=== PATIENT | male | born 1950 | race Caucasian/White ===

== ENCOUNTER 2018-07-20 11:12 | Emergency (ER) | payer OTHER, BC, MEDICARE ==
[~2018-07-20] VITALS: Ht 182.9 cm; Wt 88.9 kg
--- OUTSIDE RECORDS SUMMARY | ~2018-07-20 | XMS | Clinical Summary ---
Demographics + + + | Address | [address] | | | [place] [address] | + + + | Home Phone | | + + + | Preferred Language | Unknown | + + + | Marital Status | | + + + | Episcopal Affiliation | 1013 | + + + | Race | Unknown | + + + | Ethnic Group | Unknown | + + + Author + + + | Author | [facility] | + + + | Organization | [facility] | + + + | Address | Unknown | + + + | Phone | Unavailable | + + + Support + + +---------+ + | Name | Relationship | Address | Phone | + + +---------+ + | Lizz Mendoza | ECON | Unknown | | + + +---------+ + Care Team Providers + +------+ + | Care Motor Runner Name | Role | Phone | + +------+ + | Kade Bermudez MD | PP | Unavailable | + +------+ + Allergies No Known Allergies Current Medications + + +-------+---------+------+------+-------+ | Prescription | Sig. | Disp. | Refills | Star | End | Statu | | | | | | t | Date | s | | | | | | Date | | | + + +-------+---------+------+------+-------+ | pramipexole | Take 2 mg by mouth | | | | | Activ | | (MIRAPEX) 1 MG | nightly. | | | | | e | | tablet | | | | | | | + + +-------+---------+------+------+-------+ | buPROPion | Take 300 mg by mouth | | | | | Activ | | (WELLBUTRIN XL) 150 | every morning. | | | | | e | | MG 24 hr tablet | | | | | | | + + +-------+---------+------+------+-------+ | oxycodone (OXY-IR) | Take 5 mg by mouth | | | | | Activ | | 5 MG capsule | every 6 (six) hours | | | | | e | | | as needed. | | | | | | + + +-------+---------+------+------+-------+ Active Problems + + + | Problem | Noted Date | + + + | Headache, intractable | 09/26/2015 | + + + Social History + +-------+ +--------+------+ | Tobacco Use | Types | Packs/Day | Years | Date | | | | | Used | | + +-------+ +--------+------+ | Former Smoker | | | | | + +-------+ +--------+------+ + + | Tobacco Cessation: Counseling Given: No | + + + + +---------+ + | Alcohol Use | Drinks/We | oz/Week | Comments | | | ek | | | + + +---------+ + | No | | | | + + +---------+ + + + + | Sex Assigned at | Date Recorded | | | | + + + | Not on file | | + + + Last Filed Vital Signs + + + + | Vital Sign | Reading | Time Taken | + + + + | Blood Pressure | 105/65 | 09/26/2015 12:00 PM PST | + + + + | Pulse | 68 | 09/26/2015 12:00 PM PST | + + + + | Temperature | 36.2 C (97.1 F) | 09/26/2015 12:00 PM PST | + + + + | Respiratory Rate | 18 | 09/26/2015 12:00 PM PST | + + + + | Oxygen Saturation | 94% | 09/26/2015 12:00 PM PST | + + + + | Inhaled Oxygen | - | - | | Concentration | | | + + + + | Weight | 92.1 kg (203 lb) | 09/26/2015 12:02 PM PST | + + + + | Height | 182.9 cm (6') | 09/26/2015 5:08 AM PST | + + + + | Body Mass Index | 27.53 | 09/26/2015 12:02 PM PST | + + + + Plan of Treatment Not on file Results Not on filefrom Last 3 Months Insurance + +--------+ +------+-------+ + | Payer | Benefi | Subscriber | Type | Phone | Address | | | t Plan | ID | | | | | | / | | | | | | | Group | | | | | + +--------+ +------+-------+ + | MEDICARE | MEDICA | [id number] | | | [address] | | | RE | | | | [place] [address] | | | IP-OP | | | | | + +--------+ +------+-------+ + | PREMERA | PREMER | [id number] | | | [address] [address] | | | A BLUE | 8 | | | [place], [place] | | | CARD | | | | [phone] | + +--------+ +------+-------+ + + +--------+ +--------+ + + | Guarantor Name | Accoun | Relation to | Date | Phone | Billing Address | | | t Type | Patient | of | | | | | | | | | | + +--------+ +--------+ + + | MAL MENDOZA | Person | Self | [birth year] | Home: | [address] | | | [place] | | 1 | [phone] | [place] | | | faith | | | [phone] | + +--------+ +--------+ + +"
--- OUTSIDE RECORDS SUMMARY | ~2018-07-20 | XMS | Clinical Summary ---
Demographics + + + | Address | [address] | | | [place] [address] | + + + | Home Phone | | + + + | Preferred Language | Unknown | + + + | Marital Status | | + + + | Sabianism Affiliation | 1013 | + + + | Race | Unknown | + + + | Ethnic Group | Unknown | + + + Author + + + | Author | [facility] | | | and [place] | + + + | Organization | [facility] | | | and [place] | + + + | Address | Unknown | + + + | Phone | Unavailable | + + + Support + + + + + | Name | Relationship | Address | Phone | + + + + + | Lizz Mendoza | ECON | [address] | | | | | [place] | | | | | [address] | | + + + + + Care Team Providers + +------+ + | Care Superintendent Construction Name | Role | Phone | + +------+ + | Kade Bermudez MD | PP | | + +------+ + Allergies No Known Allergies Current Medications + + +---------+---------+------+------+-------+ | Prescription | Sig. | Disp. | Refills | Star | End | Statu | | | | | | t | Date | s | | | | | | Date | | | + + +---------+---------+------+------+-------+ | pramipexole | Take 2 mg by mouth | | | | | Activ | | (MIRAPEX) 1 MG | nightly. | | | | | e | | tablet | | | | | | | + + +---------+---------+------+------+-------+ | oxyCODONE 10 MG | Take 1-2 tablets by | 90 | 0 | 09/2 | | Activ | | TABSIndications: S/P | mouth every 4 hours | tablet | | 7/20 | | e | | lumbar fusion | as needed. | | | 16 | | | + + +---------+---------+------+------+-------+ | | Take 3 capsules by | | | | | Activ | | Nszutriwqp-WQJ-Pykk- | mouth Daily. | | | | | e | | Codeine (BUTALBITAL | | | | | | | | COMPOUND/CODEINE PO) | | | | | | | + + +---------+---------+------+------+-------+ | DULoxetine | Take 1 capsule by | 30 | 2 | 11/1 | | Activ | | (CYMBALTA) [address] | mouth daily (after | capsule | | 020 | | e | | capsule | dinner). | | | 16 | | | + + +---------+---------+------+------+-------+ Active Problems + + + | Problem | Noted Date | + + + | Chronic pain disorder | 06/19/2016 | + + + | Abnormal resting ECG findings | 03/06/2016 | + + + | Flat back syndrome | 12/16/2015 | + + + | Lumbar disc herniation with radiculopathy | 04/06/2015 | + + + | Cervical spondylosis with myelopathy | 12/23/2012 | + + + | Spondylolisthesis of cervical region | 12/16/2012 | + + + | S/P lumbar fusion | 12/16/2012 | + + + | Chronic neck pain | 12/16/2012 | + + + [...] | 6 | + + + + Family History [...] | | + + +---------+ + | Yes | 3 Cans | 1.8 | | | | of beer | | | + + +---------+ + + + + | Sex Assigned at | Date Recorded | | | | + + + | Not on file | | + + + Last Filed Vital Signs + + + + | Vital Sign | Reading | Time Taken | + + + + | Blood Pressure | 127/80 | 12/18/2016830 PDT | + + + + | Pulse | 56 | 12/18/2016830 PDT | + + + + | Temperature | 36.2 C (97.2 F) | 03/21/201632 PDT | + + + + | Respiratory Rate | 20 | 04/03/2016958 PDT | + + + + | Oxygen Saturation | 92% | 03/09/2016 1600 PDT | + + + + | Inhaled Oxygen | - | - | | Concentration | | | + + + + | Weight | 87.5 kg (193 lb) | 12/18/2016830 PDT | + + + + | Height | 180.3 cm (5' 11") | 12/18/2016830 PDT | + + + + | Body Mass Index | 26.92 | 12/18/2016 0831 PDT | + + + + Plan of [...] | Vaccine: | | | | | Pneumococcal 65+ | 6 | | | | Low/Medium Risk (1 | | | | | of 2 - PCV13) | | | | + + + + + | Vaccine: Influenza | | | | | (#1) | 8 | | | + + + + + Implants + +------+--------+ +--------+--------+--------+ | Implanted | Type | Area | Manufacture | Device | Expira | Model | | | | | r | | tion | / | | | | | | Identi | Date | Serial | | | | | | fier | | / Lot | + +------+--------+ +--------+--------+--------+ | Putty Chaffee 10cc Dbm - | | Left: | MEDTRONIC - | | 10/06/ | [id number] | | [id number]: Qty: 1 | | Spine | MEDT | | 2019 | | | on 03/06/2016 by Domingo Carlson | | Lumbar | | | | /[id number] | | MD Mariel | | | | | | 5-035 | | | | | | | | / | + +------+--------+ +--------+--------+--------+ | Screw Polyax Precept 6.5x50 - | | Left: | NUVASIVE - | | | [id number] | | [id number]: Qty: 2 | | Spine | NVSV | | | 0A / / | | on 03/06/2016 by Domingo Carlson | | Lumbar | | | | | | MD Mariel | | | | | | | + +------+--------+ +--------+--------+--------+ | Screw Polyax Prcpt 7.5x50mm - | | Left: | NUVASIVE - | | | [id number] | | [id number]: Qty: 6 | | Spine | NVSV | | | 0A / / | | on 03/06/2016 by Domingo Carlson | | Lumbar | | | | | | MD Mariel | | | | | | | + +------+--------+ +--------+--------+--------+ | Graft Infuse Bone Kit Xs - | | Left: | SOFAMOR | | 04/16/ | [id number] | | [id number]: Qty: 1 on | | Spine | DANEK - DIV | | 2017 | 0 / | | 03/06/2016 by Domingo Carlson, | | Lumbar | MEDTRONIC | | | /[id number] | | MD | | | - SFDK | | | 29AAM | + +------+--------+ +--------+--------+--------+ | [facility]cc - | | Left: | MEDTRONIC - | | 09/12/ | [id number] | | [id number]: Qty: 1 | | Spine | MEDT | | 2020 | | | on 03/06/2016 by Domingo Carlson | | Lumbar | | | | /[id number] | | MD Mariel | | | | | | 9-009 | | | | | | | | / | + +------+--------+ +--------+--------+--------+ | Imp Spn Spcr Gina [id number] | | Left: | NUVASIVE - | | | [id number] | | 20d - [id number]: | | Spine | NVSV | | | 5 / / | | Qty: 1 on 03/06/2016 by Robyn, | | Lumbar | | | | | | Domingo Floyd MD | | | | | | | + +------+--------+ +--------+--------+--------+ | Screw Marta Gina Xlf 6.5x50mm - | | Left: | NUVASIVE - | | | [id number] | | [id number]: Qty: 1 | | Spine | NVSV | | | 0 / / | | on 03/06/2016 by Domingo Carlson | | Lumbar | | | | | | MD Mariel | | | | | | | + +------+--------+ +--------+--------+--------+ | Tlif Oblique [id number] 12deg | | Left: | NUVASIVE - | | | [id number] | | - [id number]: Qty: 1 | | Spine | NVSV | | | 2 / / | | on 03/06/2016 by Domingo Carlson | | Lumbar | | | | | | MD Mariel | | | | | | | + +------+--------+ +--------+--------+--------+ | Juvenal Ti Prebent Lordtc 120mm - | | Left: | NUVASIVE - | | | [id number] | | [id number]: Qty: 2 | | Spine | NVSV | | | 0 / / | | on 03/06/2016 by Domingo Carlson | | Lumbar | | | | | | MD Mariel | | | | | | | + +------+--------+ +--------+--------+--------+ | Screw Set - | | Left: | NUVASIVE - | | | [id number] | | [id number]: Qty: 10 | | Spine | NVSV | | | 0 / / | | on 03/06/2016 by Domingo Carlson | | Lumbar | | | | | | MD Mariel | | | | | | | + +------+--------+ +--------+--------+--------+ | Screw Prcpt 8.5x45mm - | | Left: | NUVASIVE - | | | [id number] | | [id number]: Qty: 2 on | | Spine | NVSV | | | 5A / / | | 03/06/2016 by Domingo Carlson, | | Lumbar | | | | | | MD | | | | | | | + +------+--------+ +--------+--------+--------+ Results Not on filefrom Last 3 Months Insurance + +--------+ +--------+ +---------+ | Payer | Benefi | Subscriber | Type | Phone | Address | | | t Plan | ID | | | | | | / | | | | | | | Group | | | | | + +--------+ +--------+ +---------+ | BCBS | BCBS | [id number] | PPO | | | | | OUT OF | 8 | | | | | | STATE | | | | | | | PPO | | | | | + +--------+ +--------+ +---------+ | MEDICARE | MEDICA | [id number] | Medica | +1-- | | | | RE | | re | [phone] | | | | PART A | | | | | | | AND B | | | | | + +--------+ +--------+ +---------+ | REGENCE | REGENC | [id number] | PPO | [phone] | | | | E BCBS | 8 | | [phone] | | | | [place] | | | | | | | PPO | | | | | + +--------+ +--------+ +---------+ + +--------+ +--------+ + + | Guarantor Name | Accoun | Relation to | Date | Phone | Billing Address | | | t Type | Patient | of | | | | | | | | | | + +--------+ +--------+ + + | SHEELA MENDOZA | Person | Self [birth year] | Home: | [address] | | | [place] | | 1949 | [phone] | [place] | | | faith | | | [phone] | + +--------+ +--------+ + +
--- OUTSIDE RECORDS SUMMARY | ~2018-07-20 | XMS | Clinical Summary ---
Demographics + + + | Address | [address] | | | [place] [address] | + + + | Home Phone | | + + + | Preferred Language | Unknown | + + + | Marital Status | | + + + | Mormonism Affiliation | 1013 | + + + | Race | Unknown | + + + | Ethnic Group | Unknown | + + + Author + + + | Author | [facility] | + + + | Organization | [facility] | + + + | Address | Unknown | + + + | Phone | Unavailable | + + + Support + + +---------+ + | Name | Relationship | Address | Phone | + + +---------+ + | Lizz Mendoza | ECON | Unknown | | + + +---------+ + Care Team Providers + +------+ + | Care Assistant Community Director Name | Role | Phone | [...] +------+-------+ + | MEDICARE | MEDICA | [id number] | | | [address] | | | RE | | | | [place] [address] | | | IP-OP | | | | | + +--------+ +------+-------+ + | PREMERA | PREMER | [id number] | | | [address] [address] | | | A BLUE | 8 | | | [place], [place] | | | CARD | | | | [phone] | + +--------+ +------+-------+ + + +--------+ [...] | | | faith | | | [phone] | [phone] | + +--------+ +--------+ + +"
--- OUTSIDE RECORDS SUMMARY | ~2018-07-20 | XMS | Clinical Summary ---
Demographics + + + | Address | [address] | | | [place] [address] | + + + | Home Phone [...] | Author | [facility] | | | and [place] | + + + | Organization | [facility] | | | and [place] | + + + | Address | Unknown | + + + | Phone | Unavailable | + + + Support + + + + + | Name | Relationship | Address | Phone | + + + + + | Lizz Mendoza | ECON | [address] | | | | | [place] | | | | | [phone] | | + + + + + Care Team Providers + +------+ + | Care Rouge Mixer Name | Role | Phone | + [...] | | | | Activ | | Ssuaxjqudd-RWI-Eyyt- | mouth Daily. | | | | [...] Lot | + +------+--------+ +--------+--------+--------+ | Putty Benson 10cc Dbm - | | Left: | MEDTRONIC - | | 10/06/ | [id number] | | [id number]: Qty: 1 | | Spine | MEDT | | 2019 | | | on 03/06/2016 by Domingo aCrlson | | Lumbar | | | | /[id number] | | MD Mariel | | | | | | 5-035 | | | | | | | | / | + +------+--------+ +--------+--------+--------+ | Screw Polyax Precept 6.5x50 - | | Left: | NUVASIVE - | | | [id number] | | [id number]: Qty: 2 | | Spine | NVSV | | | 0A / / | | on 03/06/2016 by Domingo Carlson | | Lumbar | | | | | | MD Mariel | | | | | | | + +------+--------+ +--------+--------+--------+ | Screw Polyax Prcpt 7.5x50mm - | | Left: | NUVASIVE - | | | [id number] | | [id number]: Qty: 6 | | Spine | NVSV | | | 0A / / | | on 03/06/2016 by Domingo Carlson | | Lumbar | | | | | | MD Mariel | | | | | | | + +------+--------+ +--------+--------+--------+ | Graft Infuse Bone Kit Xs - | | Left: | SOFAMOR | | 04/16/ | [id number] | | [id number]: Qty: 1 on | | Spine | DANEK - DIV | | 2017 | 0 / | | 03/06/2016 by Domingo Carlson, | | Lumbar | MEDTRONIC | | | /[id number] | | MD | | | - SFDK | | | 29AAM | + +------+--------+ +--------+--------+--------+ | Algrft [facility] 1-10 30cc - | | Left: | MEDTRONIC - | | 09/12/ | [id number] | | [id number]: Qty: 1 | | Spine | MEDT | | 2020 | | | on 03/06/2016 by Domingo Carlson | | Lumbar | | | | /[id number] | | MD Mariel | | | | | | 9-009 | | | | | | | | / | + +------+--------+ +--------+--------+--------+ | Imp Spn Spcr Gina [id number] | | Left: | NUVASIVE - | | | [id number] | | 20d - [id number]: | | Spine | NVSV | | | 5 / / | | Qty: 1 on 03/06/2016 by Robyn, | | Lumbar | | | | | | Domingo Floyd MD | | | | | | | + +------+--------+ +--------+--------+--------+ | Screw Marta Gina Xlf 6.5x50mm - | | Left: | NUVASIVE - | | | [id number] | | [id number]: Qty: 1 | | Spine | NVSV | | | 0 / / | | on 03/06/2016 by Domingo Carlson | | Lumbar | | | | | | MD Mariel | | | | | | | + +------+--------+ +--------+--------+--------+ | Tlif Oblique [id number] 12deg | | Left: | NUVASIVE - | | | [id number] | | - [id number]: Qty: 1 | | Spine | NVSV | | | 2 / / | | on 03/06/2016 by Domingo Carlson | | Lumbar | | | | | | MD Mariel | | | | | | | + +------+--------+ +--------+--------+--------+ | Juvenal Ti Prebent Lordtc 120mm - | | Left: | NUVASIVE - | | | [id number] | | [id number]: Qty: 2 | | Spine | NVSV | | | 0 / / | | on 03/06/2016 by Domingo Carlson | | Lumbar | | | | | | MD Mariel | | | | | | | + +------+--------+ +--------+--------+--------+ | Screw Set - | | Left: | NUVASIVE - | | | [id number] | | [id number]: Qty: 10 | | Spine | NVSV | | | 0 / / | | on 03/06/2016 by Domingo Carlson | | Lumbar | | | | | | MD Mariel | | | | | | | + +------+--------+ +--------+--------+--------+ | Screw Prcpt 8.5x45mm - | | Left: | NUVASIVE - | | | [id number] | | [id number]: Qty: 2 on | | Spine | [...] +--------+ +---------+ | BCBS | BCBS | [id number] | PPO | | | | | OUT OF | 8 | | | | | | STATE | | | | | | | PPO | | | | | + +--------+ +--------+ +---------+ | MEDICARE | MEDICA | [id number] | Medica | +1-- | | | | RE | | re | [phone] | | | | PART A | | | | | | | AND B | | | | | + +--------+ +--------+ +---------+ | REGENCE | REGENC | [id number] | PPO | [phone] | | | [...] | | al/[place] | | 1949 | [phone] | [place] | | | faith | | | [phone] | [phone] | + +--------+ +--------+ + +
[~2018-07-20 11:12] MED LIST: COLACE100 MG PO; CYCLOBENZAPRINE10 MG PO; CYCLOBENZAPRINE5 MG PO; DILAUDID2 MG PO; DULOXETINE HCL60 MG PO; HYDROCODON-ACE1 EA13 PO; MECLIZINE HCL25 MG PO; NEURONTIN300 MG PO; NORCO 10-325 T1 EACH PO; NORCO 5-325 TA1 EACH PO; OXYCODONE HCL10 MG PO; OXYCODONE HCL5 MG PO; PIROXICAM20 MG PO; PRAMIPEXOLE DIHY1 MG PO; PREDNISONE5 MG PO; PROPRANOLOL HCL20 MG PO; REQUIP4 MG PO; ROPINIROLE HCL12 MG PO; SERTRALINE HCL100 MG PO; TRANXENE T-TAB7.5 MG PO; TRAZODONE HCL50 MG PO; TYLENOL325 MG PO; ZOFRAN4 MG PO
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
== END 2018-07-20 13:41 | disposition home or self-care (01) ==
LOC: ED 11:12
DX: S40.011A Contusion of right shoulder, initial encounter (principal); V49.9XXA Car occupant (driver) (passenger) injured in unspecified traffic accident, initial encounter; G43.909 Migraine, unspecified, not intractable, without status migrainosus; Z79.891 Long term (current) use of opiate analgesic; Z79.899 Other long term (current) drug therapy
CPT/HCPCS: 73000; 73030; 99283

== ENCOUNTER 2019-08-29 14:47 | Emergency (ER) | payer BC, MEDICARE ==
[~2019-08-29] VITALS: Ht 177.8 cm; Wt 88.5 kg
--- OUTSIDE RECORDS SUMMARY | ~2019-08-29 | XMS | Encounter Summary ---
Demographics + + + | Address | [address] | | | [place] [address] | + + + | Home Phone | | + + + | Preferred Language | Unknown | + + + | Marital Status | | + + + | Bahai Affiliation | 1013 | + + + | Race | Unknown | + + + | Ethnic Group | Unknown | + + + Author + + + | Author | [facility] | | | and [place] | + + + | Organization | [facility] | | | and [place] | + + + | Address | Unknown | + + + | Phone | Unavailable | + + + Support + + +---------+ + | Name | Relationship | Address | Phone | + + +---------+ + | Lizz Mendoza | ECON | Unknown | | + + +---------+ + Care Team Providers + +------+ + | Care Tech Intern Name | Role | Phone | + +------+ + | Kade Bermudez MD | PCP | | + +------+ + Encounter Details +--------+ + + + + | Date | Type | Department | Care Team | Description | +--------+ + + + + | 03/17/ | [facility] | [facility] | Sawyer Petersen | Status post cervical | | 2012 | Encounter | MED CTR XRAY [address] | [address], [address] | spinal fusion | | | | [address] [place] | [place] | | | | | [place] [address] | [address] | | | | | [phone] | | | | | | | | +--------+ + + + + Social History + +-------+ +--------+ + | Tobacco Use | Types | Packs/Day | Years | Date | | | | | Used | | + +-------+ +--------+ + | Former Smoker | | 3 | | Quit: 06/12/1985 | + +-------+ +--------+ + + +---+---+ + | Smokeless Tobacco: | | | Quit: | | Former User | | | 06/12/19 | | | | | 85 | + +---+---+ + + + +---------+ + | Alcohol Use | Drinks/Week | oz/Week | Comments | + + +---------+ + | Yes | 3 Cans of beer | 3.0 | | + + +---------+ + + + + | Sex Assigned at | Date Recorded | | | | + + + | Not on file | | + + + + + + + | Job Start Date | Occupation | Industry | + + + + | Not on file | Not on file | Not on file | + + + + + + + + | Travel History | Travel Start | Travel End | + + + + + + | No recent travel history available. | + + documented as of this encounter Medications at Time of Discharge + + + +---------+ + + | Medication | Sig | Dispensed | Refills | Start | End Date | | | | | | Date | | + + + +---------+ + + | clorazepate | Take 7.5 mg by mouth | | 0 | 01/09/20 | | | (TRANXENE-T) 7.5 mg | every 6 hours as | | | 13 | 6 | | tablet | needed. | | | | | + + + +---------+ + + | | Take 1-2 tablets by | 30 | 0 | 01/14/20 | | | oxyCODONE-acetaminop | mouth EVERY 4 TO 6 | tablet | | 13 | 6 | | hen (PERCOCET) 5-325 | HOURS NEEDED. | | | | | | mg per tablet | | | | | | + + + +---------+ + + | piroxicam | | | 0 | 11/26/19 | | | (FELDENE) 20 MG | | | | 13 | 6 | | capsule | | | | | | + + + +---------+ + + | rOPINIRole | Take 4 mg by mouth | | 0 | 12/20/19 | | | (REQUIP) 4 mg tablet | At bedtime. | | | 13 | 3 | + + + +---------+ + + | SERTRALINE HCL PO | Take 200 mg by mouth | | 0 | | | | | Daily. | | | | 6 | + + + +---------+ + + documented as of this encounter Plan of Treatment Not on filedocumented as of this encounter Procedures + +--------+ + + + | Procedure Name | Priori | Date/Time | Associated Diagnosis | Comments | | | ty | | | | + +--------+ + + + | XR CERVICAL SPINE 2 | Routin | 03/17/2013 | Status post | Results for this | | OR 3 VIEWS | e | 11:36 AM | cervical spinal | procedure are in the | | | | PDT | fusion | results section. | + +--------+ + + + documented in this encounter Results XR Cervical Spine 3 Vws or Less (03/17/2013 11:36 AM PDT) + + | Specimen | + + | | + + + + + | Narrative | Performed At | + + + | [facility] | [place] | | Department [address] [facility] | [facility] | | [ rep [address]] [ rep [facility] | | [facility]] Signed | - IMAGING | | | | | Patient Name: MAL MENDOZA Physician: | | | MILI.[id number] : 1950 Age: 63 Sex: M Unit #: [id number] | | | Exam Date: 03/17/13 [place] [facility] [place] | | Report #: [id number] Page: | | | %(RAD)RES..mtdd.print.filter("pg") of %(RAD) | | | RES..mtdd.print.filter("tpg") | | | | | | Accession Number: [id number] | | | CERVICAL SPINE CLINICAL HISTORY: POSTOP FUSION. | | | FINDINGS: Frontal and lateral views of the cervical | | | spine are compared to 01/08/2013. An anterior compression plate | | | extends from C3 to C7. Screws are present into each vertebral body | | | and interbody spacers are present in each interspace. Hardware | | | position is unchanged from the immediate postoperative study. | | | Alignment is normally maintained. There are no other bony | | | abnormalities. Adjacent soft tissues are normal. | | | IMPRESSION: 1. STABLE C3 TO C7 ANTERIOR CERVICAL DISKECTOMY | | | AND FUSION CHANGES. Dictated Date/Time: 03/17/2013 | | | 11:36 Transcribed Date/Time: 03/17/2013 11:48 | | | Plater Hot Dip: <<Signature on File>> | | | | | | Ruddy Hoang MD03/17/13 1527 <Electronically signed by | | | Ruddy Hoang MD> Ruddy Hoang MD 03/17/13 | | | 1136 Plater Hot Dip: Jack Aqihbfzqvwjsi82/01/13 1148 | | | [place] MD | | + + + + + + + + | Performing | Address | City/State/Zipcode | Phone Number | | Organization | | | | + + + + + | [facility] | [address] | [place] | [phone] | | [facility] | | [address] | | | - IMAGING | | | | + + + + + documented in this encounter Visit Diagnoses + + | Diagnosis | + + | Status post cervical spinal fusion Arthrodesis status | + + documented in this encounter
--- OUTSIDE RECORDS SUMMARY | ~2019-08-29 | XMS | Encounter Summary ---
Demographics + + + | Address | [address] | | | [place] [address] | + + + | Home Phone | | + + + | Preferred Language | Unknown | + + + | Marital Status | | + + + | Scientology Affiliation | 1013 | + + + | Race | Unknown | + + + | Ethnic Group | Unknown | + + + Author + + + | Author | [facility] | | | and [place] | + + + | Organization | [facility] | | | and [place] | [...] Team Providers + +------+ + | Care Beauty Shop Manager Name | Role | Phone | + +------+ + | Kade Bermudez MD | PCP | | + +------+ + Encounter Details +--------+ + + + + | Date | Type | Department | Care Team | Description | +--------+ + + + + | 12/18/ | [facility] | [facility] | Domingo Carlson MD | Chronic pain | | 2017 | Encounter | MED CTR XRAY [address] | [address] | disorder; S/P lumbar | | | | [place] | [place] [address] | fusion; S/P | | | | [place] [address] | [phone] | cervical spinal | | | | [phone] | | fusion | +--------+ + + + + Social History + +-------+ +--------+ + | Tobacco Use | Types | Packs/Day | Years | Date | | | | | Used | | + +-------+ +--------+ + | Former Smoker | | 3 | | Quit: 06/12/1985 | + +-------+ +--------+ + + +---+---+---+ | Smokeless Tobacco: | | | | | Never Used | | | | + +---+---+---+ + + +---------+ + | Alcohol Use [...] + + documented as of this encounter Functional Status + + + + | Functional Status | Response | Date of Assessment | + + + + | Are you deaf or do you have serious | No | 03/09/2016 | | difficulty hearing? | | | + + + + | Are you blind or do you have serious | No | 03/09/2016 | | difficulty seeing, even when wearing | | | | glasses? | | | + + + + | Do you have serious difficulty walking or | No | 03/09/2016 | | climbing stairs? (5 years old or older) | | | + + + + | Do you have difficulty dressing or bathing? | No | 03/09/2016 | | (5 years old or older) | | | + + + + | Because of a physical, mental, or emotional | No | 03/09/2016 | | condition, do you have difficulty doing | | | | errands alone such as visiting a doctor's | | | | office or shopping? [15 years old or | | | | older)] | | | + + + + + + + + | Cognitive Status | Response | Date of Assessment | + + + + | Because of a physical, mental, or emotional | No | 03/09/2016 | | condition, do you have serious difficulty | | | | concentrating, remembering, or making | | | | decisions? (5 years old or older) | | | + + + + documented as of this encounter Medications at Time of Discharge + + + +---------+ + + | Medication | Sig | Dispensed | Refills | Start | End Date | | | | | | Date | | + + + +---------+ + + | | Take 3 capsules by | | 0 | | | | [id number] | mouth Daily. | | | | | | Codeine (BUTALBITAL | | | | | | | COMPOUND/CODEINE PO) | | | | | | + + + +---------+ + + | DULoxetine | Take 1 capsule by | 30 | 2 | 07/27/20 | | | (CYMBALTA) [address] | mouth daily (after | capsule | | 16 | | | capsule | dinner). | | | | | + + + +---------+ + + | oxyCODONE 10 MG | Take 1-2 tablets by | 90 | 0 | 06/13/20 | | | TABSIndications: S/P | mouth every 4 hours | tablet | | 16 | | | lumbar fusion | as needed. | | | | | + + + +---------+ + + | pramipexole | Take 2 mg by mouth | | 0 | | | | (MIRAPEX) 1 MG | nightly. | | | | | | tablet | | | | | | + + + +---------+ + + documented as of this encounter Plan of Treatment Not on filedocumented as of this encounter Procedures + +--------+ + + + | Procedure Name | Priori | Date/Time | Associated Diagnosis | Comments | | | ty | | | | + +--------+ + + + | XR LUMBAR SPINE 2 OR | Routin | 12/18/2016 | Chronic pain | Results for this | | 3 VW | e | 8:15 AM | disorder S/P lumbar | procedure are in the | | | | PDT | fusion S/P | results section. | | | | | cervical spinal | | | | | | fusion | | + +--------+ + + + documented in this encounter Results XR Lumbar Spine 2 or 3 Vw (12/18/2016 8:15 AM PDT) + + | Specimen | + + | | + + + + + | Narrative | Performed At | + + + | CLINICAL INFORMATION: Postoperative follow-up COMPARISON: | [facility] | | 06/19/2016 and 04/03/2016. FINDINGS: AP and lateral views of [facility] | | the lumbosacral spine. Posterior screw and sonia fusion changes at [facility] | | L2-S1 without evidence of hardware complication. Intervertebral disc | - IMAGING | | spacers are in place. A transverse vertebral body screw is noted at | | | L2. Number of lumbar-type vertebrae: 5 Alignment: Unchanged | | | minimal retrolisthesis of L2 on L3. Otherwise normal alignment. | | | Vertebral bodies: Normal in height. No vertebral fracture. Disk | | | spaces: Moderate intervertebral disc height loss at L1-2 with large | | | osteophyte formation. Soft tissues: Normal. IMPRESSION - | | | 1. Posterior fusion changes at L2-S1 without evidence of hardware | | | complication. 2. Moderate degenerative disc disease at L1-2. | | | Dictated and Signed by: Morgan Ponce MD Electronically signed: | | | 12/18/2016 10:17 AM | | + + + + + | Procedure Note | + + | Venancio Cody Results In - 12/18/2016 10:20 AM PDT | | CLINICAL INFORMATION: Postoperative follow-up | | | | COMPARISON: 06/19/2016 and 04/03/2016. | | | | FINDINGS: | | AP and lateral views of the lumbosacral spine. Posterior screw and sonia fusion | | changes at L2-S1 without evidence of hardware complication. Intervertebral disc | | spacers are in place. A transverse vertebral body screw is noted at L2. | | | | Number of lumbar-type vertebrae: 5 | | | | Alignment: Unchanged minimal retrolisthesis of L2 on L3. Otherwise normal | | alignment. | | | | Vertebral bodies: Normal in height. No vertebral fracture. | | | | Disk spaces: Moderate intervertebral disc height loss at L1-2 with large | | osteophyte formation. | | | | Soft tissues: Normal. | | | | | | IMPRESSION - | | 1. Posterior fusion changes at L2-S1 without evidence of hardware complication. | | 2. Moderate degenerative disc disease at L1-2. | | | | Dictated and Signed by: Morgan Ponce MD | | Electronically signed: 12/18/2016 10:17 AM | + + + + + + + | Performing | Address | City/State/Zipcode | Phone Number | | Organization | | | | + + + + + | [facility] | [address] | [place] | [phone] | | [facility] | | [address] | | | - IMAGING | | | | + + + + + documented in this encounter Visit Diagnoses + + | Diagnosis | + + | Chronic pain disorder Chronic pain syndrome | + + | S/P lumbar fusion Arthrodesis status | + + | S/P cervical spinal fusion Arthrodesis status | + + documented in this encounter"
--- OUTSIDE RECORDS SUMMARY | ~2019-08-29 | XMS | Encounter Summary ---
Demographics + + + | Address | [address] | | | [place] [address] | + + + | Home Phone | | + + + | Preferred Language | Unknown | + + + | Marital Status | | + + + | Bahai Affiliation | 1013 | + + + | Race | Unknown | + + + | Ethnic Group | Unknown | + + + Author + + + | Author | [facility] | | | and [place] | + + + | Organization | [facility] | | | and [place] | [...] Team Providers + +------+ + | Care Data Control Clerk Name | Role | Phone | + +------+ + | Kade Bermudez MD | PCP | | + +------+ + Encounter Details +--------+ + + + + | Date | Type | Department | Care Team | Description | +--------+ + + + + | 03/01/ | [facility] | [facility] | Domingo Carlson MD | | | 2016 | Encounter | MED CTR LABORATORY | [address] | | | | | [address] | [place] [address] | | | | | [place] | [phone] | | | | | [address] | | | | | | [phone] | | | +--------+ + + + [...] + + + +---------+ + + | cyclobenzaprine | Take 1 tablet by | 90 | 3 | 03/09/20 | | | (FLEXERIL) 10 mg | mouth every 8 hours | tablet | | 16 | 6 | | tablet | as needed for Muscle | | | | | | | spasms. | | | | | + + + +---------+ + + | lactulose 10 g/15 | Take 30 mLs by mouth | 240 mL | 0 | 03/09/20 | | | mL solution | 2 times daily. | | | 16 | 6 | + + + +---------+ + + | | Take 1-2 tablets by | 120 | 0 | 03/09/20 | | | oxyCODONE-acetaminop | mouth every 4 hours | tablet | | 16 | 6 | | hen (PERCOCET) | as needed for Pain. | | | | | | 10-325 mg per tablet | | | | | | + + + +---------+ + + | SERTRALINE HCL PO | Take 200 mg by mouth | | 0 | | | | | Daily. | | | | 6 | + + + +---------+ + + | tamsulosin | Take 1 capsule by | 30 | 0 | 03/09/20 | | | (FLOMAX) 0.4 mg CAPS | mouth daily (after | capsule | | 16 | 6 | | | breakfast). | | | | | + + + +---------+ + + documented as of this encounter Plan of Treatment Not on filedocumented as of this encounter Visit Diagnoses Not on filedocumented in this encounter"
--- OUTSIDE RECORDS SUMMARY | ~2019-08-29 | XMS | Encounter Summary ---
Demographics + + + | Address | [address] | | | [place] [address] | + + + | Home Phone | | + + + | Preferred Language | Unknown | + + + | Marital Status | | + + + | Episcopal Affiliation | 1013 | + + + | Race | Unknown | + + + | Ethnic Group | Unknown | + + + Author + + + | Author | [facility] | | | and [place]to[place] | + + + | Organization | [facility] | | | and [...] Team Providers + +------+ + | Care Salesperson Recreational Vehicles Name | Role | Phone | + +------+ + | Kade Bermudez MD | PCP | | + +------+ + Encounter Details +--------+ + + + + | Date | Type | Department | Care Team | Description | +--------+ + + + + | 02/02/ | Orders Only | [facility] [place] | Domingo Carlson MD | Lumbar radiculopathy | | 2016 | | NEUROSURGERY [address] | [address] | (Primary Dx); | | | | [address] | [place] [address] | Lumbar disc | | | | [place] | [phone] | herniation with | | | | [address] | | radiculopathy; | | | | [phone] | | Lumbar spinal | | | | | | stenosis; Lumbar | | | | | | degenerative disc | | | | | | disease; Facet | | | | | | arthropathy, lumbar; | | | | | | Arthritis; Spinal | | | | | | instability, lumbar; | | | | | | Foraminal stenosis | | | | | | of lumbosacral | | | | | | region; | | | | | | Spondylolisthesis of | | | | | | lumbar region; | | | | | | Scoliosis, | | | | | | unspecified | | | | | | scoliosis type, | | | | | | unspecified spinal | | | | | | region | +--------+ + + + + Social [...] Not on filedocumented as of this encounter Results XR Chest PA and Lateral (03/01/2016 11:44 AM PDT) + + | Specimen | + + | | + + + + + | Narrative | Performed At | + + + | EXAM: XR CHEST PA AND LATERAL dated 03/01/2016 11:44 AM HISTORY: | [facility] | | preoperative clearance Comparison: None. TECHNIQUE: Frontal | [facility] | | and lateral views of the chest. FINDINGS: The lungs are | [facility] | | symmetrically aerated. They are clear. Asymmetric hypertrophic | - IMAGING | | osteophytes on the left involving the first rib. There are no | | | pleural effusions. There is no pneumothorax. The cardiac and | | | mediastinal contours are not enlarged. Partial visualization of | | | fusion changes in the lower cervical spine. Scattered mild thoracic | | | spondylosis. IMPRESSION - No acute disease. Dictated and | | | Signed by: Pritesh Hastings MD Electronically signed: 03/01/2016 | | | 12:25 PM | | + + + + + | Procedure Note | + + | Escobar, Rad Results In - 03/01/2016 12:28 PM PDT EXAM: XR CHEST PA AND LATERAL dated | | 03/01/2016 11:44 AMHISTORY: preoperative clearanceComparison: None.TECHNIQUE: Frontal and | | lateral views of the chest.FINDINGS:The lungs are symmetrically aerated. They are | | clear. Asymmetric hypertrophicosteophytes on the left involving the first rib. There | | are no pleuraleffusions. There is no pneumothorax. The cardiac and mediastinal | | contours arenot enlarged. Partial visualization of fusion changes in the lower | | cervicalspine. Scattered mild thoracic spondylosis.IMPRESSION -No acute disease. | | Dictated and Signed by: Pritesh Hastings MD Electronically signed: 03/01/2016 12:25 PM | |FINDINGS: | |The lungs are symmetrically aerated. They are clear. Asymmetric hypertrophic | |osteophytes on the left involving the first rib. There are no pleural | |effusions. There is no pneumothorax. The cardiac and mediastinal contours are | |not enlarged. Partial visualization of fusion changes in the lower cervical | |spine. Scattered mild thoracic spondylosis. | | | |IMPRESSION - | | | |No acute disease. | | | |Dictated and Signed by: Pritesh Hastings MD | | Electronically signed: 03/01/2016 12:25 PM | + + + + + + + | Performing | Address | City/State/Zipcode | Phone Number | | Organization | | | | + + + + + | [facility] | [address] | [place] | [phone] | | [facility] | | [address] | | | - IMAGING | | | | + + + + + CBC with Differential (03/01/2016 11:31 AM PDT) + +-------+ + + + | Component | Value | Ref Range | Performed | Pathologist | | | | | At | Signature | + +-------+ + + + | WBC | 7.3 | 4.0 - 11.0 K/uL | [facility] | | | | | | [facility] | | | | | | MEDICAL | | | | | | CENTER - | | | | | | LABORATORY | | + +-------+ + + + | RBC | 5.04 | 4.30 - 5.70 | [facility] | | | | | M/uL | [facility] | | | | | | MEDICAL | | | | | | CENTER - | | | | | | LABORATORY | | + +-------+ + + + | Hemoglobin | 15.4 | 13.5 - 18.0 | [facility] | | | | | g/dL | [facility] | | | | | | MEDICAL | | | | | | CENTER - | | | | | | LABORATORY | | + +-------+ + + + | Hematocrit | 45.6 | 40.0 - 51.0 % | [facility] | | | | | | [facility] | | | | | | [facility]ICAL | | | | | | CENTER - | | | | | | LABORATORY | | + +-------+ + + + | MCV | 90.5 | 83.0 - 101.0 fL | [facility] | | | | | | [facility] | | | | | | MEDICAL | | | | | | CENTER - | | | | | | LABORATORY | | + +-------+ + + + | MCH | 30.5 | 28.0 - 35.0 pg | [facility] | | | | | | [facility] | | | | | | MEDICAL | | | | | | CENTER - | | | | | | LABORATORY | | + +-------+ + + + | MCHC | 33.7 | 32.0 - 36.0 | [facility] | | | | | g/dL | [facility] | | | | | | MEDICAL | | | | | | CENTER - | | | | | | LABORATORY | | + +-------+ + + + | RDW-CV | 14.4 | <15.0 % | [facility] | | | | | | [facility] | | | | | | MEDICAL | | | | | | CENTER - | | | | | | LABORATORY | | + +-------+ + + + | Platelet | 240 | 140 - 440 K/uL | [facility] | | | Count | | | [facility] | | | | | | MEDICAL | | | | | | CENTER - | | | | | | LABORATORY | | + +-------+ + + + | MPV | 8.1 | fL | [facility] | | | | | | [facility] | | | | | | MEDICAL | | | | | | CENTER - | | | | | | LABORATORY | | + +-------+ + + + | % | 63.3 | 45.0 - 82.0 % | [facility] | | | Neutrophils | | | [facility] | | | | | | MEDICAL | | | | | | CENTER - | | | | | | LABORATORY | | + +-------+ + + + | % | 23.9 | 20.0 - 45.0 % | [facility] | | | Lymphocytes | | | [facility] | | | | | | MEDICAL | | | | | | CENTER - | | | | | | LABORATORY | | + +-------+ + + + | % Monocytes | 10.5 | 4.0 - 12.0 % | [facility] | | | | | | [facility] | | | | | | [facility]ICAL | | | | | | CENTER - | | | | | | LABORATORY | | + +-------+ + + + | % | 1.7 | 0.0 - 5.0 % | [facility] | | | Eosinophils | | | [facility] | | | | | | MEDICAL | | | | | | CENTER - | | | | | | LABORATORY | | + +-------+ + + + | % Basophils | 0.6 | 0.0 - 1.0 % | [facility] | | | | | | [facility] | | | | | | MEDICAL | | | | | | CENTER - | | | | | | LABORATORY | | + +-------+ + + + | Absolute | 4.60 | 1.80 - 8.50 | [facility] | | | Neutrophils | | K/uL | [facility] | | | | | | MEDICAL | | | | | | CENTER - | | | | | | LABORATORY | | + +-------+ + + + | Absolute | 1.80 | 0.60 - 3.20 | [facility] | | | Lymphocytes | | K/uL | [facility] | | | | | | MEDICAL | | | | | | CENTER - | | | | | | LABORATORY | | + +-------+ + + + | Absolute | 0.80 | 0.00 - 1.00 | [facility] | | | Monocytes | | K/uL | [facility] | | | | | | MEDICAL | | | | | | CENTER - | | | | | | LABORATORY | | + +-------+ + + + | Absolute | 0.10 | 0.00 - 0.40 | [facility] | | | Eosinophils | | K/uL | [facility] | | | | | | MEDICAL | | | | | | CENTER - | | | | | | LABORATORY | | + +-------+ + + + | Absolute | 0.00 | 0.00 - 0.10 | [facility] | | | Basophils | | K/uL | [facility] | | | | | | MEDICAL | | | | | | CENTER - | | | | | | LABORATORY | | + +-------+ + + + + + | Specimen | + + | Blood | + + + + + + + | Performing | Address | City/State/Zipcode | Phone Number | | Organization | | | | + + + + + | [facility] | [address] | [place] | [phone] | | [facility] | | [address] | | | - LABORATORY | | | | + + + + + Basic Metabolic Panel (03/01/2016 11:31 AM PDT) + + + + + + | Component | Value | Ref Range | Performed | Pathologist | | | | | At | Signature | + + + + + + | Na | 136 | 136 - 149 | [facility] | | | | | mmol/L | [facility] | | | | | | MEDICAL | | | | | | CENTER - | | | | | | LABORATORY | | + + + + + + | K | 4.2 | 3.5 - 5.1 | [facility] | | | | | mmol/L | [facility] | | | | | | MEDICAL | | | | | | CENTER - | | | | | | LABORATORY | | + + + + + + | Cl | 101 | 98 - 109 mmol/L | [facility] | | | | | | [facility] | | | | | | MEDICAL | | | | | | CENTER - | | | | | | LABORATORY | | + + + + + + | CO2 | 30 | 24 - 31 mmol/L | [facility] | | | | | | [facility] | | | | | | MEDICAL | | | | | | CENTER - | | | | | | LABORATORY | | + + + + + + | Anion Gap | 5 | 3 - 16 mmol/L | [facility] | | | | | | [facility] | | | | | | MEDICAL | | | | | | CENTER - | | | | | | LABORATORY | | + + + + + + | Glucose | 108 | 70 - 109 mg/dL | [facility] | | | | | | [facility] | | | | | | MEDICAL | | | | | | CENTER - | | | | | | LABORATORY | | + + + + + + | BUN | 9 | 7 - 18 mg/dL | [facility] | | | | | | [facility] | | | | | | MEDICAL | | | | | | CENTER - | | | | | | LABORATORY | | + + + + + + | Creatinine | 0.72 | 0.60 - 1.30 | [facility] | | | | | mg/dL | [facility] | | | | | | MEDICAL | | | | | | CENTER - | | | | | | LABORATORY | | + + + + + + | eGFR if not | >60Comment: GLOMERULAR | >=60 | [facility] | | | | FILTRATION | mL/min/1.73m2 | [facility] | | | [place] | RATE,ESTIMATED | | MEDICAL | | | | mL/min/1.29r8Fcqv than | | CENTER - | | | | 60 Chronic kidney | | LABORATORY | | | | disease,if found over a | | | | | | 3-month period.Less than | | | | | | 15 Kidney failureFor | | | | | | | | | | | | Americans,multiply the | | | | | | calculated GFR by 1.21. | | | | | | | | | | + + + + + + | Calcium | 9.0 | 8.3 - 10.5 | [facility] | | | | | mg/dL | [facility] | | | | | | MEDICAL | | | | | | CENTER - | | | | | | LABORATORY | | + + + + + + | BUN/Creatin | 12.5 | | [facility] | | | ine Ratio | | | [facility] | | | | | | [facility]ICAL | | | | | | CENTER - | | | | | | LABORATORY | | + + + + + + + + | Specimen | + + | Blood | + + + + + + + | Performing | Address | City/State/Zipcode | Phone Number | | Organization | | | | + + + + + | [facility] | [address] | [place] | [phone] | | [facility] | | [address] | | | - LABORATORY | | | | + + + + + ECG 12 lead (03/01/2016 11:24 AM PDT) + + + + + + | Component | Value | Ref Range | Performed | Pathologist | | | | | At | Signature | + + + + + + | VENTRICULAR | 65 | BPM | [facility] | | | RATE EKG | | | | | + + + + + + | ATRIAL RATE | 65 | BPM | [facility] | | + + + + + + | P-R | 148 | ms | [facility] | | | INTERVAL | | | | | + + + + + + | QRS | 108 | ms | [facility] | | | DURATION | | | | | + + + + + + | Q-T | 400 | ms | [facility] | | | INTERVAL | | | | | + + + + + + | Q-T | 416 | ms | [facility] | | | INTERVAL | | | | | | (CORRECTED) | | | | | + + + + + + | P WAVE AXIS | 11 | degrees | [facility] | | + + + + + + | QRS AXIS | 32 | degrees | [facility] | | + + + + + + | T AXIS | 49 | degrees | [facility] | | + + + + + + | INTERPRETAT | Normal sinus | | [facility] | | | ION TEXT | rhythmInferior ST | | | | | | elevation concerning for | | | | | | acute myocardial | | | | | | infarctionAbnormal ECGNo | | | | | | previous ECGs | | | | | | availableConfirmed by | | | | | | DIPTI SETHI MD ([id number]) | | | | | | on 03/02/2016 6:23:30 AM | | | | + + + + + + + + | Specimen | + + | | + + + + + | Narrative | Performed At | + + + | | | + + + + +---------+ + + | Performing | Address | City/State/Zipcode | Phone Number | | Organization | | | | + +---------+ + + | [facility] | | | | + +---------+ + + documented in this encounter Visit Diagnoses + + | Diagnosis | + + | Lumbar radiculopathy - Primary Thoracic or lumbosacral neuritis or radiculitis, | | unspecified | + + | Lumbar disc herniation with radiculopathy Displacement of lumbar intervertebral disc | | without myelopathy | + + | Foraminal stenosis of lumbosacral region Spinal stenosis, lumbar region, without | | neurogenic claudication | + + | Lumbar degenerative disc disease Degeneration of lumbar or lumbosacral intervertebral | | disc | + + | Facet arthropathy, lumbar Lumbosacral spondylosis without myelopathy | + + | Arthritis Arthropathy, unspecified, site unspecified | + + | Spinal instability, lumbar Other unspecified back disorder | + + | Spondylolisthesis of lumbar region Acquired spondylolisthesis | + + | Scoliosis, unspecified scoliosis type, unspecified spinal region | + + documented in this encounter"
--- OUTSIDE RECORDS SUMMARY | ~2019-08-29 | XMS | Encounter Summary ---
Demographics + + + | Address | [address] | | | [place] [address] | + + + | Home Phone | | + + + | Preferred Language | Unknown | + + + | Marital Status | | + + + | Latter Day Affiliation | 1013 | + + + | Race | Unknown | + + + | Ethnic Group | Unknown | + + + Author + + + | Author | [facility] | | | and [place] | + + + | Organization | [facility] | | | and [...] Team Providers + +------+ + | Care Glass Bead Maker Name | Role | Phone | + +------+ + | Kade Bermudez MD | PCP | | + +------+ + Reason for Referral Evaluate & Treat (Routine) +--------+ + + + + + | Status | Reason | Specialty | Diagnoses / | Referred By | Referred To | | | | | Procedures | Contact | Contact | +--------+ + + + + + | Closed | Specialty | Physical | Diagnoses | [facility]awad, | | | | Services | Therapy | | Hemal | | | | Required | | Spondylolist | [address] [place] | | | | | | le[place] of | [address] | | | | | | lumbar | [address] | | | | | | region | [place] | | | | | | Lumbar | [address] | | | | | | radiculopath | Phone: | | | | | | y | [phone] | | | | | | | Fax: | | | | | | | [phone] | | +--------+ + + + + + Reason for Visit + + + | Reason | Comments | + + + | Follow-up | POST OP-S/P L2-3 LAIF, L5-S1 TLIF | + + + Encounter Details +--------+---------+ + + + | Date | Type | Department | Care Team | Description | +--------+---------+ + + + | 04/03/ | Office | [facility] | Hemal Celestin | Spondylolisthesis of | | 2016 | Visit | NEUROSURGERY [address] | [address] | lumbar region | | | | [address] | [address] | (Primary Dx); Lumbar | | | | [place], [place] | [place] [address] | radiculopathy | | | | [address] | [phone] | | | | | [phone] | | | +--------+---------+ + + + Social History + +-------+ [...] + + documented as of this encounter Last Filed Vital Signs + + + + + | Vital Sign | Reading | Time Taken | Comments | + + + + + | Blood Pressure | 183/84 | 04/03/2016 9:59 AM | | | | | PDT | | + + + + + | Pulse | 69 | 04/03/2016 9:59 AM | | | | | PDT | | + + + + + | Temperature | - | - | | + + + + + | Respiratory Rate | 20 | 04/03/2016 9:59 AM | | | | | PDT | | + + + + + | Oxygen Saturation | - | - | | + + + + + | Inhaled Oxygen | - | - | | | Concentration | | | | + + + + + | Weight | 84.4 kg (186 lb) | 04/03/2016 9:59 AM | | | | | PDT | | + + + + + | Height | 180.3 cm (5' 11") | 04/03/2016 9:59 AM | | | | | PDT | | + + + + + | Body Mass Index | 25.94 | 04/03/2016 9:59 AM | | | | | PDT | | + + + + + documented in this encounter Functional Status + + + [...] + + documented as of this encounter Patient Instructions Patient Instructions Hemal Celestin PA - 04/03/2016 11:09 AM PDTAt this time you may increase your activities allowing lifting up to 15 pounds. You may begin increasing your r mariely of motion activities and begin weaning your lumbar brace. You may begin physical thera py in the next 2 weeks. We will see you back in the office in 2 months with x-rays of your lumbar spine. Please continue to slowly wean your pain medication. SPINE BRACE WEANING PROTOCOL (5 WEEKS) Below are instructions for weaning your brace. You can move through the weeks slower if yo u feel the need to do so, but the overall goal is to get you out of the brace slowly over th e next several weeks. WEEK 1 If you have been using your brace for activities like sleeping, showering, do not use the b race for these activities any longer but continue using it for everything else. WEEK 2 Stop wearing your brace for sitting and short distance walking. You should use the brace f or anything more involved. WEEK 3 Stop using the brace for medium distance walking. You can bend and twist your back but sti ll proceed slowly with these activities. WEEK 4 Stop using the brace for everything but the most difficult tasks. You should now be able to go on long walks and lift more weight as directed. Add more bending and twisting as tolera maritza. WEEK 5 Stop using the brace for daily use. I would encourage you to use the brace in the future f or activities that you know might aggravate your back or cause pain. You should still work to strengthen your back and use good technique when turkey picker things and bending. documented in this encounter Progress Notes Hemal Celestin PA - 04/03/2016 11:11 AM PDTFormatting of this note might be differen t from the original. HARDEEP Acharya [address] [facility], [address] [place], [place] [id number] FAX: NEUROSURGERY FOLLOW-UP CHIEF COMPLAINT: Chief Complaint Patient presents with Follow-up POST OP-S/P L2-3 LAIF, L5-S1 TLIF HISTORY OF PRESENT ILLNESS: The patient is a 66 y.o. male that had a lumbar fusion around 4 weeks ago. He returns and overall is doing as expected. The patient complains of contin ued back as well as some leg pain but he is notices that his leg symptoms have significantly improved and is noticing continued improvement. The patient has been walking as much as d irected. He is still taking pain medications at this point. The patient has had no issues with his surgical site. CURRENT MEDICATIONS: Current Outpatient Prescriptions Medication Sig Dispense Refill clorazepate (TRANXENE-T) 7.5 mg tablet Take 7.5 mg by mouth every 6 hours as needed. cyclobenzaprine (FLEXERIL) 10 mg tablet Take 1 tablet by mouth every 8 hours as needed for Muscle spasms. 90 tablet 3 lactulose 10 g/15 mL solution Take 30 mLs by mouth 2 times daily. 240 mL PRN oxyCODONE 10 MG TABS Take 1-2 tablets by mouth every 4 hours as needed. 120 tablet 0 oxyCODONE-acetaminophen (PERCOCET) 10-325 mg per tablet Take 1-2 tablets by mouth every 4 hours as needed for Pain. 120 tablet 0 pramipexole (MIRAPEX) 1 MG tablet Take 2 mg by mouth nightly. SERTRALINE HCL PO Take 200 mg by mouth Daily. tamsulosin (FLOMAX) 0.4 mg CAPS Take 1 capsule by mouth daily (after breakfast). 30 cap caleb 0 No current facility-administered medications for this visit. ALLERGIES: No Known Allergies SOCIAL HISTORY: The patient reports that he quit smoking about 30 years ago. He quit smokeless tobacco use about 30 years ago. He reports that he drinks about 1.8 oz of alcohol per week. He reports that he does not use illicit drugs. INTERIM PHYSICAL EXAMINATION: Blood pressure 183/84, pulse 69, resp. rate 20, height 1.803 m (5' 11"), weight 84.369 kg ( 186 lb). Body mass index is 25.95 kg/(m^2). GENERAL: Mal Mendoza is in no acute distress with unlabored respirations. SPINE: The patient s incisions are healing well without drainage, significant erythema, o r discharge. EXTREMITIES: No lower extremity edema. NEUROLOGICAL EXAMINATION: MENTAL STATUS: The patient is awake, alert, and oriented. He follows simple and complex commands MOTOR EXAM: Motor strength is improving. SENSORY EXAM: The sensory examination is improved when compared to the preoperative exam. RADIOGRAPHIC REVIEW: The patient s x-rays show stable instrumentation and alignment and were reviewed with the patient today. There have been no interval changes since the immediate postoperative films . Complete fusion has not yet occurred, but this is normal and would not be expected at thi s time. ASSESSMENT: Encounter Diagnoses Name Primary? Spondylolisthesis of lumbar region Yes Lumbar radiculopathy Past Medical History Diagnosis Date Ulcer (HCC) GERD (gastroesophageal reflux disease) Depression ADHD (attention deficit hyperactivity disorder) ADHD (attention deficit hyperactivity disorder) Cervical spinal stenosis 06/12/2012 Lumbar radiculopathy 06/12/2012 Anxiety Arthritis Migraine Insomnia d/t pain Sleep apnea no CPAP PLAN: Overall, the patient is doing as expected. The patient can see some improvements but kvng nues to recover from recent surgery. I increased the patient s activities now allowing 15 pound lifting. The patient should i ncrease range of motion activities as tolerated. I would like the patient to advance slowly with this process and discussed this at length during today's visit. I would also like the patient to continue with postoperative rehabilitation and to advance with therapy as tolera maritza. We discussed that we can provide pain medications for up to two additional months. We disc ussed the need to continue tapering pain medication. If they need longer term pain medicati on, they should begin working on either pain management or with the primary care provider. I am hoping to see improvement over the coming weeks to months and plan to continue to foll ow this patient. The patient will follow-up in clinic in around 8 weeks for re-evaluation. ELECTRONICALLY SIGNED BY: HARDEEP Acharya, 04/03/2016 11:11 documented in th is encounter Plan of Treatment + + +--------+ + + | Name | Type | Priori | Associated Diagnoses | Order Schedule | | | | ty | | | + + +--------+ + + | OUTPATIENT PT | Outpatient | Routin | Spondylolisthesis | Ordered: 04/03/2016 | | EXTERNAL | Referral | e | of lumbar region | | | | | | Lumbar radiculopathy | | + + +--------+ + + documented as of this encounter Results XR Lumbar Spine 2 or 3 Vw (06/19/2016 1:43 PM PDT) + + | Specimen | + + | | + + + + + | Narrative | Performed At | + + + | EXAM: XR LUMBAR SPINE 2 OR 3 VW HISTORY: Postop | [facility] | | TECHNIQUE: AP and lateral views of the lumbar spine COMPARISON: | [facility] | | 04/03/2016. FINDINGS: Status post L2-S1 PLIF. Surgical hardware | MEDICAL CENTER | | appears intact. Multilevel lumbar degeneration, as before. Stable | - IMAGING | | minimal retrolisthesis at L2-3 and anterolisthesis at L3-4. Alignment | | | is otherwise normal. No fractures are evident. Paraspinous soft | | | tissues are unremarkable. IMPRESSION - No radiographic evidence | | | of interval complication. CRITICAL VALUE: No Dictated and | | | Signed by: Devan Osborne MD Electronically signed: 06/19/2016 2:05 | | | PM | | + + + + + | Procedure Note | + + | Escobar, Rad Results In - 06/19/2016 2:08 PM PDT EXAM: XR LUMBAR SPINE 2 OR 3 VW | | | | HISTORY: Postop | | | | TECHNIQUE: AP and lateral views of the lumbar spine | | | | COMPARISON: 04/03/2016. | | | | FINDINGS: | | Status post L2-S1 PLIF. Surgical hardware appears intact. | | Multilevel lumbar degeneration, as before. | | Stable minimal retrolisthesis at L2-3 and anterolisthesis at L3-4. Alignment is | | otherwise normal. | | No fractures are evident. | | Paraspinous soft tissues are unremarkable. | | | | IMPRESSION - | | No radiographic evidence of interval complication. | | | | CRITICAL VALUE: No | | | | Dictated and Signed by: Devan Osborne MD | | Electronically signed: 06/19/2016 2:05 PM | + + + + + + + | Performing | Address | City/State/Zipcode | Phone Number | | Organization | | | | + + + + + | [facility] | [address] | [place] | [phone] | | [facility] | | [address] | | | - IMAGING | | | | + + + + + documented in this encounter Visit Diagnoses + + | Diagnosis | + + | Spondylolisthesis of lumbar region - Primary Acquired spondylolisthesis | + + | Lumbar radiculopathy Thoracic or lumbosacral neuritis or radiculitis, unspecified | + + documented in this encounter
--- OUTSIDE RECORDS SUMMARY | ~2019-08-29 | XMS | Encounter Summary ---
Demographics + + + | Address | [address] | | | [place] [address] | + + + | Home Phone | | + + + | Preferred Language | Unknown | + + + | Marital Status | | + + + | Denominational Affiliation | 1013 | + + + | Race | Unknown | + + + | Ethnic Group | Unknown | + + + Author + + + | Author | [facility] | | | and [place] | + + + | Organization | [facility] [...] Team Providers + +------+ + | Care Cotton Weigher Operator Name | Role | Phone | + +------+ + | Kade Bermudez MD | PCP | | + +------+ + Reason for Referral Diagnostic/Screening (Routine) + +--------+ + + + + | Status | Reason | Specialty | Diagnoses / | Referred By | Referred To | | | | | Procedures | Contact | Contact | + +--------+ + + + + | Canceled | | Radiology | Diagnoses | Adam Velasquez, | [address] | | | | | S/P lumbar | Paxton, | [address] | | | | | fusion | PA-C [address] | [place], | | | | | Spondylolist | [address] | [place] [address] | | | | | hesis of | [place], | Phone: | | | | | cervical | [place] [address] | [phone] | | | | | region | Phone: | Fax: | | | | | Cervicalgia | [phone] | [phone] | | | | | Dizziness | Fax: | | | | | | Procedures | [phone] | | | | | | CT Cervical | | | | | | | Spine wo | | | | | | | Contrast | | | + +--------+ + + + + Diagnostic/Screening (Routine) +--------+--------+ + + + + | Status | Reason | Specialty | Diagnoses / | Referred By | Referred To | | | | | Procedures | Contact | Contact | +--------+--------+ + + + + | Closed | | Radiology | Diagnoses | Petersen, | [address] | | | | | S/P lumbar | Sawyer F, | [address] | | | | | fusion | MD [address] | [place], | | | | | Spondylolist | [address] | [place] [address] | | | | | hesis of | [place], | Phone: | | | | | cervical | [place] [address] | [phone] | | | | | region | Phone: | Fax: | | | | | Cervicalgia | [phone] | [phone] | | | | | Dizziness | [phone] Fax: | | | | | | Procedures | | | | | | | CT Angiogram | [phone] | | | | | | Neck w | | | | | | | Contrast | | | +--------+--------+ + + + + Evaluate & Treat (Routine) +--------+ + + + + + | Status | Reason | Specialty | Diagnoses / | Referred By | Referred To | | | | | Procedures | Contact | Contact | +--------+ + + + + + | Closed | Specialty | Physical | Diagnoses | Petersen, | [address] | | | Services | Therapy | S/P lumbar | Sawyer Guerrier, | [facility] | | | Required | | fusion | MD [address] | HOSPITAL | | | | | Procedures | [address] | [address] | | | | | [place] | [place], | AVE | | | | | THERAPEUTIC | [place] [address] | [place] | | | | | EXERCISES | Phone: | [address] | | | | | | [phone] | Phone: | | | | | | [phone] Fax: | [phone] | | | | | | | Fax: | | | | | | [phone] | [phone] | +--------+ + + + + + Reason for Visit + + + | Reason | Comments | + + + | Follow-up | 6 Week PO | + + + Encounter Details +--------+---------+ + + + | Date | Type | Department | Care Team | Description | +--------+---------+ + + + | 12/16/ | Office | [facility] | Sawyer Petersen | S/P lumbar fusion | | 2012 | Visit | NEUROSURGERY [address] | FMD [address] | (Primary Dx); | | | | [address] | [address] [place] | Spondylolisthesis of | | | | [place] | [address] | cervical region; | | | | [address] | [phone] | Cervicalgia; | | | | [phone] | | Dizziness; Cervical | | | | | | stenosis of spinal | | | | | | canal | +--------+---------+ + + + Social History [...] + + + | Blood Pressure | 124/83 | 12/16/2012 10:49 AM | | | | | PDT | | + + + + + | Pulse | 74 | 12/16/2012 10:49 AM | | | | | PDT | | + + + + + | Temperature | - | - | | + + + + + | Respiratory Rate | 18 | 12/16/2012 10:49 AM | | | | | PDT | | + + + + + | Oxygen Saturation | - | - | | + + + + + | Inhaled Oxygen | - | - | | | Concentration | | | | + + + + + | Weight | 84.4 kg (186 lb) | 12/16/2012 10:49 AM | | | | | PDT | | + + + + + | Height | 180.3 cm (5' 11") | 12/16/2012 10:49 AM | | | | | PDT | | + + + + + | Body Mass Index | 25.94 | 12/16/2012 10:49 AM | | | | | PDT | | + + + + + documented in this encounter Patient Instructions Patient Instructions Sawyer Petersen MD - 12/16/2012 11:20 AM PDTOk to resume your Pe roxicam in 2 weeks. SPINE BRACE WEANING PROTOCOL (1 WEEK) At the end of the 2-3 months that you have been wearing your brace, please follow the sched ule below for the last week after you receive clearance from the surgeon to remove the brace . DAY 7 Wear your brace in the morning as usual for 4 hours. Remove your brace for 4 hours. Put y our brace back on and wear it until bedtime. Remove it at bedtime as usual. DAY 6 Wear your brace in the morning as usual for 4 hours. Remove your brace for 6 hours. Put y our brace back on and wear it until bedtime. Remove it at bedtime as usual. DAY 5 Wear your brace in the morning as usual for 4 hours. Remove your brace for 8 hours. Put y our brace back on and wear it until bedtime. Remove it at bedtime as usual. DAY 4 Wear your brace in the morning as usual for 4 hours. Remove your brace for the rest of the day. DAY 3 Wear your brace in the morning as usual for 3 hours. Remove your brace for the rest of the day. DAY 2 Wear your brace in the morning as usual for 2 hours. Remove your brace for the rest of the day. DAY 1 Wear your brace in the morning as usual for 2 hours. Remove your brace for the rest of the day. FINAL DAY Don't wear your brace any more!Electronically signed by Paxton Braga PA-C at 3 11:27 AM PDT documented in this encounter Progress Notes Sawyer Petersen MD - 12/16/2012 11:17 AM PDTFormatting of this note might be differen t from the original. Sawyer Petersen MD [address] [facility], [address] [place] [address] FAX: NEUROSURGERY SURGICAL FOLLOW-UP CHIEF COMPLAINT: Chief Complaint Patient presents with Follow-up 6 Week PO HISTORY OF PRESENT ILLNESS: The patient is a 62 y.o. male that had a L3-4, L4-5 LAIF by me for lumbar stenosis around 6 weeks ago. He returns and overall is doing fairly well. The patient complains of a severe pain in his lumbar region which is about a 8/10 every time he coughs or sneezes. His pre-surgical pain down his legs is much better, but he still gets mi ld pain down the back of his thighs. The patient has been walking as much as possible. He is still taking pain medications at this point. The patient has had No issues with his surg ical site. He complains primarily of neck pains today. He also describes diffuse pains thr oughout all of his limbs. CURRENT MEDICATIONS: Current Outpatient Prescriptions Medication Sig Dispense Refill oxyCODONE-acetaminophen (PERCOCET) 5-325 mg per tablet Take 1-2 tablets by mouth EVERY 4 TO 6 HOURS NEEDED. 30 tablet 0 ALLERGIES: No Known Allergies SOCIAL HISTORY: The patient reports that he quit smoking about 27 years ago. He quit smokeless tobacco use about 27 years ago. He reports that he drinks about 1.8 ounces of alcohol per week. INTERIM PHYSICAL EXAMINATION: Blood pressure 124/83, pulse 74, resp. rate 18, height 1.803 m (5' 11"), weight 84.369 kg ( 186 lb). Body mass index is 25.94 kg/(m^2). GENERAL: Sheela Mendoza is in no acute distress with unlabored respirations. SPINE: The patient s incisions are healing well without drainage, significant erythema, o r discharge EXTREMITIES: No lower extremity edema. NEUROLOGICAL EXAMINATION: MENTAL STATUS: The patient is awake, alert, and oriented. He follows simple and complex commands MOTOR EXAM: Motor strength is 5/5, bilaterally for the lower extremities. This is unchange d from the preoperative exam. SENSORY EXAM: The sensory examination improved from the preoperative exam. RADIOGRAPHIC REVIEW: The patient s postoperative x-rays show stable instrumentation and alignment and were rev iewed with the patient today. There have been no interval changes since the immediate posto perative films. Complete fusion has not yet occurred, but this is normal and would not be e xpected at this time. An MRI of the cervical spine performed with and without contrast on November 26, 2012 demonstr ates severe spinal stenosis at the C5-6 level. There is also a reversal cervical lordosis a nd cervical spondylolisthesis present at C3-4, C4-5, C5-6, and C6-7. ASSESSMENT: S/P L3-4, L4-5 LAIF: Encounter Diagnosis Name Primary? S/P lumbar fusion Yes Past Medical History Diagnosis Date Ulcer GERD (gastroesophageal reflux disease) Depression ADHD (attention deficit hyperactivity disorder) ADHD (attention deficit hyperactivity disorder) Cervical spinal stenosis 06/12/2012 Lumbar radiculopathy 06/12/2012 Anxiety Arthritis PLAN: Overall, Mr. Mendoza is doing fairly well. Unfortunately his neck problems have flared up at this point seemed to be more problematic for him than his low back. He would like very much to consider surgical intervention for his neck while he is convalescing from his low back. I did have a discussion with him about trying to avoid multiple surgeries in short successi on. He is having severe dizziness which is present when he turns his head to the left. I d o think that this may result from the stenosis which is present in his neck. Therefore I th ink it would be prudent to obtain a CT angiogram of the cervical spine to ensure that there is some vertebral artery issue. Additionally we will obtain flexion-extension studies of hi s neck to determine the stability of his cervical joint. In regards to his low back I increased the patient s activities slowly now allowing 15 po und lifting and also will begin the process of brace weaning. I would like the patient to a dvance slowly with this process and discussed this at length during today's visit. I would also like the patient to continue with postoperative rehabilitation and to advance with ther apy as tolerated. Unfortunately he did not pursue obtaining a bone growth stimulator. We will have to look into whether we're able to obtain one for him. Mr. Mendoza will return after these studies have been obtained so we can discuss his cervical disease once again. I spent 30 minutes in visit with Sheela Mendoza and his today with the majority of time spent counselling the patient on his recovery and coordinating his future care. ELECTRONICALLY SIGNED BY: Sawyer Petersen MD, 12/16/2012 11:17 documented in this encounter Plan of Treatment + +---------+--------+ + + | Name | Type | Priori | Associated Diagnoses | Order Schedule | | | | ty | | | + +---------+--------+ + + | XR Cervical Spine 4 | Imaging | Routin | S/P lumbar fusion | Ordered: 12/16/2012 | | or 5 Vws | | e | Spondylolisthesis | | | | | | of cervical region | | | | | | Cervicalgia | | | | | | Dizziness | | + +---------+--------+ + + | CT Cervical Spine wo | Imaging | Routin | S/P lumbar fusion | Expected: | | Contrast | | e | Spondylolisthesis | 12/16/2012, Expires: | | | | | of cervical region | 12/16/2013 | | | | | Cervicalgia | | | | | | Dizziness | | + +---------+--------+ + + + + +--------+ + + | Name | Type | Priori | Associated Diagnoses | Order Schedule | | | | ty | | | + + +--------+ + + | Ambulatory referral | Outpatient | Routin | S/P lumbar fusion | 1 Occurrences | | to Physical Therapy | Referral | e | | starting 12/16/2012 | | | | | | until 12/16/2013 | + + +--------+ + + documented as of this encounter Results CT Angiogram Neck w Contrast (12/23/2012 11:55 AM PDT) + + | Specimen | + + | | + + + + + | Narrative | Performed At | + + + | [facility] | [place] | | Department [address] [facility] | [facility] | | [ [address]] [ rep [facility] | | [facility]] Signed | - IMAGING | | | | | Patient Name: SHEELA MENDOZA Physician: | | | BETTINA : 1950 Age: 62 Sex: M Unit #: [id number] | | | Exam Date: 12/23/12 Location: [facility] | | | Report #: [id number] Page: | | | %(RAD)RES..mtdd.print.filter("pg") of %(RAD) | | | RES..mtdd.print.filter("tpg") | | | | | | Accession Number: [id number] | | | CT CAROTID ANGIOGRAM, 12/23/2012 CLINICAL HISTORY: | | | DIZZINESS. COMPARISON: MRI of cervical spine | | | 11/26/2012. TECHNIQUE: Axial images were obtained from | | | the base of the skull to the level of the aortic arch following the | | | administration of 100 mL of Isovue 370 contrast. Coronal, sagittal, | | | MIP, and MPI reformatted images were created. | | | FINDINGS: Artifact related to high density bolus in the left | | | subclavian vein is noted, which obscures visualization of the left | | | common carotid artery inferiorly. The right common carotid artery | | | is normal in signal and caliber throughout its course, without | | | atherosclerotic plaque. The right carotid bulb is also free of plaque. | | | The right internal carotid artery is normal throughout its course, | | | with the petrous, cavernous, and clinoid portions visualized, | | | without abnormality. The left common carotid artery demonstrates | | | no abnormality throughout its course other than at the level where | | | it is not seen secondary to artifact. Minimal calcified plaque is seen | | | posteriorly at the carotid bulb, without notable stenosis. The left | | | internal carotid artery appears free of plaque throughout its | | | course, with its intracranial portions also normal in appearance. | | | The external carotid arteries are unremarkable bilaterally. The | | | right vertebral artery is normal throughout its course, as is the left | | | vertebral artery. The vertebral arteries are codominant. The | | | basilar, left superior cerebellar, and posterior cerebral arteries | | | appear normal in caliber. The right superior cerebellar artery appears | | | hypoplastic. Incidental note is made of mucosal | | | retention cyst versus polyp at the floor of the right maxillary | | | sinus. The remainder of the visualized paranasal sinuses, mastoid air | | | cells, and middle ear cavities are normally aerated. The pharynx and | | | airway appear normal. The glottic structures are unremarkable. No | | | pathologically enlarged lymph nodes are evident. Although there is | | | streak artifact at the level of the teeth, the parotid and | | | submandibular glands are otherwise normal in appearance. The thyroid | | | gland is unremarkable. There is reversal of the | | | cervical lordosis centered at C4-5, with diffuse degenerative disk | | | disease with posterior and anterior osteophyte formation, loss of | | | disk height at multiple levels in the mid cervical spine, with | | | multilevel facet degenerative hypertrophy and neural foraminal | | | narrowing, most pronounced at C3-4 on the left, and C5-6 | | | bilaterally, right greater than left. No abnormalities are seen in | | | the visualized portions of the upper lobes of the lungs. | | | IMPRESSION: NO EVIDENCE OF STENOSIS OR ANEURYSM OR WALL | | | CALCIFICATION OF THE CAROTID ARTERIAL SYSTEMS OR THE VERTEBRAL | | | ARTERY SYSTEMS. EXTENSIVE SPONDYLOTIC CHANGE DESCRIBED ABOVE. | | | Dictated Date/Time: 12/23/2012 11:55 Transcribed | | | Date/Time: 12/23/2012 14:09 Cosmetician: | | | <<Signature on File>> | | | Domingo | | | Micky Corral MD12/23/12 1635 <Electronically signed by Domingo Weeks | | | Ellis GARG> Domingo Corral MD 12/23/12 1155 | | | Cosmetician: Jack Limon12/23/12 1409 | | | Sawyer Petersen MD | | + + + + + + + + | Performing | Address | City/State/Zipcode | Phone Number | | Organization | | | | + + + + + | [facility] | [address] | [place] | [phone] | | [facility] | | [address] | | | - IMAGING | | | | + + + + + documented in this encounter Visit Diagnoses + + | Diagnosis | + + | S/P lumbar fusion - Primary Arthrodesis status | + + | Spondylolisthesis of cervical region Acquired spondylolisthesis | + + | Cervicalgia | + + | Dizziness Dizziness and giddiness | + + | Cervical stenosis of spinal canal Spinal stenosis in cervical region | + + documented in this encounter
--- OUTSIDE RECORDS SUMMARY | ~2019-08-29 | XMS | Encounter Summary ---
Demographics + + + | Address | [address] | | | [place] [address] | + + + | Home Phone | | + + + | Preferred Language | Unknown | + + + | Marital Status | | + + + | Restoration Affiliation | 1013 | + + + | Race | Unknown | + + + | Ethnic Group | Unknown | + + + Author + + + | Author | [facility] | | | and [place] | + + + | Organization | [facility] | | | and [place] [...] Team Providers + +------+ + | Care Loss Control Consultant Name | Role | Phone | + +------+ + PCP | Unavailable | + +------+ + Encounter Details +--------+ + + + + | Date | Type | Department | Care Team | Description | +--------+ + + + + | 01/21/ | Hospital | [facility] | Shirley Ghosh | | | 2011 | Encounter | [facility] | MD [address] | | | | | [address] [place] | [address] [facility], | | | | | [place], [place] | [place] [address] | | | | | [address] | [phone] | | | | | [phone] | | | +--------+ + + + + Social History + +-------+ +--------+------+ | Tobacco Use | Types | Packs/Day | Years | Date | | | | | Used | | + +-------+ +--------+------+ | Never Assessed | | | | | + +-------+ +--------+------+ + + + | Sex Assigned at [...]
--- OUTSIDE RECORDS SUMMARY | ~2019-08-29 | XMS | Encounter Summary ---
Demographics + + + | Address | [address] | | | [place] [address] | + + + | Home Phone | | + + + | Preferred Language | Unknown | + + + | Marital Status | | + + + | Restorationism Affiliation | 1013 | + + + | Race | Unknown | + + + | Ethnic Group | Unknown | + + + Author + + + | Author | [facility] | | | and [place] | + + + | Organization | [facility] | | | and [place] [...] Team Providers + +------+ + | Care Ironer Hand Name | Role | Phone | + +------+ + | Shirley Ghosh MD | PCP | | + +------+ + Encounter Details +--------+ + + + + | Date | Type | Department | Care Team | Description | +--------+ + + + + | 10/14/ | Hospital | [facility] | Sawyer Petersen | Back pain | | 2012 - | Encounter | MED CTR XRAY [address] | MD Fareed [address] | | | | | [address] [place] | [address] [place] | | | 10/16/ | | [place] [address] | [address] | | | 2012 | | [phone] | | | | | | | [...] + + + +---------+ + + | buPROPion | Take 1 tablet by | | 0 | 08/07/20 | | | (WELLBUTRIN SR) 150 | mouth Daily. | | | 12 | 3 | | mg 12 hr tablet | | | | | | + + + +---------+ + + | esomeprazole | Take 40 mg by mouth | | 0 | | | | (NEXIUM) 40 mg | every morning | | | | 3 | | packet | (before breakfast). | | | | | + + + +---------+ + + | | Take 1 tablet by | | 0 | | | | oxyCODONE-acetaminop | mouth every 4 hours | | | | 3 | | hen (PERCOCET) 5-325 | as needed. | | | | | | mg per tablet | | | | | | + + + +---------+ + + | piroxicam | Take 20 mg by mouth | | 0 | | | | (FELDENE) 20 MG | Daily. | | | | 3 | | capsuleIndications: | Indications: Mild to | | | | | | Mild to Moderate | Moderate Pain | | | | | | Pain | | | | | | + + + +---------+ + + | propranolol | Take 1 tablet by | | 0 | 10/15/19 | | | (INDERAL LA) 60 mg | mouth Daily. | | | 13 | 3 | | SR capsule | | | | | | + + + +---------+ + + | rOPINIRole | Take 3 mg by mouth | | 0 | | | | (REQUIP) 1 mg | every evening. | | | | 3 | | tabletIndications: | Indications: | | | | | | Restless Leg | Restless Leg | | | | | | Syndrome | Syndrome | | | | | + + + +---------+ + + | venlafaxine | Take 75 mg by mouth | | 0 | | | | (EFFEXOR) 75 MG | Daily. | | | | 3 | | tablet | | | | [...] + + + | XR LUMBAR SPINE 4 + | Routin | 10/14/2012 | Back pain | Results for this | | VW | e | 3:15 PM | | procedure are in the | | | | PST | | results section. | + +--------+ + + + documented in this encounter Results XR Lumbar Spine 4 + Vw (10/14/2012 3:15 PM PST) + + | Specimen | + + | | + + + + + | Narrative | Performed At | + + + | [facility] | [place] | | Department [address] [place] | [facility] | | [ rep [address]] [ rep ct [facility] | [facility] | | st zip] Signed | - IMAGING | | | | | Patient Name: MAL MENDOZA Physician: | | | ARRE.01 : 1950 Age: 62 Sex: M Unit #: [id number] | | | Exam Date: 10/14/12 [place] [facility] [place] | | | Report #: [id number] Page: | | | %(RAD)RES..mtdd.print.filter("pg") of %(RAD) | | | RES..mtdd.print.filter("tpg") | | | | | | Accession Number: [id number] | | | X-RAY LUMBAR SPINE WITH FLEXION/EXTENSION VIEWS CLINICAL | | | HISTORY: BACK PAIN. COMPARISON: MRI lumbar spine | | | 08/19/2012. FINDINGS: There is mild dextroconvex | | | lumbar scoliosis centered at L3. There is approximately 3.5 mm | | | anterolisthesis of L3 on L4 seen on the upright neutral view, which is | | | stable on the extension view and increases to almost 5 mm on the | | | upright flexion view. There is no significant loss of disk height. | | | There is diffuse degenerative disk disease. Vertebral body | | | alignment is otherwise maintained. Vertebral body heights are also | | | relatively maintained. There is facet degenerative hypertrophy. | | | The visualized portions of the pelvis are unremarkable. There is | | | atherosclerotic calcification of the aorta and its branches. | | | IMPRESSION: APPROXIMATELY 3.5 MM ANTEROLISTHESIS OF L3 ON L4, | | | STABLE ON EXTENSION VIEW, INCREASING TO ALMOST 5 MM ON FLEXION | | | VIEWS. OTHER SPONDYLOTIC CHANGE. Dictated Date/Time: | | | 10/14/2012 15:15 Transcribed Date/Time: 10/14/2012 15:55 | | | Optoelectronics Engineer: NANY <<Signature on File>> | | | | | | Domingo Corral MD10/15/12 0805 <Electronically signed by Domingo | | | Micky Corral MD> Domingo Corral MD 10/14/12 5765 | | | Optoelectronics Engineer: [email or web address]/28/13 4383 | | | Sawyer Petersen MD | | + + + + + + + + | Performing | Address | City/State/Zipcode | Phone Number | | Organization | | | | + + + + + | [facility] | [address] | [place] | [phone] | | [facility] | | [address] | | | - IMAGING | | | | + + + + + documented in this encounter Visit Diagnoses + + | Diagnosis | + + | Back pain Backache, unspecified | + + documented in this encounter
--- OUTSIDE RECORDS SUMMARY | ~2019-08-29 | XMS | Encounter Summary ---
Demographics + + + | Address | [address] | | | [place] [address] | + + + | Home Phone | | + + + | Preferred Language | Unknown | + + + | Marital Status | | + + + | Scientology Affiliation | 1013 | + + + | Race | Unknown | + + + | Ethnic Group | Unknown | + + + Author + + + | Author | [facility] | | | and [place] | + + + | Organization | [facility] | | | and [...] Team Providers + +------+ + | Care Crane Manager Name | Role | Phone | + +------+ + | Shirley Ghosh MD | PCP | | + +------+ + Encounter Details +--------+ + + + + | Date | Type | Department | Care Team | Description | +--------+ + + + + | 08/07/ | Hospital | [facility] | Shirley Ghosh | | | 2011 | Encounter | [facility] | [address] | | | | | [facility] | [facility], | | | | | [facility], | [place] [address] | | | | | [place] [address] | [phone] | | | | | [phone] | | | +--------+ + + + [...] +---------+ + + | cyclobenzaprine | Take 10 mg by mouth | | 0 | | 01/28/201 | | (FLEXERIL) 10 mg | 3 times daily as | | | | 3 | | tabletIndications: | needed. | | | | | | Muscle Spasm | Indications: Muscle | | | | | | | Spasm | | | | | + + + +---------+ + + | eszopiclone | Take 2 mg by mouth | | 0 | | | | (LUNESTA) 2 MG | nightly as needed. 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 | | | | 3 | | tabletIndications: | Indications: Anxiety | | | | | | Anxiety Disorder | Disorder | | | | | + + + +---------+ + + documented as of this encounter Plan of Treatment Not on filedocumented as of this encounter Visit Diagnoses Not on filedocumented in this encounter"
--- OUTSIDE RECORDS SUMMARY | ~2019-08-29 | XMS | Encounter Summary ---
Demographics + + + | Address | [address] | | | [place] [address] | + + + | Home Phone | | + + + | Preferred Language | Unknown | + + + | Marital Status | | + + + | Latter Day Affiliation | 1013 | + + + | Race | Unknown | + + + | Ethnic Group | Unknown | + + + Author + + + | Author | [facility] | | | and [place] | + + + | Organization | [facility] | | | and [place] [...] Team Providers + +------+ + | Care Post Office Manager Name | Role | Phone | + +------+ + | Shirley Ghosh MD | PCP | | + +------+ + Encounter Details +--------+ + + + + | Date | Type | Department | Care Team | Description | +--------+ + + + + | 09/16/ | Hospital | [facility] | Shirley Ghosh | | | 2011 | Encounter | [facility] | [address] | | | | | MEDICAL [address] | [facility], | | | | | [facility], | [place] [address] | | | | | [place] [address] | [phone] | | | | | [phone] | | | +--------+ + + + [...]
--- OUTSIDE RECORDS SUMMARY | ~2019-08-29 | XMS | Encounter Summary ---
Demographics + + + | Address | [address] | | | [place] [address] | + + + | Home Phone | | + + + | Preferred Language | Unknown | + + + | Marital Status | | + + + | Anglican Affiliation | 1013 | + + + | Race | Unknown | + + + | Ethnic Group | Unknown | + + + Author + + + | Author | [facility] | | | and [place] | + + + | Organization | [facility] | | | and [place] [...] Team Providers + +------+ + | Care Informatica Developer Name | Role | Phone | + +------+ + PCP | Unavailable | + +------+ + Encounter Details +--------+ + + + + | Date | Type | Department | Care Team | Description | +--------+ + + + + | 02/10/ | [facility] | [facility] | Hernando Shell | | | 2002 | Encounter | MED CTR XRAY [address] | [address] | | | | | [place] | [facility] | | | | | [place] [address] | [place] [address] | | | | | [phone] | [phone] | | | | | | | [...]
--- OUTSIDE RECORDS SUMMARY | ~2019-08-29 | XMS | Encounter Summary ---
Demographics + + + | Address | [address] | | | [place] [address] | + + + | Home Phone | | + + + | Preferred Language | Unknown | + + + | Marital Status | | + + + | Hoahaoism Affiliation | 1013 | + + + | Race | Unknown | + + + | Ethnic Group | Unknown | + + + Author + + + | Author | [facility] | | | and [place] | + + + | Organization | [facility] | | | and [...] Team Providers + +------+ + | Care Ecological Risk Assessor Name | Role | Phone | + +------+ + | Kade Bermudez MD | PCP | | + +------+ + Encounter Details +--------+ + + + + | Date | Type | Department | Care Team | Description | +--------+ + + + + | 03/17/ | [facility] | [facility] | Sawyer Petersen | Status post cervical | | 2012 | Encounter | MED CTR XRAY [address] | [address], [address] | spinal fusion | | | | [address] | [place] | | | | | [place] [address] | [address] | | | | | [phone] | | | | | | | [...] Performed At | + + + | [facility] | [facility] | | Department [address] [facility] | [facility] | | [ rep [address]] [ rep [facility] | | [facility]] Signed | - IMAGING | | | | | Patient Name: MAL MENDOZA Physician: | | | MILI.01 : 1950 Age: 63 Sex: M Unit #: [id number] | | | Exam Date: 03/17/13 Location: [facility] | | | Report #: [id number] Page: | | | %(RAD)RES..mtdd.print.filter("pg") of %(RAD) | | | RES..mtdd.print.filter("tpg") | | | | | | Accession Number: [id number] | | | CERVICAL SPINE CLINICAL HISTORY: [...] Transcribed Date/Time: 03/17/2013 11:48 | | | Radiology Transcriptionist: <<Signature on File>> | | | | | | Ruddy Hoang MD03/17/13 1527 <Electronically signed by | | | Ruddy Hoang MD> Ruddy Hoang MD 03/17/13 | | | 1136 Radiology Transcriptionist: Jack Bouzcumldyvrr46/01/13 1148 | | | Sawyer Petersen MD | | + + + + + + + + | Performing | Address | City/State/Zipcode | Phone Number | | Organization | | | | + + + + + | [facility] | [address] | [place] | [phone] | | [facility] | | [address] | | | - IMAGING | | | | + + + + + documented in this encounter Visit Diagnoses + + | Diagnosis | + + | Status post cervical spinal fusion Arthrodesis status | + + documented in this encounter
--- OUTSIDE RECORDS SUMMARY | ~2019-08-29 | XMS | Encounter Summary ---
Demographics + + + | Address | [address] | | | [place] [address] | + + + | Home Phone | | + + + | Preferred Language | Unknown | + + + | Marital Status | | + + + | Islam Affiliation | 1013 | + + + | Race | Unknown | + + + | Ethnic Group | Unknown | + + + Author + + + | Author | [facility] | | | and [place] | + + + | Organization | [facility] | | | and [place] [...] Team Providers + +------+ + | Care Distribution Technician Name | Role | Phone | + +------+ + PCP | Unavailable | + +------+ + Encounter Details +--------+ + + + + | Date | Type | Department | Care Team | Description | +--------+ + + + + | 03/15/ | Hospital | [facility] | Elaina, | | | 2007 | Encounter | MED CTR EMERGENCY | Samir Floyd MD [address] | | | | | CENTER [address] | [facility] | | | | | [place] | [place] [address] | | | | | [address] | [phone] | | | | | [phone] | | | +--------+ + + + [...]
--- OUTSIDE RECORDS SUMMARY | ~2019-08-29 | XMS | Encounter Summary ---
Demographics + + + | Address | [address] | | | [place] [address] | + + + | Home Phone | | + + + | Preferred Language | Unknown | + + + | Marital Status | | + + + | Restoration Affiliation | 1013 | + + + | Race | Unknown | + + + | Ethnic Group | Unknown | + + + Author + + + | Author | [facility] | | | and [place] | + + + | Organization | [facility] | | | and [place] | [...] Team Providers + +------+ + | Care Generation Mechanic Helper Name | Role | Phone | + +------+ + PCP | Unavailable | + +------+ + Encounter Details +--------+ + + + + | Date | Type | Department | Care Team | Description | +--------+ + + + + | 02/21/ | Hospital | [facility] | | | | 2011 | Encounter | MED CTR MP INTRA OP | | | | | | [address] | | | | | | [place] | | | | | | [address] | | | | | | [phone] | | | +--------+ + + + [...]
--- OUTSIDE RECORDS SUMMARY | ~2019-08-29 | XMS | Encounter Summary ---
Demographics + + + | Address | [address] | | | [place] [address] | + + + | Home Phone | | + + + | Preferred Language | Unknown | + + + | Marital Status | | + + + | Restorationism Affiliation | 1013 | + + + | Race | Unknown | + + + | Ethnic Group | Unknown | + + + Author + + + | Author | [facility] | | | and [place] | + + + | Organization | [facility] | | | and [place] [...] Team Providers + +------+ + | Care Staffing Associate Name | Role | Phone | + +------+ + | Kade Bermudez MD | PCP | | + +------+ + Reason for Referral Follow Up (Routine) +--------+ + + + + + | Status | Reason | Specialty | Diagnoses / | Referred By | Referred To | | | | | Procedures | Contact | Contact | +--------+ + + + + + | Closed | Continuity | Neurosurgery | Diagnoses | West, | West, | | | of Care | | Abnormality | Hemal | Hemal | | | | | of gait | JESSICA Sheppard | JESSICA Sheppard | | | | | Procedures | [address] | | | | | DME: Walker | [address] | [address] [place], | | | | | | [place] | [place] [address] | | | | | | [address] | Phone: | | | | | | Phone: | [phone] | | | | | | [phone] | Fax: | | | | | | Fax: | [phone] | | | | | | [phone] | | +--------+ + + + + + Reason for Visit +--------+ + | Reason | Comments | +--------+ + | DME | | +--------+ + Encounter Details +--------+ + + + + | Date | Type | Department | Care Team | Description | +--------+ + + + + | 03/13/ | Telephone | [facility] | Domingo Carlosn MD | DME | | 2016 | | NEUROSURGERY [address] | [address] | | | | | [address] | [place] [address] | | | | | [place] | [phone] | | | | | [address] | | | | | | [phone] | | | +--------+ + + + [...] as of this encounter Plan of Treatment + +------+--------+ + + | Name | Type | Priori | Associated Diagnoses | Order Schedule | | | | ty | | | + +------+--------+ + + | DME: Walker | DME | Routin | Abnormality of | Ordered: 03/13/2016 | | | | e | gait | | + +------+--------+ + + documented as of this encounter Visit Diagnoses + + | Diagnosis | + + | Abnormality of gait - Primary | + + documented in this encounter"
--- OUTSIDE RECORDS SUMMARY | ~2019-08-29 | XMS | Encounter Summary ---
Demographics + + + | Address | [address] | | | [place] [address] | + + + | Home Phone | | + + + | Preferred Language | Unknown | + + + | Marital Status | | + + + | Sabianist Affiliation | 1013 | + + + | Race | Unknown | + + + | Ethnic Group | Unknown | + + + Author + + + | Author | [facility] | | | and [place] | + + + | Organization | [facility] | | | and [place] [...] Team Providers + +------+ + | Care Dirt Shoveler Name | Role | Phone | + +------+ + | Kade Bermudez MD | PCP | | + +------+ + Encounter Details +--------+ + + + + | Date | Type | Department | Care Team | Description | +--------+ + + + + | 04/15/ | Orders Only | [facility] | Provider, | | | 2018 | | SYSTEM GENERIC OP | [address] | | | | | [address] | [place] | | | | | [address] [place], [place] | [place] [address] | | | | | [address] | | | | | | [phone] | | | +--------+ + + + [...]
--- OUTSIDE RECORDS SUMMARY | ~2019-08-29 | XMS | Encounter Summary ---
Demographics + + + | Address | [address] | | | [place] [address] | + + + | Home Phone | | + + + | Preferred Language | Unknown | + + + | Marital Status | | + + + | Episcopalian Affiliation | 1013 | + + + | Race | Unknown | + + + | Ethnic Group | Unknown | + + + Author + + + | Author | [facility] | | | and Ruperto[place] | + + + | Organization | [facility] | | | and [...] Team Providers + +------+ + | Care Automobile [employer] Information Clerk Name | Role | Phone | + +------+ + | Kade Bermudez MD | PCP | | + +------+ + Reason for Referral Diagnostic/Screening (Routine) +--------+--------+ + + + + | Status | Reason | Specialty | Diagnoses / | Referred By | Referred To | | | | | Procedures | Contact | Contact | +--------+--------+ + + + + | Closed | | MRI | Diagnoses | Domingo Carlson | OP ST | | | | | Spinal | MD [address] | AGGIE | | | | | stenosis, | [address] [facility] | | | | | lumbar | [place], | [address] | | | | | region, with | [place] [address] | AVE | | | | | neurogenic | Phone: | [place], [place] | | | | | claudication | [phone] | [address] | | | | | Spinal | Fax: | Phone: | | | | | instability, | [phone] | [phone] | | | | | lumbar S/P | | Fax: | | | | | lumbar | | [phone] | | | | | fusion | | | | | | | Lumbar | | | | | | | degenerative | | | | | | | disc | | | | | | | disease | | | | | | | Spondylolist | | | | | | | hesis of | | | | | | | lumbar | | | | | | | region Flat | | | | | | | back | | | | | | | syndrome | | | | | | | Procedures | | | | | | | MRI Lumbar | | | | | | [...] + + | Closed | Specialty | Sleep | Diagnoses | Domingo Carlson | [facility] | | | Services | Medicine | Insomnia, | [address] | [facility] | | | Required | | unspecified | [address] | Disorder [address] | | | | | insomnia | [place], | [address] | | | | | | [place] [address] | [place]te[place], | | | | | | Phone: | [place] [address] | | | | | | [phone] | Phone: | | | | | | Fax: | [phone] | | | | | | [phone] | Fax: | | | | | | | [phone] | +--------+ + + + + + Reason for Visit + + + | Reason | Comments | + + + | Back Pain | F/U; not able to run | + + + Encounter Details +--------+---------+ + + + | Date | Type | Department | Care Team | Description | +--------+---------+ + + + | 12/15/ | Office | [facility] | Domingo Carlson MD | Spinal stenosis, | | 2016 | Visit | NEUROSURGERY [address] | [address] | lumbar region, with | | | | [address] | [place] [address] | neurogenic | | | | [place], [place] | [phone] | claudication | | | | [address] | | (Primary Dx); Spinal | | | | [phone] | | instability, | | | | | | lumbar; S/P lumbar | | | | | | fusion; Lumbar | | | | | | degenerative disc | | | | | | disease; | | | | | | Spondylolisthesis of | | | | | | lumbar region; Flat | | | | | | back syndrome; | | | | | | Insomnia, | | | | | | unspecified insomnia | +--------+---------+ + + + Social History [...] + + + | Blood Pressure | 116/78 | 12/16/2015 10:26 AM | | | | | PDT | | + + + + + | Pulse | 72 | 12/16/2015 10:26 AM | | | | | PDT | | + + + + + | Temperature | - | - | | + + + + + | Respiratory Rate | 18 | 12/16/2015 10:26 AM | | | | | PDT | | + + + + + | Oxygen Saturation | - | - | | + + + + + | Inhaled Oxygen | - | - | | | Concentration | | | | + + + + + | Weight | 87.1 kg (192 lb) | 12/16/2015 10:26 AM | | | | | PDT | | + + + + + | Height | 180.3 cm (5' 11") | 12/16/2015 10:26 AM | | | | | PDT | | + + + + + | Body Mass Index | 26.78 | 12/16/2015 10:26 AM | | | | | PDT | | + + + + + documented in this encounter Progress Notes Domingo Carlson MD - 12/16/2015 11:30 AM PDTFormatting of this note might be different from daniel rodriguez. Domingo Carlson MD [address] [facility], [address] [place] [address] FAX: NEUROSURGERY FOLLOW-UP CHIEF COMPLAINT: Chief Complaint Patient presents with Back Pain F/U; not able to run HISTORY OF PRESENT ILLNESS: The patient is a 65 y.o. male with the complaint of back and l eft leg symptoms that began 14 months ago. The patient described a severe pain in his back and numbness in pain in his anterior leg to his monk on the left. The symptoms were getting better, but this year he has noticed a major decline in his walking. His pain has also inc reased. The pain is now in both anterior thighs. He has bilateral posterior leg pain. He has a history of prior fusion performed by Dr. Petersen. He rates the pain as severe. The symptoms are daily. He describes the pain as sharp, shoo ting and tingling. The patient describes leg symptoms that occur on left side only. The patient does not report any change in bowel or bladder function recently. His symptoms improve with rest. His symptoms worsen with changing position, standing, sitting, walking, bending and twistin g. He has tried pain medication and PT. PAST MEDICAL HISTORY: Past Medical History Diagnosis Date Ulcer GERD (gastroesophageal reflux disease) Depression ADHD (attention deficit hyperactivity disorder) ADHD (attention deficit hyperactivity disorder) Cervical spinal stenosis 06/12/2012 Lumbar radiculopathy 06/12/2012 Anxiety Arthritis PAST SURGICAL HISTORY: Past Surgical History Procedure Laterality Date Knee arthroscopy 04/09/98 x2 Elbow arthroscopy 1992 Shoulder arthroscopy 2005 x2 Spine surgery [address] C6-[address] Jules Back surgery CURRENT MEDICATIONS: Current Outpatient Prescriptions Medication Sig Dispense Refill clorazepate (TRANXENE-T) 7.5 mg tablet Take 7.5 mg by mouth every 6 hours as needed. oxyCODONE-acetaminophen (PERCOCET) 5-325 mg per tablet Take 1-2 tablets by mouth EVERY 4 TO 6 HOURS NEEDED. 30 tablet 0 piroxicam (FELDENE) 20 MG capsule pramipexole (MIRAPEX) 1 MG tablet Take 2 mg by mouth nightly. SERTRALINE HCL PO Take 60 mg by mouth Daily. No current facility-administered medications for this visit. ALLERGIES: No Known Allergies SOCIAL HISTORY: The patient reports that he quit smoking about 30 years ago. He quit smokeless tobacco use about 30 years ago. He reports that he drinks about 1.8 oz of alcohol per week. He reports that he does not use illicit drugs. FAMILY HISTORY: Family History Problem Relation Age of Onset Diabetes Mother High blood pressure Mother Other (see comment) Father polio Alcohol abuse Father Migraines Mother Drug abuse Sister REVIEW OF SYSTEMS GENERALLY: No fever, no night sweats, no anemia, no fatigue, no recent profound weight ch anges. EYES: No eye problems, + use of corrective lenses, no eye injury, no double vision, no bli ndness. EARS, NOSE, AND THROAT: No changes in taste or smell, no hearing difficulty, + ringing in the ears, no ear drainage, no dizziness, no voice changes, no difficulty swallowing, + signi ficant snoring, no sleep apnea, no sinus problems, no major dental work. NEUROLOGICALLY: Please see the review of systems discussed above in the history of present illness. In addition, the patient has numbness/pain of legs, neck injury, back injury, hea daches, memory loss. PSYCHIATRIC: No depression, no sleep disorders, no anxiety, no bipolar disorder, no psycho tic episodes. CARDIOVASCULAR: No heart attacks, no heart murmur, no heart fluttering, no chest pain, no ankle swelling. LUNG DISEASE: No shortness of breath, no cough, no tuberculosis, no bloody cough, no asth ma, no emphysema/COPD. GASTROINTESTINAL: No bowel disease, no nausea or vomiting, no rectal bleeding, no constipa tion, no stool incontinence, no liver disease, no gallbladder disease, no abdominal pain, no ulcers. KIDNEY DISEASE: No urinary frequency, no painful or difficult urination, no incontinence. ENDOCRINE: No diabetes, no thyroid disease, no osteopenia or osteoporosis, no breast drain age. SKIN: No breast lumps, no skin changes, no rashes, + itches. HEMATOLOGIC/LYMPHATIC: No enlarged lymph nodes, no easy or unusual bleeding, no personal h istory of cancer. RHEUMATOLOGIC: + joint arthritis, no rheumatoid arthritis. PHYSICAL EXAMINATION: Blood pressure 116/78, pulse 72, resp. rate 18, height 1.803 m (5' 11"), weight 87.091 kg ( 192 lb). Body mass index is 26.79 kg/(m^2). GENERAL: Mal Mendoza is in no acute distress with unlabored respirations. The patient esposito s not appear uncomfortable throughout the exam today. HEENT: HEAD/FACE: EYES: EARS: NASOPHARNYX: OROPHARNYX: Normocephalic and atraumatic. There are no areas of recent trauma. Normal sclerae without icterus. NECK (ANTERIOR): Supple. CHEST: Clear. HEART: Regular rate and rhythm. ABDOMEN: Soft, non-tender, non-distended, and without palpable masses. The patient is notob andrade. SPINE: There is no tenderness in the midline of the cervical or thoracic spine. There is n o major palpable deformity of the spine. The lumbar spine shows there is no tenderness in the midline of the L1, L2, L3, L4, L5, S1 levels. He has well healed incisions. EXTREMITIES: No cyanosis, clubbing, or edema. Distal pulses are palpable. NEUROLOGICAL EXAM: MENTAL STATUS: The patient is awake, alert, and oriented. He follows simple and complex commands. His speech is fluent, he comprehends speech well, and he repeats well. He has no apparent deficits with short or detention memory. MOTOR EXAM: (5 IS NORMAL) * Indicates pain limited MUSCLE/ MOVEMENT: RIGHT LEFT Deltoids 5 5 Biceps 5 5 Triceps 5 5 Wrist Flexion 5 5 Wrist Extension 5 5 Median Intrinsics 5 5 Ulnar Intrinsics 5 5 [employer] Strength 5 5 Hip Flexion 5 5 Hip Extension 5 5 Knee Flexion 5 4+ Knee Extension 4 4 Dorsiflexion 5 5 Extensor Hallicus Longus 5 5 Plantarflexion 5 5 SENSORY EXAM: Sensory exam shows diminished sensation to light touch over the bilateral anterior and late ral legs. REFLEXES: (2 OR 2+ IS NORMAL) REFLEX: RIGHT LEFT BICEPS 1 1 BRACHIORADIALIS 1 1 TRICEPS 1 1 PATELLAR 1 1 ACHILLES 1 1 GAIT: Gait is unsteady. RADIOGRAPHIC REVIEW: The patient's imaging was reviewed in detail with the patient today during the visit. The CT, MRI, and x-rays shows L3-L5 fusion these studies are from 2015. At L2-3 he has develope d a disc herniation and facet disease on the left causing canal stenosis and root compressio n. ASSESSMENT: NEUROSURGICAL DIAGNOSES: Encounter Diagnoses Name Primary? Spinal stenosis, lumbar region, with neurogenic claudication Yes Spinal instability, lumbar S/P lumbar fusion Lumbar degenerative disc disease Spondylolisthesis of lumbar region Flat back syndrome Insomnia, unspecified insomnia GENERAL DIAGNOSES: Past Medical History Diagnosis Date Ulcer GERD (gastroesophageal reflux disease) Depression ADHD (attention deficit hyperactivity disorder) ADHD (attention deficit hyperactivity disorder) Cervical spinal stenosis 06/12/2012 Lumbar radiculopathy 06/12/2012 Anxiety Arthritis PLAN: Mal Mendoza presented today, and it was a pleasure seeing this patient and assessing his p roblems. It is unfortunate to see him now worsening. He has more stenosis symptoms. I am recommending an urgent MRI. We discussed the risks, alternatives, and benefits to surgical intervention with Mr. Mendoza i [facility]. These risks included but were not limited to , stroke, heart attack, numbnes s, weakness, paralysis, failure of fusion, failure of hardware, subsidence, adjacent segment degeneration, cerebrospinal fluid leak, bleeding, infection, injury to surrounding tissues and organs, injury from positioning, injury to the nerves, difficulty with breathing, diffic ulty with swallowing, difficulty with voice change, and need for additional surgery. Surgical options were discussed and the technique to be employed was described in detail to him. All his questions were answered. We discussed that the goal of the surgery is to prevent progression of his disease, but it is not considered a cure. We also discussed that although some patients may obtain 100% sym ptom relief, it is realistic to anticipate that some symptoms will continue postoperatively despite a successful surgery. We also discussed that there is no guarantee that surgery will provide improvement in his c ondition, and indeed may even worsen the symptoms. We also discussed that in the course of the procedure the operative plan may be altered to include more, less, or different levels d epending upon findings in order to provide him with the best possible outcome. I am prescribing a brace before surgery to improve his stability now to support his weak mu scles and to reduce pain by restricting mobility. For multiple (more than 1 level) fusions, I am also prescribing a bone growth stimulator po stoperatively. This is to improve the probability and rate of fusion. I will review his new MRI and contact him back to review his options with him. ELECTRONICALLY SIGNED BY: Domingo Carlson MD, 12/16/2015 11:30 documented in this encou nter Plan of Treatment + +---------+--------+ + + | Name | Type | Priori | Associated Diagnoses | Order Schedule | | | | ty | | | + +---------+--------+ + + | MRI Lumbar Spine wo | Imaging | Routin | Spinal stenosis, | Expected: 12/26/2015 | | Contrast | | e | lumbar region, with | (Approximate), | | | | | neurogenic | Expires: 12/14/2016 | | | | | claudication Spinal | | | | | | instability, lumbar | | | | | | S/P lumbar fusion | | | | | | Lumbar degenerative | | | | | | disc disease | | | | | | Spondylolisthesis of | | | | | | lumbar region Flat | | | | | | back syndrome | | + +---------+--------+ + + + + +--------+ + + | Name | Type | Priori | Associated Diagnoses | Order Schedule | | | | ty | | | + + +--------+ + + | AMB Referral to [facility] | Outpatient | Routin | Insomnia, | Ordered: 12/16/2015 | | Sleep Center | Referral | e | Unspecified Insomnia | | + + +--------+ + + documented as of this encounter Procedures + +--------+ + + + | Procedure Name | Priori | Date/Time | Associated Diagnosis | Comments | | | ty | | | | + +--------+ + + + | IMAGING REPORT - | | 12/23/2015 | | Results for this | | EXTERNAL SCAN | | 12:00 AM | | procedure are in the | | | | PDT | | results section. | + +--------+ + + + documented in this encounter Results IMAGING REPORT - EXTERNAL SCAN (12/23/2015 12:00 AM PDT) + + + | Narrative | Performed At | + + + | Ordered by an | | | unspecified provider. | | + + + documented in this encounter Visit Diagnoses + + | Diagnosis | + + | Spinal stenosis, lumbar region, with neurogenic claudication - Primary | + + | Spinal instability, lumbar Other unspecified back disorder | + + | S/P lumbar fusion Arthrodesis status | + + | Lumbar degenerative disc disease Degeneration of lumbar or lumbosacral intervertebral | | disc | + + | Spondylolisthesis of lumbar region Acquired spondylolisthesis | + + | Flat back syndrome Other lordosis (acquired) | + + | Insomnia, unspecified insomnia | + + documented in this encounter
--- OUTSIDE RECORDS SUMMARY | ~2019-08-29 | XMS | Encounter Summary ---
Demographics + + + | Address | [address] | | | [place] [address] | + + + | Home Phone | | + + + | Preferred Language | Unknown | + + + | Marital Status | | + + + | Episcopal Affiliation | 1013 | + + + | Race | Unknown | + + + | Ethnic Group | Unknown | + + + Author + + + | Author | [facility] | | | and Ruperto[place] | + + + | Organization | [facility] | | | and [place]ana [...] Team Providers + +------+ + | Care Drawer In Plain Loom Name | Role | Phone | + [...] | Specialty | Physical | Diagnoses | Domingo Carlson | Alec, | | | Services | Medicine and | Chronic | MD [address] | Joo Garrett MD | | | Required | Rehabilitatio | pain | [address] | [address] | | | | n | disorder | [place], | [facility] | | | | | S/P lumbar | [place] [address] | VIJAY JONES | | | | | fusion S/P | Phone: | [address] Phone: | | | | | cervical | [phone] | [phone] | | | | | spinal | Fax: | Fax: | | | | | fusion | [phone] | [phone] | +--------+ + + + + + Reason for Visit + + + | Reason | Comments | + + + | Follow-up | 12W PO | + + + Encounter Details +--------+---------+ + + + | Date | Type | Department | Care Team | Description | +--------+---------+ + + + | 06/19/ | Office | [facility] | Domingo Carlson MD | Chronic pain | | 2016 | Visit | NEUROSURGERY [address] | [address] | disorder (Primary | | | | [address] | [place] [address] | Dx); S/P lumbar | | | | [place] | [phone] | fusion; S/P cervical | | | | [address] | | spinal fusion | | | | [phone] | | | +--------+---------+ + + + [...] + + + | Blood Pressure | 117/69 | 06/19/2016 2:42 PM | | | | | PDT | | + + + + + | Pulse | 72 | 06/19/2016 2:42 PM | | | | | PDT | | + + + + + | Temperature | - | - | | + + + + + | Respiratory Rate | - | - | | + + + + + | Oxygen Saturation | - | - | | + + + + + | Inhaled Oxygen | - | - | | | Concentration | | | | + + + + + | Weight | 83 kg (183 lb) | 06/19/2016 2:42 PM | | | | | PDT | | + + + + + | Height | 180.3 cm (5' 11") | 06/19/2016 2:42 PM | | | | | PDT | | + + + + + | Body Mass Index | 25.52 | 06/19/2016 2:42 PM | | | | | PDT | [...] + + documented as of this encounter Progress Notes Domingo Carlson MD - 06/19/2016 3:33 PM PDTFormatting of this note might be different from t he original. Domingo Carlson MD [address] [place] [address], [address] [place], [place] [id number] FAX: NEUROSURGERY FOLLOW-UP CHIEF COMPLAINT: Chief Complaint Patient presents with Follow-up 12W PO HISTORY OF PRESENT ILLNESS: The patient is a 66 y.o. male that had a lumbar fusion around 3 months ago. He returns and overall is doing as expected. The patient complains of kvng nued back as well as some leg pain but he is notices that his leg symptoms have significantl y improved and is noticing continued improvement. The patient has been walking as much as directed. CURRENT MEDICATIONS: Current Outpatient Prescriptions Medication Sig Dispense Refill oxyCODONE 10 MG TABS Take 1-2 tablets by mouth every 4 hours as needed. 90 tablet 0 oxyCODONE-acetaminophen (PERCOCET) 10-325 mg per tablet Take 1-2 tablets by mouth every 4 hours as needed for Pain. 120 tablet 0 pramipexole (MIRAPEX) 1 MG tablet Take 2 mg by mouth nightly. tamsulosin (FLOMAX) 0.4 mg CAPS Take 1 capsule by mouth daily (after breakfast). 30 cap caleb 0 No current facility-administered medications for this visit. ALLERGIES: No Known Allergies SOCIAL HISTORY: The patient reports that he quit smoking about 31 years ago. He has never used smokeless t obacco. He reports that he drinks about 1.8 oz of alcohol per week. He reports that he does not use illicit drugs. INTERIM PHYSICAL EXAMINATION: Blood pressure 117/69, pulse 72, height 1.803 m (5' 11"), weight 83.008 kg (183 lb). Body m ass index is 25.53 kg/(m^2). GENERAL: Mal Mendoza is in no acute distress with unlabored respirations. SPINE: The patient s incisions are healing well without drainage, significant erythema, o r discharge. EXTREMITIES: No lower extremity edema. NEUROLOGICAL EXAMINATION: MENTAL STATUS: The patient is awake, alert, and oriented. He follows simple and complex commands MOTOR EXAM: Motor strength is improving and grossly 5/5. SENSORY EXAM: The sensory examination is improved when compared to the preoperative exam. RADIOGRAPHIC REVIEW: The patient s x-rays show stable instrumentation and alignment and were reviewed with the patient today. Increased bony fusion is noted but it is not complete. ASSESSMENT: Encounter Diagnoses Name Primary? Chronic pain disorder Yes S/P lumbar fusion S/P cervical spinal fusion Past Medical History Diagnosis Date Ulcer (HCC) GERD (gastroesophageal reflux disease) Depression ADHD (attention deficit hyperactivity disorder) ADHD (attention deficit hyperactivity disorder) Cervical spinal stenosis 06/12/2012 Lumbar radiculopathy 06/12/2012 Anxiety Arthritis Migraine Insomnia d/t pain Sleep apnea no CPAP PLAN: Overall, the patient is doing okay. Most of the preoperative symptoms are resolving as exp ected. His NAHEED is much reduced. He still has chronic pain and poor sleep. I increased the patient s activities now allowing a 30 pound lifting restriction that can be gradually increased to an as tolerated limit. The patient should increase range of hayley on activities as tolerated. They should continue regular exercise and strengthening with th e hope that they can avoid additional surgery. FDC pain medication should be continued and tapered by their primary care provider or pain management. I recommended he consider SCS evaluation. The patient needs to follow-up in 6 months with x-rays for re-evaluation. ELECTRONICALLY SIGNED BY: Domingo Carlson MD, 06/19/2016 15:33 documented in this encou nter Plan of Treatment + + +--------+ + + | Name | Type | Priori | Associated Diagnoses | Order Schedule | | | | ty | | | + + +--------+ + + | [facility] | Outpatient | Routin | Chronic pain | Ordered: 06/19/2016 | | | Referral | e | disorder S/P lumbar | | | | | | fusion S/P | | | | | | cervical spinal | | | | | | fusion | | + + +--------+ + + [...] 04/03/2016. FINDINGS: AP and lateral views of | [facility] | | the lumbosacral spine. Posterior screw and sonia fusion changes at [facility] | | L2-S1 without evidence of [...] | + + + + + | [facility] | [address] | [place] | [phone] | | [facility] | | [address] | | | - IMAGING | | | | + + + + + documented in this encounter Visit Diagnoses + + | Diagnosis | + + | Chronic pain disorder - Primary Chronic pain syndrome | + + | S/P lumbar fusion Arthrodesis status | + + | S/P cervical spinal fusion Arthrodesis status | + + documented in this encounter
--- OUTSIDE RECORDS SUMMARY | ~2019-08-29 | XMS | Encounter Summary ---
Demographics + + + | Address | [address] | | | [place] [address] | + + + | Home Phone | | + + + | Preferred Language | Unknown | + + + | Marital Status | | + + + | Synagogue Affiliation | 1013 | + + + | Race | Unknown | + + + | Ethnic Group | Unknown | + + + Author + + + | Author | [facility] | | | and [place] | + + + | Organization | [facility] | | | and Rupertoana [...] Team Providers + +------+ + | Care Pool Nurse Name | Role | Phone | + [...] | [address] [place] | [address] [facility], | | | | | [place], [place] | [place] [address] | | | | | [address] | [phone] | | | | | [phone] | | | +--------+ + + + [...]
--- OUTSIDE RECORDS SUMMARY | ~2019-08-29 | XMS | Encounter Summary ---
Demographics + + + | Address | [address] | | | [place] [address] | + + + | Home Phone | | + + + | Preferred Language | Unknown | + + + | Marital Status | | + + + | Bahai Affiliation | 1013 | + + + | Race | Unknown | + + + | Ethnic Group | Unknown | + + + Author + + + | Author | [facility] | | | and [place] | + + + | Organization | [facility] [...] Team Providers + +------+ + | Care Tape Sewer Name | Role | Phone | + +------+ + | Kade Bermudez MD | PCP | | + +------+ + Encounter Details +--------+ + + + + | Date | Type | Department | Care Team | Description | +--------+ + + + + | 01/08/ | [facility] | [facility] | Sawyer Petersen | | | 2012 - | Encounter | MED CTR SURGICAL | MD Fareed [address] | | | | | [address] [place] | [address] [place] | | | 01/09/ | | [place] [address] | [address] | | | 2012 | | [phone] | | | | | | | [...] + + + +---------+ + + | docusate sodium | Take 100 mg by mouth | | 0 | 01/09/20 | | | (COLACE) 100 mg | 2 times daily. | | | 13 | 3 | | capsule | | | | | | + + + +---------+ + + | | Take 1-2 tablets by | 30 | 0 | 11/13/19 | | | oxyCODONE-acetaminop | mouth EVERY 4 TO 6 | tablet | | 13 | 3 | | hen (PERCOCET) 5-325 | HOURS [...] + +--------+ + + + | XR SPINE 1 VW | Routin | 01/08/2013 | | Results for this | | | e | 5:55 PM | | procedure are in the | | | | PDT | | results section. | + +--------+ + + + | RULE OUT MYOCARDIAL | Routin | 01/08/2013 | | Results for this | | INFARCTION | e | 9:33 AM | | procedure are in the | | | | PDT | | results section. | + +--------+ + + + documented in this encounter Results XR Spine 1 Vw (01/08/2013 5:55 PM PDT) + + | Specimen | + + | | + + + + + | Narrative | Performed At | + + + | [facility] | [facility] | | Department [address] , [place] | [place] | | [ rep [address]] [ rep [facility] | | st zip] Signed | - IMAGING | | | | | Patient Name: SHEELA MENDOZA Physician: | | | MILI.[id number] : 1950 Age: 62 Sex: M Unit #: [id number] | | | Exam Date: 01/08/13 Location: [address] [place] [address] | | | Report #: [id number] Page: | | | %(RAD)RES..mtdd.print.filter("pg") of %(RAD) | | | RES..mtdd.print.filter("tpg") | | | | | | Accession Number: [id number] | | | TWO VIEWS CERVICAL SPINE, 01/08/2013 CLINICAL HISTORY: | | | STATUS POST ACDF. COMPARISON: Cervical MRI | | | 12/05/2012. FINDINGS: Anterior plate and screw fusion | | | hardware now extends from C3 through C7 and appears to be well | | | seated. Interbody fusion prostheses are present at these levels as | | | well. Cervical vertebral height and alignment are maintained, | | | without evident fracture or subluxation. A surgical drain projects | | | anterior to the fusion hardware. Imaged skull base and soft tissue | | | structures are unremarkable. IMPRESSION: 1. | | | SATISFACTORY APPEARANCE STATUS POST ACDF EXTENDING FROM C3 THROUGH C7. | | | Dictated Date/Time: 01/08/2013 17:55 Transcribed | | | Date/Time: 01/08/2013 18:05 Quirk Sander: | | | <<Signature on File>> | | | Tulio López | | | MD [id number]/[id number] <Electronically signed by Tulio Martinez MD> | | | Tulio Martinez MD 01/08/13 902 Quirk Sander: | | | Prompt.ly Sijweyaljulzn81/24/13 1157 Sawyer Petersen, | | | MD | | + + + + + + + + | Performing | Address | City/State/Zipcode | Phone Number | | Organization | | | | + + + + + | [facility] | [address] | [place] | [phone] | | [facility] | | [address] | | | - IMAGING | | | | + + + + + Rule Out Myocardial (01/08/2013 9:33 AM PDT) + + + + + + | Component | Value | Ref Range | Performed | Pathologist | | | | | At | Signature | + + + + + + | CK TOTAL | 96 | 22 - 269 IU/L | [facility] | | | | | | [facility] | | | | | | MEDICAL | | | | | | CENTER - | | | | | | LABORATORY | | + + + + + + | CK-MB | 1.7Comment: Testing | 0.6 - 6.3 ng/mL | [facility] | | | | performed on the [facility] | | [facility] | | | | [facility] | | MEDICAL | | | | Analyzer. | | CENTER - | | | | | | LABORATORY | | + + + + + + | Troponin I | <0.01Comment: Reference | <0.06 ng/mL | [facility] | | | | Ranges: | | [facility] | | | | 0.00-0.06 = NORMAL | | MEDICAL | | | | >0.06 | | CENTER - | | | | = SUSPICIOUS FOR | | LABORATORY | | | | MYOCARDIAL DAMAGE | | | | | | NOTE: Values greater | | | | | | than 0.50 ng/mL have | | | | | | been shown to be | | | | | | strongly associated with | | | | | | acute myocardial | | | | | | infarction. The | | | | | | [employer] | | | | | | Cardiology (ACC) | | | | | | recommends a decision | | | | | | limit of 0.06 ng/mL for | | | | | | this assay. Results | | | | | | greater than 0.06 can | | | | | | reflect a pre-infarct | | | | | | acute coronary | | | | | | syndrome, but can also | | | | | | reflect myocardial | | | | | | necrosis or injury | | | | | | that is not due to | | | | | | coronary artery | | | | | | disease. Some of these | | | | | | causes are sepsis, | | | | | | hypocolemia, atrial | | | | | | fibrillation, heart | | | | | | failure, pulmonary | | | | | | embolism, myocarditis, | | | | | | myocardial contusion, | | | | | | and renal failure. The | | | | | | diagnosis of myocardial | | | | | | infarction should be | | | | | | based on a combination | | | | | | of the patient's | | | | | | clinical presentation | | | | | | and the clinical | | | | | | laboratory test results | | | | | | (especially serial | | | | | | troponin levels). | | | | + + + + + + + + | Specimen | + + | | + + + + + + + | Performing | Address | City/State/Zipcode | Phone Number | | Organization | | | | + + + + + | [facility] | [address] | [place] | [phone] | | [facility] | | [address] | | | - LABORATORY | | | | + + + + + | [facility] | [address] | [place] | | | [facility] | | [address] | | | - LABORATORY | | | | + + + + + documented in this encounter Visit Diagnoses Not on filedocumented in this encounter
--- OUTSIDE RECORDS SUMMARY | ~2019-08-29 | XMS | Encounter Summary ---
Demographics + + + | Address | [address] | | | [place] [address] | + + + | Home Phone | | + + + | Preferred Language | Unknown | + + + | Marital Status | | + + + | Rastafari Affiliation | 1013 | + + + | Race | Unknown | + + + | Ethnic Group | Unknown | + + + Author + + + | Author | [facility] | | | and [place] | + + + | Organization | [facility] | | | and [place] [...] Team Providers + +------+ + | Care Electrical Logger Name | Role | Phone | + +------+ + | Kade Bermudez MD | PCP | | + +------+ + Encounter Details +--------+ + + + + | Date | Type | Department | Care Team | Description | +--------+ + + + + | 04/28/ | Hospital | [facility] | | S/P cervical spinal | | 2012 | Encounter | MED CTR XRAY [address] | | fusion; S/P lumbar | | | | [place] | | fusion | | | | [place] [address] | | | | | | [phone] | | | +--------+ + + + [...] XR CERVICAL SPINE 2 | Routin | 04/28/2013 | S/P cervical | Results for this | | OR 3 VIEWS | e | 9:52 AM | spinal fusion S/P | procedure are in the | | | | PDT | lumbar fusion | results section. | + +--------+ + + + | XR LUMBAR SPINE 2 OR | Routin | 04/28/2013 | S/P cervical | Results for this | | 3 VW | e | 9:50 AM | spinal fusion S/P | procedure are in the | | | | PDT | lumbar fusion | results section. | + +--------+ + + + documented in this encounter Results XR Cervical Spine 3 Vws or Less (04/28/2013 9:52 AM PDT) + + | Specimen | + + | | + + + + + | Narrative | Performed At | + + + | [facility] | [place] | | Department [address] [place] [address] | [facility] | | [ rep [address]] [ rep [facility] | | st zip] Signed | - IMAGING | | | | | Patient Name: MAL MENDOZA Physician: | | | ARRMicky.[id number] : 1950 Age: 63 Sex: M Unit #: [id number] | | | Exam Date: 04/28/13 Location: [facility] | | | Report #: [id number] Page: | | | %(RAD)RES..mtdd.print.filter("pg") of %(RAD) | | | RES..mtdd.print.filter("tpg") | | | | | | Accession Number: [id number] | | | CERVICAL SPINE X-RAY CLINICAL HISTORY: POSTOPERATIVE | | | CERVICAL SPINE. COMPARISON: 03/17/2013 | | | FINDINGS: Two views of the cervical spine were obtained. Again | | | visualized is hardware for anterior fusion extending from C3 through | | | C7 with interbody graft material at these levels. Hardware remains | | | intact. There is a small calcific density anterior to L3 just | | | above the plate hardware that has remained stable. Vertebral body | | | heights are preserved. Disk heights are maintained. Facet joints | | | are intact. IMPRESSION: 1. STABLE ANTERIOR FUSION | | | FROM C3 THROUGH C7. Dictated Date/Time: 04/28/2013 | | | 09:52 Transcribed Date/Time: 04/28/2013 11:34 | | | Engineer Technical Staff: <<Signature on File>> | | | | | | Lawson June MD04/28/13 1723 <Electronically signed by Lawson June | | | MD> Lawson June MD 04/28/13 0952 Engineer Technical Staff: | | | Shop2 [email or web address]/12/13 1134 Sawyer Petersen, | | | | | + + + + + + + + | Performing | Address | City/State/Zipcode | Phone Number | | Organization | | | | + + + + + | [facility] | [address] | [place] | [phone] | | [facility] | | [address] | | | - IMAGING | | | | + + + + + XR Lumbar Spine 2 or 3 Vw (04/28/2013 9:50 AM PDT) + + | Specimen | + + | | + + + + + | Narrative | Performed At | + + + | [facility] | [place] | | Department [address] [facility] [place] | [facility] | | [ rep [address]] [ rep ct [facility] [place] | | st zip] Signed | - IMAGING | | | | | Patient Name: MAL MENDOZA Physician: | | | ARRE.01 : 1950 Age: 63 Sex: M Unit #: [id number] | | | Exam Date: 04/28/13 Location: [facility] | | | Report #: [id number] Page: | | | %(RAD)RES..mtdd.print.filter("pg") of %(RAD) | | | RES..mtdd.print.filter("tpg") | | | | | | Accession Number: [id number] | | | LUMBAR SPINE X-RAY CLINICAL HISTORY: POSTOPERATIVE LUMBAR | | | SPINE. COMPARISON: Numerous previous x-rays of the | | | lumbar spine, most recently 12/16/2012. FINDINGS: Two | | | views of the lumbar spine were obtained. Again visualized is | | | hardware for posterior fusion extending from L3 through L4 with | | | interbody graft material at these levels. Hardware remains intact. | | | There is minimal dextroscoliosis of the lumbar spine. There | | | remains minimal anterolisthesis of L3 over L4 that has remained | | | stable. Small anterior osteophytes are noted at multiple levels of | | | the lower thoracic spine and lumbar spine. Vertebral body heights | | | are preserved. Disk heights are maintained. Facet joints are | | | intact. There is minimal atherosclerosis of the aorta. | | | IMPRESSION: 1. STABLE POSTOPERATIVE FUSION FROM L3 THROUGH L5 | | | WITH MINIMAL ANTEROLISTHESIS OF L3 OVER L4. Dictated | | | Date/Time: 04/28/2013 09:50 Transcribed Date/Time: 04/28/2013 | | | 11:32 Engineer Technical Staff: <<Signature | | | on File>> | | | Lawson | | | MD Slade04/28/13 5985 <Electronically signed by Lawson June MD> | | | Lawson June MD 04/28/13 0236 Engineer Technical Staff: Jack | | | [id number]/12/13 7836 Sawyer Petersen MD | | | | | + + + + + + + + | Performing | Address | City/State/Zipcode | Phone Number | | Organization | | | | + + + + + | [facility] | [address] | [place] | [phone] | | [facility] | | [address] | | | - IMAGING | | | | + + + + + documented in this encounter Visit Diagnoses + + | Diagnosis | + + | S/P cervical spinal fusion Arthrodesis status | + + | S/P lumbar fusion Arthrodesis status | + + documented in this encounter
--- OUTSIDE RECORDS SUMMARY | ~2019-08-29 | XMS | Encounter Summary ---
Demographics + + + | Address | [address] | | | [place] [address] | + + + | Home Phone | | + + + | Preferred Language | Unknown | + + + | Marital Status | | + + + | Moravian Affiliation | 1013 | + + + | Race | Unknown | + + + | Ethnic Group | Unknown | + + + Author + + + | Author | [facility] | | | and [place] | + + + | Organization | [facility] | | | and [place] [...] Team Providers + +------+ + | Care Vender Name | Role | Phone | + [...] + + + | Closed | | Neurosurgery | Diagnoses | Petersen, | Petersen, | | | | | History of | Sawyer Guerrier, | Sawyer Guerrier MD | | | | | fusion of | [address] | | | | | cervical | [address] | [address] | | | | | spine Neck | [place], | [place], | | | | | pain Fall | [place] [address] | [place] [address] | | | | | Procedures | Phone: | Phone: | | | | | MRI Cervical | [phone] | [phone] | | | | | Spine w wo | [phone] Fax: | [phone] Fax: | | | | | Contrast | | [phone] | | | | | | [phone] | | +--------+--------+ + + + + Encounter Details +--------+ + + + + | Date | Type | Department | Care Team | Description | +--------+ + + + + | 11/20/ | Orders Only | [facility] [place] | Sawyer Petersen | History of fusion of | | 2012 | | NEUROSURGERY [address] | F, [address] | cervical spine | | | | [address] | [place], [place] | (Primary Dx); Neck | | | | [place], [place] | [address] | pain; Fall | | | | [address] | [phone] | | | | | [phone] | | | +--------+ + + + [...] of this encounter Plan of Treatment + +---------+--------+ + + | Name | Type | Priori | Associated Diagnoses | Order Schedule | | | | ty | | | + +---------+--------+ + + | MRI Cervical Spine w | Imaging | Routin | History of fusion | Expected: | | wo Contrast | | e | of cervical spine | 11/20/2012, Expires: | | | | | Neck pain Fall | 11/20/2013 | + +---------+--------+ + + documented as of this encounter Visit Diagnoses + + | Diagnosis | + + | History of fusion of cervical spine - Primary Arthrodesis status | + + | Neck pain Cervicalgia | + + | Fall Unspecified fall | + + documented in this encounter"
--- OUTSIDE RECORDS SUMMARY | ~2019-08-29 | XMS | Encounter Summary ---
Demographics + + + | Address | [address] | | | [place] [address] | + + + | Home Phone | | + + + | Preferred Language | Unknown | + + + | Marital Status | | + + + | Anabaptist Affiliation | 1013 | + + + | Race | Unknown | + + + | Ethnic Group | Unknown | + + + Author + + + | Author | [facility] | | | and [place] | + + + | Organization | [facility] | | | and [...] Team Providers + +------+ + | Care Electro Mechanic Name | Role | Phone | + +------+ + | Kade Bermudez MD | PCP | | + +------+ + Reason for Visit + + + | Reason | Comments | + + + | Follow-up | 7 Week PO | + + + Encounter Details +--------+---------+ + + + | Date | Type | Department | Care Team | Description | +--------+---------+ + + + | 12/23/ | Office | [facility] | Nehemias Petersenlas | Cervical spondylosis | | 2012 | Visit | NEUR[address]URGERY [address] | MD Fareed [address] | with myelopathy | | | | [address] | [facility] [place] | (Primary Dx); | | | | [place], [place] | [address] | Scoliosis; Cervical | | | | [address] | [phone] | spinal stenosis; | | | | [phone] | | Cervicalgia; | | | | | | Dizziness; Cervical | | | | | | stenosis of spinal | | | | | | canal; | | | | | | Spondylolisthesis of | | | | | | cervical region; | | | | | | S/P lumbar fusion | +--------+---------+ + + + Social History [...] + + + | Blood Pressure | 115/66 | 12/23/2012 2:26 PM | | | | | PDT | | + + + + + | Pulse | 64 | 12/23/2012 2:26 PM | | | | | PDT | | + + + + + | Temperature | - | - | | + + + + + | Respiratory Rate | 18 | 12/23/2012 2:26 PM | | | | | PDT | | + + + + + | Oxygen Saturation | - | - | | + + + + + | Inhaled Oxygen | - | - | | | Concentration | | | | + + + + + | Weight | 84.4 kg (186 lb) | 12/23/2012 2:26 PM | | | | | PDT | | + + + + + | Height | 180.3 cm (5' 11") | 12/23/2012 2:26 PM | | | | | PDT | | + + + + + | Body Mass Index | 25.94 | 12/23/2012 2:26 PM | | | | | PDT | | + + + + + documented in this encounter Progress Notes Sawyer Petersen MD - 12/23/2012 8:54 PM PDTFormatting of this note might be differen t from the original. MD Paxton Sterling PA [address] [place] [address], [facility] [address] [place], [place] [address] FAX: NEUROSURGERY HISTORY AND PHYSICAL EXAMINATION CHIEF COMPLAINT: Chief Complaint Patient presents with Follow-up 7 Week PO HISTORY OF PRESENT ILLNESS: We had the great pleasure of seeing in my clinic again Ceasar Danielle se Raúl Mendoza. Mr. Mendoza is the very pleasant 62 y.o. male with the complaint of intermittent ne ck pains that have gotten significantly worse over the last few months. He is now also desc ribing severe dystonic type cramps in both hands worse on the right. In fact today he is we aring a splint to prevent his fourth digit on the right hand from spontaneously flexing. He is describing more weakness with both hands as well as increased difficulty with unpleasant sensations throughout his whole body. He does describe in particular increasing numbness i n the right thumb index and middle finger. His symptoms worsen with any kind of activity but he describes the pain as constant. His symptoms appear constant. He describes mostly right hand numbness. He describes bilateral arm weakness. Bowel and bladder function are stable. Treatments for these symptoms he has tried include previous surgery, physical therapy, and medications. PAST MEDICAL HISTORY: Past Medical History Diagnosis Date Ulcer GERD (gastroesophageal reflux disease) Depression ADHD (attention deficit hyperactivity disorder) ADHD (attention deficit hyperactivity disorder) Cervical spinal stenosis 06/12/2012 Lumbar radiculopathy 06/12/2012 Anxiety Arthritis PAST SURGICAL HISTORY: Past Surgical History Procedure Date Knee arthroscopy 04/09/98 Elbow arthroscopy 1991 Shoulder arthroscopy 2005 Spine surgery 1998 fusion C6-[address] Jules CURRENT MEDICATIONS: Current Outpatient Prescriptions Medication Sig Dispense Refill SERTRALINE HCL PO Take 60 mg by mouth Daily. oxyCODONE-acetaminophen (PERCOCET) 5-325 mg per tablet Take 1-2 tablets by mouth EVERY 4 TO 6 HOURS NEEDED. 30 tablet 0 ALLERGIES: No Known Allergies SOCIAL HISTORY: The patient reports that he quit smoking about 27 years ago. He quit smokeless tobacco use about 27 years ago. He reports that he drinks about 1.8 ounces of alcohol per week. FAMILY HISTORY: Family History Problem Relation Age of Onset Diabetes Mother High blood pressure Mother Other (See Comment) Father polio Alcohol abuse Father Migraines Mother REVIEW OF SYSTEMS: GENERAL: No fever, no anemia, no fatigue, no recent profound weight changes. EYES: No eye problems, no use of corrective lenses, no eye injury, no double vision, no bl indness. EARS, NOSE, AND THROAT: No changes in taste or smell, no hearing difficulty, no ringing in the ears, no ear drainage, no dizziness, no voice changes, no difficulty swallowing, no sig nificant snoring, no sleep apnea, no sinus problems, no major dental work. NEUROLOGIC: Please see the review of systems discussed above in the history of present ill ness. In addition, the patient has history recent back surgery. MUSCULOSKELETAL: complains of neck pain, denies back pain. PSYCHIATRIC: No depression, no sleep disorders, no anxiety, no bipolar disorder, no psycho tic episodes. CARDIOVASCULAR: No heart attacks, no heart murmur, no heart fluttering, no chest pain, no ankle swelling. PULMONARY: No shortness of breath, no cough, no tuberculosis, no bloody cough, no asthma, no emphysema/COPD. GASTROINTESTINAL: No bowel disease, no nausea or vomiting, no rectal bleeding, no constipa tion, no stool incontinence, no liver disease, no gallbladder disease, no abdominal pain, no ulcers. GENITOURINARY: No urinary frequency, no painful or difficult urination, no Incontinence. ENDOCRINE: No diabetes, no thyroid disease, no osteopenia or osteoporosis, no breast drain age. SKIN: No breast lumps, no skin changes, no rashes, no itches. HEMATOLOGIC/LYMPHATIC: No enlarged lymph nodes, no easy or unusual bleeding, no personal h istory of cancer. RHEUMATOLOGIC: + joint arthritis, no rheumatoid, no inflammatory arthritis. PHYSICAL EXAMINATION: Blood pressure 115/66, pulse 64, resp. rate 18, height 1.803 m (5' 11"), weight 84.369 kg ( 186 lb). Body mass index is 25.94 kg/(m^2). GENERAL: Mal Mendoza is a pleasant, well developed, well nourished male in no acute distr ess with unlabored respirations who appears Older than his stated age. The patient does not appear uncomfortable throughout the exam today. HEENT: HEAD/FACE: EYES: EARS: NASOPHARNYX: OROPHARNYX: Normocephalic and atraumatic. There are no areas of recent trauma. Normal sclerae without icterus. Tympanic membranes are clear. No drainage or tenderness. Benign. Clear without drainage. Benign. Clear without erythema. NECK (ANTERIOR): Supple with no palpable masses. There are not audible bruits. CHEST: Clear to ausculation without crackles or wheeze. HEART: Regular rate and rhythm without murmurs. ABDOMEN: Soft, non-tender, non-distended, and without palpable masses. The patient is not obese. SPINE: The cervical spine exam shows there is tenderness over the region. Range of motion is limited. Rotation and extension does cause symptoms to radiate into the extremities on both sides. No tenderness in the midline of the thoracic or lumbar spine. There is no major palpable d eformity of the spine. EXTREMITIES: No cyanosis, clubbing, or edema. Distal pulses are palpable. NEUROLOGICAL EXAM: MENTAL STATUS: The patient is awake, alert, and oriented x3. Speech is fluent, comprehension is intact. Affect is appropriate. Fund of knowledge is adequate. Memory is intact for recent and remote events. CRANIAL NERVES: Fundoscopic Exam: The optic disc is sharp. Normal vascular pattern is visualized II: Acuity is intact. Mcgraw are full to confrontation. III, IV, : The pupils are reactive. Extraocular movements are intact. No ptosis is note d. V: Facial sensation is intact and symmetric. VII: Facial movements are symmetric. VIII: Hearing is intact bilaterally. IX, X: The uvula and palate move appropriately. XI: Shrug is equal bilaterally. XII: Tongue protrusion is midline. MOTOR EXAM: (5 IS NORMAL) * Indicates pain limited MUSCLE/ MOVEMENT: RIGHT LEFT Deltoids 5 5 Biceps 5 5 Triceps 5 5 Wrist Flexion 5 5 Wrist Extension 5 5 Median Intrinsics 5 5 Ulnar Intrinsics 5 5 Wood Machine Carver Strength 5 5 Hip Flexion 5 5 Hip Extension 5 5 Knee Flexion 5 5 Knee Extension 5 5 Dorsiflexion 5 5 Extensor Hallicus Longus 5 5 Plantarflexion 5 5 SENSORY EXAM: Sensory exam shows no diminished sensation to light touch or pain throughout the upper and lower extremities. REFLEXES: (2 OR 2+ IS NORMAL) REFLEX: RIGHT LEFT BICEPS 2 2 BRACHIORADIALIS 2 2 TRICEPS 1 1 PATELLAR 2 2 ACHILLES 1 1 DONIS'S present present PLANTAR equivocal mute GAIT: Gait is steady. The patient is able to heel/ toe, and tandem walk with some difficulty. PERIPHERAL NERVE/MISC: Tinel is negative at the wrists and elbows bilaterally. Phalen is negative. Straight leg raise is negative bilaterally. Morgan's test of the hips is negative bilaterally. Impingement test is negative bilaterally. RADIOGRAPHIC REVIEW: Imaging studies which were reviewed with the patient include CT angiogram of the cervical s pine performed today. The radiologist's interpretation is not available however it does jos ear that there is no significant vascular disease in the neck. An MRI the cervical spine performed on November 26, 2012 demonstrates severe spinal stenosis w orst at C5-6. There is multilevel cervical spondylolisthesis. Additionally upon further re view there appears to be a small myelopathic lesion evident behind the C5-6 level and toward the left side. This was not commented on by the radiologist. There is advanced degenerati ve disc disease as well as foraminal stenosis. This is significantly worsened since study f rom 2010. ASSESSMENT: NEUROSURGICAL DIAGNOSES: Patient Active Problem List Diagnoses ADHD (attention deficit hyperactivity disorder) Cervical spinal stenosis Lumbar radiculopathy Lumbar spinal stenosis Lumbalgia Lumbar degenerative disc disease Anxiety Arthritis Facet arthropathy, lumbar Foraminal stenosis of lumbosacral region Spinal instability, lumbar Spondylolisthesis of lumbar region Scoliosis S/P cervical spinal fusion Spinal stenosis, lumbar region, with neurogenic claudication Bilateral hip pain Spondylolisthesis of cervical region S/P lumbar fusion Cervicalgia Dizziness Cervical stenosis of spinal canal Cervical spondylosis with myelopathy GENERAL DIAGNOSES: Past Medical History Diagnosis Date Ulcer GERD (gastroesophageal reflux disease) Depression ADHD (attention deficit hyperactivity disorder) ADHD (attention deficit hyperactivity disorder) Cervical spinal stenosis 06/12/2012 Lumbar radiculopathy 06/12/2012 Anxiety Arthritis PLAN: Mr. Mendoza has done very well from his lumbar surgery. At this point he is interested in pro ceeding with surgical treatment for his neck disease despite my recommendation that he wait to convalesce from his back surgery for a few more months. He does have evidence for myelop athy and therefore I do think it is prudent to proceed promptly. Additionally he is general ly healthy and I believe will be able to recover well from additional neck surgery. This wo uld take the form of a 4 level anterior cervical discectomy and fusion from C3-C7. Due to t he spondylolisthesis and stenosis as well as the probable instability in his neck treating f ewer than those for levels would likely result in rapid adjacent segment failure. We did al so discussed that a 4 level procedures a major procedure and does place a tremendous amount of strain on the construct. We talked about the possibility of a posterior fusion at the sa me time but I think that his overall bone quality and health her good enough to allow anteri or approach alone. We discussed the risks, alternatives, and benefits to surgical intervention with Mr. Kelly coombs [facility]. These risks included but were not limited [...] continue postoperatively despite a successful surgery. We estimate it is reasonable for him to experience an 80% imp rovement in his symptoms after he heals. We also discussed that there is no guarantee that surgery will provide improvement in his c ondition, and indeed may even worsen the symptoms. We also discussed that in the course of the procedure the operative plan may be altered to include more, less, or different levels d epending upon findings in order to provide him with the best possible outcome. ELECTRONICALLY SIGNED BY: Sawyer Petersen MD, 12/23/2012 20:54 documented in th is encounter Plan of Treatment Not on filedocumented as of this encounter Visit Diagnoses + + | Diagnosis | + + | Cervical spondylosis with myelopathy - Primary | + + | Scoliosis Scoliosis (and kyphoscoliosis), idiopathic | + + | Cervical spinal stenosis Spinal stenosis in cervical region | + + | Cervicalgia | + + | Dizziness Dizziness and giddiness | + + | Cervical stenosis of spinal canal Spinal stenosis in cervical region | + + | Spondylolisthesis of cervical region Acquired spondylolisthesis | + + | S/P lumbar fusion Arthrodesis status | + + documented in this encounter
--- OUTSIDE RECORDS SUMMARY | ~2019-08-29 | XMS | Encounter Summary ---
Demographics + + + | Address | [address] | | | [place] [address] | + + + | Home Phone | | + + + | Preferred Language | Unknown | + + + | Marital Status | | + + + | Jewish Affiliation | 1013 | + + + | Race | Unknown | + + + | Ethnic Group | Unknown | + + + Author + + + | Author | [facility] | | | and [place] | + + + | Organization | [facility] | | | and [place] [...] Team Providers + +------+ + | Care Morning Show Newscast Producer Name | Role | Phone | + +------+ + PCP | Unavailable | + +------+ + Encounter Details +--------+ + + + + | Date | Type | Department | Care Team | Description | +--------+ + + + + | 10/20/ | Hospital | [facility] | Praveen Terrazas S, | | | 2008 | Encounter | HOSPITAL GENERIC OP | MD [address] | | | | | CONVERSION | [address] | | | | | [address] | [place] [address] | | | | | [address] | [phone] | | | | | [place] | | | | | | [address] | | | | | | [phone] | | | +--------+ + + + [...]
--- OUTSIDE RECORDS SUMMARY | ~2019-08-29 | XMS | Encounter Summary ---
Demographics + + + | Address | [address] | | | [place] [address] | + + + | Home Phone | | + + + | Preferred Language | Unknown | + + + | Marital Status | | + + + | Jewish Affiliation | 1013 | + + + | Race | Unknown | + + + | Ethnic Group | Unknown | + + + Author + + + | Author | [facility] | | | and [place] | + + + | Organization | [facility] | | | and [place] | + + + | Address | Unknown | + + + | Phone | Unavailable | + + + Support + + +---------+ + | Name | Relationship | Address | Phone | + + +---------+ + | Lizz Mendoza | ECON | Unknown | | + + +---------+ + Care Team Providers + +------+ + | Care Car Repairer Apprentice Name | Role | Phone | + +------+ + | Kade Bermudez MD | PCP | | + +------+ + Encounter Details +--------+ + + + + | Date | Type | Department | Care Team | Description | +--------+ + + + + | 12/18/ | [facility] | [facility] | Domingo Carlson MD | Chronic pain | | 2017 | Encounter | MED CTR XRAY [address] | [address] | disorder; S/P lumbar | | | | [address] [place] | [place] [address] | fusion; S/P | | | | [place] [address] | [phone] | cervical spinal | | | | [phone] | | fusion | +--------+ + + [...] | | 0 | | | | [id number] | mouth Daily. | | | | [...] 04/03/2016. FINDINGS: AP and lateral views of [facility] | | the lumbosacral spine. Posterior screw and sonia fusion changes at [facility] | | L2-S1 without evidence of [...] [address] | [place] | [phone] | | [facility] | | [address] | | | - IMAGING | | [...]
--- OUTSIDE RECORDS SUMMARY | ~2019-08-29 | XMS | Encounter Summary ---
Demographics + + + | Address | [address] | | | [place] [address] | + + + | Home Phone | | + + + | Preferred Language | Unknown | + + + | Marital Status | | + + + | Islam Affiliation | 1013 | + + + | Race | Unknown | + + + | Ethnic Group | Unknown | + + + Author + + + | Author | [facility] | | | and [place] | + + + | Organization | [facility] | | | and [place] | [...] Team Providers + +------+ + | Care Stonework Supervisor Name | Role | Phone | + +------+ + | Kade Bermudez MD | PCP | | + +------+ + Reason for Visit + + + | Reason | Comments | + + + | ED Follow-up | Pre op surgery | + + + Encounter Details +--------+---------+ + + + | Date | Type | Department | Care Team | Description | +--------+---------+ + + + | 03/01/ | Office | [facility] | Hemal Celestin | Spondylolisthesis of | | 2016 | Visit | NEUROSURGERY [address] | [address] | lumbar region | | | | [address] | [address] | (Primary Dx); Lumbar | | | | [place], [place] | [place] [address] | radiculopathy; S/P | | | | [address] | [phone] | lumbar fusion; Facet | | | | [phone] | | arthropathy, lumbar | +--------+---------+ + + + Social History [...] + + + | Blood Pressure | 121/76 | 03/01/2016 9:49 AM | | | | | PDT | | + + + + + | Pulse | 70 | 03/01/2016 9:49 AM | | | | | PDT | | + + + + + | Temperature | - | - | | + + + + + | Respiratory Rate | 16 | 03/01/2016 9:49 AM | | | | | PDT | | + + + + + | Oxygen Saturation | - | - | | + + + + + | Inhaled Oxygen | - | - | | | Concentration | | | | + + + + + | Weight | 86.6 kg (191 lb) | 03/01/2016 9:49 AM | | | | | PDT | | + + + + + | Height | 180.3 cm (5' 11") | 03/01/2016 9:49 AM | | | | | PDT | | + + + + + | Body Mass Index | 26.64 | 03/01/2016 9:49 AM | | | | | PDT | | + + + + + documented in this encounter Patient Instructions Patient Instructions Hemal Celestin PA - 03/01/2016 10:09 AM PDTPlease do not eat or drink anything after midnight the night before your surgery. If you have any changes in yo ur health between now and the time of your surgery please let us know documented in this encounter Progress Notes Hemal Celestin PA - 03/01/2016 10:10 AM PDTFormatting of this note might be differen t from the original. HARDEEP Acharya [address] [facility], [address] [place], [place] [address] FAX: NEUROSURGERY FOLLOW-UP CHIEF COMPLAINT: Chief Complaint Patient presents with ED Follow-up Pre op surgery HISTORY OF PRESENT ILLNESS: The patient is a 66 y.o. male with the complaint of back and l eft leg symptoms that began early 2014. The patient was previously seen in our office and h as been evaluated and we are planning to proceed with surgery on his lower back. His sympto ms have remained the same without any changes in his underlying health. He is anxious to mo ve forward with surgery The patient described a severe pain in his back and numbness in pain in his anterior leg to his monk on the left. The symptoms were getting better, but this year he has noticed a m ajor decline in his walking. His pain has also increased. The pain is now in both anterior [...] HISTORY: Past Medical History Diagnosis Date Ulcer (HCC) GERD (gastroesophageal reflux disease) Depression ADHD (attention deficit hyperactivity disorder) ADHD (attention deficit hyperactivity disorder) Cervical spinal stenosis 06/12/2012 Lumbar radiculopathy 06/12/2012 Anxiety Arthritis PAST SURGICAL HISTORY: Past Surgical History Procedure Laterality Date Knee arthroscopy 04/09/98 x2 Elbow arthroscopy 1991 Shoulder arthroscopy 2005 x2 Spine surgery 1998 fusion C6-[address] Jules Back surgery CURRENT MEDICATIONS: Current Outpatient Prescriptions Medication Sig Dispense Refill clorazepate (TRANXENE-T) 7.5 mg tablet Take 7.5 mg by mouth every 6 hours as needed. pramipexole (MIRAPEX) 1 MG tablet Take 2 [...] no rheumatoid arthritis. PHYSICAL EXAMINATION: Blood pressure 121/76, pulse 70, resp. rate 16, height 1.803 m (5' 11"), weight 86.637 kg ( 191 lb). Body mass index is 26.65 kg/(m^2). GENERAL: Mal Mnedoza is in no acute distress with unlabored [...] has no apparent deficits with short or jail memory. MOTOR EXAM: (5 IS NORMAL) * Indicates pain limited MUSCLE/ MOVEMENT: RIGHT LEFT Deltoids 5 5 Biceps 5 5 Triceps 5 5 Wrist Flexion 5 5 Wrist Extension 5 5 Median Intrinsics 5 5 Ulnar Intrinsics 5 5 Patient Care Director Strength 5 5 Hip Flexion 5 5 [...] ASSESSMENT: NEUROSURGICAL DIAGNOSES: Encounter Diagnoses Name Primary? Spondylolisthesis of lumbar region Yes Lumbar radiculopathy S/P lumbar fusion Facet arthropathy, lumbar GENERAL DIAGNOSES: Past Medical History Diagnosis Date Ulcer (HCC) GERD (gastroesophageal reflux disease) Depression ADHD (attention deficit hyperactivity disorder) ADHD (attention deficit hyperactivity disorder) Cervical spinal stenosis 06/12/2012 Lumbar radiculopathy 06/12/2012 Anxiety Arthritis PLAN: Mal Mendoza presented today, and it was a pleasure seeing this patient and assessing his p ginale. It is unfortunate to see him now worsening. He has more stenosis symptoms. We discussed the risks, alternatives, and benefits [facility] They're planning on L2-3 as well as L5-S1 fusion with L3-L5 hardware revision These risks included but were not limited to , stroke, heart attack, numbness, weakne ss, paralysis, failure of fusion, failure of hardware, subsidence, adjacent segment degenera tion, cerebrospinal fluid leak, bleeding, infection, injury to surrounding tissues and organ s, injury from positioning, injury to the nerves, difficulty with breathing, difficulty with swallowing, difficulty with voice change, and [...] improve the probability and rate of fusion. ELECTRONICALLY SIGNED BY: HARDEEP Acharya, 03/01/2016 10:10 documented in th is encounter Plan of Treatment Not on filedocumented as of this encounter Visit Diagnoses + + | Diagnosis | + + | Spondylolisthesis of lumbar region - Primary Acquired spondylolisthesis | + + | Lumbar radiculopathy Thoracic or lumbosacral neuritis or radiculitis, unspecified | + + | S/P lumbar fusion Arthrodesis status | + + | Facet arthropathy, lumbar Lumbosacral spondylosis without myelopathy | + + documented in this encounter
--- OUTSIDE RECORDS SUMMARY | ~2019-08-29 | XMS | Encounter Summary ---
Demographics + + + | Address | [address] | | | [place] [address] | + + + | Home Phone | | + + + | Preferred Language | Unknown | + + + | Marital Status | | + + + | Scientologist Affiliation | 1013 | + + + | Race | Unknown | + + + | Ethnic Group | Unknown | + + + Author + + + | Author | [facility] | | | and [place] | + + + | Organization | [facility] | | | and [place] [...] Team Providers + +------+ + | Care Software Lead Name | Role | Phone | + +------+ + PCP | Unavailable | + +------+ + Encounter Details +--------+ + + + + | Date | Type | Department | Care Team | Description | +--------+ + + + + | 10/22/ | Hospital | [facility] | [facility] [address]raz[facility], | | | 2008 | Encounter | HOSPITAL OR INTRA OP | [address] | | | | | [address] | [address] | | | | | [place], [place] | [place] [address] | | | | | [address] | [phone] | | | | | [phone] | | | +--------+ + + + [...]
--- OUTSIDE RECORDS SUMMARY | ~2019-08-29 | XMS | Encounter Summary ---
Demographics + + + | Address | [address] | | | [place] [address] | + + + | Home Phone | | + + + | Preferred Language | Unknown | + + + | Marital Status | | + + + | Mandaeism Affiliation | 1013 | + + + | Race | Unknown | + + + | Ethnic Group | Unknown | + + + Author + + + | Author | [facility] | | | and [place] | + + + | Organization | [facility] | | | and [place] [...] Team Providers + +------+ + | Care Grapple Operator Name | Role | Phone | + +------+ + PCP | Unavailable | + +------+ + Encounter Details +--------+ + + + + | Date | Type | Department | Care Team | Description | +--------+ + + + + | 02/08/ | Hospital | [facility] | Shirley Ghosh | | | 2011 | Encounter | HOSPITAL LABORATORY | MD [address] | | | | | [address] | [address] [facility], | | | | | [place], [place] | [place] [address] | | | | | [address] | [phone] | | | | | [phone] | | | +--------+ + + + [...]
--- OUTSIDE RECORDS SUMMARY | ~2019-08-29 | XMS | Encounter Summary ---
Demographics + + + | Address | [address] | | | [place] [address] | + + + | Home Phone | | + + + | Preferred Language | Unknown | + + + | Marital Status | | + + + | Adventism Affiliation | 1013 | + + + | Race | Unknown | + + + | Ethnic Group | Unknown | + + + Author + + + | Author | [facility] | | | and [place] | + + + | Organization | [facility] | | | and [place] [...] Team Providers + +------+ + | Care Admissions Assistant Name | Role | Phone | + +------+ + | Kade Bermudez MD | PCP | | + +------+ + Encounter Details +--------+ + + + + | Date | Type | Department | Care Team | Description | +--------+ + + + + | 03/01/ | Preadmit | [facility] | Domingo Carlson MD | Lumbar | | 2016 | Visit | [facility] | [address] | radiculopathy; | | | | CLINIC [address] | [place] [address] | Lumbar disc | | | | [place] | [phone] | herniation with | | | | [address] | | radiculopathy; | | | | | | Lumbar [...] | + +--------+ + + + | CULTURE, MRSA | Routin | 03/01/2016 | | Results for this | | | e | 11:31 AM | | procedure are in the | | | | PDT | | results section. | + +--------+ + + + | CBC WITH | Routin | 03/01/2016 | Lumbar | Results for this | | DIFFERENTIAL | e | 11:31 AM | radiculopathy | procedure are in the | | | | PDT | Lumbar disc | results section. 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 | | | | | | Scoliosis, | | | | | | unspecified | | | | | | scoliosis type, | | | | | | unspecified spinal | | | | | | region | | + +--------+ + + + documented in this encounter Results CBC with Differential (03/01/2016 11:31 AM PDT) [...] [facility] | | [facility] - | | | | | | LABORATORY | | + +-------+ + + + | Absolute | 4.60 | 1.80 - 8.50 | [facility] | | | Neutrophils | | K/uL | [facility] | | | | | | [facility]ICAL | | | | | | CENTER - | | | | | | LABORATORY | | + +-------+ + + + | Absolute | 1.80 | 0.60 - 3.20 | [facility] | | | Lymphocytes | | K/uL | [facility] | | | | | | [facility]ICAL | | | | | | CENTER - | | | | | | LABORATORY | | + +-------+ + + + | Absolute | 0.80 | 0.00 - 1.00 | [facility] | | | Monocytes | | K/uL | [facility] | | | | | | [facility]ICAL | | | | | | CENTER - | | | | | | LABORATORY | | + +-------+ + + + | Absolute | 0.10 | 0.00 - 0.40 | [facility] | | | Eosinophils | | K/uL | [facility] | [...] + | [facility] | [address] | [place] | [phone] | | [facility] | | [address] | | | - LABORATORY | | [...] 108 | 70 - 109 mg/dL | [facility] | | | | | | [facility] | | | | | | [facility]ICAL | | | | | | CENTER - | | | | | | LABORATORY | | + + + + + + | BUN | 9 | 7 - 18 mg/dL | [facility] | | | | | | [facility] | | | | | | [facility]ICAL | | | | | | CENTER - | | | | | | LABORATORY | | + + + + + + | Creatinine | 0.72 | 0.60 - 1.30 | [facility] | | | | | mg/dL | [facility] | | | | | | MEDICAL | | | | | | CENTER - | | | | | | LABORATORY | | + + + + + + | eGFR if not | >60Comment: GLOMERULAR | >=60 | [facility] | | | | FILTRATION | mL/min/1.73m2 | [facility] | | | [place] | RATE,ESTIMATED | | MEDICAL | | | | mL/min/1.12m5Nobs than | | CENTER - | | [...] | | | | mg/dL | [facility] | | | | | | MEDICAL | | | | | | CENTER - | | | | | | LABORATORY | | + + + + + + | BUN/Creatin | 12.5 | | [facility] | | | ine Ratio | | | [facility] | | [...] + + | [facility] | [address] | [place] | [phone] | | [facility] | | [address] | | | - LABORATORY | | | | + + + + + Culture, MRSA (03/01/2016 11:31 AM PDT) + + + + + + | Component | Value | Ref Range | Performed | Pathologist | | | | | At | Signature | + + + + + + | Culture | Negative for MRSA by | | [facility] | | | | chromogenic agar method | | [facility] | | | | | | MEDICAL | | | | | | CENTER - | | | | | | LABORATORY | | + + + + + + | Culture | 4+ Coagulase positive | | [facility] | | | | Staphylococcus | | [facility] | | | | | | MEDICAL | | | | | | CENTER - | | | | | | LABORATORY | | + + + + + + + + | Specimen | + + | Respiratory - Both | | anterior nares (body | | structure) | + + + + + + + | Performing | Address | City/State/Zipcode | Phone Number | | Organization | | | | + + + + + | [facility] | [address] | [place] | [phone] | | [facility] | | [address] | | | - LABORATORY | | [...] | | | | DIPTI SETHI MD ([id number]) | | | | | | on [...] Diagnosis | + + | Lumbar radiculopathy Thoracic or lumbosacral neuritis or radiculitis, unspecified | + + | Lumbar disc [...]
--- OUTSIDE RECORDS SUMMARY | ~2019-08-29 | XMS | Encounter Summary ---
Demographics + + + | Address | [address] | | | [place] [address] | + + + | Home Phone | | + + + | Preferred Language | Unknown | + + + | Marital Status | | + + + | Pentecostalism Affiliation | 1013 | + + + | Race | Unknown | + + + | Ethnic Group | Unknown | + + + Author + + + | Author | [facility] | | | and [place] | + + + | Organization | [facility] | | | and [place] [...] Team Providers + +------+ + | Care Director Of Teaching And Learning Name | Role | Phone | + +------+ + | Shirley Ghosh MD | PCP | | + +------+ + Encounter Details +--------+ + + + + | Date | Type | Department | Care Team | Description | +--------+ + + + + | 10/15/ | Hospital | [facility] | Sawyer Petersen | | | 2012 | Encounter | HOSPITAL LABORATORY | MD Kelsey Guerrier | | | | | [address] | [place], [place] | | | | | [place] | [address] | | | | | [address] | [phone] | | | | | [phone] | | | +--------+ + + + [...]
--- OUTSIDE RECORDS SUMMARY | ~2019-08-29 | XMS | Encounter Summary ---
Demographics + + + | Address | [address] | | | [place] [address] | + + + | Home Phone | | + + + | Preferred Language | Unknown | + + + | Marital Status | | + + + | Holiness Affiliation | 1013 | + + + | Race | Unknown | + + + | Ethnic Group | Unknown | + + + Author + + + | Author | [facility] | | | and [place] | + + + | Organization | [facility] | | | and [place] [...] Team Providers + +------+ + | Care Belt Splicer Name | Role | Phone | + +------+ + | Kade Bermudez MD | PCP | | + +------+ + Reason for Visit +--------+ + | Reason | Comments | +--------+ + | Other | shoulder injections | +--------+ + Encounter Details +--------+ + + + + | Date | Type | Department | Care Team | Description | +--------+ + + + + | 12/31/ | Telephone | [facility] | Sawyer Petersen | Other (shoulder | | 2012 | | NEUROSURGERY [address] | F, MD [address] [place] | injections ) | | | | [address] | [place] | | | | | [place], [place] | [address] | | | | | [address] | [phone] | | | | | [phone] | | | +--------+ + + + [...]
--- OUTSIDE RECORDS SUMMARY | ~2019-08-29 | XMS | Encounter Summary ---
Demographics + + + | Address | [address] | | | [place] [address] | + + + | Home Phone | | + + + | Preferred Language | Unknown | + + + | Marital Status | | + + + | Rastafarian Affiliation | 1013 | + + + | Race | Unknown | + + + | Ethnic Group | Unknown | + + + Author + + + | Author | [facility] | | | and [place] | + + + | Organization | [facility] | | | and [place] | [...] Team Providers + +------+ + | Care Lining Baster Name | Role | Phone | + +------+ + | Kade Bermudez MD | PCP | | + +------+ + Encounter Details +--------+ + + + + | Date | Type | Department | Care Team | Description | +--------+ + + + + | 03/01/ | [facility] | [facility] | Domingo Carlson MD | Lumbar | | 2016 | Encounter | MED CTR XRAY [address] | [address] | radiculopathy; | | | | [address] [place] | [place] [address] | Lumbar disc | | | | [place] [address] | [phone] | herniation with | | | | [phone] | | radiculopathy; | | | | | Jorge Alberto Faustin MD | Lumbar spinal | | | | | [address] | stenosis; Lumbar | | | | | [address] | degenerative disc | | | | | [address] | disease; Facet | | | | [...] + +--------+ + + + | XR CHEST PA AND | Routin | 03/01/2016 | Lumbar | Results for this | | LATERAL | e | 11:44 AM | radiculopathy | procedure are in [...] + documented in this encounter Results XR Chest PA and [...] + | [facility] | [address] | [place], [place] | [phone] | | [facility] | | [address] | | | - IMAGING | | [...]
--- OUTSIDE RECORDS SUMMARY | ~2019-08-29 | XMS | Encounter Summary ---
Demographics + + + | Address | [address] | | | [place] [address] | + + + | Home Phone | | + + + | Preferred Language | Unknown | + + + | Marital Status | | + + + | Religion Affiliation | 1013 | + + + | Race | Unknown | + + + | Ethnic Group | Unknown | + + + Author + + + | Author | [facility] | | | and [place] | + + + | Organization | [facility] | | | and [...] Team Providers + +------+ + | Care Delivery Room Supervisor Name | Role | Phone | + +------+ + | Kade Bermudez MD | PCP | | + +------+ + Reason for Visit + + + | Reason | Comments | + + + | Appointment Question | | + + + Encounter Details +--------+ + + + + | Date | Type | Department | Care Team | Description | +--------+ + + + + | 06/26/ | Telephone | [facility] [place] | Domingo Carlson MD | Appointment Question | | 2017 | | NEUROSURGERY [address] | [address] | | | | | [address] | [place] [address] | | | | | [place] | [phone] | | | | | [address] | | | | | | [phone] | | | +--------+ + + + [...]
--- OUTSIDE RECORDS SUMMARY | ~2019-08-29 | XMS | Encounter Summary ---
Demographics + + + | Address | [address] | | | [place] [address] | + + + | Home Phone [...] + | Author | [facility] | | | and [place] | + + + | Organization | [facility] | | | and [...] Team Providers + +------+ + | Care Reproductive Surgeon Name | Role | Phone | + +------+ + PCP | Unavailable | + +------+ + Encounter Details +--------+ + + + + | Date | Type | Department | Care Team | Description | +--------+ + + + + | 02/10/ | [facility] | [facility] | Hernando Shell | | | 2002 | Encounter | MED CTR XRAY [address] | MD [address] | | | | | [place] | [facility] | | | | | [place] [address] | [place] [address] | | | | | [phone] | [phone] | | | | | | | [...]
--- OUTSIDE RECORDS SUMMARY | ~2019-08-29 | XMS | Encounter Summary ---
Demographics + + + | Address | [address] | | | [place] [address] | + + + | Home Phone | | + + + | Preferred Language | Unknown | + + + | Marital Status | | + + + | Baptist Affiliation | 1013 | + + + | Race | Unknown | + + + | Ethnic Group | Unknown | + + + Author + + + | Author | [facility] | | | and [place] | + + + | Organization | [facility] | | | and [place] | [...] Team Providers + +------+ + | Care Dehydrator Name | Role | Phone | + [...] | Physical | Diagnoses | Petersen, | [facility] | | | Services | Therapy | S/P | Sawyer F, | Pt Acute | | | Required | | cervical | MD [address] | [address] | | | | | spinal | [address] | [place], | | | | | fusion S/P | [place], | [place] | | | | | lumbar | [place] [address] | [address] | | | | | fusion | Phone: | Phone: | | | | | | [phone] | [phone] | | | | | | [phone] Fax: | Fax: | | | | | | | [phone] | | | | | | [phone] | | +--------+ + + + + + Reason for Visit + + + | Reason | Comments | + + + | Follow-up | 7 Week PO | + + + Encounter Details +--------+---------+ + + + | Date | Type | Department | Care Team | Description | +--------+---------+ + + + | 03/17/ | Office | [facility] | PetersenSawyer bell | S/P cervical spinal | | 2013 | Visit | NEUROSURGERY [address] | MD Fareed [address] | fusion (Primary Dx); | | | | [address] | [place] | S/P lumbar fusion | | | | [place], [place] | [address] | | | | | [address] | [phone] | | | | | [phone] | | | +--------+---------+ + + + [...] + + + | Blood Pressure | 118/70 | 03/17/2013 9:51 AM | | | | | PDT | | + + + + + | Pulse | 57 | 03/17/2013 9:51 AM | | | | | PDT | | + + + + + | Temperature | - | - | | + + + + + | Respiratory Rate | 16 | 03/17/2013 9:51 AM | | | | | PDT | | + + + + + | Oxygen Saturation | - | - | | + + + + + | Inhaled Oxygen | - | - | | | Concentration | | | | + + + + + | Weight | 79.8 kg (176 lb) | 03/17/2013 9:51 AM | | | | | PDT | | + + + + + | Height | 180.3 cm (5' 11") | 03/17/2013 9:51 AM | | | | | PDT | | + + + + + | Body Mass Index | 24.55 | 03/17/2013 9:51 AM | | | | | PDT | | + + + + + documented in this encounter Patient Instructions Patient Instructions Sawyer Petersen MD - 03/17/2013 10:37 AM PDTPlease continue to u se the bone growth stimulator. documented in this encounter Progress Notes Sawyer Petersen MD - 03/17/2013 10:40 AM PDTFormatting of this note might be differen t from the original. Sawyer Petersen MD [address] [facility] [address] [place], [place] [address] FAX: NEUROSURGERY SURGICAL FOLLOW-UP CHIEF COMPLAINT: Chief Complaint Patient presents with Follow-up 7 Week PO HISTORY OF PRESENT ILLNESS: The patient is a 63 y.o. male that had a C3-C7 ACDF by me link 6-8 weeks ago. He returns and overall is doing well. The patient complains of an occas ional catch in his throat while swallowing. He also reports that he has slightly decreased range of motion to the right. The patient has been walking as much as possible and has been following their restrictions overall. The patient has had no issues with his surgical site . So far issues with swallowing have not been a major issue. He has not had major issues w ith hoarseness. He does report that he does also get some back pain still. CURRENT MEDICATIONS: Current Outpatient Prescriptions Medication Sig Dispense Refill clorazepate (TRANXENE-T) 7.5 mg tablet Take 7.5 mg by mouth every 6 hours as needed. oxyCODONE-acetaminophen (PERCOCET) 5-325 mg per tablet Take 1-2 tablets by mouth EVERY 4 TO 6 HOURS NEEDED. 30 tablet 0 piroxicam (FELDENE) 20 MG capsule rOPINIRole (REQUIP) 4 mg tablet Take 4 mg by mouth At bedtime. SERTRALINE HCL PO Take 60 mg by mouth Daily. ALLERGIES: No Known Allergies SOCIAL HISTORY: The patient reports that he quit smoking about 27 years ago. He quit smokeless tobacco use about 27 years ago. He reports that he drinks about 1.8 ounces of alcohol per week. INTERIM PHYSICAL EXAMINATION: Blood pressure 118/70, pulse 57, resp. rate 16, height 1.803 m (5' 11"), weight 79.833 kg ( 176 lb). Body mass index is 24.55 kg/(m^2). GENERAL: Mal Mendoza is in no acute distress with unlabored respirations. HEENT: HEAD/FACE: Normocephalic and atraumatic. There are no areas of recent trauma. SPINE: The patient s incision is healing well. There is not significant erythema or disc harge. EXTREMITIES: No lower extremity edema. NEUROLOGICAL EXAMINATION: MENTAL STATUS: The patient is awake, alert, and oriented. He follows simple and complex commands MOTOR EXAM: Motor strength is 5 out of 5. This is improved from the preoperative exam. SENSORY EXAM: The sensory examination improved from the preoperative exam. He denies numbn ess. REFLEXES: Reflexes are unchanged from his preoperative history and physical. RADIOGRAPHIC REVIEW: The patient s postoperative x-rays show stable instrumentation and alignment and were rev iewed with the patient today. There is some anticipated subsidence since the immediate post operative films. Complete fusion has not yet occurred, but this is normal and would not be expected at this time. ASSESSMENT: S/P C3-C7 ACDF: Encounter Diagnoses Name Primary? S/P cervical spinal fusion Yes S/P lumbar fusion Past Medical History Diagnosis Date Ulcer GERD (gastroesophageal reflux disease) Depression ADHD (attention deficit hyperactivity disorder) ADHD (attention deficit hyperactivity disorder) Cervical spinal stenosis 06/12/2012 Lumbar radiculopathy 06/12/2012 Anxiety Arthritis PLAN: Overall, the patient is doing well. The timers inspector to recovery will take many months and pe rhaps years. Hopefully, we will see further improvement over time. I increased the patient s activities today allowing 15 pound lifting. I would like the patient to advance slowly with this process and discussed this at length. I would also like the patient to continue with postoperative rehabilitation and to advance with independent or directed therapy as tolerated. So far, things are progressing as planned. We discussed that I will be leaving this area a nd he is comfortable with the remainder of his followup being handled by one my colleagues. We'll arrange for him to followup in mid April to be for a 6 month followup for his lumbar spine and a 3 month followup for his cervical spine. I spent 30 minutes in visit with Mal Mendoza today with the majority of time spent counseling department chair ling the patient on his recovery and coordinating his future care. ELECTRONICALLY SIGNED BY: Sawyer Petersen MD, 03/17/2013 10:41 documented in this encounter Plan of Treatment + + +--------+ + + | Name | Type | Priori | Associated Diagnoses | Order Schedule | | | | ty | | | + + +--------+ + + | Ambulatory referral | Outpatient | Routin | S/P cervical | 1 Occurrences | | to Physical Therapy | Referral | e | spinal fusion S/P | starting 03/17/2013 | | | | | lumbar fusion | until 03/17/2014 | + + +--------+ + + documented as of this encounter Results XR Cervical Spine 3 Vws or Less (04/28/2013 9:52 AM PDT) + + | Specimen | + + | | + + + + + | Narrative | Performed At | + + + | [facility] | [place] | | Department [address] [facility] | [place] | | [ rep [address]] [ rep [facility] | | [facility]] Signed | - IMAGING | | | | | Patient Name: MAL MENDOZA Physician: | | | MILI. : 1950 Age: 63 Sex: M Unit #: [id number] | | | Exam Date: 04/28/13 Location: [facility] [place] | | | Report #: [id number] Page: | | | %(RAD)RES..mtdd.print.filter("pg") of %(RAD) | | | RES..mtdd.print.filter("tpg") | | | | | | Accession Number: [id number] | | | CERVICAL SPINE X-RAY CLINICAL [...] Transcribed Date/Time: 04/28/2013 11:34 | | | Head School Custodian: <<Signature on File>> | | | | | | Lawson June MD04/28/13 1721 <Electronically signed by Lawson June | | | MD> Lawson June MD 04/28/13 6026 Head School Custodian: | | | [employer] [id number]/12/13 1139 Sawyer Petersen, | | | MD | | + + + + + + + + | Performing | Address | City/State/Zipcode | Phone Number | | Organization | | | | + + + + + | [facility] | [address] | [place] | [phone] | | [facility] | | [address] | | | - IMAGING | | | | + + + + + XR Lumbar Spine 2 or 3 Vw (04/28/2013 9:50 AM PDT) + + | Specimen | + + | | + + + + + | Narrative | Performed At | + + + | [facility] | [place] | | Department [address] [place] [address] | [place] | | [ [address]] [ rep [facility] | | [facility]] Signed | - IMAGING | | | | | Patient Name: MAL MENDOZA Physician: | | | MILI.01 : 1950 Age: 63 Sex: M Unit #: [id number] | | | Exam Date: 04/28/13 Location: [facility] [place] | | | Report #: [id number] Page: | | | %(RAD)RES..mtdd.print.filter("pg") of %(RAD) | | | RES..mtdd.print.filter("tpg") | | | | | | Accession Number: [id number] | | | LUMBAR SPINE X-RAY CLINICAL [...] Transcribed Date/Time: 04/28/2013 | | | 11:32 Head School Custodian: <<Signature | | | on File>> | | | Lawson | | | MD Slade04/28/13 2519 <Electronically signed by Lawson June MD> | | | Lawson June MD 04/28/13 0038 Head School Custodian: [employer] | | | [id number]/12/13 1134 Sawyer Petersen MD | | | | | + + + + + + + + | Performing | Address | City/State/Zipcode | Phone Number | | Organization | | | | + + + + + | [facility] | [address] | [place] | [phone] | | [facility] | | [address] | | | - IMAGING | | | | + + + + + documented in this encounter Visit Diagnoses + + | Diagnosis | + + | S/P cervical spinal fusion - Primary Arthrodesis status | + + | S/P lumbar fusion Arthrodesis status | + + documented in this encounter
--- OUTSIDE RECORDS SUMMARY | ~2019-08-29 | XMS | Encounter Summary ---
Demographics + + + | Address | [address] | | | [place] [address] | + + + | Home Phone | | + + + | Preferred Language | Unknown | + + + | Marital Status | | + + + | Taoist Affiliation | 1013 | + + + | Race | Unknown | + + + | Ethnic Group | Unknown | + + + Author + + + | Author | [facility] | | | and [place] | + + + | Organization | [facility] | | | and [place] | [...] Team Providers + +------+ + | Care Barista Name | Role | Phone | + [...] | | | | | CONVERSION | [address] | | | | | [address] | [place] [address] | | | | | [address] | [phone] | | | | | [place] | | | | | | [address] | | | | | | [phone] | | | +--------+ + + + [...]
--- OUTSIDE RECORDS SUMMARY | ~2019-08-29 | XMS | Encounter Summary ---
Demographics + + + | Address | [address] | | | [place] [address] | + + + | Home Phone | | + + + | Preferred Language | Unknown | + + + | Marital Status | | + + + | Gnosticism Affiliation | 1013 | + + + | Race | Unknown | + + + | Ethnic Group | Unknown | + + + Author + + + | Author | [facility] | | | and [place] | + + + | Organization | [facility] | | | and [place] [...] Team Providers + +------+ + | Care Pc Technician Name | Role | Phone | + +------+ + | Shirley Ghosh MD | PCP | | + +------+ + Encounter Details +--------+ + + + + | Date | Type | Department | Care Team | Description | +--------+ + + + + | 08/07/ | Hospital | [facility] | Shirley Ghosh | | | 2011 | Encounter | [facility] | [address] | | | | | [facility] [address] | [address] [facility], | | | | | [address] [facility], | [place] [address] | | | | | [place] [address] | [phone] | | | | | [phone] | | | +--------+ + + + [...]
--- OUTSIDE RECORDS SUMMARY | ~2019-08-29 | XMS | Encounter Summary ---
Demographics + + + | Address | [address] | | | [place] [address] | + + + | Home Phone | | + + + | Preferred Language | Unknown | + + + | Marital Status | | + + + | Bahai Affiliation | 1013 | + + + | Race | Unknown | + + + | Ethnic Group | Unknown | + + + Author + + + | Author | [facility] | | | and [place] | + + + | Organization | [facility] | | | and [place] | [...] Team Providers + +------+ + | Care Engineer Rf Deployment Name | Role | Phone | + +------+ + | Kade Bermudez MD | PCP | | + +------+ + Reason for Visit + + + | Reason | Comments | + + + | Medication Refill | | + + + Encounter Details +--------+--------+ + + + | Date | Type | Department | Care Team | Description | +--------+--------+ + + + | 06/12/ | Refill | [facility] | Domingo Carlson MD | Medication Refill | | 2016 | | NEUROSURGERY [address] | [address] | | | | | [address] | [place] [address] | | | | | [place] | [phone] | | | | | [address] | | | | | | [phone] | | | +--------+--------+ + + + Social History + +-------+ [...] - Primary Arthrodesis status | + + documented in this encounter"
--- OUTSIDE RECORDS SUMMARY | ~2019-08-29 | XMS | Encounter Summary ---
Demographics + + + | Address | [address] | | | [place] [address] | + + + | Home Phone | | + + + | Preferred Language | Unknown | + + + | Marital Status | | + + + | Orthodoxy Affiliation | 1013 | + + + | Race | Unknown | + + + | Ethnic Group | Unknown | + + + Author + + + | Author | [facility] | | | and [place] | + + + | Organization | [facility] | | | and [place] [...] Team Providers + +------+ + | Care Rn Hemodialysis Charge Name | Role | Phone | + +------+ + | Kade Bermudez MD | PCP | | + +------+ + Encounter Details +--------+ + + + + | Date | Type | Department | Care Team | Description | +--------+ + + + + | 04/03/ | Hospital | [facility] | Hemal Celestin | Lumbar | | 2016 | Encounter | MED [address] XRAY [address] | [address] | radiculopathy; S/P | | | | [place] | [address] | lumbar fusion | | | | [place] [address] | [place] [address] | | | | | [phone] | [phone] | | | | | | | [...] MG | Take 1-2 tablets by | 120 | 0 | 04/03/20 | | | TABS | mouth every 4 hours | tablet | | 16 | 6 | | | as needed. | | | | [...] LUMBAR SPINE 2 [place] | Routin | 04/03/2016 | Lumbar | Results for this | | 3 VW | e | 9:29 AM | radiculopathy S/P | procedure are in the | | | | PDT | lumbar fusion | results section. | + +--------+ + + + documented in this encounter Results XR Lumbar Spine 2 or 3 Vw (04/03/2016 9:29 AM PDT) + + | Specimen | + + | | + + + + + | Narrative | Performed At | + + + | LUMBAR SPINE: 04/03/2016 9:29 AM CLINICAL HISTORY: Postop | [facility] | | COMPARISON: 03/06/2016 FINDINGS: AP and lateral views of lumbar | [facility] | | spine. Posterior pedicle screw and sonia and interbody fusion from | [facility] | | L2-S1. Fixation components are intact and show stable position and | - IMAGING | | configuration. Vertebral body heights are normal. Stable endplate | | | subsidence of interbody spacers. No acute bony abnormality. Alignment | | | is stable with stable minimal retrolisthesis at L2-L3 and | | | anterolisthesis at L3-L4. Stable lateral screw in L2. No acute | | | abnormalities in the adjacent soft tissues. IMPRESSION - Stable | | | L2-S1 posterior pedicle screw and sonia and interbody fusion. | | | Dictated and Signed by: Dean Hoang MD Electronically signed: | | | 04/03/2016 12:13 PM | | + + + + + | Procedure Note | + + | Escobar, Rad Results In - 04/03/2016 12:16 PM PDT LUMBAR SPINE: 04/03/2016 9:29 AM | | | | CLINICAL HISTORY: Postop | | | | COMPARISON: 03/06/2016 | | | | FINDINGS: AP and lateral views of lumbar spine. | | | | Posterior pedicle screw and sonia and interbody fusion from L2-S1. Fixation | | components are intact and show stable position and configuration. Vertebral body | | heights are normal. Stable endplate subsidence of interbody spacers. No acute | | bony abnormality. Alignment is stable with stable minimal retrolisthesis at | | L2-L3 and anterolisthesis at L3-L4. Stable lateral screw in L2. | | | | No acute abnormalities in the adjacent soft tissues. | | | | IMPRESSION - Stable L2-S1 posterior pedicle screw and sonia and interbody fusion. | | | | Dictated and Signed by: Dean Hoang MD | | Electronically signed: 04/03/2016 12:13 PM | + + + + + + + | Performing | Address | City/State/Zipcode | Phone Number | | Organization | | | | + + + + + | [facility] | [address] | [place] | [phone] | | [facility] | | [address] | | | - IMAGING | | | | + + + + + documented in this encounter Visit Diagnoses + + | Diagnosis | + + | Lumbar radiculopathy Thoracic or lumbosacral neuritis or radiculitis, unspecified | + + | S/P lumbar fusion Arthrodesis status | + + documented in this encounter"
--- OUTSIDE RECORDS SUMMARY | ~2019-08-29 | XMS | Encounter Summary ---
Demographics + + + | Address | [address] | | | [place] [address] | + + + | Home Phone [...] + + | Author | [facility] | | | and [place] | + + + | Organization | [facility] | | | and [place] [...] Team Providers + +------+ + | Care Adult Neuropsychologist Name | Role | Phone | + +------+ + | Kade Bermudez MD | PCP | | + +------+ + Encounter Details +--------+ + + + + | Date | Type | Department | Care Team | Description | +--------+ + + + + | 03/11/ | Orders Only | [facility] [place] | Domingo Carlson MD | Lumbar radiculopathy | | 2015 | | NEUROSURGERY [address] | [address] | (Primary Dx); | | | | [address] | [place] [address] | Cervical spondylosis | | | | [place] | [phone] | with myelopathy; | | | | [address] | | Lumbar spinal | | | | [phone] | | stenosis; Lumbar | | | | | | degenerative disc | | | | | | disease; Facet | | | | | | arthropathy, lumbar | +--------+ + + + + Social [...] | | Former User | | | 09/26/19 | | | | | 85 | [...] | + +---------+--------+ + + | XR Lumbar Spine 4 + | Imaging | Routin | Lumbar | Expected: | | Vw | | e | radiculopathy | 03/11/2015, Expires: | | | | | Cervical spondylosis | 03/11/2016 | | | | | with myelopathy | | | | | | Lumbar spinal | | | | | | stenosis Lumbar | | | | | | degenerative disc | | | | | | disease Facet | | | | | | arthropathy, lumbar | | + +---------+--------+ + + documented as of this encounter Visit Diagnoses + + | Diagnosis | + + | Lumbar radiculopathy - Primary Thoracic or lumbosacral neuritis or radiculitis, | | unspecified | + + | Cervical spondylosis with myelopathy | + + | Lumbar spinal stenosis Spinal stenosis, lumbar region, without neurogenic | | claudication | + + | Lumbar degenerative disc disease Degeneration of lumbar or lumbosacral intervertebral | | disc | + + | Facet arthropathy, 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
--- OUTSIDE RECORDS SUMMARY | ~2019-08-29 | XMS | Encounter Summary ---
Demographics + + + | Address | [address] | | | [place] [address] | + + + | Home Phone | | + + + | Preferred Language | Unknown | + + + | Marital Status | | + + + | Buddhism Affiliation | 1013 | + + + | Race | Unknown | + + + | Ethnic Group | Unknown | + + + Author + + + | Author | [facility] | | | and [place] | + + + | Organization | [facility] | | | and [place] [...] Team Providers + +------+ + | Care A R Specialist Name | Role | Phone | + +------+ + | Kade Bermudez MD | PCP | | + +------+ + Encounter Details +--------+ + + + + | Date | Type | Department | Care Team | Description | +--------+ + + + + | 02/21/ | Orders Only | [facility] [place] | Hemla Celestin | Lumbar radiculopathy | | 2016 | | NEUROSUR[address]ERY [address] | [address] | (Primary Dx); S/P | | | | [address] | [address] | lumbar fusion | | | | [place], [place] | [place] [address] | | | | | [address] | [phone] | | | | | [phone] | | | +--------+ + + + [...] filedocumented as of this encounter Results XR Lumbar Spine 2 or 3 Vw (04/03/2016 9:29 AM PDT) + + | Specimen | + + | | + + + + + | Narrative | Performed At | + + + | LUMBAR SPINE: 04/03/2016 9:29 AM CLINICAL HISTORY: Postop | [facility] | | COMPARISON: 03/06/2016 FINDINGS: AP and lateral views of lumbar | [facility] | | spine. Posterior pedicle screw and sonia and interbody fusion from | [facility] | | L2-S1. Fixation components are intact [...] + | Venancio Cody Results In - 04/03/2016 12:16 PM PDT [...] + + | Performing | Address | City/State/[facility] | Phone Number | | Organization | | | | + + + + + | [facility] | [address] | [place] | [phone] | | [facility] | | [address] | | | - IMAGING | | | | + + + + + documented in this encounter Visit Diagnoses + + | Diagnosis | + + | Lumbar radiculopathy - Primary Thoracic or lumbosacral neuritis or radiculitis, | | unspecified | + + | S/P lumbar fusion Arthrodesis status | + + documented in this encounter"
--- OUTSIDE RECORDS SUMMARY | ~2019-08-29 | XMS | Encounter Summary ---
Demographics + + + | Address | [address] | | | [place] [address] | + + + | Home Phone | | + + + | Preferred Language | Unknown | + + + | Marital Status | | + + + | Jainism Affiliation | 1013 | + + + | Race | Unknown | + + + | Ethnic Group | Unknown | + + + Author + + + | Author | [facility] | | | and [place] | + + + | Organization | [facility] [...] Team Providers + +------+ + | Care Shipping Lead Person Name | Role | Phone | + [...] Description | +--------+--------+ + + + | 05/22/ | Refill | [facility] | Sawyer Petersen | Medication Refill | | 2013 | | MED CTR XRAY [address] | F, MD [address] | | | | | [place] | [place], [place] | | | | | [place] [address] | [address] | | | | | [phone] | [phone] | | | | | | | | +--------+--------+ + + + [...]
--- OUTSIDE RECORDS SUMMARY | ~2019-08-29 | XMS | Encounter Summary ---
Demographics + + + | Address | [address] | | | [place] [address] | + + + | Home Phone | | + + + | Preferred Language | Unknown | + + + | Marital Status | | + + + | Church Affiliation | 1013 | + + + | Race | Unknown | + + + | Ethnic Group | Unknown | + + + Author + + + | Author | [facility] | | | and [place] | + + + | Organization | [facility] | | | and [...] Team Providers + +------+ + | Care Manager Acquisition Name | Role | Phone | + +------+ + PCP | Unavailable | + +------+ + Encounter Details +--------+ + + + + | Date | Type | Department | Care Team | Description | +--------+ + + + + | 10/13/ | Hospital | [facility] | Shirley Ghosh | | | 2010 | Encounter | HOSPITAL XRAY [address] | [address] | | | | | [place] | [facility] | | | | | [place] | [place] [address] | | | | | [address] | [phone] | | | | | [phone] | | | +--------+ + + + [...]
--- OUTSIDE RECORDS SUMMARY | ~2019-08-29 | XMS | Encounter Summary ---
Demographics + + + | Address | [address] | | | [place] [address] | + + + | Home Phone | | + + + | Preferred Language | Unknown | + + + | Marital Status | | + + + | Muslim Affiliation | 1013 | + + + | Race | Unknown | + + + | Ethnic Group | Unknown | + + + Author + + + | Author | [facility] | | | and [place] | + + + | Organization | [facility] | | | and [place] [...] Team Providers + +------+ + | Care Lubricator Granulator Name | Role | Phone | + [...] | | | | | Lumbar | [address] | | | | | | radiculopath | Phone: | | | | | | y | [phone] | | | | | | | Fax: | | | | | | | [phone] | | +--------+ + + + + + Reason for Visit + + + | Reason | Comments | + + + | Follow-up | POST OP-S/P L2-3 LAIF, L5-S1 TLIF | + + + Encounter Details +--------+---------+ + + + | Date | Type | Department | Care Team | Description | +--------+---------+ + + + | 04/03/ | Office | [facility] | Hemal Celestin | Spondylolisthesis of | | 2016 | Visit | NEUROSURGERY [address] | [address] | lumbar region | | | | [address] | [address] | (Primary Dx); Lumbar | | | | [place], [place] | [place] [address] | radiculopathy | | | | [address] | [phone] | | | | | [phone] | | | +--------+---------+ + + + [...] your back and use good technique when peanut picker things and bending. documented in this encounter Progress Notes Hemal Celestin PA - 04/03/2016 11:11 AM PDTFormatting of this note might be differen t from the original. HARDEEP Acharya [address] [facility] [address] [place], [place] [id number] FAX: NEUROSURGERY FOLLOW-UP CHIEF COMPLAINT: Chief Complaint [...] views of the lumbar spine COMPARISON: | [facility] | | 04/03/2016. FINDINGS: Status post L2-S1 [...] [address] | [place] | [phone] | | [facility] | | [address] | | | - IMAGING | | | | + + + + + documented in this encounter Visit Diagnoses + + | Diagnosis | + + | Spondylolisthesis of lumbar region - Primary Acquired spondylolisthesis | + + | Lumbar radiculopathy Thoracic or lumbosacral neuritis or radiculitis, unspecified | + + documented in this encounter
--- OUTSIDE RECORDS SUMMARY | ~2019-08-29 | XMS | Encounter Summary ---
Demographics + + + | Address | [address] | | | [place] [address] | + + + | Home Phone | | + + + | Preferred Language | Unknown | + + + | Marital Status | | + + + | Yazidism Affiliation | 1013 | + + + | Race | Unknown | + + + | Ethnic Group | Unknown | + + + Author + + + | Author | [facility] | | | and [place] | + + + | Organization | [facility] | | | and [place] [...] Team Providers + +------+ + | Care Router Tender Name | Role | Phone | + +------+ + PCP | Unavailable | + +------+ + Encounter Details +--------+ + + + + | Date | Type | Department | Care Team | Description | +--------+ + + + + | 11/01/ | Hospital | [facility] | Paul Jules MD | | | 2010 | Encounter | HOSPITAL XRAY [address] | [place] | | | | | [place] | | | | | | [place] | | | | | | [address] | | | | | | [phone] | | | +--------+ + + + [...]
--- OUTSIDE RECORDS SUMMARY | ~2019-08-29 | XMS | Encounter Summary ---
Demographics + + + | Address | [address] | | | [place] [address] | + + + | Home Phone [...] | [facility] | | | and [place] | + + + | Organization | [facility] | | | and [place] [...] Team Providers + +------+ + | Care Nurse Receptionist Name | Role | Phone | + +------+ + | Kade Bermudez MD | PCP | | + +------+ + Reason for Visit +--------+ + | Reason | Comments | +--------+ + | Other | Pre-surgical check-in instructions | +--------+ + Encounter Details +--------+ + + + + | Date | Type | Department | Care Team | Description | +--------+ + + + + | 03/02/ | Telephone | [facility] [place] | Domingo Carlson MD | Other (Pre-surgical | | 2016 | | NEUROSURGERY [address] | [address] | check-in | | | | [address] | [place] [address] | instructions ) | | | | [place] | [phone] | | | | | [address] | | | | | | [phone] | | | +--------+ + + + [...]
--- OUTSIDE RECORDS SUMMARY | ~2019-08-29 | XMS | Encounter Summary ---
Demographics + + + | Address | [address] | | | [place] [address] | + + + | Home Phone | | + + + | Preferred Language | Unknown | + + + | Marital Status | | + + + | Sabianist Affiliation | 1013 | + + + | Race | Unknown | + + + | Ethnic Group | Unknown | + + + Author + + + | Author | [facility] | | | and [place] | + + + | Organization | [facility] | | [...] Team Providers + +------+ + | Care Paper Machine Tender Name | Role | Phone | + +------+ + | Kade Bermudez MD | PCP | | + +------+ + Encounter Details +--------+ + + + + | Date | Type | Department | Care Team | Description | +--------+ + + + + | 04/23/ | Imaging | [facility] | Provider, | | | 2017 | Exam | MED CTR EXTERNAL | MD [address] | | | | | IMAGING | [place] | | | | | [phone] | [place] [address] | | +--------+ + + + + [...] | + +--------+ + + + | MRI LUMBAR SPINE W | Routin | 04/17/2017 | | Results for this | | WO CONTRAST | e | 4:10 PM | | procedure are in the | | | | PDT | | results section. | + +--------+ + + + documented in this encounter Results MRI Lumbar Spine w wo Contrast (04/17/2017 4:10 PM PDT) + + | Specimen | + + | | + + + + + | Narrative | Performed At | + + + | External films for comparison only - no result from [place]. | [facility] | + + + + +---------+ + + | Performing | Address | City/State/Zipcode | Phone Number | | Organization | | | | + +---------+ + + | [facility] | | | | + +---------+ + + documented in this encounter Visit Diagnoses Not on filedocumented in this encounter"
--- OUTSIDE RECORDS SUMMARY | ~2019-08-29 | XMS | Encounter Summary ---
Demographics + + + | Address | [address] | | | [place] [address] | + + + | Home Phone | | + + + | Preferred Language | Unknown | + + + | Marital Status | | + + + | Sikhism Affiliation | 1013 | + + + | Race | Unknown | + + + | Ethnic Group | Unknown | + + + Author + + + | Author | [facility] | | | and [place] | + + + | Organization | [facility] | | | and [...] Team Providers + +------+ + | Care Check Examiner Name | Role | Phone | + +------+ + | Kade Bermudez MD | PCP | | + +------+ + Encounter Details +--------+ + + + + | Date | Type | Department | Care Team | Description | +--------+ + + + + | 09/26/ | Hospital | [facility] | Dileep, | Acute intractable | | 2016 | Encounter | [facility] | MD [address] | headache, | | | | CLINICAL DECISION | [address] | unspecified headache | | | | [address] | [place] [address] | type; Fever, | | | | [place], [place] | [phone] | unknown origin | | | | [address] | | | | | | [phone] | | | +--------+ + + + [...] + + + | Blood Pressure | 105/65 | 09/26/2015 12:16 PM | | | | | PST | | + + + + + | Pulse | 68 | 09/26/2015 12:16 PM | | | | | PST | | + + + + + | Temperature | 36.2 C (97.1 F) | 09/26/2015 12:16 PM | | | | | PST | | + + + + + | Respiratory Rate | 18 | 09/26/2015 12:16 PM | | | | | PST | | + + + + + | Oxygen Saturation | - | - | | + + + + + | Inhaled Oxygen | - | - | | | Concentration | | | | + + + + + | Weight | 92.1 kg (203 lb) | 09/26/2015 12:16 PM | | | | | PST | | + + + + + | Height | 182.9 cm (6') | 09/26/2015 12:16 PM | | | | | PST | | + + + + + | Body Mass Index | 27.53 | 09/26/2015 12:16 PM | | | | | PST | | + + + + + documented in this encounter Discharge Summaries Anand Contreras MD - 09/26/2015 4:34 PM PSTFormatting of this note might be different fr om the original. Discharge Summaries by Anand Contreras MD at 09/26/15 5824 Author: Anand Contreras MD Service: Hospitalist Author Type: Physician Filed: 09/26/15 8202 Date of Service: 09/26/155 Status: Signed Operation Manager: Anand Contreras MD (Physician) [facility] Service: Hospitalist Discharge Summary Date of Admission: 09/26/2015 Date of Discharge: 09/26/2015 Discharge Provider: ANAND CONTRERAS MD Treatment Team: Consulting Physician: Alvino Falk MD Admitting Provider: Alvino Falk MD Discharge Diagnoses: Active Problems: Headache, intractable Chronic back pain BRIEF HISTORY OF PRESENTATION/HOSPITAL COURSE: Sheela Mendoza is a 65 y.o. male multiple spine surgeries in the past, chronic back pain o n chronic narcotic use, chronic headaches who was transferred from [place] because of acut e worsening headaches. He usually uses oxycodone for his pain. His headache was described to be 10 out of 10. He denies having any slurring of speech, numbness, or weakness of extremit ies. Reportedly, he had a temperature of 101 Fahrenheit. Computed axial tomography scan from [place] was negative for acute intracranial abnormality. Lumbar puncture was negative as well. He was subsequently transferred to [facility] for further management. The patient was started on prn butalbital acetaminophen caffeine tablet. He also underwent an magnetic r esonance imaging and MRA of the head and brain with unremarkable results. He was afebrile du ring his entire stay. He did not have any white count. He complained of his chronic back juan n affecting his sleep. I advised to take some oxycodone at bedtime. I also advised him to te st further with his primary care physician his pain regimen. I also advised him to refrain f rom driving in the meantime since he reported 2 episodes of falling asleep while driving. I suspect his sleep problem is caused by the back pain being not well controlled. When I saw t he patient, he was doing much better. His headache is gone. He was deemed stable to be disch arged. He remained stable and improved. The rest of his hospital stay was unremarkable. DISCHARGE EXAM Vital Signs: Filed Vitals: 09/26/15 0508 09/26/15 0756 09/26/15 1200 09/26/15 1202 BP: 112/71 113/63 105/65 Pulse: 69 68 Temp: 97.9 F (36.6 C) 97.1 F (36.2 C) TempSrc: Oral Oral Resp: 20 18 18 Height: 1.829 m (6') Weight: 93.7 kg (206 lb 9.1 oz) 92.08 kg (203 lb) SpO2: 95% 98% 94% Physical Exam General appearance: alert, appears stated age, cooperative, no distress and Fatigued lookin g Head: Normocephalic, without obvious abnormality, atraumatic Neck: no adenopathy, no carotid bruit, no JVD, supple, symmetrical, trachea midline and thy roid not enlarged, symmetric, no tenderness/mass/nodules Lungs: clear to auscultation bilaterally Heart: regular rate and rhythm, S1, S2 normal, no murmur, click, rub or gallop Abdomen: soft, non-tender; bowel sounds normal; no masses, no organomegaly Musculoskeletal: There is no redness, warmth, or swelling of the joints. Limited range of motion noted. Motor strength is 5 out of 5 all extremities bilaterally. Tone is normal. Extremities: extremities normal, atraumatic, no cyanosis or edema Pulses: 2+ and symmetric Skin: Skin color, texture, turgor normal. No rashes or lesions Lymph nodes: Cervical, supraclavicular, and axillary nodes normal Neuro exam: Cranial nerves II-12 grossly intact. 5 over 5 strength all over. Sensory intact . DATA, personally reviewed Recent Labs Lab 09/26/1525 09/26/15 021 WBC 4.21 5.29 HGB 14.1 15.0 HCT 41.5 43.5 PLT 202 190 NEUTOPHILPCT 84.91 87.55 MONOPCT 2.49 2.19 Recent Labs Lab 09/26/1525 09/26/15 0216 NA 133* 132* K 4.2 4.1 CL 102 100 CO2 24 24 BUN 11 11 CREATININE 0.74 0.93 PROT 6.6 -- BILITOT 0.5 -- ALT 19 -- AST 22 -- Phosphorus: Lab Results Component Value Date PHOS 3.7 09/26/2015 Recent Labs Lab 09/26/15 0525 MG 1.9 Radiology, personally reviewed Mri Brain W Wo And Mra Head 09/26/2015 1. No acute intracranial hemorrhage, mass, or acute infarct. No abnormal brain enhancement. 2. Normal MRA of the cerebral arterial system. No stenosis, occlusion, aneur ysm or vasculitis noted. - This is a 65-year-old male with chronic back pain due to prior spine surgeries presentin with intractable headache now resolved. - His main issue is pain control which is chronic. I advised him to follow up with his [facility] physician to discuss his pain regimen. Consider referral to a pain specialist in t he future. He will continue his usual oxycodone for now. - I gave him a prescription for butalbital prn. - Refrain from driving until seen by the primary care physician. I do not think the patien t has sleep apnea but rather his pain is affecting his sleep pattern. Disposition: Home Condition: Stable Code Status: Full Code No discharge procedures on file. Follow up: Kade Bermudez MD [address] [place] [address] Schedule an appointment as soon as possible for a visit in 1 week post hospital follow up Medication List START taking these medications vkcyaseops-nfallennhfmdl-nzrmgvac 50-325-40 MG per tablet QTY: 30 tablet Refills: 0 Commonly known as: ESGIC Take 1 tablet by mouth every 6 (six) hours as needed for Headaches. 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 You may get the following medications from any pharmacy - izpuuqpjzg-yybfkcdxgiida-dpedkcpe 50-325-40 MG per tablet Discharge took 45 minutes, to include final examination, discussion of admission, and prepa ration of prescriptions, instructions for on-going care, follow-up and documentation of disc harge summary. ANAND CONTRERAS MD 09/26/2015 4:34 PM documented in this encounter Medications at Time of Discharge [...] documented as of this encounter Progress Notes Conversion Transaction, Provider Unknown - 09/26/2015 3:58 PM PSTFormatting of this note m ight be different from the original. Nurse Progress Note by Soraida Perry RN at 09/26/15 7896 Author: Soraida Perry RN Service: (none) Author Type: Registered Nurse Filed: 09/26/15 1559 Date of Service: 09/26/151557 Status: Signed Operation Manager: Soraida Perry RN (Registered Nurse) Verbal to d/c patient. Patient given AVS and prescriptions. Verbalizes understanding and is agreeable; states no further questions at this time. Declines wheelchair ride out. Soraida Perry RN onver giovanny Transaction, Provider Unknown - 09/26/2015 11:00 AM PST Nurse Progress Note by Soraida Perry RN at 09/26/15 1100 Author: Soraida Perry RN Service: (none) Author Type: Registered Nurse Filed: 09/26/15 1101 Date of Service: 09/26/15 1100 Status: Signed Operation Manager: Soraida Perry RN (Registered Nurse) During am assessment patient states he is much improved compared to when he arrived. Patie nt fully oriented and able to answer all questions and participate in discussion. He states the headaches he has experienced has been going on for years but he has never received a wo rk-up to determine source. Soraida Perry RN onver giovanny Transaction, Provider Unknown - 09/26/2015 6:26 AM PST Nurse Progress Note by Ayaka Carbajal RN at 09/26/15625 Author: Ayaka Carbajal RN Service: (none) Author Type: Registered Nurse Filed: 09/26/15 0638 Date of Service: 09/26/15625 Status: Signed Operation Manager: Ayaka Carbajal RN (Registered Nurse) Picked up patient from the ED, and patient was writhing in pain and moaning holding his hea d. Patient will occasionally respond to simple questions with one word answers. Patient aler t, but appears to be confused and choosing to not respond due to his current 06/26 pain leve l. Patient's 02 is ranging from 88-96 on 3L NC. available to provide medical history. W kenny reported that the patient does not sleep at night, is extremely tired during the day, a nd has a history on not breathing while he sleeps. reported that the patient has had se veral episodes of falling asleep while driving. Patient stopped writhing and moaning after P RN IV Dilaudid 1 mg and 0.5 mg of IV Ativan were given. Patient asleep at this time. Nursing staff monitoring his breathing and O2 status. Ayaka Carbajal RN onver giovanny Transaction, Provider Unknown - 09/26/2015 5:13 AM PST Progress Notes by Radha Galindo [facility] at 09/26/15 0513 Author: Radha Galindo RPH Service: (none) Author Type: Pharmacist Filed: 09/26/15512 Date of Service: 09/26/15512 Status: Signed Operation Manager: Radha Galindo RPH (Pharmacist) Clinical Pharmacy Note: Renal Monitoring Height: 182.9 cm Weight: 93.7 kg CREATININE: 0.93 (09/26/15215) Estimated creatinine clearance - 95.3 mL/min Pharmacy dosing for renal function per Dr. Cabrera. Currently there are no medications needing to be adjusted. Pharmacy will continue to monito r for changes in medication orders and in renal function and adjust accordingly per protocol . Radha Galindo PharmJanny 09/26/2015 5:13 AM docume nted in this encounter Plan of Treatment Not on filedocumented as of this encounter Procedures + +--------+ + + + | Procedure Name | Priori | Date/Time | Associated Diagnosis | Comments | | | ty | | | | + +--------+ + + + | MRI BRAIN W WO | Routin | 09/26/2015 | | Results for this | | CONTRAST ANGIOGRAM | e | 12:02 PM | | procedure are in the | | HEAD WO CONTRAST | | PST | | results section. | + +--------+ + + + | CULTURE, BLOOD, 2ND | Timed | 09/26/2015 | | Results for this | | SPECIMEN (NON-ORD) | | 10:32 AM | | procedure are in the | | | | PST | | results section. | + +--------+ + + + | CULTURE, BLOOD | Timed | 09/26/2015 | | Results for this | | | | 10:25 AM | | procedure are in the | | | | PST | | results section. | + +--------+ + + + | EXTERNAL LAB: CBC | Routin | 09/26/2015 | | Results for this | | | e | 5:25 AM | | procedure are in the | | | | PST | | results section. | + +--------+ + + + | PHOSPHORUS | Routin | 09/26/2015 | | Results for this | | | e | 5:25 AM | | procedure are in the | | | | PST | | results section. | + +--------+ + + + | MAGNESIUM | Routin | 09/26/2015 | | Results for this | | | e | 5:25 AM | | procedure are in the | | | | PST | | results section. | + +--------+ + + + | COMPREHENSIVE | Routin | 09/26/2015 | | Results for this | | METABOLIC PANEL | e | 5:25 AM | | procedure are in the | | | | PST | | results section. | + +--------+ + + + | EXTERNAL LAB: CBC | Routin | 09/26/2015 | | Results for this | | | e | 2:16 AM | | procedure are in the | | | | PST | | results section. | + +--------+ + + + | BASIC METABOLIC | Routin | 09/26/2015 | | Results for this | | PANEL | e | 2:16 AM | | procedure are in the | | | | PST | | results section. | + +--------+ + + + | CULTURE, BLOOD, 2ND | STAT | 09/26/2015 | | Results for this | | SPECIMEN (NON-ORD) | | 2:15 AM | | procedure are in the | | | | PST | | results section. | + +--------+ + + + | CULTURE, BLOOD | STAT | 09/26/2015 | | Results for this | | | | 2:15 AM | | procedure are in the | | | | PST | | results section. | + +--------+ + + + | URINALYSIS, REFLEX | Routin | 09/26/2015 | | Results for this | | MICROSCOPIC AND/OR | e | 1:50 AM | | procedure are in the | | CULTURE | | PST | | results section. | + +--------+ + + + | CULTURE, CSF, SMEAR | STAT | 09/26/2015 | | Results for this | | | | 1:50 AM | | procedure are in the | | | | PST | | results section. | + +--------+ + + + | CULTURE, URINE | STAT | 09/26/2015 | | Results for this | | | | 1:50 AM | | procedure are in the | | | | PST | | results section. | + +--------+ + + + | CELL COUNT WITH | STAT | 09/26/2015 | | Results for this | | DIFFERENTIAL, CSF | | 1:50 AM | | procedure are in the | | | | PST | | results section. | + +--------+ + + + | PROTEIN, CSF | STAT | 09/26/2015 | | Results for this | | | | 1:50 AM | | procedure are in the | | | | PST | | results section. | + +--------+ + + + | GLUCOSE, CSF | STAT | 09/26/2015 | | Results for this | | | | 1:50 AM | | procedure are in the | | | | PST | | results section. | + +--------+ + + + | XR CHEST 1 VIEW | Routin | 09/25/2015 | | Results for this | | | e | 11:46 PM | | procedure are in the | | | | PST | | results section. | + +--------+ + + + | CT HEAD WO CONTRAST | Routin | 09/25/2015 | | Results for this | | | e | 11:46 PM | | procedure are in the | | | | PST | | results section. | + +--------+ + + + documented in this encounter Results MRI Brain W Wo MRA Head Wo (09/26/2015 12:02 PM PST) + + | Specimen | + + | | + + + + + | Impressions | Performed At | + + + | 1. No acute intracranial hemorrhage, mass, or acute infarct. No | | | abnormal brain enhancement. 2. Normal MRA of the cerebral arterial | | | system. No stenosis, occlusion, aneurysm or vasculitis noted. | | | | | + + + + + + | Narrative | Performed At | + + + | [facility] 1950 MRI BRAIN W WO AND MRA HEAD 09/26/2015 12:02 | | | PM INDICATION: Headache and fever of unknown origin. | | | COMPARISON: Outside head CT 09/25/2015 TECHNIQUE: MRI of the brain | | | with and without IV contrast. MRA of the head without contrast. | | | Multiplanar multi-sequence MRI of the brain performed on 1.5 Anel | | | magnet using standard institution protocol. MRA of the head | | | performed with axial 3-D time of flight. Maximum intensity | | | projection reconstructed images were performed by MR technologist. | | | 18-mL MultiHance. FINDINGS: Brain MRI: There is no midline | | | shift. The ventricles, sulci, and basal cisterns are within normal | | | limits. No restricted diffusion to suggest acute ischemia. There | | | are a few scattered punctate nonspecific foci of FLAIR probation | | | within the bilateral frontal and parietal lobes. The extra-axial | | | spaces are normal. The major vascular flow voids are preserved. | | | There is no evidence of intracranial hemorrhage. There is no abnormal | | | brain parenchymal or meningeal enhancement. No intracranial mass | | | lesion. The paranasal sinuses and mastoid air cells are normal. | | | The orbits are normal. No soft tissue swelling. No osseous lesions. | | | Brain MRA: The bilateral internal carotid arteries are patent. | | | The anterior cerebral, middle cerebral, and posterior cerebral | | | arteries are patent. The bilateral intradural vertebral arteries | | | and basilar artery are patent. The patient is left vertebral artery | | | dominant. | | + + + + + | Procedure Note | + + | Venancio Cody Conversion - 05/01/2019 4:48 PM RUBÉN MENDOZA1950MRI BRAIN W WO AND | | MRA HEAD09/26/2015 12:02 PM INDICATION: Headache and fever of unknown origin. COMPARISON: | | Outside head CT 09/25/2015 TECHNIQUE: MRI of the brain with and without IV contrast. MRA | | of the head without contrast. Multiplanar multi-sequence MRI of the brain performed on | | 1.5 Anel magnet using standard institution protocol. MRA of the head performed with | | axial 3-D time of flight. Maximum intensity projection reconstructed images were | | performed by MR technologist.18-mL MultiHance. FINDINGS: Brain MRI:There is no midline | | shift. The ventricles, sulci, and basal cisterns are within normal limits. No restricted | | diffusion to suggest acute ischemia. There are a few scattered punctate nonspecific | | foci of FLAIR probation within the bilateral frontal and parietal lobes. The extra-axial | | spaces are normal. The major vascular flow voids are preserved. There is no evidence of | | intracranial hemorrhage. There is no abnormal brain parenchymal or meningeal | | enhancement. No intracranial mass lesion. The paranasal sinuses and mastoid air cells | | are normal. The orbits are normal. No soft tissue swelling. No osseous lesions. Brain | | MRA: The bilateral internal carotid arteries are patent. The anterior cerebral, middle | | cerebral, and posterior cerebral arteries are patent. The bilateral intradural vertebral | | arteries and basilar artery are patent. The patient is left vertebral artery dominant. | | IMPRESSION: 1. No acute intracranial hemorrhage, mass, or acute infarct. No abnormal | | brain enhancement.2. Normal MRA of the cerebral arterial system. No stenosis, | | occlusion, aneurysm or vasculitis noted. Electronically signed by Bijan Smith MD on | | 09/26/2015 1:05 PM | |The extra-axial spaces are normal. The major vascular flow voids are preserved. | | | |There is no evidence of intracranial hemorrhage. There is no abnormal brain parenchymal or meningeal enhancement. No intracranial mass lesion. | | | |The paranasal sinuses and mastoid air cells are normal. The orbits are normal. No soft tiss ue swelling. No osseous lesions. | | | |Brain MRA: | | | |The bilateral internal carotid arteries are patent. The anterior cerebral, middle cerebral, and posterior cerebral arteries are patent. | | | |The bilateral intradural vertebral arteries and basilar artery are patent. The patient is l eft vertebral artery dominant. | | | |IMPRESSION: | |1. No acute intracranial hemorrhage, mass, or acute infarct. No abnormal brain enhancement . | |2. Normal MRA of the cerebral arterial system. No stenosis, occlusion, aneurysm or vascul itis noted. | | | | | + + Culture, Blood, 2nd Specimen (09/26/2015 10:32 AM PST) + + | Specimen | + + | Blood specimen | | (specimen) | + + + + + | Narrative | Performed At | + + + | Specimen Description BLOOD, PERIPHERAL DRAW | EXTERNAL LAB | | SPECIAL REQUESTS LEFT HAND | | | Testing performed at [facility] | | | [facility];[place] [address] CULTURE | | | NO GROWTH 6 DAYS | | | Testing performed at [facility], [address], | | | [place] [address] | | + + + + +---------+ + + | Performing | Address | City/State/Zipcode | Phone Number | | Organization | | | | + +---------+ + + | EXTERNAL LAB | | | | + +---------+ + + Culture, Blood (09/26/2015 10:25 AM PST) + + | Specimen | + + | Blood specimen | | (specimen) | + + + + + | Narrative | Performed At | + + + | Specimen Description BLOOD, PERIPHERAL DRAW | EXTERNAL LAB | | SPECIAL REQUESTS RAC | | | Testing performed at [facility];[address] | | | [facility];[place] [address] CULTURE | | | NO GROWTH 6 DAYS | | | Testing performed at [facility], [address], | | | [place] [address] | | + + + + +---------+ + + | Performing | Address | City/State/Zipcode | Phone Number | | Organization | | | | + +---------+ + + | EXTERNAL LAB | | | | + +---------+ + + External Lab: CBC (09/26/2015 5:25 AM PST) + + + + + + | Component | Value | Ref Range | Performed | Pathologist | | | | | At | Signature | + + + + + + | WBC | 4.21Comment: Testing | 3.80 - 11.00 | EXTERNAL | | | | performed at [facility], [address] | K/uL | LAB | | | | [address], | | | | | | [place] [address] | | | | + + + + + + | RED CELL | 4.62Comment: Testing | 4.20 - 5.70 | EXTERNAL | | | COUNT | performed at [facility], [address] | M/uL | LAB | | | | [address], | | | | | | [place] [address] | | | | + + + + + + | Hgb | 14.1Comment: Testing | 13.2 - 17.0 | EXTERNAL | | | | performed at [facility], [address] | g/dL | LAB | | | | [address], | | | | | | [place] [address] | | | | + + + + + + | Hematocrit, | 41.5Comment: Testing | 39.0 - 50.0 % | EXTERNAL | | | POC | performed at [facility], [address] | | LAB | | | | [address], | | | | | | [place] [address] | | | | + + + + + + | MCV | 89.9Comment: Testing | 80.0 - 100.0 fl | EXTERNAL | | | | performed at [facility], [address] | | LAB | | | | [address], | | | | | | [place] [address] | | | | + + + + + + | MCH | 30.6Comment: Testing | 27.0 - 34.0 pg | EXTERNAL | | | | performed at [facility], [address] | | LAB | | | | [address], | | | | | | [place] [address] | | | | + + + + + + | MCHC | 34.0Comment: Testing | 32.0 - 35.5 | EXTERNAL | | | | performed at [facility], [address] | g/dL | LAB | | | | [address], | | | | | | [place] [address] | | | | + + + + + + | RDW-CV | 41.1Comment: Testing | 37 - 53 fl | EXTERNAL | | | | performed at [facility], [address] | | LAB | | | | [address], | | | | | | [place] [address] | | | | + + + + + + | Platelet | 202Comment: Testing | 150 - 400 K/uL | EXTERNAL | | | Count | performed at [facility], [address] | | LAB | | | Plasma | [address], | | | | | | [place] [address] | | | | + + + + + + | MPV | 8.5Comment: Testing | fl | EXTERNAL | | | | performed at [facility], [address] | | LAB | | | | [address], | | | | | | [place] [address] | | | | + + + + + + | Differentia | AUTOMATEDComment: | | EXTERNAL | | | l Type | Testing performed at | | LAB | | | | [facility], [address] | | | | | | [place] | | | | | | [address] | | | | + + + + + + | % Segmented | 84.91Comment: Testing | % | EXTERNAL | | | | performed at [facility], [address] | | LAB | | | Neutrophils | [address], | | | | | | [place] [address] | | | | + + + + + + | % | 12.52Comment: Testing | % | EXTERNAL | | | Lymphocytes | performed at [facility], [address] | | LAB | | | | [address], | | | | | | [place] [address] | | | | + + + + + + | % Monocytes | 2.49Comment: Testing | % | EXTERNAL | | | | performed at [facility], [address] | | LAB | | | | [address], | | | | | | [place] [address] | | | | + + + + + + | % | 0.00Comment: Testing | % | EXTERNAL | | | Eosinophils | performed at [facility], [address] | | LAB | | | | [address], | | | | | | [place] [address] | | | | + + + + + + | % Basophils | 0.08Comment: Testing | % | EXTERNAL | | | | performed at [facility], [address] | | LAB | | | | [address], | | | | | | [place] [address] | | | | + + + + + + | Absolute | 3.57Comment: Testing | 1.90 - 7.40 | EXTERNAL | | | Segmented | performed at [facility], [address] | K/uL | LAB | | | Neutrophils | [address], | | | | | | [place] [address] | | | | + + + + + + | Absolute | 0.53 (L)Comment: Testing | 1.00 - 3.90 | EXTERNAL | | | Lymphocytes | performed at [facility], [address] | K/uL | LAB | | | | [address], | | | | | | [place] [address] | | | | + + + + + + | Absolute | 0.11Comment: Testing | 0.00 - 0.80 | EXTERNAL | | | Monocytes | performed at [facility], [address] | LAB | | | | [address], | | | | | | [place] [address] | | | | + + + + + + | Absolute | 0.00Comment: Testing | 0.00 - 0.50 | EXTERNAL | | | Eosinophils | performed at [facility], [address] | [address] | LAB | | | | [address], | | | | | | [place] [address] | | | | + + + + + + | Absolute | 0.00Comment: Testing | 0.00 - 0.10 | EXTERNAL | | | Basophils | performed at [facility], [address] | [address] | LAB | | | | [address], | | | | | | [place] [address] | | | | + + + + + + + + | Specimen | + + | Blood specimen | | (specimen) | + + + +---------+ + + | Performing | Address | City/State/Zipcode | Phone Number | | Organization | | | | + +---------+ + + | EXTERNAL LAB | | | | + +---------+ + + Phosphorus (09/26/2015 5:25 AM PST) + + + + + + | Component | Value | Ref Range | Performed | Pathologist | | | | | At | Signature | + + + + + + | PHOSPHORUS | 3.7Comment: Testing | 2.3 - 4.8 mg/dL | EXTERNAL | | | | performed at [facility], [address] | | LAB | | | | [address], | | | | | | [place] [address] | | | | + + + + + + + + | Specimen | + + | Blood specimen | | (specimen) | + + + +---------+ + + | Performing | Address | City/State/Zipcode | Phone Number | | Organization | | | | + +---------+ + + | EXTERNAL LAB | | | | + +---------+ + + Magnesium (09/26/2015 5:25 AM PST) + + + + + + | Component | Value | Ref Range | Performed | Pathologist | | | | | At | Signature | + + + + + + | Magnesium | 1.9Comment: Testing | 1.7 - 2.4 mg/dL | EXTERNAL | | | | performed at [facility], [address] | | LAB | | | | [address], | | | | | | [place] [address] | | | | + + + + + + + + | Specimen | + + | Blood specimen | | (specimen) | + + + +---------+ + + | Performing | Address | City/State/Zipcode | Phone Number | | Organization | | | | + +---------+ + + | EXTERNAL LAB | | | | + +---------+ + + Comprehensive Metabolic Panel (09/26/2015 5:25 AM PST) + + + + + + | Component | Value | Ref Range | Performed | Pathologist | | | | | At | Signature | + + + + + + | Na | 133 (L)Comment: Testing | 135 - 143 | EXTERNAL | | | | performed at [facility], [address] | mmol/L | LAB | | | | [address], | | | | | | [place] [address] | | | | + + + + + + | K | 4.2Comment: Testing | 3.5 - 4.9 | EXTERNAL | | | | performed at [facility], [address] | mmol/L | LAB | | | | [address], | | | | | | [place] [address] | | | | + + + + + + | Cl | 102Comment: Testing | 99 - 109 mmol/L | EXTERNAL | | | | performed at [facility], [address] | | LAB | | | | [address], | | | | | | [place] [address] | | | | + + + + + + | CO2 | 24Comment: Testing | 23 - 32 mmol/L | EXTERNAL | | | | performed at [facility], [address] | | LAB | | | | [address], | | | | | | [place] [address] | | | | + + + + + + | Anion Gap | 11Comment: Testing | 5 - 20 mmol/L | EXTERNAL | | | | performed at [facility], [address] | | LAB | | | | [address], | | | | | | [place] [address] | | | | + + + + + + | Glucose, | 131 (H)Comment: Testing | 65 - 99 mg/dL | EXTERNAL | | | Fasting | performed at [facility], [address] | | LAB | | | | [address], | | | | | | [place] [address] | | | | + + + + + + | BUN | 11Comment: Testing | 8 - 25 mg/dL | EXTERNAL | | | | performed at [facility], [address] | | LAB | | | | [address], | | | | | | [place] [address] | | | | + + + + + + | Creatinine | 0.74Comment: Testing | 0.70 - 1.30 | EXTERNAL | | | | performed at [facility], [address] | mg/dL | LAB | | | [address], | | | | | | [place] [address] | | | | + + + + + + | BUN/Creatin | 15Comment: Testing | | EXTERNAL | | | ine Ratio | performed at [facility], [address] | | LAB | | | | [address], | | | | | | [place] [address] | | | | + + + + + + | Calcium | 8.3 (L)Comment: Testing | 8.5 - 10.5 | EXTERNAL | | | | performed at [facility], [address] | mg/dL | LAB | | | | [address], | | | | | | [place] [address] | | | | + + + + + + | Protein, | 6.6Comment: Testing | 6.3 - 8.2 g/dL | EXTERNAL | | | Total | performed at [facility], [address] | | LAB | | | | [address], | | | | | | [place] [address] | | | | + + + + + + | Albumin | 3.4Comment: Testing | 3.3 - 4.8 g/dL | EXTERNAL | | | | performed at [facility], [address] | | LAB | | | | [address], | | | | | | [place] [address] | | | | + + + + + + | Globulin | 3.2Comment: Testing | 1.3 - 4.9 g/dL | EXTERNAL | | | | performed at [facility], [address] | | LAB | | | [address], | | | | | | [place] [address] | | | | + + + + + + | A/G Ratio | 1.1Comment: Testing | 1.0 - 2.4 | EXTERNAL | | | | performed at [facility], [address] | | LAB | | | | [address], | | | | | | [place] [address] | | | | + + + + + + | Bilirubin | 0.5Comment: Testing | 0.1 - 1.5 mg/dL | EXTERNAL | | | Total | performed at [facility], [address] | | LAB | | | | [address], | | | | | | [place] [address] | | | | + + + + + + | ALP, | 56Comment: Testing | 35 - 115 U/L | EXTERNAL | | | External | performed at [facility], [address] | | LAB | | | | [address], | | | | | | [place] [address] | | | | + + + + + + | AST | 22Comment: Testing | 10 - 45 U/L | EXTERNAL | | | | performed at [facility], [address] | | LAB | | | | [address], | | | | | | [place] [address] | | | | + + + + + + | ALT | 19Comment: Testing | 10 - 65 U/L | EXTERNAL | | | | performed at [facility], [address] | | LAB | | | | [address], | | | | | | [place] [address] | | | | + + + + + + | Estimated | >60Comment: GFR <60: | mL/min/1.73m2 | EXTERNAL | | | GFR | CHRONIC KIDNEY DISEASE, | | LAB | | | | IF FOUND OVER A 3 MONTH | | | | | | PERIOD.GFR <15: KIDNEY | | | | | | FAILURE.FOR | | | | | | AMERICANS, MULTIPLY THE | | | | | | CALCULATED GFR BY | | | | | | 1.210.Testing performed | | | | | | at [facility], [address] | | | | | | [address], | | | | | | [place] [address] | | | | + + + + + + + + | Specimen | + + | Blood specimen | | (specimen) | + + + +---------+ + + | Performing | Address | City/State/Zipcode | Phone Number | | Organization | | | | + +---------+ + + | EXTERNAL LAB | | | | + +---------+ + + External Lab: RENATA (09/26/2015 2:16 AM PST) + + + + + + | Component | Value | Ref Range | Performed | Pathologist | | | | | At | Signature | + + + + + + | WBC | 5.29Comment: Testing | 3.80 - 11.00 | EXTERNAL | | | | performed at [facility];[address] | LAB | | | | [address];[place] | | | | | | [address] | | | | + + + + + + | RED CELL | 4.85Comment: Testing | 4.20 - 5.70 | EXTERNAL | | | COUNT | performed at [facility];[address] | [address] | LAB | | | | [address];[place] | | | | | | [address] | | | | + + + + + + | Hgb | 15.0Comment: Testing | 13.2 - 17.0 | EXTERNAL | | | | performed at [facility];[address] | g/dL | LAB | | | | [address];[place] | | | | | | [address] | | | | + + + + + + | Hematocrit, | 43.5Comment: Testing | 39.0 - 50.0 % | EXTERNAL | | | POC | performed at [facility];[address] | | LAB | | | [address];[place] | | | | | | [address] | | | | + + + + + + | MCV | 89.7Comment: Testing | 80.0 - 100.0 fl | EXTERNAL | | | | performed at [facility];[address] | | LAB | | | | [address];[place] | | | | | | [address] | | | | + + + + + + | MCH | 30.9Comment: Testing | 27.0 - 34.0 pg | EXTERNAL | | | | performed at [facility];[address] | | LAB | | | [address];[place] | | | | | | [address] | | | | + + + + + + | MCHC | 34.4Comment: Testing | 32.0 - 35.5 | EXTERNAL | | | | performed at [facility];[address] | g/dL | LAB | | | | [address];[place] | | | | | | [address] | | | | + + + + + + | RDW-CV | 40.7Comment: Testing | 37 - 53 fl | EXTERNAL | | | | performed at [facility];[address] | | LAB | | | | [address];[place] | | | | | | [address] | | | | + + + + + + | Platelet | 190Comment: Testing | 150 - 400 K/uL | EXTERNAL | | | Count | performed at [facility];[address] | | LAB | | | Plasma | [address];[place] | | | | | | [address] | | | | + + + + + + | MPV | 7.7Comment: Testing | fl | EXTERNAL | | | | performed at [facility];[address] | | LAB | | | | [address];[place] | | | | | | [address] | | | | + + + + + + | Differentia | AUTOMATEDComment: | | EXTERNAL | | | l Type | Testing performed at | | LAB | | | | [facility];[address];[place] [address] | | | | + + + + + + | % Segmented | 87.55Comment: Testing | % | EXTERNAL | | | | performed at [facility];[address] | | LAB | | | Neutrophils | [address];[place] | | | | | | [address] | | | | + + + + + + | % | 9.84Comment: Testing | % | EXTERNAL | | | Lymphocytes | performed at [facility];[address] | | LAB | | | | [address];[place] | | | | | | [address] | | | | + + + + + + | % Monocytes | 2.19Comment: Testing | % | EXTERNAL | | | | performed at [facility];[address] | | LAB | | | | [address];[place] | | | | | | [address] | | | | + + + + + + | % | 0.03Comment: Testing | % | EXTERNAL | | | Eosinophils | performed at [facility];[address] | | LAB | | | | [address];[place] | | | | | | [address] | | | | + + + + + + | % Basophils | 0.39Comment: Testing | % | EXTERNAL | | | | performed at [facility];[address] | | LAB | | | | [address];[place] | | | | | | [address] | | | | + + + + + + | Absolute | 4.63Comment: Testing | 1.90 - 7.40 | EXTERNAL | | | Segmented | performed at [facility];[address] | [address] | LAB | | | Neutrophils | [address];[place] | | | | | | [address] | | | | + + + + + + | Absolute | 0.52 (L)Comment: Testing | 1.00 - 3.90 | EXTERNAL | | | Lymphocytes | performed at [facility];[address] | [address] | LAB | | | | [address];[place] | | | | | | [address] | | | | + + + + + + | Absolute | 0.12Comment: Testing | 0.00 - 0.80 | EXTERNAL | | | Monocytes | performed at [facility];[address] | [address] | LAB | | | | [address];[place] | | | | | | [address] | | | | + + + + + + | Absolute | 0.00Comment: Testing | 0.00 - 0.50 | EXTERNAL | | | Eosinophils | performed at [facility];[address] | [address] | LAB | | | | [address];[place] | | | | | | [address] | | | | + + + + + + | Absolute | 0.02Comment: Testing | 0.00 - 0.10 | EXTERNAL | | | Basophils | performed at [facility];[address] | [address] | LAB | | | | [address];[place] | | | | | | [address] | | | | + + + + + + | RBC | RBC AND PLT MORPHOLOGY | | EXTERNAL | | | Morphology | APPEAR NORMALComment: | | LAB | | | | Testing performed at | | | | | | [facility];[address];[place] [address] | | | | + + + + + + | Platelet | ADEQUATEComment: Testing | | EXTERNAL | | | Estimate | performed at [facility];[address] | | LAB | | | [address];[place] | | | | | | [address] | | | | + + + + + + | Differentia | SLIDE SCANNED, AGREES | | EXTERNAL | | | l Comments | WITH AUTOMATED | | LAB | | | | RESULTS.Comment: Testing | | | | | | performed at [facility];[address] | | | | | | [address];[place], [place] | | | | | | [address] | | | | + + + + + + + + | Specimen | + + | Blood specimen | | (specimen) | + + + +---------+ + + | Performing | Address | City/State/Zipcode | Phone Number | | Organization | | | | + +---------+ + + | EXTERNAL LAB | | | | + +---------+ + + Basic Metabolic Panel (09/26/2015 2:16 AM PST) + + + + + + | Component | Value | Ref Range | Performed | Pathologist | | | | | At | Signature | + + + + + + | Na | 132 (L)Comment: Testing | 135 - 143 | EXTERNAL | | | | performed at [facility];[address] | mmol/L | LAB | | | | [address];[place] | | | | | | [address] | | | | + + + + + + | K | 4.1Comment: Testing | 3.5 - 4.9 | EXTERNAL | | | | performed at [facility];[address] | mmol/L | LAB | | | | [address];[place] | | | | | | [address] | | | | + + + + + + | Cl | 100Comment: Testing | 99 - 109 mmol/L | EXTERNAL | | | | performed at [facility];[address] | | LAB | | | | [address];[place] | | | | | | [address] | | | | + + + + + + | CO2 | 24Comment: Testing | 23 - 32 mmol/L | EXTERNAL | | | | performed at [facility];[address] | | LAB | | | | [address];[place] | | | | | | [address] | | | | + + + + + + | Anion Gap | 12Comment: Testing | 5 - 20 mmol/L | EXTERNAL | | | | performed at [facility];[address] | | LAB | | | | [address];[place] | | | | | | [address] | | | | + + + + + + | Glucose, | 132 (H)Comment: Testing | 65 - 99 mg/dL | EXTERNAL | | | Fasting | performed at [facility];[address] | | LAB | | | | [address];[place] | | | | | | [address] | | | | + + + + + + | BUN | 11Comment: Testing | 8 - 25 mg/dL | EXTERNAL | | | | performed at [facility];[address] | | LAB | | | | [address];[place] | | | | | | [address] | | | | + + + + + + | Creatinine | 0.93Comment: Testing | 0.70 - 1.30 | EXTERNAL | | | | performed at [facility];[address] | mg/dL | LAB | | | | [address];[place] | | | | | | [address] | | | | + + + + + + | BUN/Creatin | 12Comment: Testing | | EXTERNAL | | | ine Ratio | performed at [facility];[address] | | LAB | | | | [address];[place] | | | | | | [address] | | | | + + + + + + | Calcium | 8.2 (L)Comment: Testing | 8.5 - 10.5 | EXTERNAL | | | | performed at [facility];[address] | mg/dL | LAB | | | | [address];[place], [place] | | | | | | [address] | | | | + + + + + + | Estimated | >60Comment: GFR <60: | mL/min/1.73m2 | EXTERNAL | | | GFR | CHRONIC KIDNEY DISEASE, | | LAB | | | | IF FOUND OVER A 3 MONTH | | | | | | PERIOD.GFR <15: KIDNEY | | | | | | FAILURE.FOR | | | | | | AMERICANS, MULTIPLY THE | | | | | | CALCULATED GFR BY | | | | | | 1.210.Testing performed | | | | | | at [facility];[address];[place] [address] | | | | + + + + + + + + | Specimen | + + | Blood specimen | | (specimen) | + + + +---------+ + + | Performing | Address | City/State/Zipcode | Phone Number | | Organization | | | | + +---------+ + + | EXTERNAL LAB | | | | + +---------+ + + Culture, Blood, 2nd Specimen (09/26/2015 2:15 AM PST) + + | Specimen | + + | Blood specimen | | (specimen) | + + + + + | Narrative | Performed At | + + + | Specimen Description BLOOD SPECIAL | EXTERNAL LAB | | REQUESTS L ARM | | | Testing performed at [facility];[address];[place] [address] CULTURE | | | NO GROWTH 6 DAYS | | | Testing performed at [facility], [address], [place], [place] | | | [address] | | + + + + +---------+ + + | Performing | Address | City/State/Zipcode | Phone Number | | Organization | | | | + +---------+ + + | EXTERNAL LAB | | | | + +---------+ + + Culture, Blood (09/26/2015 2:15 AM PST) + + | Specimen | + + | Blood specimen | | (specimen) | + + + + + | Narrative | Performed At | + + + | Specimen Description BLOOD SPECIAL | EXTERNAL LAB | | REQUESTS RA | | | Testing performed at [facility];[address] | | [address];[place] [address] CULTURE | | | NO GROWTH 6 DAYS | | | Testing performed at [facility], [address] [facility], [place], [place] | | | [address] | | + + + + +---------+ + + | Performing | Address | City/State/Zipcode | Phone Number | | Organization | | | | + +---------+ + + | EXTERNAL LAB | | | | + +---------+ + + Culture, CSF, Smear (09/26/2015 1:50 AM PST) + + | Specimen | + + | Cerebrospinal fluid | | sample (specimen) | + + + + + | Narrative | Performed At | + + + | Specimen Description CEREBROSPINAL FLUID GRAM | EXTERNAL LAB | | STAIN NO CELLS OR ORGANISMS SEEN | | | STAIN PERFORMED ON | | | CYTOSPIN Testing | | | performed at [facility];[address] [facility];[place] [address] CULTURE | | | NO GROWTH 3 DAYS | | | Testing performed at [facility], [address] | | [facility], [place] [address] | | + + + + +---------+ + + | Performing | Address | City/State/Zipcode | Phone Number | | Organization | | | | + +---------+ + + | EXTERNAL LAB | | | | + +---------+ + + Culture, Urine (09/26/2015 1:50 AM PST) + + | Specimen | + + | Cerebrospinal fluid | | sample (specimen) | + + + + + | Narrative | Performed At | + + + | Specimen Description URINE,CLEAN CATCH CULTURE | EXTERNAL LAB | | NO GROWTH | | | Testing performed at [facility], [address] | | | [place] [address] | | + + + + +---------+ + + | Performing | Address | City/State/Zipcode | Phone Number | | Organization | | | | + +---------+ + + | EXTERNAL LAB | | | | + +---------+ + + Cell Count with Differential, CSF (09/26/2015 1:50 AM PST) + + | Specimen | + + | Cerebrospinal fluid | | sample (specimen) | + + + + + | Narrative | Performed At | + + + | COLOR COLORLESS | EXTERNAL LAB | | Testing performed at [facility];[address] [place] [address];[place] [address] APPEARANCE | | | CLEAR Testing performed at | | | [facility];[address] [place] [address];[place] [address] Tube Number, CSF | | | 4 Testing performed at [facility] [address];[place] [address] CSF RBC | | | 0 Testing performed at [facility];[address] [place] [address];[place], [place] | | | [address] CSF WBC 2 | | | Testing performed at [facility];[address] [place] [address];[place] [address] | | + + + + +---------+ + + | Performing | Address | City/State/Zipcode | Phone Number | | Organization | | | | + +---------+ + + | EXTERNAL LAB | | | | + +---------+ + + Protein, CSF (09/26/2015 1:50 AM PST) + + | Specimen | + + | Cerebrospinal fluid | | sample (specimen) | + + + + + | Narrative | Performed At | + + + | CSF TOTAL PROTEIN 47 High | EXTERNAL LAB | | Testing performed at [facility];[place] [address] | | + + + + +---------+ + + | Performing | Address | City/State/Zipcode | Phone Number | | Organization | | | | + +---------+ + + | EXTERNAL LAB | | | | + +---------+ + + Glucose, CSF (09/26/2015 1:50 AM PST) + + | Specimen | + + | Cerebrospinal fluid | | sample (specimen) | + + + + + | Narrative | Performed At | + + + | CSF GLUCOSE 67 | EXTERNAL LAB | | Testing performed at [facility];[address] [facility];[place] [address] | | + + + + +---------+ + + | Performing | Address | City/State/Zipcode | Phone Number | | Organization | | | | + +---------+ + + | EXTERNAL LAB | | | | + +---------+ + + Urinalysis, Reflex Microscopic and/or Culture (09/26/2015 1:50 AM PST) + + + + + + | Component | Value | Ref Range | Performed | Pathologist | | | | | At | Signature | + + + + + + | Color | STRAWComment: Testing | | EXTERNAL | | | | performed at [facility];[address] | | LAB | | | | [address];[place] | | | | | | [address] | | | | + + + + + + | Clarity | CLEARComment: Testing | | EXTERNAL | | | | performed at [facility];[address] | | LAB | | | | [address];[place] | | | | | | [address] | | | | + + + + + + | Specific | 1.006Comment: Testing | 1.002 - 1.030 | EXTERNAL | | | [place] | performed at [facility];[address] | | LAB | | | | [address];[place] | | | | | | [address] | | | | + + + + + + | Leukocyte | NEGATIVEComment: Testing | | EXTERNAL | | | Esterase, | performed at [facility];[address] | | LAB | | | Urine | [address];[place] | | | | | | [address] | | | | + + + + + + | Nitrite, | NEGATIVEComment: Testing | | EXTERNAL | | | Urine | performed at [facility];[address] | | LAB | | | | [address];[place] | | | | | | [address] | | | | + + + + + + | Urobilinoge | NORMALComment: Testing | mg/dL | EXTERNAL | | | n, Urine | performed at [facility];[address] | | LAB | | | [address];[place] | | | | | | [address] | | | | + + + + + + | Protein, | NEGATIVEComment: Testing | mg/dL | EXTERNAL | | | Urine | performed at [facility];[address] | | LAB | | | | [address];[place] | | | | | | [address] | | | | + + + + + + | pH, Urine | 8.0Comment: Testing | 5.0 - 8.0 | EXTERNAL | | | | performed at [facility];[address] | | LAB | | | | [address];[place] | | | | | | [address] | | | | + + + + + + | Blood, | SMALL (A)Comment: | | EXTERNAL | | | Urine | Testing performed at | | LAB | | | | [facility];[address];[place] [address] | | | | + + + + + + | Ketones | TRACE (A)Comment: | mg/dL | EXTERNAL | | | | Testing performed at | | LAB | | | | [facility];[address];[place] [address] | | | | + + + + + + | Bilirubin, | NEGATIVEComment: Testing | | EXTERNAL | | | Urine | performed at [facility];[address] | | LAB | | | | [address];[place] | | | | | | [address] | | | | + + + + + + | Glucose, | NEGATIVEComment: Testing | mg/dL | EXTERNAL | | | Urine | performed at [facility];[address] | | LAB | | | | [address];[place] | | | | | | [address] | | | | + + + + + + | WBC, UA | 3-5Comment: Testing | 0 - 5 /hpf | EXTERNAL | | | | performed at [facility];[address] | | LAB | | | | [address];[place] | | | | | | [address] | | | | + + + + + + | RBC, UA | 0-2Comment: Testing | 0 - 2 /hpf | EXTERNAL | | | | performed at [facility];[address] | | LAB | | | | [address];[place] | | | | | | [address] | | | | + + + + + + | Bacteria, | NONE SEENComment: | | EXTERNAL | | | UA | Testing performed at | | LAB | | | | [facility];[address];[place] [address] | | | | + + + + + + | Epithelial | NONE SEENComment: | /lpf | EXTERNAL | | | Cells | Testing performed at | | LAB | | | | [facility];[address];[place] [address] | | | | + + + + + + | MUCUS UA | 1+Comment: Testing | | EXTERNAL | | | | performed at [facility] | | [address];[place] | | | | | | [id number] | | | | + + + + + + + + | Specimen | + + | | + + + +---------+ + + | Performing | Address | City/State/Zipcode | Phone Number | | Organization | | | | + +---------+ + + | EXTERNAL LAB | | | | + +---------+ + + XR Chest 1 Vw (09/25/2015 11:46 PM PST) + + | Specimen | + + | | + + + + + | Narrative | Performed At | + + + | This is a non-reportable procedure without a radiologist report and | | | is used for image storage only | | + + + + + | Procedure Note | + + | Venancio Cody Conversion - 05/01/2019 4:48 PM PDT This is a non-reportable procedure | | without a radiologist report and isused for image storage only | + + CT Head wo Contrast (09/25/2015 11:46 PM PST) + + | Specimen | + + | | + + + + + | Narrative | Performed At | + + + | This is a non-reportable procedure without a radiologist report and | | | is used for image storage only | | + + + + + | Procedure Note | + + | Venancio Cody - 05/01/2019 4:48 PM PDT This is a non-reportable procedure | | without a radiologist report and isused for image storage only | + + documented in this encounter Visit Diagnoses + + | Diagnosis | + + | Acute intractable headache, unspecified headache type | + + | Fever, unknown origin Fever, unspecified | + + documented in this encounter"
--- OUTSIDE RECORDS SUMMARY | ~2019-08-29 | XMS | Encounter Summary ---
Demographics + + + | Address | [address] | | | [place] [address] | + + + | Home Phone | | + + + | Preferred Language | Unknown | + + + | Marital Status | | + + + | Church Affiliation | 1013 | + + + | Race | Unknown | + + + | Ethnic Group | Unknown | + + + Author + + + | Author | [facility] | | | and [place] | + + + | Organization | [facility] | | | and [...] Team Providers + +------+ + | Care Stone Trimmer Name | Role | Phone | + +------+ + | Kade Bermudez MD | PCP | | + +------+ + Encounter Details +--------+ + + + + | Date | Type | Department | Care Team | Description | +--------+ + + + + | 12/25/ | Orders Only | [facility] | Domingo Carlson MD | Spinal stenosis, | | 2016 | | NEUROSURGERY [address] | [address] | lumbar region, with | | | | [address] | [place] [address] | neurogenic | | | | [place], [place] | [phone] | claudication; Spinal | | | | [address] | | instability, | | | | [phone] | | lumbar; S/P lumbar | | | | | | fusion; Lumbar | | | | | | degenerative disc | | | | | | disease; | | | | | | Spondylolisthesis of | | | | | | lumbar region; Flat | | | | | | back syndrome | +--------+ + + + + Social [...] Spinal stenosis, lumbar region, with neurogenic claudication | + + | Spinal instability, lumbar Other unspecified back disorder | + + | S/P lumbar fusion Arthrodesis status | + + | Lumbar degenerative disc disease Degeneration of lumbar or lumbosacral intervertebral | | disc | + + | Spondylolisthesis of lumbar region Acquired spondylolisthesis | + + | Flat back syndrome Other lordosis (acquired) | + + documented in this encounter"
--- OUTSIDE RECORDS SUMMARY | ~2019-08-29 | XMS | Encounter Summary ---
Demographics + + + | Address | [address] | | | [place] [address] | + + + | Home Phone | | + + + | Preferred Language | Unknown | + + + | Marital Status | | + + + | Judaism Affiliation | 1013 | + + + | Race | Unknown | + + + | Ethnic Group | Unknown | + + + Author + + + | Author | [facility] | | | and [place] | + + + | Organization | [facility] | | | and [place] [...] Providers + +------+ + | Care Director Park Name | Role | Phone | + [...] | | | n | disorder | [place], | [facility] | | | | | S/P lumbar | [place] [address] | [place] | | | | | fusion S/P | Phone: | [phone] Phone: | | | | | cervical | [phone] | [phone] | | | | | spinal | Fax: | Fax: | | | | | fusion | [phone] | [phone] | +--------+ + + + + + [...] | | [address] | [place] [address] | Dx); S/P lumbar | | | | [place] | [phone] | fusion; S/P cervical | | | | [address] | | spinal fusion | | | | [phone] | | | +--------+---------+ + + + [...] t he original. Domingo Carlson MD [address] [place] [address], [address] [place], [place] [id number] FAX: NEUROSURGERY FOLLOW-UP CHIEF COMPLAINT: Chief Complaint [...] hope that they can avoid additional surgery. retirement pain medication should be continued and tapered [...] FINDINGS: AP and lateral views of | [facility] | | the lumbosacral spine. Posterior screw and sonia fusion changes at [facility] | | L2-S1 without evidence of hardware [...] + | [address] | [address] | [place] | [phone] | | [facility] | | [address] | | | - IMAGING | | [...]
--- OUTSIDE RECORDS SUMMARY | ~2019-08-29 | XMS | Encounter Summary ---
Demographics + + + | Address | [address] | | | [place] [address] | + + + | Home Phone | | + + + | Preferred Language | Unknown | + + + | Marital Status | | + + + | Zoroastrianism Affiliation | 1013 | + + + | Race | Unknown | + + + | Ethnic Group | Unknown | + + + Author + + + | Author | [facility] | | | and [place] | + + + | Organization | [facility] | | | and [...] Team Providers + +------+ + | Care Electronics Engineering Technician Name | Role | Phone | [...] Description | +--------+--------+ + + + | 03/21/ | Refill | [facility] | Domingo Carlson MD | Medication Refill | | 2016 | | NEUROSURGERY [address] | [address] | | | | | [address] | [place] [address] | | | | | [place] | [phone] | | | | | [address] | | | | | | [phone] | | | +--------+--------+ + + + [...]
--- OUTSIDE RECORDS SUMMARY | ~2019-08-29 | XMS | Encounter Summary ---
Demographics + + + | Address | [address] | | | [place] [address] | + + + | Home Phone | | + + + | Preferred Language | Unknown | + + + | Marital Status | | + + + | Buddhist Affiliation | 1013 | + + + | Race | Unknown | + + + | Ethnic Group | Unknown | + + + Author + + + | Author | [facility] | | | and [place] | + + + | Organization | [facility] [...] Team Providers + +------+ + | Care Rotor Plate Washer Name | Role | Phone | + +------+ + | Kade Bermudez MD | PCP | | + +------+ + Encounter Details +--------+ + + + + | Date | Type | Department | Care Team | Description | +--------+ + + + + | 07/21/ | Abstract | [facility] | Joo Haynes | | | 2015 | | PHYSIATRY [address] | [address] | | | | | [place], | [place] | | | | | [place] [address] | [address] | | | | | [phone] | | | +--------+ + + + [...]
--- OUTSIDE RECORDS SUMMARY | ~2019-08-29 | XMS | Encounter Summary ---
Demographics + + + | Address | [address] | | | [place] [address] | + + + | Home Phone | | + + + | Preferred Language | Unknown | + + + | Marital Status | | + + + | Congregation Affiliation | 1013 | + + + | Race | Unknown | + + + | Ethnic Group | Unknown | + + + Author + + + | Author | [facility] | | | and [place] | + + + | Organization | [facility] | | [...] Team Providers + +------+ + | Care Training Program Assistant Name | Role | Phone | + +------+ + | Kade Bermudez MD | PCP | | + +------+ + Encounter Details +--------+ + + + + | Date | Type | Department | Care Team | Description | +--------+ + + + + | 01/09/ | Abstract | [facility] [place] | [place] | | | 2012 | | NEUROSURGERY [address] Mónica Guerrier MD [address] | | | | | [address] | [place] | | | | | [place] | [address] | | | | | [address] | [phone] | | | | | [phone] | | | +--------+ + + + [...]
--- OUTSIDE RECORDS SUMMARY | ~2019-08-29 | XMS | Encounter Summary ---
Demographics + + + | Address | [address] | | | [place] [address] | + + + | Home Phone | | + + + | Preferred Language | Unknown | + + + | Marital Status | | + + + | Taoism Affiliation | 1013 | + + + | Race | Unknown | + + + | Ethnic Group | Unknown | + + + Author + + + | Author | [facility] | | | and [place] | + + + | Organization | [facility] | | | and [...] Team Providers + +------+ + | Care Financial Management Consultant Name | Role | Phone | + +------+ + | Shirley Ghosh MD | PCP | | + +------+ + Encounter Details +--------+ + + + + | Date | Type | Department | Care Team | Description | +--------+ + + + + | 09/16/ | Hospital | [facility] | Shirley Ghosh | | | 2011 | Encounter | HOSPITAL LABORATORY | [address] | | | | | [address] | [address] [place], | | | | | [place], [place] | [place] [address] | | | | | [address] | [phone] | | | | | [phone] | | | +--------+ + + + [...] | | 0 | | | | (FLEXERIL) 10 mg | 3 [...]
--- OUTSIDE RECORDS SUMMARY | ~2019-08-29 | XMS | Encounter Summary ---
Demographics + + + | Address | [address] | | | [place] [address] | + + + | Home Phone | | + + + | Preferred Language | Unknown | + + + | Marital Status | | + + + | Hoahaoism Affiliation | 1013 | + + + | Race | Unknown | + + + | Ethnic Group | Unknown | + + + Author + + + | Author | [facility] | | | and [place] | + + + | Organization | [facility] | | | and [place] [...] Team Providers + +------+ + | Care Clother In Name | Role | Phone | + +------+ + PCP | Unavailable | + +------+ + Encounter Details +--------+ + + + + | Date | Type | Department | Care Team | Description | +--------+ + + + + | 07/27/ | Hospital | [facility] | [facility] | | | 2008 | Encounter | HOSPITAL BUSINESS | [address] | | | | | OFF[address] | [address] | | | | | [place] | [place] [address] | | | | | [address] | [phone] | | | | | [phone] | | | +--------+ + + + [...]
--- OUTSIDE RECORDS SUMMARY | ~2019-08-29 | XMS | Encounter Summary ---
Demographics + + + | Address | [address] | | | [place] [address] | + + + | Home Phone | | + + + | Preferred Language | Unknown | + + + | Marital Status | | + + + | Scientologist Affiliation | 1013 | + + + | Race | Unknown | + + + | Ethnic Group | Unknown | + + + Author + + + | Author | [facility] | | | and [place] | + + + | Organization | [facility] | | | and [...] Team Providers + +------+ + | Care Supervisor Leaf Spring Repair Name | Role | Phone | + +------+ + | Shirley Ghosh MD | PCP | | + +------+ + Encounter Details +--------+ + + + + | Date | Type | Department | Care Team | Description | +--------+ + + + + | 10/29/ | Hospital | [facility] | [place] | | | 2012 - | Encounter | MED CTR SURGICAL | MD Fareed [address] | | | | | [address] [place] | [facility] [place] | | | 10/30/ | | [place] [address] | [address] | | | 2012 | | [phone] | | | | | | | [...] mg by mouth | | 0 | 10/29/19 | | | (TRANXENE-T) 7.5 mg | every 6 hours as | | | 13 | 3 | | tablet | needed. | | | | | + + + +---------+ + + | docusate sodium | Take 100 mg by mouth | | 0 | 10/29/19 | | | (COLACE) 100 mg | [...] | | Take 1-2 tablets by | | 0 | 10/30/19 | | | oxyCODONE-acetaminop | mouth EVERY 4 TO 6 | | | 13 | 3 | | hen (PERCOCET) | HOURS NEEDED. | | | | | | 10-325 [...] 1 tablet by | | 0 | 10/29/19 | | | oxyCODONE-acetaminop | mouth EVERY 4 TO 6 | | | 13 | 3 | | hen (PERCOCET) | HOURS NEEDED. | | | | | | 7.5-325 mg per | | | | | | | tablet [...] LUMBAR SPINE 2 [place] | Routin | 10/30/2012 | | Results for this | | 3 VW | e | 11:07 AM | | procedure are in the | | | | PST | | results section. | + +--------+ + + + documented in this encounter Results XR Lumbar Spine 2 or 3 Vw (10/30/2012 11:07 AM PST) + + | Specimen | + + | | + + + + + | Narrative | Performed At | + + + | Merged With [facility] | [place] | | Department [address] [facility] | [facility] | | [ rep [phone]] [ rep [facility] | | st zip] Signed | - IMAGING | | | | | Patient Name: MAL MENDOZA Physician: | | | ARRE.[id number] : 1950 Age: 62 Sex: M Unit #: [id number] | | | Exam Date: 10/30/12 Location: [address] [place] [address] | | | Report #: [id number] Page: | | | %(RAD)RES..mtdd.print.filter("pg") of %(RAD) | | | RES..mtdd.print.filter("tpg") | | | | | | Accession Number: [id number] | | | LUMBAR SPINE, 10/30/2012 CLINICAL HISTORY: POSTOP | | | FUSION. FINDINGS: Frontal and lateral upright views | | | of the lumbar spine are taken with back brace in place. Posterior | | | pedicle screw and sonia fixation is present across L3-4 and L4-5. | | | Interbody spacers are present in the interspaces. Minimal | | | anterolisthesis of L3 on L4 persists, with otherwise normal | | | alignment. No adjacent bony abnormalities are seen. Increased | | | amounts of stool are noted in the colon. IMPRESSION: | | | 1. POSTOPERATIVE L3-4, L4-5 FUSION. | | | Dictated Date/Time: 10/30/2012 11:07 Transcribed Date/Time: | | | 10/30/2012 11:11 Shop Tailor: | | | <<Signature on File>> | | | | | | Ruddy Hoang MD10/30/12 1419 <Electronically signed by | | | Ruddy Hoang MD> Ruddy Hoang MD 10/30/12 | | | 1107 Shop Tailor: jaeyos [id number]/13/13 1111 | | | [place] MD | | + + + + + + + + | Performing | Address | City/State/Zipcode | Phone Number | | Organization | | | | + + + + + | [facility] | [address] | [place] | [phone] | | [facility] | | [address] | | | - IMAGING | | | | + + + + + documented in this encounter Visit Diagnoses Not on filedocumented in this encounter
--- OUTSIDE RECORDS SUMMARY | ~2019-08-29 | XMS | Encounter Summary ---
Demographics + + + | Address | [address] | | | [place] [address] | + + + | Home Phone | | + + + | Preferred Language | Unknown | + + + | Marital Status | | + + + | Tenriism Affiliation | 1013 | + + + | Race | Unknown | + + + | Ethnic Group | Unknown | + + + Author + + + | Author | [facility] | | | and [place] | + + + | Organization | [facility] | | | and [place] | [...] Team Providers + +------+ + | Care Mix Maker Name | Role | Phone | + +------+ + | Kade Bermudez MD | PCP | | + +------+ + Reason for Visit + + + | Reason | Comments | + + + | Suture / Staple | | | Removal | | + + + Encounter Details +--------+ + + + + | Date | Type | Department | Care Team | Description | +--------+ + + + + | 03/21/ | Clinical | [facility] | Domingo Carlson MD | Encounter for staple | | 2016 | Support | NEUROSURGERY [address] | [address] | removal (Primary | | | | [address] | [place] [address] | Dx) | | | | [place], [place] | [phone] | | | | | [address] | | | | | | [phone] | | | +--------+ + + + [...] + + + | Blood Pressure | 129/85 | 03/21/2016 9:32 AM | | | | | PDT | | + + + + + | Pulse | 86 | 03/21/2016 9:32 AM | | | | | PDT | | + + + + + | Temperature | 36.2 C (97.2 F) | 03/21/2016 9:32 AM | | | | | PDT | | + + + + + | Respiratory Rate | 16 | 03/21/2016 9:32 AM | | | | | PDT | | + + + + + | Oxygen Saturation | - | - | | + + + + + | Inhaled Oxygen | - | - | | | Concentration | | | | + + + + + | Weight | 84.4 kg (186 lb) | 03/21/2016 9:32 AM | | | | | PDT | | + + + + + | Height | 180.3 cm (5' 11") | 03/21/2016 9:32 AM | | | | | PDT | | + + + + + | Body Mass Index | 25.94 | 03/21/2016 9:32 AM | | | | | PDT [...] documented as of this encounter Progress Notes Carola Obrien RN - 03/21/2016 10:03 AM PDTStaples removed per protocol. Incisions well a pproximated. No drainage or swelling noted. Mild redness noted around incisions. All questio ns answered at this time. documented in this encounter Plan of Treatment Not on filedocumented as of this encounter Visit Diagnoses + + | Diagnosis | + + | Encounter for staple removal - Primary Encounter for removal of sutures | + + documented in this encounter
--- OUTSIDE RECORDS SUMMARY | ~2019-08-29 | XMS | Encounter Summary ---
Demographics + + + | Address | [address] | | | [place] [address] | + + + | Home Phone | | + + + | Preferred Language | Unknown | + + + | Marital Status | | + + + | Protestant Affiliation | 1013 | + + + | Race | Unknown | + + + | Ethnic Group | Unknown | + + + Author + + + | Author | [facility] | | | and [place] | + + + | Organization | [facility] | | | [...] Team Providers + +------+ + | Care Interactive Media Marketing Strategist Name | Role | Phone | + +------+ + | Kade Bermudez MD | PCP | | + +------+ + Reason for Visit +--------+ + | Reason | Comments | +--------+ + | Other | | +--------+ + Encounter Details +--------+ + + + + | Date | Type | Department | Care Team | Description | +--------+ + + + + | 03/03/ | Telephone | [facility] | Domingo Carlson MD | Other | | 2016 | | NEUROSURGERY [address] | [address] | | | | | [address] | [place] [address] | | | | | [place] | [phone] | | | | | [address] | | | | | | [phone] | | | +--------+ + + + [...]
--- OUTSIDE RECORDS SUMMARY | ~2019-08-29 | XMS | Encounter Summary ---
Demographics + + + | Address | [address] | | | [place] [address] | + + + | Home Phone | | + + + | Preferred Language | Unknown | + + + | Marital Status | | + + + | Yarsanism Affiliation | 1013 | + + + | Race | Unknown | + + + | Ethnic Group | Unknown | + + + Author + + + | Author | [facility] | | | and [place] | + + + | Organization | [facility] | | [...] Team Providers + +------+ + | Care Binder Chainstitch Name | Role | Phone | + +------+ + PCP | Unavailable | + +------+ + Encounter Details +--------+ + + + + | Date | Type | Department | Care Team | Description | +--------+ + + + + | 05/05/ | Hospital | [facility] | Rosa [facility] | | | 2008 | Encounter | HOSPITAL MED SURG | [address] | | | | | [address] | [facility] | | | | | [place] | [place] [address] | | | | | [address] | [phone] | | | | | [phone] | | | +--------+ + + + [...]
--- OUTSIDE RECORDS SUMMARY | ~2019-08-29 | XMS | Encounter Summary ---
Demographics + + + | Address | [address] | | | [place] [address] | + + + | Home Phone | | + + + | Preferred Language | Unknown | + + + | Marital Status | | + + + | Rastafari Affiliation | 1013 | + + + | Race | Unknown | + + + | Ethnic Group | Unknown | + + + Author + + + | Author | [facility] | | | and [place] | + + + | Organization | [facility] | | | and [...] Team Providers + +------+ + | Care Storage Receipt Poster Name | Role | Phone | + +------+ + | Kade Bermudez MD | PCP | | + +------+ + Encounter Details +--------+ + + + + | Date | Type | Department | Care Team | Description | +--------+ + + + + | 09/20/ | Hospital | [facility] | Conversion | Status post | | 2019 | Encounter | [facility] | Transaction, | craniotomy; | | | | [address] | Provider Unknown | Traumatic subdural | | | | VIJAY DUNHAM | [phone] | hemorrhage without | | | | [phone] | | loss of | | | | [phone] | Edil Gallegos, | consciousness, | | | | | [employer] [address] | subsequent encounter | | | | | [address] | | | | | | [place] [address] | | | | | | [phone] | | | | | | | [...] + + + +---------+ + + | acetaminophen | Take 650 mg by mouth | | 0 | 04/11/20 | | | (TYLENOL) 325 mg | as needed. | | | 18 | | | tablet | | | | | | + + + +---------+ + + | | Take 3 capsules by | | 0 | | | | [id number] | mouth Daily. | | | | [...] + + + +---------+ + + | meclizine | Take 25 mg by mouth | | 0 | 08/16/20 | | | (ANTIVERT) 25 mg | 3 (three) times | | | 18 | | | tablet | daily as needed. | | | | | | | dizziness. | | | | | + + [...] 1-2 tablets by | | 0 | 08/21/20 | | | oxyCODONE-acetaminop | mouth every 6 (six) | | | 18 | | | hen (PERCOCET) 5-325 | hours as needed for | | | | | | mg per tablet | Pain (hold for | | | | | | | sedation). | | | | | + + + +---------+ + + | pramipexole | Take 2 mg by mouth | | 0 | | | | (MIRAPEX) 1 MG | nightly. | | | | | | tablet | | | | | | + + + +---------+ + + | propranolol | Take 40 mg by mouth | | 0 | 08/09/20 | | | (INDERAL) 40 mg | daily. | | | 18 | | | tablet | | | | | | + + + +---------+ + + | rOPINIRole HCl ER | | | 0 | 08/04/20 | | | 12 MG TB24 | | | | 18 | | + + + +---------+ + + | sertraline | Take 50 mg by mouth | | 0 | 05/22/20 | | | (ZOLOFT) 50 mg | daily. | | | 18 | | | tablet | | | | | | + + + +---------+ + + | tamsulosin | Take 1 capsule by | | 0 | 08/21/20 | | | (FLOMAX) 0.4 mg CAPS | mouth After dinner. | | | 18 | | + + + +---------+ + + | traMADol (ULTRAM) | Take 50 mg by mouth | | 0 | 09/13/20 | | | 50 mg tablet | every 4 (four) hours | | | 18 | | | | as needed. | | [...] CT HEAD WO CONTRAST | Routin | 09/20/2018 | | Results for this | | | e | 7:48 AM | | procedure are in the | | | | PST | | results section. | + +--------+ + + + documented in this encounter Results CT Head wo Contrast (09/20/2018 7:48 AM PST) + + | Specimen | + + | | + + + + + | Impressions | Performed At | + + + | 1. Decreasing frontal parietal subdural hemorrhages with | | | resolution of the extra-axial air post removal of the bilateral | | | drains. 2. Decreasing mass effect, nearly resolved, with less than | | | 1 mm midline shift from left to right, essentially unchanged. 3. No | | | new hemorrhages. Electronically signed by Bereket Arreola MD on | | | 09/20/2018 8:30 AM | | + + + + + + | Narrative | Performed At | + + + | HISTORY: Status post craniotomy. Traumatic subdural hemorrhage. | | | Follow-up. COMPARISON: 08/20/18, 08/18/18, 08/17/18. MRI brain | | | 09/26/15. TECHNIQUE: 5-mm axial noncontrast CT images of the | | | brain using automated exposure control were acquired from the foramen | | | magnum through the cranial vertex. FINDINGS: Decrease in size of | | | the bilateral subdural mixed density hemorrhages, measuring up to 8 mm | | | left, 6 mm right, predominantly in the bilateral frontal regions, but | | | with mild extension to the bilateral parietal regions, improved. | | | Bilateral frontoparietal craniotomies. No subdural drains. Minimal | | | midline shift of 1 mm from left to right, unchanged. Basal | | | cisterns are preserved. Decrease in the bilateral frontoparietal | | | mass effect, nearly resolved. Paranasal sinuses and mastoid air | | | cells are incompletely included but clear. Orbital structures | | | unremarkable. | | + + + + + | Procedure Note | + + | Escobar, Rad Conversion - 04/29/2019 11:36 PM PDT HISTORY:Status post craniotomy. | | Traumatic subdural hemorrhage. Follow-up. COMPARISON:08/20/18, 08/18/18, 08/17/18. MRI | | brain 09/26/15. TECHNIQUE:5-mm axial noncontrast CT images of the brain using automated | | exposure control were acquired from the foramen magnum through the cranial vertex. | | FINDINGS:Decrease in size of the bilateral subdural mixed density hemorrhages, measuring | | up to 8 mm left, 6 mm right, predominantly in the bilateral frontal regions, but with | | mild extension to the bilateral parietal regions, improved. Bilateral frontoparietal | | craniotomies. No subdural drains. Minimal midline shift of 1 mm from left to right, | | unchanged. Basal cisterns are preserved. Decrease in the bilateral frontoparietal mass | | effect, nearly resolved. Paranasal sinuses and mastoid air cells are incompletely | | included but clear. Orbital structures unremarkable. IMPRESSION: 1. Decreasing frontal | | parietal subdural hemorrhages with resolution of the extra-axial air post removal of the | | bilateral drains.2. Decreasing mass effect, nearly resolved, with less than 1 mm | | midline shift from left to right, essentially unchanged.3. No new hemorrhages. | | | | | |Decrease in the bilateral frontoparietal mass effect, nearly resolved. | | | |Paranasal sinuses and mastoid air cells are incompletely included but clear. Orbital struct ures unremarkable. | | | |IMPRESSION: | |1. Decreasing frontal parietal subdural hemorrhages with resolution of the extra-axial air post removal of the bilateral drains. | |2. Decreasing mass effect, nearly resolved, with less than 1 mm midline shift from left to right, essentially unchanged. | |3. No new hemorrhages. | | | | | + + documented in this encounter Visit Diagnoses + + | Diagnosis | + + | Status post craniotomy Other postprocedural status | + + | Traumatic subdural hemorrhage without loss of consciousness, subsequent encounter | + + documented in this encounter"
--- OUTSIDE RECORDS SUMMARY | ~2019-08-29 | XMS | Encounter Summary ---
Demographics + + + | Address | [address] | | | [place] [address] | + + + | Home Phone | | + + + | Preferred Language | Unknown | + + + | Marital Status | | + + + | Muslim Affiliation | 1013 | + + + | Race | Unknown | + + + | Ethnic Group | Unknown | + + + Author + + + | Author | [facility] | | | and [place] | + + + | Organization | [facility] | | | and [place] | [...] Team Providers + +------+ + | Care Janitorial Tech Name | Role | Phone | + +------+ + | Kade Bermudez MD | PCP | | + +------+ + Reason for Visit Auth/Cert +--------+--------+ + + + + | Status | Reason | Specialty | Diagnoses / | Referred By | Referred To | | | | | Procedures | Contact | Contact | +--------+--------+ + + + + | | | | Diagnoses | | | | | | | Spinal | | | | | | | stenosis of | | | | | | | lumbar | | | | | | | region | | | | | | | Spinal | | | | | | | stenosis of | | | | | | | lumbar | | | | | | | region | | | | | | | [M48.06] | | | | | | | Procedures | | | | | | | IA | | | | | | | ARTHRODESIS | | | | | | | POSTERIOR/PO | | | | | | | STEROLATERAL | | | | | | | LUMBAR | | | | | | | FUSION | | | | | | | LUMBAR W/ | | | | | | | LATERAL | | | | | | | APPROACH | | | | | | | (XLIF) | | | +--------+--------+ + + + + Encounter Details +--------+---------+ + + + | Date | Type | Department | Care Team | Description | +--------+---------+ + + + | 03/06/ | Surgery | [facility] | Domingo Carlson MD | L2-3 Lateral | | 2016 | | MED CTR OR INTRA OP | [address] | Anterior Interbody | | | | [address] | [place] [address] | Fusion, L5-S1 | | | | VIJAY Doan | [phone] | Transforaminal | | | | [phone] | | Lumbar Interbody | | | | [phone] | | Fusion, Hardware | | | | | | Revision @ L3-4, | | | | | | L4-5 | +--------+---------+ + + + Social History [...] + + + | Blood Pressure | 122/67 | 03/09/2016 4:00 PM | | | | | PDT | | + + + + + | Pulse | 81 | 03/09/2016 4:00 PM | | | | | PDT | | + + + + + | Temperature | 37.4 C (99.3 F) | 03/09/2016 4:00 PM | | | | | PDT | | + + + + + | Respiratory Rate | 20 | 03/09/2016 4:00 PM | | | | | PDT | | + + + + + | Oxygen Saturation | 92% | 03/09/2016 4:00 PM | | | | | PDT | | + + + + + | Inhaled Oxygen | - | - | | | Concentration | | | | + + + + + | Weight | 85.3 kg (188 lb) | 03/06/2016 11:00 AM | | | | | PDT | | + + + + + | Height | 180.3 cm (5' 11") | 03/06/2016 11:00 AM | | | | | PDT | | + + + + + | Body Mass Index | 26.22 | 03/06/2016 11:00 AM | | | | | PDT [...] + + documented as of this encounter Discharge Summaries Hemal Celestin PA - 03/09/2016 8:03 AM PDTFormatting of this note might be differen t from the original. [facility] NEUROSURGERY DISCHARGE SUMMARY Patient Name: Mal Mendoza Patient : 1950 PCP: Kade Bermudez Date of Admission: 03/06/2016 Date of Discharge: 03/09/2016 Primary Discharge Dx: Lumbar scoliosis Lumbar degenerative disc disease Lumbar foraminal stenosis Lumbar spinal stenosis S/p lumbar fusion Secondary Discharge Dx(s): Patient Active Problem List Diagnosis ADHD (attention deficit hyperactivity disorder) Cervical spinal [...] of spinal canal Cervical spondylosis with myelopathy Lumbar disc herniation with radiculopathy Flat back syndrome Abnormal resting ECG findings Procedures 1. Minimally invasive lumbar fusion via anterior and posterior approaches 2. Combined posteriolateral and posterior interbody arthrodesis L5-S1 3. Anterior lumbar interbody arthrodesis L2-3 4. Posterolateral lumbar arthrodesis L2-3, L5-S1 5. Posterior spinal instrumentation L2-S1 with use of Precept 6. L3-5 hardware removal 7. Placement of PEEK interbody spacer L2-3, L5-S1 8. L5 laminectomy, L5-S1 facetectomy, L5 and S1 foraminotomy for decompression of L5 and S1 nerves 9. Microsurgical technique with use of operating microscope 10. Intraoperative fluoroscopy for spinal instrumentation Hospital Course: Post op the patient had issues with urinary retention. Flomax was started. Pain control w as reasonable. He had intermittent low O2 sats. I was not using IS. Hwshona instructed in gr eat detail by me today on IS use. He has been working with PT and OT. Francis is being remov ed today and ambulatory O2 sats will be documented. If needed the patient will be discharge d with a francis in place and may need Home O2 . Progress report will be called to me prior t o DC Condition on Discharge: Stable Discharge Medications: Discharge Medications New Medications Details cyclobenzaprine 10 mg tablet Take 1 tablet by mouth every 8 hours as needed for Muscle spasms. aka: FLEXERIL lactulose 10 g/15 mL solution Take 30 mLs by mouth 2 times daily. oxyCODONE-acetaminophen 10-325 mg per tablet Take 1-2 tablets by mouth every 4 hours as needed for Pain. aka: PERCOCET tamsulosin 0.4 mg Caps Take 1 capsule by mouth daily (after breakfast). aka: FLOMAX Unchanged Medications Details pramipexole 1 MG tablet Take 2 mg by mouth nightly. aka: MIRAPEX SERTRALINE HCL PO Take 200 mg by mouth Daily. TRANXENE-T 7.5 mg tablet Generic drug: clorazepate Take 7.5 mg by mouth every 6 hours as needed. ; Current Discharge Medication List START taking these medications Medication Dose Last Dose Taken; cyclobenzaprine (FLEXERIL) 10 mg tablet 10 mg Take 1 tablet by mouth every 8 hours as needed for Muscle spasms. Quantity: 90 tablet Refills: 3 Start date: 03/09/2016 lactulose 10 g/15 mL solution 30 mLs Take 30 mLs by mouth 2 times daily. Quantity: 240 mL Refills: PRN Start date: 03/09/2016 oxyCODONE-acetaminophen (PERCOCET) 10-325 mg per tablet 1-2 tablets Take 1-2 tablets by mouth every 4 hours as needed for Pain. Quantity: 120 tablet Refills: 0 Start date: 03/09/2016 tamsulosin (FLOMAX) 0.4 mg CAPS 0.4 mg Take 1 capsule by mouth daily (after breakfast). Quantity: 30 capsule Refills: 0 Start date: 03/09/2016 CONTINUE these medications which have NOT CHANGED Medication Dose Last Dose Taken; clorazepate (TRANXENE-T) 7.5 mg tablet 7.5 mg Take 7.5 mg by mouth every 6 hours as needed. pramipexole (MIRAPEX) 1 MG tablet 2 mg Take 2 mg by mouth nightly. SERTRALINE HCL PO 200 mg Take 200 mg by mouth Daily. Follow-Up: 4 weeks B Brace documented in th is encounter Discharge Instructions Instructions Hemal Celestin PA - 03/09/2016Discharge Instructions for Lumbar Fusion You had a lumbar fusion. During this procedure, your doctor locked together (fused) some of the bones in your spine. This limits the movement of these bones to help relieve your pain. Here s what you need to know about home care following a spinal fusion. Activity Arrange your household to keep the items you need within reach. Remove electrical cords, throw rugs, and anything else that may cause you to fall. Use a walkeror handrails until your balance, flexibility, and strength improve. And re member to ask for help from others when you need it. Free up your hands so that you can use them to keep balance. Use a megha pack, apron, or pockets to carry things. Be sure not to carry too much at once. Don t bend or twist at the waist, or raise your hands over your head for the first two weeks after your surgery. Don t lift anything heavier than 5 pounds for the first four weeks after surgery. Don t sit for more than30 to 45 minutes at a time. Take frequent short walks. They a re the leung to your recovery. As your back feels better please gradually increase the distanc e you walk as discussed with your provider. Don t drive until your doctor says it s OK. And never drive while you are taking opi oid pain medication. Nap if you are tired, but don t stay in bed all day. Use chairs with arms. The arms make it easier for you to stand up and sit down. If you have not yet received instructions about physical therapy, ask your doctor about them. Incision care Check your incision daily for redness, tenderness, or drainage. Don t soak your wound in water (no hot tubs, bathtubs, swimming pools) until your doct or says it s OK. As long as you keep your incision dry you can shower as desired. After 5 days you may le t shower water run over the incision but do not submerse the incision under water until afte r you see your provider. Gently pat the incision dry. Don t rub it, or apply creams or lot ions. And if you feel unsteady while standing to shower, use a shower stool or chair. Other home care Use nonslip bath mats, grab bars, an elevated toilet seat, and a shower chair in your ba throom. Take your medication exactly as directed. Don t take nonsteroidal anti-inflammatory medications (NSAIDs), such as ibuprofen. The y may delay or prevent proper fusion of the spine. If you smoke, stop! This will be one of the most important things you can do to help you recover from surgery. Wear your back brace, if one was prescribed, as directed by your doctor. Follow-up Most patients will be seen approximately 4 weeks after surgery. Be sure to get your 1 mo nth post op x-rays prior to your 1 month post op appointment before your appointment. [id number] [employer]. [address] [place] [address], [place] [address]. All righ ts reserved. This information is not intended as a substitute for professional medical care. Always follow your healthcare professional's instructions. AttachmentsThe following attachments cannot be sent through Care Everywhere.INDWELLING URIN GAYATHRI CATHETER, DISCHARGE INSTRUCTIONS (NEPALI)documented in this encounter Medications at Time of [...] documented as of this encounter Progress Notes Jovanni Avendaño PA - 03/08/2016 7:26 AM PDTFormatting of this note might be different f rom the original. [facility] NEUROSURGERY PROGRESS NOTE Pt. Name/Age/: Mal Mendoza 66 y.o. 1950 Post operative day 2 SUBJECTIVE: Patient doing fairly well. He says his legs felt kiln puller yesterday when walking . This AM they are sore. Otherwise he has no C/C. He hopes very much to be DC without a fole y. OBJECTIVE: Patient Vitals for the past 24 hrs: BP Temp Temp src Pulse Resp SpO2 03/08/16 0253 113/64 mmHg 37.5 C (99.5 F) Oral 83 20 92 % 03/08/16 0053 94/52 mmHg (!) 38.1 C (100.6 F) Oral 95 16 90 % 03/07/16 2133 - (!) 38.2 C (100.8 F) Oral - - - 03/07/161999 101/58 mmHg (!) 38.3 C (100.9 F) Oral 101 16 92 % 03/07/16 1708 120/71 mmHg 37.6 C (99.7 F) Oral 82 16 94 % 03/07/16 1135 115/70 mmHg 36.4 C (97.5 F) Oral 77 16 94 % 03/07/16 0750 - - - 56 12 100 % 03/07/16 0745 99/62 mmHg 36.1 C (97 F) Oral 65 18 100 % I/O last 24 Hours: In: 2322 [P.O.:2000; I.V.:215; IV Piggyback:107] Out: 4355 [Urine:4250; Other:105] Min/Max Temp past 24 hours:Temp Av.4 C (99.4 F) Min: 36.1 C (97 F) Max: 38. 3 C (100.9 F) General: Alert, oriented, no acute distress. Appears mildly oversedated but reportedly wake s up like this. Dressing: Clean/Dry/Intact Neurological: normal DRAIN OUTPUT: 15 CCs from 1:00-7:00 LabsNo results found for this or any previous visit (from the past 24 hour(s)). ASSESSMENT: SP L2-S1 revision. Urinary retention Plan:Will Pull drain. Will leave francis in today and remove it tomorrow AM. If patient is a ble to void on his own without high PVR we will DC home. Otherwise if he is again unable to void on his own we will replace catheter and DC home on catheter and have him FU with his PC P Electronically signed by: Jovanni Avendaño, 03/08/2016 7:26 [facility] Jovanni Anguiano PA - 03/07/2016 7:16 AM PDT [facility] NEUROSURGERY PROGRESS NOTE Pt. Name/Age/: Mal Mendoza 66 y.o. 1950 Post operative day 1 SUBJECTIVE: Patient doing well. Pain was quite bad early last night but was controlled much better about half way through the night. He did get some sleep. He reports needing to be st raight cathed last night. No other C/C. He is not sure if his legs are better today after moncada rgery or not. He will be able to tell better after he gets up and moves. OBJECTIVE: Patient Vitals for the past 24 hrs: BP Temp Temp src Pulse Resp SpO2 Height Weight 03/07/16 0430 90/57 mmHg 35.8 C (96.4 F) Oral 61 16 98 % - - 03/07/16 0417 - - - 61 - 98 % - - 03/07/16 0006 - - - 72 - 96 % - - 03/06/16 2326 95/58 mmHg 35.7 C (96.3 F) Axillary 56 18 97 % - - 03/06/16 2215 103/59 mmHg - - 67 14 99 % - - 03/06/16 2115 105/58 mmHg - - 61 15 100 % - - 03/06/162017 109/64 mmHg - - 66 14 100 % - - 03/06/16 1945 111/62 mmHg 36.9 C (98.4 F) Axillary 101 16 98 % - - 03/06/161914 - - - 94 11 92 % - - 03/06/16 191 - - - 92 13 99 % - - 03/06/16 190 - - - 95 22 99 % - - 03/06/16 1900 106/77 mmHg - - 88 16 99 % - - 03/06/161854 - - - 95 20 100 % - - 03/06/16 1850 103/65 mmHg - - 87 13 95 % - - 03/06/16 184 - - - 101 23 99 % - - 03/06/16 1840 107/61 mmHg - - 95 25 100 % - - 03/06/16 1835 105/78 mmHg - - 100 22 100 % - - 03/06/16 1830 (!) 80/60 mmHg - - 106 15 100 % - - 03/06/16 1825 104/70 mmHg - - 103 17 100 % - - 03/06/16 1820 106/70 mmHg - - 103 20 100 % - - 03/06/16 1815 101/60 mmHg - - 90 14 94 % - - 03/06/16 1810 110/72 mmHg - - 105 16 92 % - - 03/06/16 1805 102/62 mmHg - - 87 12 92 % - - 03/06/16 1800 105/66 mmHg - - 89 12 96 % - - 03/06/16 1755 107/71 mmHg - - 93 12 96 % - - 03/06/16 1750 108/71 mmHg - - 93 17 97 % - - 03/06/16 1745 106/73 mmHg - - 100 18 96 % - - 03/06/16 1740 111/68 mmHg - - 106 20 98 % - - 03/06/16 1735 110/75 mmHg - - 109 21 98 % - - 03/06/16 1730 109/58 mmHg 37.4 C (99.3 F) Temporal 104 12 98 % - - 03/06/16 1729 109/58 mmHg 37.4 C (99.3 F) Temporal - - - - - 03/06/16 1100 132/82 mmHg 36.8 C (98.2 F) Temporal 67 16 96 % 1.803 m (5' 11") 85.276 k g (188 lb) I/O last 24 Hours: In: 3281 [P.O.:500; I.V.:2731; IV Piggyback:50] Out: 1639 [Urine:1275; Other:150; Blood:214] Min/Max Temp past 24 hours:Temp Av.7 C (98 F) Min: 35.7 C (96.3 F) Max: 37. 4 C (99.3 F) General: Alert, oriented, no acute distress Dressing: Clean/Dry/Intact Neurological: normal DRAIN OUTPUT: 105 CCs Labs Recent Results (from the past 24 hour(s)) ECG 12 lead Result Value Ref Range INTERPRETATION TEXT Not Confirmed ASSESSMENT:L2-S1 revision. Plan:Mobilize. Leave drain in. Control pain. Likely DC home on . Electronically signed by: Jovanni Avendaño, 03/07/2016 7:16 [facility] documented in this encounter Plan of Treatment + +------+--------+ + + | Name | Type | Priori | Associated Diagnoses | Order Schedule | | | | ty | | | + +------+--------+ + + | DME: Walker | DME | Routin | Gait abnormality | DME 1 Time for 1 | | | | e | | Occurrences starting | | | | | | 03/09/2016 until | | | | | | 03/09/2016 | + +------+--------+ + + documented as of this encounter Procedures + +--------+ + + + | Procedure Name | Priori | Date/Time | Associated Diagnosis | Comments | | | ty | | | | + +--------+ + + + | XR LUMBAR SPINE 2 OR | STAT | 03/06/2016 | | Results for this | | 3 VW | | 7:34 PM | | procedure are in the | | | | PDT | | results section. | + +--------+ + + + | FL TERRY STATS NO | Routin | 03/06/2016 | | Results for this | | CHARGE | e | 5:10 PM | | procedure are in the | | | | PDT | | results section. | + +--------+ + + + | FUSION LUMBAR W/ | | 03/06/2016 | Spinal stenosis of | | | LATERAL APPROACH | | 1:10 PM | lumbar region | | | (XLIF) | | PDT | | | + +--------+ + + + +---+--------+ | | Case | | | Notes | | | | | | Origin | | | al | | | Schedu | | | ler | | | Commen | | | ts/Not | | | es | | | Sent | | | Over | | | 02/22/ | | | 2015 @ | | | | | | 1726:N | | | EUROVI | | | AUGUSTIN, | | | C-ARM, | | | | | | DRILL, | | | | | | MICROS | | | COPE, | | | METRX, | | | XLIF, | | | | | | PRECEP | | | T, | | | TLIF | | | CAGES, | | | BMP, | | | CHIPS, | | | | | | GRAFTO | | | N, | | | SPINE | | | WAVE | | | REMOVA | | | L, | | | JACKSO | | | N AXIS | | | | | | FRAME, | | | 8.5 | | | SCREWS | | | ESTIMA | | | MEGHANN | | | TIME: | | | 4 | | | HOURSS | | | JESSICA: | | | LEFT | +---+--------+ | | | | | Specia | | | l | | | Needs | | | Mario | | | (Nuvas | | | herbert) - | | | XLIF, | | | | | | Precep | | | t/TLIF | | | | | | Cages, | | | 8.5 | | | Screws | | | , | | | NeuroV | | | isionJ | | | eff | | | Underw | | | ood - | | | Spine | | | Wave | | | Remova | | | l | +---+--------+ + +--------+ +---+ + | ECG 12 LEAD | Routin | 03/06/2016 | | Results for this | | | e | 1:04 PM | | procedure are in the | | | | PDT | | results section. | + +--------+ +---+ + | ECG 12 LEAD | RAFIA | 03/06/2016 | | Results for this | | | | 11:43 AM | | procedure are in the | | | | PDT | | results section. | + +--------+ +---+ + documented in this encounter Results XR Lumbar Spine 2 or 3 Vw (03/06/2016 7:34 PM PDT) + + | Specimen | + + | | + + + + + | Narrative | Performed At | + + + | XR LUMBAR SPINE 2 OR 3 VW. 03/06/2016 7:34 PM HISTORY: post op | [facility] | | lumbar surgery . COMPARISON: MRI lumbar spine 12/23/2015 and | | | lumbar spine x-ray 03/26/2015 FINDINGS: Posterior spinal fusion | | | hardware seen at the levels of L2-S1, with disc spacer placement at | | | the intervening levels, without evidence of hardware complication. | | | Drainage tubing seen in the soft tissues of the low back. There is | | | subsidence at the inferior endplate of the L3 vertebral body, not | | | substantially changed as compared with the MRI from 12/23/2015. There | | | is dextroconvex curvature of the lumbar spine centered at L2 , | | | similar to the prior MRI . There is retrolisthesis of L2 on L3. | | | There is anterolisthesis of L3 on L4. There is degenerative disc | | | disease at the nonfused levels. Facet degenerative hypertrophy, | | | greater in the lower lumbar spine. IMPRESSION - Posterior | | | spinal fusion spanning L2-S1. Subsidence at inferior L3 endplate. | | | Spondylolisthesis and scoliosis, as described above. Dictated and | | | Signed by: Arie Corral MD Electronically signed: 03/07/2016 | | | 8:56 AM | | + + + + + | Procedure Note | + + | Escobar, Rad Results In - 03/07/2016 9:00 AM PDT XR LUMBAR SPINE 2 OR 3 VW. 03/06/2016 | | 7:34 PMHISTORY: post op lumbar surgery . COMPARISON: MRI lumbar spine 12/23/2015 and | | lumbar spine x-ray 03/26/2015FINDINGS:Posterior spinal fusion hardware seen at the levels | | of L2-S1, with disc spacerplacement at the intervening levels, without evidence of | | hardware complication. Drainage tubing seen in the soft tissues of the low back. There | | is subsidence atthe inferior endplate of the L3 vertebral body, not substantially | | changed ascompared with the MRI from 12/23/2015. There is dextroconvex curvature of | | thelumbar spine centered at L2 , similar to the prior MRI . There isretrolisthesis of | | L2 on L3. There is anterolisthesis of L3 on L4. There isdegenerative disc disease at | | the nonfused levels. Facet degenerativehypertrophy, greater in the lower lumbar | | spine.IMPRESSION -Posterior spinal fusion spanning L2-S1. Subsidence at inferior L3 | | endplate. Spondylolisthesis and scoliosis, as described above.Dictated and Signed by: | | Arie Corral MD Electronically signed: 03/07/2016 8:56 AM | |retrolisthesis of L2 on L3. There is anterolisthesis of L3 on L4. There is | |degenerative disc disease at the nonfused levels. Facet degenerative | |hypertrophy, greater in the lower lumbar spine. | | | | | |IMPRESSION - | |Posterior spinal fusion spanning L2-S1. Subsidence at inferior L3 endplate. | |Spondylolisthesis and scoliosis, as described above. | | | |Dictated and Signed by: Arie Corral MD | | Electronically signed: 03/07/2016 8:56 AM | + + + +---------+ + + | Performing | Address | City/State/Zipcode | Phone Number | | Organization | | | | + +---------+ + + | [facility] | | | | + +---------+ + + [place] Suzanne Statsheron No Charge (03/06/2016 5:10 PM PDT) + + | Specimen | + + | | + + + + + | Narrative | Performed At | + + + | No Radiologist interpretation, please see Chart Review. | [facility] | + + + + +---------+ + + | Performing | Address | City/State/Zipcode | Phone Number | | Organization | | | | + +---------+ + + | [facility] | | | | + +---------+ + + ECG 12 lead (03/06/2016 1:04 PM PDT) + + + + + + | Component | Value | Ref Range | Performed | Pathologist | | | | | At | Signature | + + + + + + | VENTRICULAR | 64 | BPM | [facility] | | | RATE EKG | | | | | + + + + + + | ATRIAL RATE | 64 | BPM | [facility] | | + + + + + + | P-R | 156 | ms | [facility] | | | INTERVAL | | | | | + + + + + + | QRS | 110 | ms | [facility] | | | DURATION | | | | | + + + + + + | Q-T | 418 | ms | [facility] | | | INTERVAL | | | | | + + + + + + | Q-T | 431 | ms | [facility] | | | INTERVAL | | | | | | (CORRECTED) | | | | | + + + + + + | P WAVE AXIS | -2 | degrees | [facility] | | + + + + + + | QRS AXIS | 26 | degrees | [facility] | | + + + + + + | T AXIS | 45 | degrees | [facility] | | + + + + + + | INTERPRETAT | Normal sinus | | [facility] | | | ION TEXT | rhythmPossible Inferior | | | | | | infarct (cited on or | | | | | | before | | | | | | 06-MAR-2016)Abnormal | | | | | | ECGWhen compared with | | | | | | ECG of 06-MAR-2016 | | | | | | 11:43, (Unconfirmed)Left | | | | | | posterior fascicular | | | | | | block is no longer | | | | | | presentNon-specific | | | | | | change in ST segment in | | | | | | Lateral leadsT wave | | | | | | inversion no longer | | | | | | evident in Lateral | | | | | | leadsConfirmed by | | | | | | DAPHNEY LOPEZ MD | | | | | | ([id number]) on 03/08/2016 | | | | | | 10:46:09 AM | | | | + + [...] | | | + +---------+ + + ECG 12 lead (03/06/2016 11:43 AM PDT) + + + + + + | Component | Value | Ref Range | Performed | Pathologist | | | | | At | Signature | + + + + + + | VENTRICULAR | 64 | BPM | [facility] | | | RATE EKG | | | | | + + + + + + | ATRIAL RATE | 64 | BPM | [facility] | | + + + + + + | P-R | 154 | ms | [facility] | | | INTERVAL | | | | | + + + + + + | QRS | 110 | ms | [facility] | | | DURATION | | | | | + + + + + + | Q-T | 412 | ms | [facility] | | | INTERVAL | | | | | + + + + + + | Q-T | 425 | ms | [facility] | | | INTERVAL | | | | | | (CORRECTED) | | | | | + + + + + + | P WAVE AXIS | -15 | degrees | [facility] | | + + + + + + | QRS AXIS | 143 | degrees | [facility] | | + + + + + + | T AXIS | 145 | degrees | [facility] | | + + + + + + | INTERPRETAT | Normal sinus rhythmLeft | | [facility] | | | ION TEXT | posterior fascicular | | | | | | blockPossible Inferior | | | | | | infarct (cited on or | | | | | | before | | | | | | 06-MAR-2016)Abnormal | | | | | | ECGWhen compared with | | | | | | ECG of 01-MAR-2016 | | | | | | 11:24,Left posterior | | | | | | fascicular block is now | | | | | | presentthere is new | | | | | | T-wave inversion in lead | | | | | | V2 and lateral leads : | | | | | | Consider ischemia or | | | | | | evolution of a recent | | | | | | ischemic eventConfirmed | | | | | | by DIPTI SETHI MD | | | | | | ([id number]) on 03/15/2016 | | | | | | 8:06:11 AM | | | | + + [...] | Diagnosis | + + | Spinal stenosis of lumbar region Spinal stenosis, lumbar region, without neurogenic | | claudication | + + documented in this encounter Administered Medications + +--------+ +---------+------+------+ | Medication Order | MAR | Action | Dose | Rate | Site | | | Action | Date | | | | + +--------+ +---------+------+------+ | bacitracin injection PRN, | Given | 03/06/20 | 50,000 | | | | Starting 03/06/16 at 1407, | | 16 2:07 | Units | | | | Intra-op | | PM PDT | | | | + +--------+ +---------+------+------+ +---+---+ | | | +---+---+ + +-------+ +--------+---+---+ | bupivacaine (liposomal) | Given | 03/06/20 | 20 mLs | | | | (EXPAREL) 1.3% injection PRN, | | 16 3:08 | | | | | Starting Sun03/06/16 at 1508, | | PM PDT | | | | | Intra-op | | | | | | + +-------+ +--------+---+---+ +---+---+ | | | +---+---+ + +-------+ +--------+---+---+ | bupivacaine 0.5%-EPINEPHrine | Given | 03/06/20 | 25 mLs | | | | 1:200,000 injection PRN, | | 16 2:08 | | | | | Starting 03/06/16 at 1408, | | PM PDT | | | | | Intra-op | | | | | | + +-------+ +--------+---+---+ +---+---+ | | | +---+---+ documented in this encounter
--- OUTSIDE RECORDS SUMMARY | ~2019-08-29 | XMS | Encounter Summary ---
Demographics + + + | Address | [address] | | | [place] [address] | + + + | Home Phone | | + + + | Preferred Language | Unknown | + + + | Marital Status | | + + + | Roman Catholic Affiliation | 1013 | + + + | Race | Unknown | + + + | Ethnic Group | Unknown | + + + Author + + + | Author | [facility] | | | and [place] | + + + | Organization | [facility] | | | and [place] [...] Team Providers + +------+ + | Care Transit Bus Operator Name | Role | Phone | + +------+ + PCP | Unavailable | + +------+ + Encounter Details +--------+ + + + + | Date | Type | Department | Care Team | Description | +--------+ + + + + | 11/23/ | Hospital | [facility] | Shirley Ghosh | | | 2010 | Encounter | [facility] | MD [address] | | | | | [address] [place] | [address] [facility], | | | | | [place], [place] | [place] [address] | | | | | [address] | [phone] | | | | | [phone] | | | +--------+ + + + [...]
--- OUTSIDE RECORDS SUMMARY | ~2019-08-29 | XMS | Encounter Summary ---
Demographics + + + | Address | [address] | | | [place] [address] | + + + | Home Phone | | + + + | Preferred Language | Unknown | + + + | Marital Status | | + + + | Caodaism Affiliation | 1013 | + + + | Race | Unknown | + + + | Ethnic Group | Unknown | + + + Author + + + | Author | [facility] | | | and [place] | + + + | Organization | [facility] | | | and [place] [...] Team Providers + +------+ + | Care Equipment Installation Professional Name | Role | Phone | + +------+ + | Shirley Ghosh MD | PCP | | + +------+ + Reason for Visit +--------+ + | Reason | Comments | +--------+ + | Other | ISSUE WITH MEDICATION | +--------+ + Encounter Details +--------+ + + + + | Date | Type | Department | Care Team | Description | +--------+ + + + + | 11/07/ | Telephone | [facility] | Petersen, Sawyer | Other (ISSUE WITH | | 2012 | | NEUROSURGERY [address] | F, [address] | MEDICATION) | | | | [address] | [place] | | | | | [place], [place] | [address] | | | | | [address] | [phone] | | | | | [phone] | | | +--------+ + + + [...]
--- OUTSIDE RECORDS SUMMARY | ~2019-08-29 | XMS | Encounter Summary ---
Demographics + + + | Address | [address] | | | [place] [address] | + + + | Home Phone | | + + + | Preferred Language | Unknown | + + + | Marital Status | | + + + | Druze Affiliation | 1013 | + + + | Race | Unknown | + + + | Ethnic Group | Unknown | + + + Author + + + | Author | [facility] | | | and [place] | + + + | Organization | [facility] | | | and [...] Team Providers + +------+ + | Care Senior Oracle Database Administrator Name | Role | Phone | + +------+ + | Shirley Ghosh MD | PCP | | + +------+ + Encounter Details +--------+ + + + + | Date | Type | Department | Care Team | Description | +--------+ + + + + | 10/30/ | Abstract | [facility] | Sawyer [place] | | | 2012 | | NEUROSURGERY [address] | MD [place] [address] | | | | | [address] | [place] | | | | | [place] | [address] | | | | | [address] | [phone] | | | | | [phone] | | | +--------+ + + + [...]
--- OUTSIDE RECORDS SUMMARY | ~2019-08-29 | XMS | Encounter Summary ---
Demographics + + + | Address | [address] | | | [place] [address] | + + + | Home Phone | | + + + | Preferred Language | Unknown | + + + | Marital Status | | + + + | Episcopalian Affiliation | 1013 | + + + | Race | Unknown | + + + | Ethnic Group | Unknown | + + + Author + + + | Author | [facility] | | | and [place] | + + + | Organization | [facility] | | | and [...] Providers + +------+ + | Care [place] Name | Role | Phone | + +------+ + | Kade Bermudez MD | PCP | | + +------+ + Reason for Visit +---------+ + | Reason | Comments | +---------+ + | Results | | +---------+ + Encounter Details +--------+ + + + + | Date | Type | Department | Care Team | Description | +--------+ + + + + | 01/04/ | Telephone | [facility] [place] | Domingo Carlson MD | Results | | 2017 | | NEUROSUR[address] | [address] | | | | | [address] | [place] [address] | | | | | [place] | [phone] | | | | | [address] | | | | | | [phone] | | | +--------+ + + + [...]
--- OUTSIDE RECORDS SUMMARY | ~2019-08-29 | XMS | Encounter Summary ---
Demographics + + + | Address | [address] | | | [place] [address] | + + + | Home Phone | | + + + | Preferred Language | Unknown | + + + | Marital Status | | + + + | Mandaen Affiliation | 1013 | + + + | Race | Unknown | + + + | Ethnic Group | Unknown | + + + Author + + + | Author | [facility] | | | and [place] | + + + | Organization | [facility] | [...] Team Providers + +------+ + | Care Ciso Name | Role | Phone | + [...] + + + + | 08/07/ | Telephone | [facility] [place] [facility] | Nino Anderson, | Other | | 2011 | | MEDICINE | MD [address] | | | | | [address] | [place] | | | | | [address] [place] | [address] | | | | | [place] [address] | | | | | | [phone] | | | +--------+ + + + [...]
--- OUTSIDE RECORDS SUMMARY | ~2019-08-29 | XMS | Encounter Summary ---
Demographics + + + | Address | [address] | | | [place] [address] | + + + | Home Phone | | + + + | Preferred Language | Unknown | + + + | Marital Status | | + + + | Shinto Affiliation | 1013 | + + + | Race | Unknown | + + + | Ethnic Group | Unknown | + + + Author + + + | Author | [facility] | | | and [place] | + + + | Organization | [facility] [...] Team Providers + +------+ + | Care Money Order Clerk Name | Role | Phone | + +------+ + PCP | Unavailable | + +------+ + Encounter Details +--------+ + + + + | Date | Type | Department | Care Team | Description | +--------+ + + + + | 03/15/ | Hospital | [facility] | [place]ain[place], | | | 2007 | Encounter | [facility] | Samir Floyd MD [address] | | | | | CENTER [address] | [facility] | | | | | [place] | [place] [address] | | | | | [address] | [phone] | | | | | [phone] | | | +--------+ + + + [...]
--- OUTSIDE RECORDS SUMMARY | ~2019-08-29 | XMS | Encounter Summary ---
Demographics + + + | Address | [address] | | | [place] [address] | + + + | Home Phone | | + + + | Preferred Language | Unknown | + + + | Marital Status | | + + + | Jew Affiliation | 1013 | + + + | Race | Unknown | + + + | Ethnic Group | Unknown | + + + Author + + + | Author | [facility] | | | and [place] | + + + | Organization | [facility] | | | and [place] [...] Team Providers + +------+ + | Care Operative Supervisor Name | Role | Phone | [...] | | [address] | [place] [address] | | | | | [place] | [phone] | | | | | [address] | | | | | | [phone] | | | +--------+--------+ + + + [...]
--- OUTSIDE RECORDS SUMMARY | ~2019-08-29 | XMS | Encounter Summary ---
Demographics + + + | Address | [address] | | | [place] [address] | + + + | Home Phone [...] | Author | [facility] | | | and [place] | + + + | Organization | [facility] | | | and [place] [...] Team Providers + +------+ + | Care Coal Gasification Technician Name | Role | Phone | [...] [address] | F, MD [address] | | | | | [address] [place] | [place], [place] | | | | | [place] [address] | [address] | | | | | [phone] | [phone] | | | | | | | [...]
--- OUTSIDE RECORDS SUMMARY | ~2019-08-29 | XMS | Encounter Summary ---
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 shift or pathologic mass | | effect. No cerebral edema, mass lesion or evidence of acute infarct. Ventricles and | | extra-axial fluid spaces: The patient is status post removal of the right subdural | | drain. The right-sided subdural fluid collection measures 10 mm and the left side | | measures 9 mm in thickness image 23 series 2, similar to previous exam. The subdural | | collections remain mixed density. Paranasal sinuses and mastoid air cells: Normal. 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 Orbits: Normal. IMPRESSION: 1. The patient is | | status post removal of the right subdural drain.2. The bilateral mixed density subdural | | collections are stable from prior study. | |Ventricles and extra-axial fluid spaces: The patient is status post removal of the right moncada bdural drain. The right-sided subdural fluid collection measures 10 mm and the left side shon sures 9 mm in thickness image 23 series 2, similar to previous exam. | |The subdural collections remain mixed density. | | | |Paranasal sinuses and mastoid air cells: Normal. | | | |Calvarium and extracranial soft tissues: There is severe right and moderate left osteoarthr itic spurring of the TMJ. | | | |Orbits: Normal. | | | |IMPRESSION: | |1. The patient is status post removal of the right subdural drain. | |2. The bilateral mixed density subdural collections are stable from prior study. | | | | | + + External Lab: CBC (08/20/2018 4:19 AM PST) + + + + + + | Component | Value | Ref Range | Performed | Pathologist | | | | | At | Signature | + + + + + + | WBC | 9.70 | 3.80 - 11.00 | EXTERNAL | | | | | K/uL | LAB | | + + + + + + | RED CELL | 4.09 (L) | 4.20 - 5.70 | EXTERNAL | | | COUNT | | M/uL | LAB | | + + + + + + | Hgb | 12.0 (L) | 13.2 - 17.0 | EXTERNAL | | | | | g/dL | LAB | | + + + + + + | Hematocrit, | 35.8 (L) | 39.0 - 50.0 % | EXTERNAL | | | POC | | | LAB | | + + + + + + | MCV | 87.5 | 80.0 - 100.0 fl | EXTERNAL | | | | | | LAB | | + + + + + + | MCH | 29.3 | 27.0 - 34.0 pg | EXTERNAL | | | | | | LAB | | + + + + + + | MCHC | 33.5 | 32.0 - 35.5 | EXTERNAL | | | | | g/dL | LAB | | + + + + + + | RDW-CV | 43.8 | 37 - 53 fl | EXTERNAL | | | | | | LAB | | + + + + + + | Platelet | 260 | 150 - 400 K/uL | EXTERNAL | | | Count | | | LAB | | | Plasma | | | | | + + + + + + | MPV | 8.3 | fl | EXTERNAL | | | | | | LAB | | + + + + + + | Differentia | AUTOMATED | | EXTERNAL | | | l Type | | | LAB | | + + + + + + | % Segmented | 73.23 | % | EXTERNAL | | | | | | LAB | | | Neutrophils | | | | | + + + + + + | % | 12.93 | % | EXTERNAL | | | Lymphocytes | | | LAB | | + + + + + + | % Monocytes | 11.89 | % | EXTERNAL | | | | | | LAB | | + + + + + + | % | 1.63 | % | EXTERNAL | | | Eosinophils | | | LAB | | + + + + + + | % Basophils | 0.32 | % | EXTERNAL | | | | | | LAB | | + + + + + + | Absolute | 7.10 | 1.90 - 7.40 | EXTERNAL | | | Segmented | | K/uL | LAB | | | Neutrophils | | | | | + + + + + + | Absolute | 1.25 | 1.00 - 3.90 | EXTERNAL | | | Lymphocytes | | K/uL | LAB | | + + + + + + | Absolute | 1.15 (H) | 0.00 - 0.80 | EXTERNAL | | | Monocytes | | K/uL | LAB | | + + + + + + | Absolute | 0.16 | 0.00 - 0.50 | EXTERNAL | | | Eosinophils | | K/uL | LAB | | + + + + + + | Absolute | 0.03Comment: Testing | 0.00 - 0.10 | EXTERNAL | | | Basophils | performed at [facility], [address] | [address] | LAB | | | | [address], | | | | | | [place] [address] | | | | + + + + + + + + | Specimen | + + | Blood specimen | | (specimen) | + + + +---------+ + + | Performing | Address | City/State/Zipcode | Phone Number | | Organization | | | | + +---------+ + + | EXTERNAL LAB | | | | + +---------+ + + Phosphorus (08/20/2018 4:19 AM PST) + + + + + + | Component | Value | Ref Range | Performed | Pathologist | | | | | At | Signature | + + + + + + | PHOSPHORUS | 2.5Comment: Testing | 2.3 - 4.8 mg/dL | EXTERNAL | | | | performed at [facility], [address] | | LAB | | | | [address], | | | | | | [place] [address] | | | | + + + + + + + + | Specimen | + + | Blood specimen | | (specimen) | + + + +---------+ + + | Performing | Address | City/State/Zipcode | Phone Number | | Organization | | | | + +---------+ + + | EXTERNAL LAB | | | | + +---------+ + + Magnesium (08/20/2018 4:19 AM PST) + + + + + + | Component | Value | Ref Range | Performed | Pathologist | | | | | At | Signature | + + + + + + | Magnesium | 2.0Comment: Testing | 1.7 - 2.4 mg/dL | EXTERNAL | | | | performed at [facility], [address] | | LAB | | | | [address], | | | | | | [place] [address] | | | | + + + [...] + +---------+ + + Basic Metabolic Panel (08/20/2018 4:19 AM PST) + + + + + + | Component | Value | Ref Range | Performed | Pathologist | | | | | At | Signature | + + + + + + | Na | 133 (L) | 135 - 145 | EXTERNAL | | | | | mmol/L | LAB | | + + + + + + | K | 4.0 | 3.5 - 4.9 | EXTERNAL | | | | | mmol/L | LAB | | + + + + + + | Cl | 97 (L) | 99 - 109 mmol/L | EXTERNAL | | | | | | LAB | | + + + + + + | CO2 | 28 | 23 - 32 mmol/L | EXTERNAL | | | | | | LAB | | + + + + + + | Anion Gap | 12 | 5 - 20 mmol/L | EXTERNAL | | | | | | LAB | | + + + + + + | Glucose, | 118 (H) | 65 - 99 mg/dL | EXTERNAL | | | Fasting | | | LAB | | + + + + + + | BUN | 12 | 8 - 25 mg/dL | EXTERNAL | | | | | | LAB | | + + + + + + | Creatinine | 0.7 | 0.70 - 1.30 | EXTERNAL | | | | | mg/dL | LAB | | + + + + + + | BUN/Creatin | 17 | | EXTERNAL | | | ine Ratio | | | LAB | | + + + + + + | Calcium | 8.2 (L) | 8.5 - 10.5 | EXTERNAL | | | | | mg/dL | LAB | | + + + + + [...] BY | | | | | | 1.210.This eGFR is | | | | | | calculated using the | | | | | | MDRD IDNC traceable | | | | | | equation.Testing | | | | | | performed at [facility], [address] | | | | | | [facility], | | | | | | [place] [address] | | | | + + + [...] + +---------+ + + External Lab: CBC (08/19/2018 4:09 AM PST) + + + + + + | Component | Value | Ref Range | Performed | Pathologist | | | | | At | Signature | + + + + + + | WBC | 10.62 | 3.80 - 11.00 | EXTERNAL | | | | | K/uL | LAB | | + + + + + + | RED CELL | 4.16 (L) | 4.20 - 5.70 | EXTERNAL | | | COUNT | | M/uL | LAB | | + + + + + + | Hgb | 12.2 (L) | 13.2 - 17.0 | EXTERNAL | | | | | g/dL | LAB | | + + + + + + | Hematocrit, | 35.5 (L) | 39.0 - 50.0 % | EXTERNAL | | | POC | | | LAB | | + + + + + + | MCV | 85.5 | 80.0 - 100.0 fl | EXTERNAL | | | | | | LAB | | + + + + + + | MCH | 29.3 | 27.0 - 34.0 pg | EXTERNAL | | | | | | LAB | | + + + + + + | MCHC | 34.2 | 32.0 - 35.5 | EXTERNAL | | | | | g/dL | LAB | | + + + + + + | RDW-CV | 44.6 | 37 - 53 fl | EXTERNAL | | | | | | LAB | | + + + + + + | Platelet | 243 | 150 - 400 K/uL | EXTERNAL | | | Count | | | LAB | | | Plasma | | | | | + + + + + + | MPV | 8.5 | fl | EXTERNAL | | | | | | LAB | | + + + + + + | Differentia | AUTOMATED | | EXTERNAL | | | l Type | | | LAB | | + + + + + + | % Segmented | 80.27 | % | EXTERNAL | | | | | | LAB | | | Neutrophils | | | | | + + + + + + | % | 10.04 | % | EXTERNAL | | | Lymphocytes | | | LAB | | + + + + + + | % Monocytes | 9.22 | % | EXTERNAL | | | | | | LAB | | + + + + + + | % | 0.17 | % | EXTERNAL | | | Eosinophils | | | LAB | | + + + + + + | % Basophils | 0.30 | % | EXTERNAL | | | | | | LAB | | + + + + + + | Absolute | 8.52 (H) | 1.90 - 7.40 | EXTERNAL | | | Segmented | | K/uL | LAB | | | Neutrophils | | | | | + + + + + + | Absolute | 1.07 | 1.00 - 3.90 | EXTERNAL | | | Lymphocytes | | K/uL | LAB | | + + + + + + | Absolute | 0.98 (H) | 0.00 - 0.80 | EXTERNAL | | | Monocytes | | K/uL | LAB | | + + + + + + | Absolute | 0.02 | 0.00 - 0.50 | EXTERNAL | | | Eosinophils | | K/uL | LAB | | + + + + + + | Absolute | 0.03Comment: Testing | 0.00 - 0.10 | EXTERNAL | | | Basophils | performed at [facility], [address] | [address] | LAB | | | | [address] [facility], | | | | | | [place] [address] | | | | + + + + + + + + | Specimen | + + | Blood specimen | | (specimen) | + + + +---------+ + + | Performing | Address | City/State/Zipcode | Phone Number | | Organization | | | | + +---------+ + + | EXTERNAL LAB | | | | + +---------+ + + Phosphorus (08/19/2018 4:09 AM PST) + + + + + + | Component | Value | Ref Range | Performed | Pathologist | | | | | At | Signature | + + + + + + | PHOSPHORUS | 2.7Comment: Testing | 2.3 - 4.8 mg/dL | EXTERNAL | | | | performed at [facility], [address] | | LAB | | | | [address], | | | | | | [place] [address] | | | | + + + + + + + + | Specimen | + + | Blood specimen | | (specimen) | + + + +---------+ + + | Performing | Address | City/State/Zipcode | Phone Number | | Organization | | | | + +---------+ + + | EXTERNAL LAB | | | | + +---------+ + + Magnesium (08/19/2018 4:09 AM PST) + + + + + + | Component | Value | Ref Range | Performed | Pathologist | | | | | At | Signature | + + + + + + | Magnesium | 2.1Comment: Testing | 1.7 - 2.4 mg/dL | EXTERNAL | | | | performed at [facility], [address] | | LAB | | | | [address], | | | | | | [place] [address] | | | | + + + [...] + +---------+ + + Basic Metabolic Panel (08/19/2018 4:09 AM PST) + + + + + + | Component | Value | Ref Range | Performed | Pathologist | | | | | At | Signature | + + + + + + | Na | 133 (L) | 135 - 145 | EXTERNAL | | | | | mmol/L | LAB | | + + + + + + | K | 4.3 | 3.5 - 4.9 | EXTERNAL | | | | | mmol/L | LAB | | + + + + + + | Cl | 98 (L) | 99 - 109 mmol/L | EXTERNAL | | | | | | LAB | | + + + + + + | CO2 | 26 | 23 - 32 mmol/L | EXTERNAL | | | | | | LAB | | + + + + + + | Anion Gap | 13 | 5 - 20 mmol/L | EXTERNAL | | | | | | LAB | | + + + + + + | Glucose, | 111 (H) | 65 - 99 mg/dL | EXTERNAL | | | Fasting | | | LAB | | + + + + + + | BUN | 14 | 8 - 25 mg/dL | EXTERNAL | | | | | | LAB | | + + + + + + | Creatinine | 0.7 | 0.70 - 1.30 | EXTERNAL | | | | | mg/dL | LAB | | + + + + + + | BUN/Creatin | 20 | | EXTERNAL | | | ine Ratio | | | LAB | | + + + + + + | Calcium | 8.1 (L) | 8.5 - 10.5 | EXTERNAL | | | | | mg/dL | LAB | | + + + + + [...] BY | | | | | | 1.210.This eGFR is | | | | | | calculated using the | | | | | | MDRD IDMS traceable | | | | | | equation.Testing | | | | | | performed at [facility], [address] | | | | | | [facility] [address], | | | | | | [place] [address] | | | | + + + + + + + + | Specimen | + + | Blood specimen | | (specimen) | + + + +---------+ + + | Performing | Address | City/State/Zipcode | Phone Number | | Organization | | | | + +---------+ + + | EXTERNAL LAB | | | | + +---------+ + + CT Head wo Contrast (08/18/2018 6:02 PM PST) + + | Specimen | + + | | + + + + + | Impressions | Performed At | + + + | 1. Patient is post bilateral craniotomies, with evacuation of the | | | bilateral subdural hematomas. Unchanged right sided hematoma, and | | | decrease in size of left-sided hematoma. 2. Near-complete | | | resolution of the midline shift. | | + + + + + + | Narrative | Performed At | + + + | SHEELA MENDOZA [address] HEAD WO CONTRAST 08/18/2018 | | | 6:02 PM INDICATION: Subdural hematoma. TECHNIQUE: CT scan of | | | the head without contrast. 5-mm axial noncontrast images were | | | acquired from the foramen magnum through the cranial vertex. Radiation | | | dose reduction performed with automated exposure control. | | | COMPARISON: None FINDINGS: Brain: -Patient is post bilateral | | | craniotomies. -Essentially unchanged right subdural hematoma | | | measuring approximately 1 cm in thickness. -Evacuation of the | | | left-sided subdural hematoma, now measuring approximately 0.8 cm in | | | thickness. -Near-complete resolution of the midline shift. | | | Osseous structures: appear unremarkable Visualized mastoid air | | | cells: appear clear Visualized paranasal sinuses: appear clear | | | Visualized orbits: appear unremarkable | | + + + + + | Procedure Note | + + | Escobar, Rad Conversion - 04/30/2019 12:08 PM PDT SHEELA [id number] years MaleCT HEAD | | WO [id number]/2/2018 6:02 PM INDICATION: Subdural hematoma. TECHNIQUE: CT scan of the | | head without contrast. 5-mm axial noncontrast images were acquired from the foramen | | magnum through the cranial vertex. Radiation dose reduction performed with automated | | exposure control. COMPARISON: None FINDINGS: Brain:-Patient is post bilateral | | craniotomies.-Essentially unchanged right subdural hematoma measuring approximately 1 cm | | in thickness.-Evacuation of the left-sided subdural hematoma, now measuring | | approximately 0.8 cm in thickness.-Near-complete resolution of the midline shift. | | Osseous structures: appear unremarkable Visualized mastoid air cells: appear clear | | Visualized paranasal sinuses: appear clear Visualized orbits: appear unremarkable | | IMPRESSION: 1. Patient is post bilateral craniotomies, with evacuation of the bilateral | | subdural hematomas. Unchanged right sided hematoma, and decrease in size of left-sided | | hematoma.2. Near-complete resolution of the midline shift. | |Brain: | |-Patient is post bilateral craniotomies. | |-Essentially unchanged right subdural hematoma measuring approximately 1 cm in thickness. | |-Evacuation of the left-sided subdural hematoma, now measuring approximately 0.8 cm in thic kness. | |-Near-complete resolution of the midline shift. | | | |Osseous structures: appear unremarkable | | | |Visualized mastoid air cells: appear clear | | | |Visualized paranasal sinuses: appear clear | | | |Visualized orbits: appear unremarkable | | | |IMPRESSION: | |1. Patient is post bilateral craniotomies, with evacuation of the bilateral subdural hemat omas. Unchanged right sided hematoma, and decrease in size of left-sided hematoma. | |2. Near-complete resolution of the midline shift. | | | | | + + CT Head wo Contrast (08/18/2018 8:01 AM PST) + + | Specimen | + + | | + + + + + | Impressions | Performed At | + + + | 1. No change in position of a right subdural drain. The | | | right-sided subdural hematoma is stable in size. 2. Left-sided | | | subdural hematoma is unchanged. | | + + + + + + | Narrative | Performed At | + + + | SHEELA MENDOZA [address] HEAD WO CONTRAST 08/18/2018 | | | 8:01 AM INDICATION: Status post craniotomy, follow-up subdural | | | COMPARISON: 08/17/2018 TECHNIQUE: CT scan of the head without | | | contrast. 5-mm axial noncontrast images were acquired from the | | | foramen magnum through the cranial vertex. Multiplanar reformations | | | were obtained from the acquisition data. At least one of the | | | following CT dose optimization techniques were used: Automated | | | exposure control; Adjustment of mA and/or kV according to patient | | | size; Use of iterative reconstruction technique. FINDINGS: | | | Brain: There is 3 mm left to right midline shift. The brain maintains | | | normal cottrell-white differentiation. No uncal or tonsillar herniation is | | | present. Ventricles and extra-axial fluid spaces: There is a left | | | subdural hematoma measuring 15 mm. There is 14 mm thickness of the | | | right subdural hematoma. Some residual pneumocephalus is seen along | | | the right subdural collection. Paranasal sinuses and mastoid air | | | cells: Normal. 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 Orbits: Normal. | | + + + + + | Procedure Note | + + | Escobar, Rad Conversion - 04/30/2019 12:08 PM PDT SHEELA [id number] years MaleCT HEAD | | WO [id number]/2/2018 8:01 AM INDICATION: Status post craniotomy, follow-up subdural | | COMPARISON: 08/17/2018 TECHNIQUE: CT scan of the head without contrast. 5-mm axial | | noncontrast images were acquired from the foramen magnum through the cranial vertex. | | Multiplanar reformations were obtained from the acquisition data. At least one of the | | following CT dose optimization techniques were used: Automated exposure control; | | Adjustment of mA and/or kV according to patient size; Use of iterative reconstruction | | technique. FINDINGS: Brain: There is 3 mm left to right midline shift. The brain | | maintains normal cottrell-white differentiation. No uncal or tonsillar herniation is | | present. Ventricles and extra-axial fluid spaces: There is a left subdural hematoma | | measuring 15 mm. There is 14 mm thickness of the right subdural hematoma. Some residual | | pneumocephalus is seen along the right subdural collection. Paranasal sinuses and | | mastoid air cells: Normal. 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 Orbits: Normal. | | IMPRESSION: 1. No change in position of a right subdural drain. The right-sided | | subdural hematoma is stable in size.2. Left-sided subdural hematoma is unchanged. | | | | | |Ventricles and extra-axial fluid spaces: There is a left subdural hematoma measuring 15 mm. There is 14 mm thickness of the right subdural hematoma. Some residual pneumocephalus is se en along the right subdural collection. | | | |Paranasal sinuses and mastoid air cells: Normal. | | | |Calvarium and extracranial soft tissues: There is severe right and moderate left osteoarthr itis of the mandibular condyle. | | | |Orbits: Normal. | | | |IMPRESSION: | |1. No change in position of a right subdural drain. The right-sided subdural hematoma is s table in size. | |2. Left-sided subdural hematoma is unchanged. | | | | | + + External Lab: CBC (08/18/2018 4:03 AM PST) + + + + + + | Component | Value | Ref Range | Performed | Pathologist | | | | | At | Signature | + + + + + + | WBC | 9.44 | 3.80 - 11.00 | EXTERNAL | | | | | K/uL | LAB | | + + + + + + | RED CELL | 4.38 | 4.20 - 5.70 | EXTERNAL | | | COUNT | | M/uL | LAB | | + + + + + + | Hgb | 12.9 (L) | 13.2 - 17.0 | EXTERNAL | | | | | g/dL | LAB | | + + + + + + | Hematocrit, | 37.7 (L) | 39.0 - 50.0 % | EXTERNAL | | | POC | | | LAB | | + + + + + + | MCV | 86.1 | 80.0 - 100.0 fl | EXTERNAL | | | | | | LAB | | + + + + + + | MCH | 29.5 | 27.0 - 34.0 pg | EXTERNAL | | | | | | LAB | | + + + + + + | MCHC | 34.3 | 32.0 - 35.5 | EXTERNAL | | | | | g/dL | LAB | | + + + + + + | RDW-CV | 42.4 | 37 - 53 fl | EXTERNAL | | | | | | LAB | | + + + + + + | Platelet | 253 | 150 - 400 K/uL | EXTERNAL | | | Count | | | LAB | | | Plasma | | | | | + + + + + + | MPV | 8.3 | fl | EXTERNAL | | | | | | LAB | | + + + + + + | Differentia | MANUAL | | EXTERNAL | | | l Type | | | LAB | | + + + + + + | Segmented | 85 | % | EXTERNAL | | | Neutrophils | | | LAB | | | Manual | | | | | + + + + + + | Lymphocytes | 13 | % | EXTERNAL | | | Manual | | | LAB | | + + + + + + | Monocytes | 2 | % | EXTERNAL | | | Manual | | | LAB | | + + + + + + | Absolute | 8.02 (H) | 1.90 - 7.40 | EXTERNAL | | | Neutrophils | | K/uL | LAB | | + + + + + + | Absolute | 1.23 | 1.00 - 3.90 | EXTERNAL | | | Lymphocytes | | K/uL | LAB | | + + + + + + | Absolute | 0.19 | 0.00 - 0.80 | EXTERNAL | | | Monocytes | | K/uL | LAB | | + + + + + + | RBC | RBC AND PLT MORPHOLOGY | | EXTERNAL | | | Morphology | APPEAR NORMALComment: | | LAB | | | | Testing performed at | | | | | | [facility], [address] | | | | | | [place] | | | | | | [address] | | | | + + + + + + + + | Specimen | + + | Blood specimen | | (specimen) | + + + +---------+ + + | Performing | Address | City/State/Zipcode | Phone Number | | Organization | | | | + +---------+ + + | EXTERNAL LAB | | | | + +---------+ + + Phosphorus (08/18/2018 4:03 AM PST) + + + + + + | Component | Value | Ref Range | Performed | Pathologist | | | | | At | Signature | + + + + + + | PHOSPHORUS | 4.8Comment: Testing | 2.3 - 4.8 mg/dL | EXTERNAL | | | | performed at [facility], [address] | | LAB | | | | [address], | | | | | | [place] [address] | | | | + + + + + + + + | Specimen | + + | Blood specimen | | (specimen) | + + + +---------+ + + | Performing | Address | City/State/Zipcode | Phone Number | | Organization | | | | + +---------+ + + | EXTERNAL LAB | | | | + +---------+ + + Magnesium (08/18/2018 4:03 AM PST) + + + + + + | Component | Value | Ref Range | Performed | Pathologist | | | | | At | Signature | + + + + + + | Magnesium | 2.1Comment: Testing | 1.7 - 2.4 mg/dL | EXTERNAL | | | | performed at [facility], [address] | | LAB | | | | [place], | | | | | | [place] [address] | | | | + + + + + + + + | Specimen | + + | Blood specimen | | (specimen) | + + + +---------+ + + | Performing | Address | City/State/Zipcode | Phone Number | | Organization | | | | + +---------+ + + | EXTERNAL LAB | | | | + +---------+ + + Lipid Panel (08/18/2018 4:03 AM PST) + + + + + + | Component | Value | Ref Range | Performed | Pathologist | | | | | At | Signature | + + + + + + | Cholesterol | 162 | mg/dL | EXTERNAL | | | | | | LAB | | + + + + + + | Triglycerid | 51 | mg/dL | EXTERNAL | | | es | | | LAB | | + + + + + + | HDL | 51 | mg/dL | EXTERNAL | | | | | | LAB | | + + + + + + | LDL | 101 (H)Comment: Testing | mg/dL | EXTERNAL | | | Cholesterol | performed at [facility], [address] | | LAB | | | , | [place], | | | | | Calculated, | [place] [address] | | | | | External | | | | | + + [...] + +---------+ + + Basic Metabolic Panel (08/18/2018 4:03 AM PST) + + + + + + | Component | Value | Ref Range | Performed | Pathologist | | | | | At | Signature | + + + + + + | Na | 135 | 135 - 145 | EXTERNAL | | | | | mmol/L | LAB | | + + + + + + | K | 4.5 | 3.5 - 4.9 | EXTERNAL | | | | | mmol/L | LAB | | + + + + + + | Cl | 100 | 99 - 109 mmol/L | EXTERNAL | | | | | | LAB | | + + + + + + | CO2 | 26 | 23 - 32 mmol/L | EXTERNAL | | | | | | LAB | | + + + + + + | Anion Gap | 14 | 5 - 20 mmol/L | EXTERNAL | | | | | | LAB | | + + + + + + | Glucose, | 119 (H) | 65 - 99 mg/dL | EXTERNAL | | | Fasting | | | LAB | | + + + + + + | BUN | 12 | 8 - 25 mg/dL | EXTERNAL | | | | | | LAB | | + + + + + + | Creatinine | 0.8 | 0.70 - 1.30 | EXTERNAL | | | | | mg/dL | LAB | | + + + + + + | BUN/Creatin | 15 | | EXTERNAL | | | ine Ratio | | | LAB | | + + + + + + | Calcium | 8.3 (L) | 8.5 - 10.5 | EXTERNAL | | | | | mg/dL | LAB | | + + + + + [...] BY | | | | | | 1.210.This eGFR is | | | | | | calculated using the | | | | | | MDRD IDNC traceable | | | | | | equation.Testing | | | | | | performed at [facility], [address] | | | | | [facility], | | | | | | [place] [address] | | | | + + + + + + + + | Specimen | + + | Blood specimen | | (specimen) | + + + +---------+ + + | Performing | Address | City/State/Zipcode | Phone Number | | Organization | | | | + +---------+ + + | EXTERNAL LAB | | | | + +---------+ + + CT Head wo Contrast (08/17/2018 8:13 PM PST) + + | Specimen | + + | | + + + + + | Impressions | Performed At | + + + | 1. Right craniotomy. Patient is post evacuation of the right | | | subdural hematoma, not significantly decreased in size. Unchanged | | | thickness of the left subdural hematoma. 2. No midline shift seen. | | | Slightly improved effacement of the lateral ventricles. | | | | | + + + + + + | Narrative | Performed At | + + + | SHEELA MENDOZA [address] HEAD WO CONTRAST 08/17/2018 | | | 8:13 PM INDICATION: Subdural hematoma. TECHNIQUE: CT scan of | | | the head without contrast. 5-mm axial noncontrast images were | | | acquired from the foramen magnum through the cranial vertex. Radiation | | | dose reduction performed with automated exposure control. | | | COMPARISON: CT head performed earlier the same day. FINDINGS: | | | Brain: -Patient is post right craniotomy with evacuation of the | | | subdural hematoma. The right subdural hematoma appears to be decreased | | | in size, now measuring 1 cm in thickness. -The left-sided subdural | | | hematoma measuring approximately 1.7 cm in thickness appears | | | essentially unchanged in thickness, with similar distribution of the | | | hemorrhagic products. -No midline shift seen. Slightly improved | | | effacement of the lateral ventricles. Osseous structures: appear | | | unremarkable Visualized mastoid air cells: appear clear | | | Visualized paranasal sinuses: appear clear Visualized orbits: | | | appear unremarkable | | + + + + + | Procedure Note | + + | Escobar, Rad Conversion - 04/30/2019 12:08 PM RUBÉN [id number] years MaleCT HEAD | | WO DPLVLENW23/1/2018 8:13 PM INDICATION: Subdural hematoma. TECHNIQUE: CT scan of the | | head without contrast. 5-mm axial noncontrast images were acquired from the foramen | | magnum through the cranial vertex. Radiation dose reduction performed with automated | | exposure control. COMPARISON: CT head performed earlier the same day. FINDINGS: | | Brain:-Patient is post right craniotomy with evacuation of the subdural hematoma. The | | right subdural hematoma appears to be decreased in size, now measuring 1 cm in | | thickness.-The left-sided subdural hematoma measuring approximately 1.7 cm in thickness | | appears essentially unchanged in thickness, with similar distribution of the hemorrhagic | | products.-No midline shift seen. Slightly improved effacement of the lateral | | ventricles. Osseous structures: appear unremarkable Visualized mastoid air cells: appear | | clear Visualized paranasal sinuses: appear clear Visualized orbits: appear unremarkable | | IMPRESSION: 1. Right craniotomy. Patient is post evacuation of the right subdural | | hematoma, not significantly decreased in size. Unchanged thickness of the left subdural | | hematoma.2. No midline shift seen. Slightly improved effacement of the lateral | | ventricles. | |-The left-sided subdural hematoma measuring approximately 1.7 cm in thickness appears essen tially unchanged in thickness, with similar distribution of the hemorrhagic products. | |-No midline shift seen. Slightly improved effacement of the lateral ventricles. | | | |Osseous structures: appear unremarkable | | | |Visualized mastoid air cells: appear clear | | | |Visualized paranasal sinuses: appear clear | | | |Visualized orbits: appear unremarkable | | | |IMPRESSION: | |1. Right craniotomy. Patient is post evacuation of the right subdural hematoma, not signif icantly decreased in size. Unchanged thickness of the left subdural hematoma. | |2. No midline shift seen. Slightly improved effacement of the lateral ventricles. | | | | | + + Type and Screen (08/17/2018 3:39 PM PST) + + + + + + | Component | Value | Ref Range | Performed | Pathologist | | | | | At | Signature | + + + + + + | ABO Rh | O POSITIVE | | EXTERNAL | | | | | | LAB | | + + + + + + | Antibody | NEGATIVE | | EXTERNAL | | | Screen | | | LAB | | + + + + + + | BB BAND | [id number] | | EXTERNAL | | | | performed at [facility];[address] | | LAB | | | | [address];[place], [place] | | | | | | [address] | | | | + + + + + + + + | Specimen | + + | Blood specimen | | (specimen) | + + + +---------+ + + | Performing | Address | City/State/Zipcode | Phone Number | | Organization | | | | + +---------+ + + | EXTERNAL LAB | | | | + +---------+ + + MRSA NAAT (08/17/2018 3:02 PM PST) + + | Specimen | + + | | + + + + + | Narrative | Performed At | + + + | SOURCE NARES(NOSE) MRSA | EXTERNAL LAB | | PCR NEGATIVE Testing | | | performed at [address];[place] [address] | | + + + + +---------+ + + | Performing | Address | City/State/Zipcode | Phone Number | | Organization | | | | + +---------+ + + | EXTERNAL LAB | | | | + +---------+ + + Greg TINEO (08/17/2018 2:10 PM PST) + + + + + + | Component | Value | Ref Range | Performed | Pathologist | | | | | At | Signature | + + + + + + | INR | 1.1Comment: REFERENCE | | EXTERNAL | | | | RANGE:0.9 - 1.2 | | LAB | | | | NON-ANTICOAGULATED2.0 | | | | | | - 3.0 ALL OTHER | | | | | | THERAPEUTIC | | | | | | INDICATIONS2.5 - 3.5 | | | | | | MECHANICAL HEART VALVES, | | | | | | RECURRENT OR SYSTEMIC | | | | | | EMBOLISMTesting | | | | | | performed at [facility] | | | | | | [address];[place], [place] | | | | | | [address] | | | | + + + [...] + +---------+ + + External Lab: CBC (08/17/2018 2:10 PM PST) + + + + + + | Component | Value | Ref Range | Performed | Pathologist | | | | | At | Signature | + + + + + + | WBC | 8.13 | 3.80 - 11.00 | EXTERNAL | | | | | K/uL | LAB | | + + + + + + | RED CELL | 4.51 | 4.20 - 5.70 | EXTERNAL | | | COUNT | | M/uL | LAB | | + + + + + + | Hgb | 13.0 (L) | 13.2 - 17.0 | EXTERNAL | | | | | g/dL | LAB | | + + + + + + | Hematocrit, | 38.6 (L) | 39.0 - 50.0 % | EXTERNAL | | | POC | | | LAB | | + + + + + + | MCV | 85.5 | 80.0 - 100.0 fl | EXTERNAL | | | | | | LAB | | + + + + + + | MCH | 28.9 | 27.0 - 34.0 pg | EXTERNAL | | | | | | LAB | | + + + + + + | MCHC | 33.8 | 32.0 - 35.5 | EXTERNAL | | | | | g/dL | LAB | | + + + + + + | RDW-CV | 43.3 | 37 - 53 fl | EXTERNAL | | | | | | LAB | | + + + + + + | Platelet | 249 | 150 - 400 K/uL | EXTERNAL | | | Count | | | LAB | | | Plasma | | | | | + + + + + + | MPV | 7.2 | fl | EXTERNAL | | | | | | LAB | | + + + + + + | Differentia | AUTOMATED | | EXTERNAL | | | l Type | | | LAB | | + + + + + + | % Segmented | 61.55 | % | EXTERNAL | | | | | | LAB | | | Neutrophils | | | | | + + + + + + | % | 22.35 | % | EXTERNAL | | | Lymphocytes | | | LAB | | + + + + + + | % Monocytes | 11.87 | % | EXTERNAL | | | | | | LAB | | + + + + + + | % | 2.93 | % | EXTERNAL | | | Eosinophils | | | LAB | | + + + + + + | % Basophils | 1.30 | % | EXTERNAL | | | | | | LAB | | + + + + + + | Absolute | 5.00 | 1.90 - 7.40 | EXTERNAL | | | Segmented | | K/uL | LAB | | | Neutrophils | | | | | + + + + + + | Absolute | 1.82 | 1.00 - 3.90 | EXTERNAL | | | Lymphocytes | | K/uL | LAB | | + + + + + + | Absolute | 0.96 (H) | 0.00 - 0.80 | EXTERNAL | | | Monocytes | | K/uL | LAB | | + + + + + + | Absolute | 0.24 | 0.00 - 0.50 | EXTERNAL | | | Eosinophils | | K/uL | LAB | | + + + + + + | Absolute | 0.11 (H)Comment: Testing | 0.00 - 0.10 | EXTERNAL | | | Basophils | performed at [facility];[address] | LAB | | | | [address];[place], [place] | | | | | | [address] | | | | + + + + + + + + | Specimen | + + | Blood specimen | | (specimen) | + + + +---------+ + + | Performing | Address | City/State/Zipcode | Phone Number | | Organization | | | | + +---------+ + + | EXTERNAL LAB | | | | + +---------+ + + Phosphorus (08/17/2018 2:10 PM PST) + + + + + + | Component | Value | Ref Range | Performed | Pathologist | | | | | At | Signature | + + + + + + | PHOSPHORUS | 4.0Comment: Testing | 2.3 - 4.8 mg/dL | EXTERNAL | | | | performed at [facility];[address] | | LAB | | | | [address];[place] | | | | | | [address] | | | | + + + + + + + + | Specimen | + + | Blood specimen | | (specimen) | + + + +---------+ + + | Performing | Address | City/State/Zipcode | Phone Number | | Organization | | | | + +---------+ + + | EXTERNAL LAB | | | | + +---------+ + + Magnesium (08/17/2018 2:10 PM PST) + + + + + + | Component | Value | Ref Range | Performed | Pathologist | | | | | At | Signature | + + + + + + | Magnesium | 2.0Comment: Testing | 1.7 - 2.4 mg/dL | EXTERNAL | | | | performed at [facility];[address] | | LAB | | | | [address];[place], [place] | | | | | | [address] | | | | + + + + + + + + | Specimen | + + | Blood specimen | | (specimen) | + + + +---------+ + + | Performing | Address | City/State/Zipcode | Phone Number | | Organization | | | | + +---------+ + + | EXTERNAL LAB | | | | + +---------+ + + Hemoglobin A1C (08/17/2018 2:10 PM PST) + + + + + + | Component | Value | Ref Range | Performed | Pathologist | | | | | At | Signature | + + + + + + | Hemoglobin | 5.5Comment: The [place] | 4.0 - 6.0 % | EXTERNAL | | | A1c | Diabetes Association | | LAB | | | | considers a hemoglobin | | | | | | A1c result of <7.0% to | | | | | | be the goal of diabetic | | | | | | therapy. When results | | | | | | are consistently >8.0%, | | | | | | the ADA suggests | | | | | | reevaluation of the | | | | | | treatment regimen. The | | | | | | testing method used is | | | | | | certified traceable to | | | | | | the Diabetes Control and | | | | | | Complications Trial | | | | | | reference method. | | | | + + + + + + | Glycohemogl | 111Comment: The ADA | mg/dL | EXTERNAL | | | obin | considers an eAG result | | LAB | | | (GHb),Total | of LT 154 mg/dL to be | | | | | | the goal of diabetic | | | | | | therapy. Estimated | | | | | | Average Glucose | | | | | | calculated from | | | | | | hemoglobin A1c by use of | | | | | | the ADA recommended | | | | | | formula.Testing | | | | | | performed at [facility], [address] | | | | | [address], | | | | | | [place] [address] | | | | + + + [...] + +---------+ + + Comprehensive Metabolic Panel (08/17/2018 2:10 PM PST) + + + + + + | Component | Value | Ref Range | Performed | Pathologist | | | | | At | Signature | + + + + + + | Na | 138 | 135 - 145 | EXTERNAL | | | | | mmol/L | LAB | | + + + + + + | K | 4.0 | 3.5 - 4.9 | EXTERNAL | | | | | mmol/L | LAB | | + + + + + + | Cl | 104 | 99 - 109 mmol/L | EXTERNAL | | | | | | LAB | | + + + + + + | CO2 | 26 | 23 - 32 mmol/L | EXTERNAL | | | | | | LAB | | + + + + + + | Anion Gap | 12 | 5 - 20 mmol/L | EXTERNAL | | | | | | LAB | | + + + + + + | Glucose, | 89 | 65 - 99 mg/dL | EXTERNAL | | | Fasting | | | LAB | | + + + + + + | BUN | 14 | 8 - 25 mg/dL | EXTERNAL | | | | | | LAB | | + + + + + + | Creatinine | 0.70 | 0.70 - 1.30 | EXTERNAL | | | | | mg/dL | LAB | | + + + + + + | BUN/Creatin | 20 | | EXTERNAL | | | ine Ratio | | | LAB | | + + + + + + | Calcium | 8.1 (L) | 8.5 - 10.5 | EXTERNAL | | | | | mg/dL | LAB | | + + + + + + | Protein, | 6.5 | 6.3 - 8.2 g/dL | EXTERNAL | | | Total | | | LAB | | + + + + + + | Albumin | 2.7 (L) | 3.3 - 4.8 g/dL | EXTERNAL | | | | | | LAB | | + + + + + + | Globulin | 3.8 | 1.3 - 4.9 g/dL | EXTERNAL | | | | | | LAB | | + + + + + + | A/G Ratio | 0.7 (L) | 1.0 - 2.4 | EXTERNAL | | | | | | LAB | | + + + + + + | Bilirubin | 0.6 | 0.1 - 1.5 mg/dL | EXTERNAL | | | Total | | | LAB | | + + + + + + | ALP, | 74 | 35 - 115 U/L | EXTERNAL | | | External | | | LAB | | + + + + + + | AST | 17 | 10 - 45 U/L | EXTERNAL | | | | | | LAB | | + + + + + + | ALT | 18 | 10 - 65 U/L | EXTERNAL | | | | | | LAB | | + + + + + [...] BY | | | | | | 1.210.This eGFR is | | | | | | calculated using the | | | | | | MDRD IDNC traceable | | | | | | equation.Testing | | | | | | performed at [facility];[address] | | | | | | [facility];[place], [place] | | | | | | [address] | | | | + + + + + + + + | Specimen | + + | Blood specimen | | (specimen) | + + + +---------+ + + | Performing | Address | City/State/Zipcode | Phone Number | | Organization | | | | + +---------+ + + | EXTERNAL LAB | | | | + +---------+ + + CT Head wo Contrast (08/17/2018 2:05 PM PST) + + | Specimen | + + | | + + + + + | Impressions | Performed At | + + + | 1. Extensive bilateral acute subdural hemorrhages, slightly more | | | prominent on the right. These appear to be essentially unchanged since | | | the previous examination. 2. There appears to be essentially | | | unchanged moderate mass effect bilaterally, without definite evidence | | | of midline shift. Unchanged effacement of the ventricles bilaterally. | | | | | + + + + + + | Narrative | Performed At | + + + | SHEELA GOINSE [address] HEAD WO CONTRAST 08/17/2018 | | | 2:05 PM INDICATION: Headache. Subdural hemorrhage. TECHNIQUE: | | | CT scan of the head without contrast. 5-mm axial noncontrast images | | | were acquired from the foramen magnum through the cranial vertex. | | | Radiation dose reduction performed with automated exposure control. | | | COMPARISON: MRI brain on 09/05/2018 at 8:22 AM. FINDINGS: Motion | | | artifact diminishes sensitivity. Brain: Extensive bilateral areas | | | of acute subdural hemorrhage seen, slightly more prominent on the | | | right. These are described as follows: -Area of subdural hemorrhage | | | along the right vertex on series 4, image 26 measuring 3.2 cm in | | | thickness, essentially unchanged. At the same level, subdural | | | hemorrhage along the left vertex measures approximately 1.6 cm in | | | thickness. -Acute subdural hemorrhage along the right anterior | | | frontal lobe on series 4, image 20 measuring 1.1 cm in thickness. The | | | same level, hemorrhage along the left frontal lobe measures 1.1 cm in | | | thickness. -The cerebral hemispheres also appears to extend along the | | | falx bilaterally. There appears to be moderate bilateral mass | | | effect, without definite evidence of midline shift. Appears to be | | | effacement of the ventricles bilaterally. There is no effacement of | | | the basilar cisterns seen at this time. No effacement of the fourth | | | ventricle seen. No herniation of cerebellar tonsils seen. Osseous | | | structures: appear unremarkable Visualized mastoid air cells: | | | appear clear Visualized paranasal sinuses: appear clear | | | Visualized orbits: appear unremarkable | | + + + + + | Procedure Note | + + | Escobar, Rad Conversion - 04/30/2019 12:08 PM PDT SHEELA [id number] years MaleCT HEAD | | WO [id number]/1/2018 2:05 PM INDICATION: Headache. Subdural hemorrhage. TECHNIQUE: CT | | scan of the head without contrast. 5-mm axial noncontrast images were acquired from the | | foramen magnum through the cranial vertex. Radiation dose reduction performed with | | automated exposure control. COMPARISON: MRI brain on 09/05/2018 at 8:22 AM. FINDINGS: | | Motion artifact diminishes sensitivity. Brain: Extensive bilateral areas of acute | | subdural hemorrhage seen, slightly more prominent on the right. These are described as | | follows:-Area of subdural hemorrhage along the right vertex on series 4, image 26 | | measuring 3.2 cm in thickness, essentially unchanged. At the same level, subdural | | hemorrhage along the left vertex measures approximately 1.6 cm in thickness.-Acute | | subdural hemorrhage along the right anterior frontal lobe on series 4, image 20 | | measuring 1.1 cm in thickness. The same level, hemorrhage along the left frontal lobe | | measures 1.1 cm in thickness.-The cerebral hemispheres also appears to extend along the | | falx bilaterally. There appears to be moderate bilateral mass effect, without definite | | evidence of midline shift. Appears to be effacement of the ventricles bilaterally. There | | is no effacement of the basilar cisterns seen at this time. No effacement of the fourth | | ventricle seen. No herniation of cerebellar tonsils seen. Osseous structures: appear | | unremarkable Visualized mastoid air cells: appear clear Visualized paranasal sinuses: | | appear clear Visualized orbits: appear unremarkable IMPRESSION: 1. Extensive bilateral | | acute subdural hemorrhages, slightly more prominent on the right. These appear to be | | essentially unchanged since the previous examination.2. There appears to be essentially | | unchanged moderate mass effect bilaterally, without definite evidence of midline shift. | | Unchanged effacement of the ventricles bilaterally. | |Visualized mastoid air cells: appear clear | | | |Visualized paranasal sinuses: appear clear | | | |Visualized orbits: appear unremarkable | | | |IMPRESSION: | |1. Extensive bilateral acute subdural hemorrhages, slightly more prominent on the right. T hese appear to be essentially unchanged since the previous examination. | |2. There appears to be essentially unchanged moderate mass effect bilaterally, without def inite evidence of midline shift. Unchanged effacement of the ventricles bilaterally. | | | | | + + documented in this encounter Visit Diagnoses + + | Diagnosis | + + | Traumatic subdural hemorrhage without loss of consciousness, subsequent encounter | + + documented in this encounter
--- OUTSIDE RECORDS SUMMARY | ~2019-08-29 | XMS | Encounter Summary ---
Demographics + + + | Address | [address] | | | [place] [address] | + + + | Home Phone | | + + + | Preferred Language | Unknown | + + + | Marital Status | | + + + | Pentecostal Affiliation | 1013 | + + + | Race | Unknown | + + + | Ethnic Group | Unknown | + + + Author + + + | Author | [facility] | | | and [place] | + + + | Organization | [facility] [...] Team Providers + +------+ + | Care Wafer Fabricator Name | Role | Phone | + +------+ + PCP | Unavailable | + +------+ + Encounter Details +--------+ + + + + | Date | Type | Department | Care Team | Description | +--------+ + + + + | 05/20/ | Hospital | [facility] | | | | 1997 - | Encounter | [facility] | | | | | | [address] | | | | 06/24/ | | [place] [id number] | | | | 1997 | | [phone] | | | +--------+ + + + [...]
--- OUTSIDE RECORDS SUMMARY | ~2019-08-29 | XMS | Encounter Summary ---
Demographics + + + | Address | [address] | | | [place] [address] | + + + | Home Phone | | + + + | Preferred Language | Unknown | + + + | Marital Status | | + + + | Jain Affiliation | 1013 | + + + | Race | Unknown | + + + | Ethnic Group | Unknown | + + + Author + + + | Author | [facility] | | | and [place] | + + + | Organization | [facility] | | | and [place] [...] Team Providers + +------+ + | Care Watch Dial Stoner Name | Role | Phone | + [...] | | | [place] | [place] [address] | | | | | | [address] | Phone: | | | | | | Phone: | [phone] | | | | | | [phone] | Fax: | | | | | | Fax: | [phone] | | | | | | [phone] | | +--------+ + + + + + Reason for Visit +--------+ + | Reason | Comments | +--------+ + | DME | | +--------+ + Encounter Details +--------+ + + + + | Date | Type | Department | Care Team | Description | +--------+ + + + + | 03/13/ | Telephone | [facility] [place] | Domingo Carlson MD | DME | | 2016 | | NEUROSURGERY [address] | | | | | [address] | [place] [address] | | | | | [place] | [phone] | | | | | [address] | | | | | | [phone] | | | +--------+ + + + [...]
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
--- OUTSIDE RECORDS SUMMARY | ~2019-08-29 | XMS | Encounter Summary ---
Demographics + + + | Address | [address] | | | [place] [address] | + + + | Home Phone | | + + + | Preferred Language | Unknown | + + + | Marital Status | | + + + | Moravian Affiliation | 1013 | + + + | Race | Unknown | + + + | Ethnic Group | Unknown | + + + Author + + + | Author | [facility] | | | and [place] | + + + | Organization | [facility] | [...] Team Providers + +------+ + | Care Automation Software Engineer Name | Role | Phone | + [...] + + | 12/23/ | Office | [facility] | Nehemias Petersenlas | Cervical spondylosis | | 2012 | Visit | NEUR[address]URGERY [address] | MD Fareed [address] | with myelopathy | | | | [address] | [facility] [place] [facility] [place] | (Primary Dx); | | | | [place], [place] | [address] | Scoliosis; Cervical | | | | [address] | [phone] | spinal stenosis; | | | | [phone] | | Cervicalgia; | | | | [...] from the original. MD Paxton Sterling PA [address] [place] [address], [facility] [address] [place], [place] [address] FAX: NEUROSURGERY HISTORY AND PHYSICAL EXAMINATION CHIEF [...] Intrinsics 5 5 Ulnar Intrinsics 5 5 Operations Supervisor Chemical Cleaning Strength 5 5 Hip Flexion 5 5 [...] surgical intervention with Mr. Kelly [facility]. These risks included but were not limited [...]
--- OUTSIDE RECORDS SUMMARY | ~2019-08-29 | XMS | Encounter Summary ---
Demographics + + + | Address | [address] | | | [place] [address] | + + + | Home Phone | | + + + | Preferred Language | Unknown | + + + | Marital Status | | + + + | Worship Affiliation | 1013 | + + + | Race | Unknown | + + + | Ethnic Group | Unknown | + + + Author + + + | Author | [facility] | | | and [place] | + + + | Organization | [facility] | | | and [place] [...] Team Providers + +------+ + | Care Development Trainer Name | Role | Phone | + +------+ + | Kade Bermudez MD | PCP | | + +------+ + Encounter Details +--------+ + + + + | Date | Type | Department | Care Team | Description | +--------+ + + + + | 06/19/ | Hospital | [facility] | Hemal Celestin | Spondylolisthesis of | | 2016 | Encounter | MED CTR XRAY [address] | [address] | lumbar region; | | | | [place] | [address] | Lumbar radiculopathy | | | | [place] [address] | [place] [address] | | | | | [phone] | [phone] | | | | | | | [...] LUMBAR SPINE 2 OR | Routin | 06/19/2016 | Spondylolisthesis | Results for this | | 3 VW | e | 1:43 PM | of lumbar region | procedure are in the | | | | PDT | Lumbar radiculopathy | results section. | + +--------+ + [...] views of the lumbar spine COMPARISON: | [facility] [place] | | 04/03/2016. FINDINGS: Status post L2-S1 [...] + | Venancio Cody Results In - 06/19/2016 2:08 PM PDT [...] [address] | [place] | [phone] | | [facility] | | [address] | | | - IMAGING | | | | + + + + + documented in this encounter Visit Diagnoses + + | Diagnosis | + + | Spondylolisthesis of lumbar region Acquired spondylolisthesis | + + | Lumbar radiculopathy Thoracic or lumbosacral neuritis or radiculitis, unspecified | + + documented in this encounter"
--- OUTSIDE RECORDS SUMMARY | ~2019-08-29 | XMS | Encounter Summary ---
Demographics + + + | Address | [address] | | | [place] [address] | + + + | Home Phone | | + + + | Preferred Language | Unknown | + + + | Marital Status | | + + + | Mormonism Affiliation | 1013 | + + + | Race | Unknown | + + + | Ethnic Group | Unknown | + + + Author + + + | Author | [facility] | | | and [place] | + + + | Organization | [facility] | | | and [...] Providers + +------+ + | Care Senior Python Developer Name | Role | Phone | [...] | | [address] | [place] [address] | | | | | [place] | [phone] | | | | | [address] | | | | | | [phone] | | | +--------+ + + + [...]
--- OUTSIDE RECORDS SUMMARY | ~2019-08-29 | XMS | Encounter Summary ---
Demographics + + + | Address | [address] | | | [place] [address] | + + + | Home Phone | | + + + | Preferred Language | Unknown | + + + | Marital Status | | + + + | Mormon Affiliation | 1013 | + + + | Race | Unknown | + + + | Ethnic Group | Unknown | + + + Author + + + | Author | [facility] | | | and [place] | + + + | Organization | [facility] | | | and [place] [...] Providers + +------+ + | Care Automobile Seat Cover Installer Name | Role | Phone | + +------+ + | Shirley Ghosh MD | PCP | | + +------+ + Reason for Visit + + + | Reason | Comments | + + + | Back Pain | | + + + Encounter Details +--------+---------+ + + + | Date | Type | Department | Care Team | Description | +--------+---------+ + + + | 10/14/ | Office | [facility] | PetersenNehemias diezlas | Scoliosis (Primary | | 2012 | Visit | NEUROSURGERY [address] | [facility] [address] | Dx); | | | | [address] | [place] | Spondylolisthesis of | | | | [place], [place] | [address] | lumbar region; | | | | [address] | [phone] | Spinal instability, | | | | [phone] | | lumbar; Spinal | | | | | | stenosis, lumbar | | | | | | region, with | | | | | | neurogenic | | | | | | claudication; | | | | | | Foraminal stenosis | | | | | | of lumbosacral | | | | | | region; Facet | | | | | | arthropathy, lumbar; | | | | | | Lumbar degenerative | | | | | | disc disease; | | | | | | Anxiety; Arthritis; | | | | | | Bilateral hip pain; | | | | | | S/P cervical spinal | | | | | | fusion | +--------+---------+ + + + Social [...] + + + | Blood Pressure | 131/92 | 10/14/2012 12:57 PM | | | | | PST | | + + + + + | Pulse | 75 | 10/14/2012 12:57 PM | | | | | PST | | + + + + + | Temperature | - | - | | + + + + + | Respiratory Rate | 18 | 10/14/2012 12:57 PM | | | | | PST | | + + + + + | Oxygen Saturation | - | - | | + + + + + | Inhaled Oxygen | - | - | | | Concentration | | | | + + + + + | Weight | 84.5 kg (186 lb 3.2 | 10/14/2012 12:57 PM | | | | oz) | PST | | + + + + + | Height | 182 cm (5' 11.65") | 10/14/2012 12:57 PM | | | | | PST | | + + + + + | Body Mass Index | 25.5 | 10/14/2012 12:57 PM | | | | | PST | | + + + + + documented in this encounter Progress Notes Sawyer Petersen MD - 10/14/2012 1:35 PM PSTFormatting of this note might be differen t from the original. MD Paxton Sterling PA [address] [facility], [address] [place], [place] [address] FAX: NEUROSURGERY HISTORY AND PHYSICAL EXAMINATION CHIEF COMPLAINT: Chief Complaint Patient presents with Back Pain HISTORY OF PRESENT ILLNESS: We had the great pleasure of seeing in my clinic Mr. Mal Mendoza. Mr. Mendoza is a very pleasant 62 y.o. male with the complaint of symptoms that began ov er 15 years. He describes his symptoms as low back pain with radiating leg pain traveling d own the posterior thigh and posterior aspect of his lower leg on both legs. His symptoms hav e been progressive over the years. He has symptoms on both legs, but reports that the left side usually hurts more than the right side. Mr. Mendoza says that without the assistance of h is cane he can walk just over 1 block and then has to rest or sit due to the severe pain. Yg bedolla also reports that very infrequently he gets a bit of numbness in his right thumb, index an d middle finger, but it is very mild. He has a history of a prior cervical fusion by Dr. Jeramie feliciano. He reports continuous severe neck pain. He denies any major pains radiating into hi s arms. His symptoms worsen with prolonged sitting, standing, walking, sudden movements. His symptoms improve with prescription pain medication. He describes leg numbness on both sides along the posterior thigh and calf. He describes leg weakness on both sides. Bowel and bladder function are stable. Treatments for these symptoms he has tried include physical therapy and analgesics. PAST MEDICAL HISTORY: Past Medical History Diagnosis Date Ulcer GERD (gastroesophageal reflux disease) Depression ADHD (attention deficit hyperactivity disorder) ADHD (attention deficit hyperactivity disorder) Cervical spinal stenosis 06/12/2012 Lumbar radiculopathy 06/12/2012 Anxiety Arthritis PAST SURGICAL HISTORY: Past Surgical History Procedure Date Knee arthroscopy 04/09/98 Elbow arthroscopy 1991 Shoulder arthroscopy 2005 Spine surgery [address] C6-[address] Jules CURRENT MEDICATIONS: Current Outpatient Prescriptions on File Prior to Visit Medication Sig Dispense Refill oxyCODONE-acetaminophen (PERCOCET) 5-325 mg per tablet Take 1 tablet by mouth every 4 h ours as needed. rOPINIRole (REQUIP) 1 mg tablet Take 3 mg by mouth every evening. Indications: Restless Leg Syndrome piroxicam (FELDENE) 20 MG capsule Take 20 mg by mouth Daily. Indications: Mild to Mo derate Pain ALLERGIES: No Known Allergies SOCIAL HISTORY: The [...] in the history of present ill ness. MUSCULOSKELETAL: complains of neck pain, complains of back pain. PSYCHIATRIC: No depression, no sleep [...] no inflammatory arthritis. PHYSICAL EXAMINATION: Blood pressure 131/92, pulse 75, resp. rate 18, height 1.82 m (5' 11.65"), weight 84.46 kg (186 lb 3.2 oz). Body mass index is 25.50 kg/(m^2). GENERAL: Mal Mendoza is a pleasant, [...] The cervical spine exam shows there is no tenderness over the C-2 and C-8 region. R mariely of motion is limited. Rotation and extension does cause symptoms to radiate into the e xtremities on both sides. No tenderness in the [...] Intrinsics 5 5 Ulnar Intrinsics 5 5 Piccoloist Strength 5 5 Hip Flexion 5 5 [...] PATELLAR 2 2 ACHILLES 1 1 DONIS'S ABSENT ABSENT PLANTAR FLEXOR MUTE GAIT: Gait is unsteady secondary to pain. The patient is able to heel/ toe, and tandem walk with pain. PERIPHERAL NERVE/MISC: Tinel is negative at the wrists and elbows bilaterally. Phalen is negative. Straight leg raise is + bilaterally. Morgan's test of the hips is negative bilaterally. Impingement test is positive bilaterally. RADIOGRAPHIC REVIEW: Imaging studies which were reviewed with the patient include an MRI of the lumbar spine per formed on August 19, 2012 without contrast. This demonstrates severe spinal stenosis at th e L3-4 level. There is spondylolisthesis present at L3-4 and L4-5. There are redundant ner ve roots evident cephalad to the stenosis at L3-4. There is facet arthropathy present throu ghout the lumbosacral spine worst at L3-4 and L4-5. There is degenerative disc disease evid ent as well throughout the lumbar spine. There is also neuroforaminal stenosis present wors e at L3-4 and L4-5. There is an overall loss of lumbar lordosis. X-rays AP and lateral as well as flexion extension the lumbar spine performed on September demonstrate this lumbar spondylolisthesis in the context of the mild scoliosis. With flexion-extension there is motion rate in 3 mm at both L3-4 and L4-5. This is consistent w ith instability. ASSESSMENT: NEUROSURGICAL DIAGNOSES: Patient Active Problem List Diagnoses ADHD (attention deficit hyperactivity disorder) Cervical spinal stenosis Lumbar radiculopathy Lumbar spinal stenosis Lumbalgia Lumbar degenerative disc disease Anxiety Arthritis Facet arthropathy, lumbar Foraminal stenosis of lumbosacral region Spinal instability, lumbar Spondylolisthesis of lumbar region Scoliosis S/P cervical spinal fusion Spinal stenosis, lumbar region, with neurogenic claudication Bilateral hip pain GENERAL DIAGNOSES: Past Medical History Diagnosis Date Ulcer GERD (gastroesophageal reflux disease) Depression ADHD (attention deficit hyperactivity disorder) ADHD (attention deficit hyperactivity disorder) Cervical spinal stenosis 06/12/2012 Lumbar radiculopathy 06/12/2012 Anxiety Arthritis PLAN: Mr. Mendoza has very severe degenerative lumbar disease which has gradually become debilitatin g. At this point his severe spinal stenosis with neurogenic claudication in the context of unstable spondylolisthesis is unlikely to improve without surgical intervention. We did dis cuss nonsurgical treatments at this point I do not think that those are reasonable to recomm end given the radiographic findings and signs that he has. Rather I think he would benefit from a minimally invasive lumbar decompression and stabilization at the L3-4 and L4-5 levels . This would best be approached from a lateral anterior approach from the left and augmente d with bilateral posterior pedicle screw and posterior onlay arthrodesis. We also discussed the possibility of a minimally invasive decompression at the L3-4 level as well as the poss ibility that the posterior approach may be required. We discussed the risks, alternatives, and benefits to surgical intervention with Mr. Mendoza i [facility]. These risks included but were not limited to , stroke, heart attack, numbnes s, weakness, paralysis, failure of fusion, failure of hardware, subsidence, adjacent segment degeneration, cerebrospinal fluid leak, bleeding, infection, injury to surrounding tissues and organs, injury from positioning, injury to the nerves, and need for additional surgery. Surgical options [...] provide him with the best possible outcome. He will consider things and return when he decides definitively that he would like to proce ed with surgery. We spent 1 hour in visit with Mal Raúl Aguilerae today with the majority of time spent counsellin g the patient on his diagnosis, options for his care, and coordinating his care. ELECTRONICALLY SIGNED BY: Sawyer Petersen MD, 10/14/2012 14:23 documented in this encounter Plan of Treatment + +---------+--------+ + + | Name | Type | Priori | Associated Diagnoses | Order Schedule | | | | ty | | | + +---------+--------+ + + | XR CERVICAL SPINE 4 | Imaging | Routin | Scoliosis | Ordered: 10/14/2012 | | OR 5 VW | | e | Spondylolisthesis of | | | | | | lumbar region | | | | | | Spinal instability, | | | | | | lumbar Spinal | | | | | | stenosis, lumbar | | | | | | region, with | | | | | | neurogenic | | | | | | claudication | | | | | | Foraminal stenosis | | | | | | of lumbosacral | | | | | | region Facet | | | | | | arthropathy, lumbar | | | | | | Lumbar degenerative | | | | | | disc disease | | | | | | Anxiety Arthritis | | | | | | Bilateral hip pain | | | | | | S/P cervical spinal | | | | | | fusion | | + +---------+--------+ + + documented as of this encounter Visit Diagnoses + + | Diagnosis | + + | Scoliosis - Primary Scoliosis (and kyphoscoliosis), idiopathic | + + | Spondylolisthesis of lumbar region Acquired spondylolisthesis | + + | Spinal instability, lumbar Other unspecified back disorder | + + | Spinal stenosis, lumbar region, with neurogenic claudication | + + | Foraminal stenosis of lumbosacral region Spinal stenosis, lumbar region, without | | neurogenic claudication | + + | Facet arthropathy, lumbar Lumbosacral spondylosis without myelopathy | + + | Lumbar degenerative disc disease Degeneration of lumbar or lumbosacral intervertebral | | disc | + + | Anxiety Anxiety state, unspecified | + + | Arthritis Arthropathy, unspecified, site unspecified | + + | Bilateral hip pain Pain in joint, pelvic region and thigh | + + | S/P cervical spinal fusion Arthrodesis status | + + documented in this encounter
--- OUTSIDE RECORDS SUMMARY | ~2019-08-29 | XMS | Encounter Summary ---
Demographics + + + | Address | [address] | | | [place] [address] | + + + | Home Phone [...] Author | [facility] | | | and [place] | + + + | Organization | [facility] | | [...] Team Providers + +------+ + | Care Biomedical Analytical Scientist Name | Role | Phone | + [...] Description | +--------+--------+ + + + | 11/12/ | Refill | [facility] | Sawyer Petersen | Medication Refill | | 2012 | | NEUROSUR[address]ERY [address] | [facility] | | | | | [address] | [place], [place] | | | | | [place], [place] | [address] | | | | | [address] | [phone] | | | | | [phone] | | | +--------+--------+ + + + [...]
--- OUTSIDE RECORDS SUMMARY | ~2019-08-29 | XMS | Clinical Summary ---
Demographics + + + | Address | [address] | | | [place] [address] | + + + | Home Phone | | + + + | Preferred Language | Unknown | + + + | Marital Status | | + + + | Restorationism Affiliation | 1013 | + + + | Race | Unknown | + + + | Ethnic Group | Unknown | + + + Author + + + | Author | [facility] | | | and [place] | + + + | Organization | [facility] | | | and [...] Team Providers + +------+ + | Care Chief Librarian Circulation Department Name | Role | Phone | + +------+ + | Kade Bermudez MD | PCP | | + +------+ + Allergies + + + + + + | Active Allergy | Reactions | Severity | Noted | Comments | | | | | Date | | + + + + + + | Hydrocodone | Nausea Only | Low | 08/18/20 | | | | | | 18 | | + + + + + + Medications + + + +---------+------+------+-------+ | Medication | Sig | Dispensed | Refills | Star | End | Statu | | | | | | t | Date | s | | | | | | Date | | | + + + +---------+------+------+-------+ | pramipexole | Take 2 mg by mouth | | 0 | | | Activ | | (MIRAPEX) 1 MG | nightly. | | | | | e | | tablet | | | | | | | + + + +---------+------+------+-------+ | oxyCODONE 10 MG | Take 1-2 tablets by | 90 | 0 | 09/2 | | Activ | | TABSIndications: S/P | mouth every 4 hours | tablet | | 7/20 | | e | | lumbar fusion | as needed. | | | 16 | | | + + + +---------+------+------+-------+ | | Take 3 capsules by | | 0 | | | Activ | | Mcnroiaijm-SLV-Ipkd- | mouth Daily. | | | | | e | | Codeine (BUTALBITAL | | | | | | | | COMPOUND/CODEINE PO) | | | | | | | + + + +---------+------+------+-------+ | DULoxetine | Take 1 capsule by | 30 | 2 | 11/ | | Activ | | (CYMBALTA) [address] | mouth daily (after | capsule | | 0/20 | | e | | capsule | dinner). | | | 16 | | | + + + +---------+------+------+-------+ | acetaminophen | Take 650 mg by mouth | | 0 | 07/2 | | Activ | | (TYLENOL) 325 mg | as needed. | | | 6/20 | | e | | tablet | | | | 18 | | | + + + +---------+------+------+-------+ | docusate sodium | Take 100 mg by | | 0 | | | Activ | | (COLACE) 100 mg | mouth. | | | | | e | | capsule | | | | | | | + + + +---------+------+------+-------+ | meclizine | Take 25 mg by mouth | | 0 | 11/3 | | Activ | | (ANTIVERT) 25 mg | 3 (three) times | | | 0/20 | | e | | tablet | daily as needed. | | | 18 | | | | | dizziness. | | | | | | + + + +---------+------+------+-------+ | | Take 1-2 tablets by | | 0 | 12/0 | | Activ | | oxyCODONE-acetaminop | mouth every 6 (six) | | | 5/20 | | e | | hen (PERCOCET) 5-325 | hours as needed for | | | 18 | | | | mg per tablet | Pain (hold for | | | | | | | | sedation). | | | | | | + + + +---------+------+------+-------+ | propranolol | Take 40 mg by mouth | | 0 | 11/2 | | Activ | | (INDERAL) 40 mg | daily. | | | 3/20 | | e | | tablet | | | | 18 | | | + + + +---------+------+------+-------+ | rOPINIRole HCl ER | | | 0 | 11/1 | | Activ | | 12 MG TB24 | | | | 8/20 | | e | | | | | | 18 | | | + + + +---------+------+------+-------+ | sertraline | Take 50 mg by mouth | | 0 | 09/0 | | Activ | | (ZOLOFT) 50 mg | daily. | | | 5/20 | | e | | tablet | | | | 18 | | | + + + +---------+------+------+-------+ | tamsulosin | Take 1 capsule by | | 0 | 12/0 | | Activ | | (FLOMAX) 0.4 mg CAPS | mouth After dinner. | | | 5/20 | | e | | | | | | 18 | | | + + + +---------+------+------+-------+ | traMADol (ULTRAM) | Take 50 mg by mouth | | 0 | 08/18 | | Activ | | 50 mg tablet | every 4 (four) hours | | | 05/06 | | e | | | as needed. | | | 18 | | | + + + +---------+------+------+-------+ Active Problems + + + | Problem | Noted Date | + + + | Acute urinary retention | 08/17/2018 | + + + | Traumatic subdural hemorrhage without loss of consciousness | 08/17/2018 | + + + | Chronic pain disorder | 06/19/2016 | + + + | Abnormal resting ECG findings | 03/06/2016 | + + + | Flat back syndrome | 12/16/2015 | + + + | Headache | 09/26/2015 | + + + | Lumbar disc herniation with radiculopathy | 04/06/2015 | + + + | Cervical spondylosis with myelopathy | 12/23/2012 | + + + | Spondylolisthesis of cervical region | 12/16/2012 | + + + | S/P lumbar fusion | 12/16/2012 | + + + | Other chronic pain | 12/16/2012 | + + + | Dizziness | 12/16/2012 | + + + | Cervical stenosis of spinal canal | 12/16/2012 | + + + | Facet arthropathy, lumbar | 10/14/2012 | + + + | Foraminal stenosis of lumbosacral region | 10/14/2012 | + + + | Spinal instability, lumbar | 10/14/2012 | + + + | Spondylolisthesis of lumbar region | 10/14/2012 | + + + | Scoliosis | 10/14/2012 | + + + | S/P cervical spinal fusion | 10/14/2012 | + + + | Spinal stenosis, lumbar region, with neurogenic claudication | 10/14/2012 | + + + | Bilateral hip pain | 10/14/2012 | + + + | Lumbar spinal stenosis | 07/31/2012 | + + + | Chronic low back pain | 07/31/2012 | + + + | Lumbar degenerative disc disease | 07/31/2012 | + + + | Cervical spinal stenosis | 06/12/2012 | + + + | Lumbar radiculopathy | 06/12/2012 | + + + | ADHD (attention deficit hyperactivity disorder) | | + + + | Anxiety | | + + + | Arthritis | | + + + Resolved Problems + + + + | Problem | Noted | Resolved | | | Date | Date | + + + + | Abnormal ECG | 03/06/20 | | | | 16 | 6 | + + + + Immunizations + + + + | Name | Administration Dates | Next Due | + + + + | INFLUENZA PF | 08/19/2018 | | | QUAD(PED/ADOL/ADULT) | | | | ,PSKT or VIAL | | | + + + + | PNEUMOCOCCAL | 09/15/2014 | | | POLYSACCHARIDE | | | | 23-VALENT (PPSV23) | | | + + + + Family History + + +------+ + | Medical History | Relation | Name | Comments | + + +------+ + | Alcohol abuse | Father | | | + + +------+ + | Other (see comment) | Father | | polio | + + +------+ + | Diabetes | Mother | | | + + +------+ + | High blood pressure | Mother | | | + + +------+ + | Migraines | Mother | | | + + +------+ + | Drug abuse | Sister | | | + + +------+ + + +------+ + + | Relation | Name | Status | Comments | + +------+ + + | Father | | | | + +------+ + + | Mother | | | | + +------+ + + | Sister | | | | + +------+ + + | Sister | | | | + +------+ + + Social History + +-------+ +--------+ [...] | | | + +---+---+---+ + + | Tobacco Cessation: Counseling Given: [...] recent travel history available. | + + Last Filed Vital Signs + [...] + + + + | Weight | 88.5 kg (195 lb) | 09/20/2018 11:55 AM | | | | | PST | | + + + + + | Height | 182.9 cm (6') | 09/20/2018 11:55 AM | | | | | PST | | + + + + + | Body Mass Index | 26.45 | 09/20/2018 11:55 AM | | | | | PST | | + + + + + Plan of Treatment + + + + + | Health Maintenance | Due Date | Last Done | Comments | + + + + + | Hepatitis C | | | | | Screening | 1 | | | + + + + + | Vaccine: | | | | | Dtap/Tdap/Td (1 - | 0 | | | | Tdap) | | | | + + + + + | Colorectal Cancer | | | | | Screening | 1 | | | | (Colonoscopy) | | | | + + + + + | Vaccine: Zoster (1 | | | | | of 2) | 1 | | | + + + + + | Adult Annual | | | | | Wellness Visit | 5 | | | + + + + + | AAA Screening | | | | | | 6 | | | + + + + + | Vaccine: | | 09/15/2014 | | | Pneumococcal 65+ (1 | 6 | | | | of 2 - PCV13) | | | | + + + + + | Vaccine: Influenza | | 08/19/2018 | | | (#1) | 9 | | | + + + + + Implants + +------+--------+ +--------+--------+--------+ | Implanted | Type | Area | Manufacture | Device | Shelf | Model | | | | | r | | Expira | / | | | | | | Identi | tion | Serial | | | | | | fier | Date | / Lot | + +------+--------+ +--------+--------+--------+ | Putty Darrel 10cc Db - | | Left: | [employer] - | | 10/06/ | [id number] | | [id number]: Qty: 1 | | Spine | MEDT | | 2019 | | | on 03/06/2016 by Domingo Carlson | | Lumbar | | | | /[id number] | | MD Mariel at [facility] | | | | | | 5-035 | | [facility] | | | | | | / | + +------+--------+ +--------+--------+--------+ | Screw Polyax Precept 6.5x50 - | | Left: | NUVASIVE - | | | [id number] | | [id number]: Qty: 2 | | Spine | NVSV | | | 0A / / | | on 03/06/2016 by Domingo Carlson | | Lumbar | | | | | | MD Mariel at [facility] | | | | | | | | [facility] | | | | | | | + +------+--------+ +--------+--------+--------+ | Screw Polyax Prcpt 7.5x50mm - | | Left: | NUVASIVE - | | | [id number] | | [id number]: Qty: 6 | | Spine | NVSV | | | 0A / / | | on 03/06/2016 by Domingo Carlson | | Lumbar | | | | | | MD Mariel at [facility] | | | | | | | | [facility] | | | | | | | + +------+--------+ +--------+--------+--------+ | Graft Infuse Bone Kit Xs - | | Left: | SOFAMOR | | 04/16/ | [id number] | | [id number]: Qty: 1 on | | Spine | DANEK - DIV | | 2017 | 0 / | | 03/06/2016 by Domingo Carlson, | | Lumbar | [employer] | | | /[id number] | | at [facility] | | | - SFDK | | | 29AAM | | [facility] | | | | | | | + +------+--------+ +--------+--------+--------+ | Algrft [facility] - 30cc - | | Left: | [employer] - | | 09/12/ | [id number] | | [id number]: Qty: 1 | | Spine | MEDT | | 2020 | | | on 03/06/2016 by Domingo Carlson | | Lumbar | | | | /[id number] | | MD Mariel at [facility] | | | | | | 9-009 | | [facility] | | | | | | / | + +------+--------+ +--------+--------+--------+ | Imp Spn Spcr Gina [id number] | | Left: | NUVASIVE - | | | [id number] | | 20d - [id number]: | | Spine | NVSV | | | 5 / / | | Qty: 1 on 03/06/2016 by Robyn, | | Lumbar | | | | | | Domingo Floyd MD at [facility] | | | | | | | | [facility] | | | | | | | + +------+--------+ +--------+--------+--------+ | Screw Marta Gina Xlf 6.5x50mm - | | Left: | NUVASIVE - | | | [id number] | | [id number]: Qty: 1 | | Spine | NVSV | | | 0 / / | | on 03/06/2016 by Domingo Carlson | | Lumbar | | | | | | MD Mariel at [facility] | | | | | | | | [facility] | | | | | | | + +------+--------+ +--------+--------+--------+ | Tlif Oblique [id number] 12deg | | Left: | NUVASIVE - | | | [id number] | | - [id number]: Qty: 1 | | Spine | NVSV | | | 2 / / | | on 03/06/2016 by Domingo Carlson | | Lumbar | | | | | | MD Mariel at [facility] | | | | | | | | [facility] | | | | | | | + +------+--------+ +--------+--------+--------+ | Juvenal Ti Prebent Lordtc 120mm - | | Left: | NUVASIVE - | | | [id number] | | [id number]: Qty: 2 | | Spine | NVSV | | | 0 / / | | on 03/06/2016 by Domingo Carlson | | Lumbar | | | | | | MD Mariel at [facility] | | | | | | | | [facility] | | | | | | | + +------+--------+ +--------+--------+--------+ | Screw Set - | | Left: | NUVASIVE - | | | [id number] | | [id number]: Qty: 10 | | Spine | NVSV | | | 0 / / | | on 03/06/2016 by Domingo Carlson | | Lumbar | | | | | | MD Mariel at [facility] | | | | | | | | [facility] | | | | | | | + +------+--------+ +--------+--------+--------+ | Screw Prcpt 8.5x45mm - | | Left: | NUVASIVE - | | | [id number] | | [id number]: Qty: 2 on | | Spine | NVSV | | | 5A / / | | 03/06/2016 by Domingo Carlson, | | Lumbar | | | | | | at [facility] | | | | | | | | [facility] | | | | | | | + +------+--------+ +--------+--------+--------+ | Xgrft Dura Durepr Mtrx 2x2in | | Right: | [employer] - | | 03/16/ | [id number] | | - [id number]: Qty: 1 | | Brain | MEDT | | 2020 | / | | on 08/17/2018 by Igor, | | | | | | /[id number] | | Julianna Rebolledo MD | | | | | | 70 | + +------+--------+ +--------+--------+--------+ | Plate Bur Hole 14mm - | | Right: | [employer] - | | | 015-26 | | [id number]: Qty: 1 on | | Brain | MEDT | | | 2-14 / | | 08/17/2018 by Julianna Costa | | | | | | / | | MD Amaury | | | | | | | + +------+--------+ +--------+--------+--------+ | Screw S/Tap 1.6x4.0 - | | Right: | [employer] - | | | | | [id number]: Qty: 7 on | | Brain | MEDT | | | | | 08/17/2018 by Julianna Costa | | | | | | | | Amaury, | | | | | | | + +------+--------+ +--------+--------+--------+ | Plate Dogbone 8mm - | | Right: | [employer] - | | | 015-04 | | [id number]: Qty: 1 on | | Brain | MEDT | | | 2 / / | | 08/17/2018 by Julianna Costa | | | | | | | | MD Amaury | | | | | | | + +------+--------+ +--------+--------+--------+ | Algrfdaniel Dura Durgn Mtrx 3x3 | | Left: | INTEGRA | | 06/16/ | ID-[id number] | | Bx5 - [id number]: | | Brain | NEUROSCIENC | | 2020 | 5 / | | Qty: 1 on 08/18/2018 by | | | ADRI DOWNEY | | | /[id number] | | Julianna Costa MD | | | | | | 60 | + +------+--------+ +--------+--------+--------+ | Plate Sm X 2x2h 5mm - | | Left: | [employer] - | | | 015-24 | | [id number]: Qty: 1 on | | Brain | MEDT | | | 7 / | | 08/18/2018 by Julianna Costa | | | | | | | | MD Amaury | | | | | | | + +------+--------+ +--------+--------+--------+ | Plate Katybone 8mm - | | Left: | [employer]IC - | | | 015-04 | | [id number]: Qty: 2 on | | Brain | MEDT | | | 2 / / | | 08/18/2018 by Julianna Costa | | | | | | | | L, MD | | | | | | | + +------+--------+ +--------+--------+--------+ + +------+--------+ +--------+--------+--------+ | Explanted | Type | Area | Manufacture | Device | Shelf | Model | | | | | r | | Expira | / | | | | | | Identi | tion | Serial | | | | | | fier | Date | / Lot | + +------+--------+ +--------+--------+--------+ | Screw S/Tap 1.6x4.0 - | | Right: | [employer] - | | | [id number] | | [id number] | | Brain | MEDT | | | 0 / / | + +------+--------+ +--------+--------+--------+ Results Not on filefrom Last 3 Months Insurance + +--------+ +--------+ +---------+--------+ | Payer | Benefi | Subscriber | Effect | Phone | Address | Type | | | t Plan | ID | herbert | | | | | | / | | Dates | | | | | | Group | | | | | | + +--------+ +--------+ +---------+--------+ | BCBS | BCBS | [id number] | | | | PPO | | | OOS | 8 | 012-Pr | | | | | | PPO | | esent | | | | + +--------+ +--------+ +---------+--------+ | MEDICARE | MEDICA | [id number] | 09/17/19 | [phone] | | Medica | | | RE | | 15-Pre | 5 | | re | | | PART A | | sent | | | | | | AND B | | | | | | + +--------+ +--------+ +---------+--------+ | REGENCE | REGENC | [id number] | 09/17/19 | [phone] | | PPO | | | E BCBS | 8 | 16-Pre | 8 | | | | | [place] | | sent | | | | | | PPO | | | | | | + +--------+ +--------+ +---------+--------+ + +--------+ +--------+ + + | Guarantor Name | Accoun | Relation to | Date | Phone | Billing Address | | | t Type | Patient | of | | | | | | | | | | + +--------+ +--------+ + + | Mal Mendoza | Person | Self [birth year] | [address] | | | al/[place] | | 1950 | [phone] | [place] | | | faith | | | [address] (Home) | [address] | + +--------+ +--------+ + + Advance Directives + + + + + | Type | Date Recorded | Patient | Explanation | | | | Electrical Integrator | | + + + + + | Power of | | | | | Farm Demonstrator | | | | + + + + + | Advance | 03/01/2016 10:41 | | | | Directive | AM | | | + + + + + + + + + + | Code Status | Date | Date | Comments | | | Activated | Inactivated | | + + + + + | Full Code | 03/06/2016 | 03/09/2016 | | | | 7:54 PM | 7:06 PM | | + + + + +"
--- OUTSIDE RECORDS SUMMARY | ~2019-08-29 | XMS | Encounter Summary ---
Demographics + + + | Address | [address] | | | [place] [address] | + + + | Home Phone | | + + + | Preferred Language | Unknown | + + + | Marital Status | | + + + | Temple Affiliation | 1013 | + + + | Race | Unknown | + + + | Ethnic Group | Unknown | + + + Author + + + | Author | [facility] | | | and [place] | + + + | Organization | [facility] | | | and [...] Team Providers + +------+ + | Care Forklift Material Handler Name | Role | Phone | + +------+ + | Kade Bermudez MD | PCP | | + +------+ + Reason for Visit + + + | Reason | Comments | + + + | Follow-up | 3 Month PO | + + + Encounter Details +--------+---------+ + + + | Date | Type | Department | Care Team | Description | +--------+---------+ + + + | 04/28/ | Office | [facility] | Paxton Braga, | S/P cervical spinal | | 2012 | Visit | NEUROSURGERY [address] | PA-C [address] | fusion (Primary Dx); | | | | [address] | [place], [place] | S/P lumbar fusion | | | | [place], [place] | [address] | | | | | [address] | | | | | | [phone] | | | +--------+---------+ + + + [...] + + + | Blood Pressure | 126/69 | 04/28/2013 11:05 AM | | | | | PDT | | + + + + + | Pulse | 63 | 04/28/2013 11:05 AM | | | | | PDT | | + + + + + | Temperature | - | - | | + + + + + | Respiratory Rate | 18 | 04/28/2013 11:05 AM | | | | | PDT | | + + + + + | Oxygen Saturation | - | - | | + + + + + | Inhaled Oxygen | - | - | | | Concentration | | | | + + + + + | Weight | 82.6 kg (182 lb) | 04/28/2013 11:05 AM | | | | | PDT | | + + + + + | Height | 180.3 cm (5' 11") | 04/28/2013 11:05 AM | | | | | PDT | | + + + + + | Body Mass Index | 25.38 | 04/28/2013 11:05 AM | | | | | PDT | | + + + + + documented in this encounter Patient Instructions Patient Instructions Paxton Braga PA-C - 04/28/2013 11:12 AM PDTYour fusions (both ne ck and back) are stable and look good. Use common sense when lifting. Keep using your stim ulator. Call us if you have any concerns or questions. documented in this encounter Progress Notes Paxton Braga PA-C - 04/28/2013 11:12 AM PDT Paxton Braga PA-C [address] [facility], [address] [place] [address] FAX: NEUROSURGERY FOLLOW-UP CHIEF COMPLAINT: Chief Complaint Patient presents with Follow-up 3 Month PO HISTORY OF PRESENT ILLNESS: The patient is a 63 y.o. male that had a C3-[address] Beni abarca around 3 months ago and L3-5 LAIF around 6 months ago. He returns and overall is doin g well. The patient complains of occasional aches and pains. Issues with swallowing have b een a major issue and are improving slowly, but he does still have "a little catch," in his throat now and again. Most of the pre- and postsurgical complaints have continued to improv e overall. PAST MEDICAL HISTORY: Past Medical History Diagnosis Date Ulcer GERD (gastroesophageal reflux disease) Depression ADHD (attention deficit hyperactivity disorder) ADHD (attention deficit hyperactivity disorder) Cervical spinal stenosis 06/12/2012 Lumbar radiculopathy 06/12/2012 Anxiety Arthritis PAST SURGICAL HISTORY: Past Surgical History Procedure Date Knee arthroscopy 04/09/98 Elbow arthroscopy 1991 Shoulder arthroscopy 2005 Spine surgery [address] C6-[address] Jules CURRENT MEDICATIONS: Current Outpatient Prescriptions Medication Sig Dispense Refill clorazepate (TRANXENE-T) 7.5 mg tablet Take 7.5 mg by mouth every 6 hours as needed. oxyCODONE-acetaminophen (PERCOCET) 5-325 mg per tablet Take 1-2 tablets by mouth EVERY 4 TO 6 HOURS NEEDED. 30 tablet 0 piroxicam (FELDENE) 20 MG capsule SERTRALINE HCL PO Take 60 mg by [...] Father polio Alcohol abuse Father Migraines Mother INTERIM PHYSICAL EXAMINATION: Blood pressure 126/69, pulse 63, resp. rate 18, height 1.803 m (5' 11"), weight 82.555 kg ( 182 lb). Body mass index is 25.38 kg/(m^2). GENERAL: Mal Mendoza is in no acute distress with unlabored respirations. HEENT: HEAD/FACE: Normocephalic and atraumatic. There are no areas of recent trauma. SPINE: The patient s incision has healed further and is again without drainage, erythema, or discharge EXTREMITIES: No lower extremity edema. NEUROLOGICAL EXAMINATION: MENTAL STATUS: The patient is awake, alert, and oriented. He follows simple and complex commands MOTOR EXAM: Motor strength is 5/5. This is improved from the preoperative exam. SENSORY EXAM: The sensory examination improved from the preoperative exam. REFLEXES: Reflexes are unchanged from his preoperative history and physical. RADIOGRAPHIC REVIEW: The patient s postoperative x-rays show stable instrumentation and alignment and were rev iewed with the patient today. There have been no interval changes since the immediate posto perative films. There has been increased arthrodesis since the patient s last x-ray which was also reviewed for comparison. ASSESSMENT: S/P C3-7 ACDF and L3-5 LAIF: Encounter Diagnoses Name Primary? S/P cervical spinal fusion Yes S/P lumbar fusion Past Medical History Diagnosis Date Ulcer GERD (gastroesophageal reflux disease) Depression ADHD (attention deficit hyperactivity disorder) ADHD (attention deficit hyperactivity disorder) Cervical spinal stenosis 06/12/2012 Lumbar radiculopathy 06/12/2012 Anxiety Arthritis PLAN: Overall, the patient is doing well. The patient's preoperative symptoms are improving at this point. He has done PT and is using his bone stimulator both for his cervical and lumba r spine. He reports that he feels amazing. I have increased the patient s activities as of today, and I would like the patient to co ntinue to advance with activities as tolerated. I am hoping to see complete healing in the next 3-9 months time and will continue to follow the patient with x-rays. I hope sincerely that he continues to see further improvement in his symptoms over the course of his recovery . I spent 15 minutes in visit with Mal Mendoza today with the majority of time spent elementary school counselor ling the patient on his continued recovery and coordinating his future care. The patient wi ll follow-up on a prn basis. ELECTRONICALLY SIGNED BY: Paxton Braga PA-C, 04/28/2013 11:13 documented in this encounter Plan of Treatment Not on filedocumented as of this encounter Visit Diagnoses + + | Diagnosis | + + | S/P cervical spinal fusion - Primary Arthrodesis status | + + | S/P lumbar fusion Arthrodesis status | + + documented in this encounter
--- OUTSIDE RECORDS SUMMARY | ~2019-08-29 | XMS | Encounter Summary ---
Demographics + + + | Address | [address] | | | [place] [address] | + + + | Home Phone [...] Author | [facility] | | | and [place] | + + + | Organization | [facility] | | | and [place] [...] Team Providers + +------+ + | Care Utilization Management Rn Name | Role | Phone | + +------+ + | Kade Bermudez MD | PCP | | + +------+ + Encounter Details +--------+ + + + + | Date | Type | Department | Care Team | Description | +--------+ + + + + | 02/21/ | Orders Only | [facility] | Hemal Celestin | Lumbar radiculopathy | | 2016 | | NEUROSURGERY [address] | [address] | (Primary Dx); S/P | | | | [address] | [address] | lumbar fusion | | | | [place], [place] | [place] [address] | | | | | [address] | [phone] | | | | | [phone] | | | +--------+ + + + [...] + | Performing | Address | City/State/[facility] Hospital[facility] | Phone Number | | Organization | | | | + + + + + | [facility] | [address] | [place] | [phone] | | [facility] | | [address] | | | - IMAGING | | [...]
--- OUTSIDE RECORDS SUMMARY | ~2019-08-29 | XMS | Encounter Summary ---
Demographics + + + | Address | [address] | | | [place] [address] | + + + | Home Phone | | + + + | Preferred Language | Unknown | + + + | Marital Status | | + + + | Muslim Affiliation | 1013 | + + + | Race | Unknown | + + + | Ethnic Group | Unknown | + + + Author + + + | Author | [facility] | | | and [place] | + + + | Organization | [facility] | | [...] Team Providers + +------+ + | Care Wire Bound Box Machine Helper Name | Role | Phone | [...] | | | | | | | [place] | | | | | | | [...] | +--------+ + + + + | 03/06/ | Hospital | [facility] | Domingo Carlson MD | | | 2016 | Encounter | MED CTR XRAY [address] | [address] | | | | | [place] | [place] [address] | | | | | [place] [address] | [phone] | | | | | [phone] | | | +--------+ + + + [...] | + +--------+ + + + | CINTIA STEWART STATS NO | Routin | 03/06/2016 | | Results for this | | CHARGE | e | 5:10 PM | | procedure are in the | | | | PDT | | results section. | + +--------+ + + + documented in this encounter Results CINTIA Rae-Yair Stats No Charge (03/06/2016 5:10 PM PDT) + [...]
--- OUTSIDE RECORDS SUMMARY | ~2019-08-29 | XMS | Encounter Summary ---
Demographics + + + | Address | [address] | | | [place] [address] | + + + | Home Phone | | + + + | Preferred Language | Unknown | + + + | Marital Status | | + + + | Lutheran Affiliation | 1013 | + + + | Race | Unknown | + + + | Ethnic Group | Unknown | + + + Author + + + | Author | [facility] | | | and [place] | + + + | Organization | [facility] [...] Team Providers + +------+ + | Care Publications Writer Name | Role | Phone | + +------+ + | Kade Bermudez MD | PCP | | + +------+ + Reason for Visit + + + | Reason | Comments | + + + | New Patient | Back pain | + + + Evaluate & Treat (Routine) +--------+--------+ + + + + | Status | Reason | Specialty | Diagnoses / | Referred By | Referred To | | | | | Procedures | Contact | Contact | +--------+--------+ + + + + | Closed | | Neurosurgery | Diagnoses | Mónica Caballero David | | | | | Leg | Ruddy Jurado, | Mariel, [address] | | | | | weakness | MD [address] | | | | | DDD | [address] | [place], [place] | | | | | (degenerativ | [place], | [address] | | | | | e disc | [place] | Phone: | | | | | disease), | [address] | [phone] | | | | | lumbar | Phone: | Fax: | | | | | Scoliosis | [phone] | [phone] | | | | | Procedures | Fax: | | | | | | PA OFFICE | [phone] | | | | | | CONSULTATION | | | | | | | NEW/ESTAB | | | | | | | PATIENT 60 | | | | | | | MIN | | | +--------+--------+ + + + + Encounter Details +--------+---------+ + + + | Date | Type | Department | Care Team | Description | +--------+---------+ + + + | 04/06/ | Office | [facility] | Domingo Carlson MD | Lumbar disc | | 2015 | Visit | NEUROSURGERY [address] | [address] | herniation with | | | | [address] | [place] [address] | radiculopathy | | | | [place] | [phone] | (Primary Dx); S/P | | | | [address] | | lumbar fusion; | | | | [phone] | | Lumbar degenerative | | | | | | disc disease; | | | | | | Scoliosis; S/P | | | | | | [...] + + + | Blood Pressure | 125/82 | 04/06/2015 8:25 AM | | | | | PDT | | + + + + + | Pulse | 74 | 04/06/2015 8:25 AM | | | | | PDT | | + + + + + | Temperature | - | - | | + + + + + | Respiratory Rate | 15 | 04/06/2015 8:25 AM | | | | | PDT | | + + + + + | Oxygen Saturation | - | - | | + + + + + | Inhaled Oxygen | - | - | | | Concentration | | | | + + + + + | Weight | 87.1 kg (192 lb) | 04/06/2015 8:25 AM | | | | | PDT | | + + + + + | Height | 180.3 cm (5' 11") | 04/06/2015 8:25 AM | | | | | PDT | | + + + + + | Body Mass Index | 26.78 | 04/06/2015 8:25 AM | | | | | PDT | | + + + + + documented in this encounter Progress Notes Domingo Carlson MD - 04/06/2015 8:21 AM PDTFormatting of this note might be different from t he original. Domingo Carlson MD [address] [place] [address], [address] [place], [place] [address] FAX: NEUROSURGERY HISTORY AND PHYSICAL EXAMINATION CHIEF COMPLAINT: Chief Complaint Patient presents with New Patient Back pain HISTORY OF PRESENT ILLNESS: The patient is a 65 y.o. male with the complaint of back and l eft leg symptoms that began 6 months ago. The patient describes a severe pain in his back a nd numbness in pain in his anterior leg to his monk on the left. The symptoms have been gra dually improving. He does still worsen if he overdoes things. He rates the pain as moderate. The symptoms are daily. He describes the pain as sharp, sh ooting and tingling. The patient describes leg symptoms [...] patient reports that he quit smoking about 29 years ago. He quit smokeless tobacco use about 29 years ago. He reports that he drinks [...] no rheumatoid arthritis. PHYSICAL EXAMINATION: Blood pressure 125/82, pulse 74, resp. rate 15, height 1.803 m (5' 11"), weight 87.091 kg ( 192 lb). Body mass index is 26.79 kg/(m^2). GENERAL: Mal Mendoza is in no acute distress with unlabored respirations. The patient esposito s not appear uncomfortable throughout the exam today. HEENT: HEAD/FACE: EYES: EARS: NASOPHARNYX: OROPHARNYX: Normocephalic and atraumatic. There are no areas of recent trauma. Normal sclerae without icterus. No drainage or tenderness. Clear without drainage. Clear without erythema. NECK (ANTERIOR): Supple and without palpable masses. CHEST: Clear to ausculation without crackles or [...] has no apparent deficits with short or buttermaker continuous churn memory. CRANIAL NERVES: II: Acuity is intact. Mcgraw are full [...] Intrinsics 5 5 Ulnar Intrinsics 5 5 Eight Arm Operator Strength 5 5 Hip Flexion 5 5 Hip Extension 5 5 Knee Flexion 5 5 Knee Extension 5 4 Dorsiflexion 5 5 Extensor Hallicus Longus 5 5 Plantarflexion 5 5 SENSORY EXAM: Sensory exam shows diminished sensation to light touch over the left anterior and lateral l eg. REFLEXES: (2 OR 2+ IS NORMAL) REFLEX: RIGHT LEFT BICEPS 1 1 BRACHIORADIALIS 1 1 TRICEPS 1 1 PATELLAR 1 1 ACHILLES 1 1 GAIT: Gait is steady. RADIOGRAPHIC REVIEW: The patient's imaging was reviewed in detail with the patient today during the visit. The CT, MRI, and x-rays shows L3-L5 fusion. At L2-3 he has developed a disc herniation and face t disease on the left causing canal stenosis and root compression. ASSESSMENT: NEUROSURGICAL DIAGNOSES: Encounter Diagnoses Name Primary? Lumbar disc herniation with radiculopathy Yes S/P lumbar fusion Lumbar degenerative disc disease Scoliosis S/P cervical spinal fusion GENERAL DIAGNOSES: Past Medical History Diagnosis Date Ulcer (HCC) GERD (gastroesophageal reflux disease) Depression ADHD (attention deficit hyperactivity disorder) ADHD (attention deficit hyperactivity disorder) Cervical spinal stenosis 06/12/2012 Lumbar radiculopathy 06/12/2012 Anxiety Arthritis PLAN: Mal Raúl Mendoza presented today, and it was a pleasure seeing this patient and assessing his trice waldrop. The patient has a new disc herniation but is clinically improving. I had a lengthy discussion with the patient about his options for care including surgical a nd non-surgical options. I recommended a L2-3 TLIF fom the left if things do not improve bu t also advised he consider another 4-8 weeks of non-operative care. If he continues to do w ell, he might be able to avoid surgery. He agreed with this plan and will follow-up in 8 weeks roughly. If he worsens severely, he should contact us sooner for a sooner follow-up. ELECTRONICALLY SIGNED BY: Domingo Carlson MD, 04/06/2015 9:21 documented in this encou nter Plan of Treatment Not on filedocumented as of this encounter Visit Diagnoses + + | Diagnosis | + + | Lumbar disc herniation with radiculopathy - Primary Displacement of lumbar | | intervertebral disc without myelopathy | + + | S/P lumbar fusion Arthrodesis status | + + | Lumbar degenerative disc disease Degeneration of lumbar or lumbosacral intervertebral | | disc | + + | Scoliosis Scoliosis (and kyphoscoliosis), idiopathic | + + | S/P cervical spinal fusion Arthrodesis status | + + documented in this encounter
--- OUTSIDE RECORDS SUMMARY | ~2019-08-29 | XMS | Encounter Summary ---
Demographics + + + | Address | [address] | | | [place] [address] | + + + | Home Phone | | + + + | Preferred Language | Unknown | + + + | Marital Status | | + + + | Catholic Affiliation | 1013 | + + + | Race | Unknown | + + + | Ethnic Group | Unknown | + + + Author + + + | Author | [facility] | | | and [place] | + + + | Organization | [facility] | | [...] Team Providers + +------+ + | Care Home Staging Specialist Name | Role | Phone | [...] Closed | | MRI | Diagnoses | [place], | [facility] ST | | | | | Lumbar | Hemal | [facility] | | | | | radiculopath | [facility] | | | | | y Lumbar | [address] | [address] | | | | | spinal | [address] | [address] | | | | | stenosis | [place], [place] | [place], [place] | | | | | Lumbar | [address] | [address] | | | | | degenerative | Phone: | Phone: | | | | | disc | [phone] | [phone] | | | | | disease S/P | Fax: | Fax: | | | | | lumbar | [phone] | [phone] | | | | | fusion | | | | | | | Procedures | | | | | | | MRI Lumbar | | | | | | | Spine w wo | | | | | | | Contrast | | | +--------+--------+ + + + + Reason for Visit + + + | Reason | Comments | + + + | Imaging Only | | + + + | Post Op | | + + + Encounter Details +--------+ + + + + | Date | Type | Department | Care Team | Description | +--------+ + + + + | 03/29/ | Telephone | [facility] | Domingo Carlson MD | Imaging Only; Post | | 2017 | | NEUROSURGERY [address] | [address] | Op | | | | [address] | [place] [address] | | | | | [place] | [phone] | | | | | [address] | | | | | | [phone] | | | +--------+ + + + [...] +---------+--------+ + + | MRI Lumbar Spine w | Imaging | Routin | Lumbar | Expected: 04/09/2017 | | wo Contrast | | e | radiculopathy | (Approximate), | | | | | Lumbar spinal | Expires: 03/29/2018 | | | | | stenosis Lumbar | | | | | | degenerative disc | | | | | | disease S/P lumbar | | | | | | fusion | | + +---------+--------+ + + | Basic Metabolic | Lab | Routin | S/P lumbar fusion | 1 Occurrences | | Panel | | e | Healthcare | starting 04/06/2017 | | | | | maintenance | until 04/06/2018 | + +---------+--------+ + + documented as of this encounter Visit Diagnoses + + | Diagnosis | + + | Lumbar radiculopathy - Primary Thoracic or lumbosacral neuritis or radiculitis, | | unspecified | + + | Lumbar spinal stenosis Spinal stenosis, lumbar region, without neurogenic | | claudication | + + | Lumbar degenerative disc disease Degeneration of lumbar or lumbosacral intervertebral | | disc | + + | S/P lumbar fusion Arthrodesis status | + + | Healthcare maintenance Routine general medical examination at a health care facility | + + documented in this encounter"
--- OUTSIDE RECORDS SUMMARY | ~2019-08-29 | XMS | Encounter Summary ---
Demographics + + + | Address | [address] | | | [place] [address] | + + + | Home Phone [...] | Author | [facility] | | | and [place] | + + + | Organization | [facility] [...] Team Providers + +------+ + | Care Sheet Metal Pattern Cutter Name | Role | Phone | + +------+ + | Shirley Ghosh MD | PCP | | + +------+ + Reason for Visit +--------+ + | Reason | Comments | +--------+ + | Other | Fall | +--------+ + Encounter Details +--------+ + + + + | Date | Type | Department | Care Team | Description | +--------+ + + + + | 11/20/ | Telephone | [facility] [place] | Sawyer Petersen | Other (Fall ) | | 2012 | | NEUROSURGERY [address] | [facility] [address] | | | | | [address] | [place], [place] | | | | | [place], [place] | [address] | | | | | [address] | [phone] | | | | | [phone] | | | +--------+ + + + [...]
--- OUTSIDE RECORDS SUMMARY | ~2019-08-29 | XMS | Encounter Summary ---
Demographics + + + | Address | [address] | | | [place] [address] | + + + | Home Phone | | + + + | Preferred Language | Unknown | + + + | Marital Status | | + + + | Pentecostalism Affiliation | 1013 | + + + | Race | Unknown | + + + | Ethnic Group | Unknown | + + + Author + + + | Author | [facility] | | | and [place] | + + + | Organization | [facility] | | | and [place] [...] Providers + +------+ + | Care Manager Audit Name | Role | Phone | + [...] [address] Mónica Guerrier MD [address] | | | | | [address] | [place] | | | | | [place] | [address] | | | | | [address] | [phone] | | | | | [phone] | | | +--------+ + + + [...]
--- OUTSIDE RECORDS SUMMARY | ~2019-08-29 | XMS | Encounter Summary ---
Demographics + + + | Address | [address] | | | [place] [address] | + + + | Home Phone | | + + + | Preferred Language | Unknown | + + + | Marital Status | | + + + | Mosque Affiliation | 1013 | + + + | Race | Unknown | + + + | Ethnic Group | Unknown | + + + Author + + + | Author | [facility] | | | and [place] | + + + | Organization | [facility] | | | and [...] Team Providers + +------+ + | Care Freight Checker Name | Role | Phone | + [...] | S/P lumbar | [place], | [address] | | | | | fusion | PA-C [address] | [place], | | | | | Spondylolist | [address] | [place] [address] | | | | | hesis of | [place], | Phone: | | | | | cervical | [place] [address] | [phone] | | | | | region | Phone: | Fax: | | | | | Cervicalgia | [phone] | [phone] | | | | | Dizziness | Fax: | | | | | | Procedures | [phone] | | | | | | CT [...] S/P lumbar | Sawyer F, | [address] | | | | | fusion | MD [address] | [place], | | | | | Spondylolist | [address] | [place] [address] | | | | | hesis of | [place], | Phone: | | | | | cervical | [place] [address] | [phone] | | | | | region | Phone: | Fax: | | | | | Cervicalgia | [phone] | [phone] | | | | | Dizziness | [phone] Fax: | | | | | | Procedures | | | | | | | CT Angiogram | [phone] | | | | | | Neck w | | | | | | | Contrast | | | +--------+--------+ + + + + Encounter Details +--------+ + + + + | Date | Type | Department | Care Team | Description | +--------+ + + + + | 12/23/ | Hospital | [facility] | Sawyer Petersen | S/P lumbar fusion; | | 2012 - | Encounter | MED CTR XRAY [address] | [facility] [address] | Spondylolisthesis of | | | | [address] [place] | [facility] [place] | cervical region; | | 12/25/ | | [place] [address] | [address] | Cervicalgia; | | 2012 | | [phone] | [phone] | Dizziness | | | | | | | [...] lumbar fusion | 1 Occurrences | | Contrast | | e | Spondylolisthesis | starting 12/23/2012 | | | | | of cervical region | | | | | | Cervicalgia | | | | | | Dizziness | | + +---------+--------+ + + documented as of this encounter Procedures + +--------+ + + + | Procedure Name | Priori | Date/Time | Associated Diagnosis | Comments | | | ty | | | | + +--------+ + + + | CT ANGIOGRAM NECK W | Routin | 12/23/2012 | S/P lumbar fusion | Results for this | | CONTRAST | e | 11:55 AM | Spondylolisthesis | procedure are in the | | | | PDT | of cervical region | results section. | | | | | Cervicalgia | | | | | | Dizziness | | + +--------+ + + + documented in this encounter Results CT Angiogram Neck w Contrast (12/23/2012 11:55 AM PDT) + + | Specimen | + + | | + + + + + | Narrative | Performed At | + + + | [facility] | [place] | | Department [facility] | [facility] | | [ rep [address]] [ rep [facility] | | st zip] Signed | - IMAGING | | | | | Patient Name: SHEELA MENDOZA Physician: | | | ARRE.[id number] : 1950 Age: 62 Sex: M Unit #: [id number] | | | Exam Date: 12/23/12 Location: [facility] | | | Report #: [id number] Page: | | | %(RAD)RES..mtdd.print.filter("pg") of %(RAD) | | | RES..mtdd.print.filter("tpg") | | | | | | Accession Number: [id number] | | | CT CAROTID ANGIOGRAM, 12/23/2012 [...] Transcribed | | | Date/Time: 12/23/2012 14:09 Varsity Baseball Coach: | | | <<Signature on File>> | | | [address] | | | Micky Corral MD12/23/12 1635 <Electronically signed by Domingo Weeks | | Mónica Corral MD> Domingo Corral MD 12/23/12 4501 | | | Varsity Baseball Coach: [employer] Ifmzhksiqsgtu08/08/13 7788 | | | Sawyer Petersen MD | | + + + + + + + + | Performing | Address | City/State/Zipcode | Phone Number | | Organization | | | | + + + + + | [facility] [facility] | [address] | [place] | [phone] | | [facility] | | [address] | | | - IMAGING | | | | + + + + + documented in this encounter Visit Diagnoses + + | Diagnosis | + + | S/P lumbar fusion Arthrodesis status | + + | Spondylolisthesis of cervical region Acquired spondylolisthesis | + + | Cervicalgia | + + | Dizziness Dizziness and giddiness | + + documented in this encounter
--- OUTSIDE RECORDS SUMMARY | ~2019-08-29 | XMS | Encounter Summary ---
Demographics + + + | Address | [address] | | | [place] [address] | + + + | Home Phone | | + + + | Preferred Language | Unknown | + + + | Marital Status | | + + + | Bahai Affiliation | 1013 | + + + | Race | Unknown | + + + | Ethnic Group | Unknown | + + + Author + + + | Author | [facility] | | | and [place] | + + + | Organization | [facility] | | | and [place] [...] Team Providers + +------+ + | Care Heating Unit Installer Name | Role | Phone | [...] Closed | | Radiology | Diagnoses | [place], | [address] | | | | | S/P lumbar | Hemal | [place] | | | | | fusion | JESSICA Sheppard | [place], | | | | | Lumbar | [address] | [place] [address] | | | | | spinal | [address] | Phone: | | | | | stenosis | [place] | [phone] | | | | | Lumbar | [address] | Fax: | | | | | radiculopath | Phone: | [phone] | | | | | y Lumbar | [phone] | | | | | | degenerative | Fax: | | | | | | disc | [phone] | | | | | | disease | | | | | | | Procedures | | | | | | | CT Lumbar | | | | | | | Spine wo | | | | | | | Contrast | | | +--------+--------+ + + + + Reason for Visit +---------+ + | Reason | Comments | +---------+ + | Post Op | 9M PO | +---------+ + Encounter Details +--------+---------+ + + + | Date | Type | Department | Care Team | Description | +--------+---------+ + + + | 04/03/ | Office | [facility] | Hemal Celestin | S/P lumbar fusion | | 2017 | Visit | NEUROSURGERY [address] | [address] | (Primary Dx); Lumbar | | | | [address] | [address] | spinal stenosis; | | | | [place], [place] | [place] [address] | Lumbar | | | | [address] | [phone] | radiculopathy; | | | | [phone] | | Lumbar degenerative | | | | | | disc disease | +--------+---------+ + + + Social History [...] + + + | Blood Pressure | 127/80 | 12/18/2016 8:31 AM | | | | | PDT | | + + + + + | Pulse | 56 | 12/18/2016 8:31 AM | | | | | PDT [...] + + + + | Weight | 87.5 kg (193 lb) | 12/18/2016 8:31 AM | | | | | PDT | | + + + + + | Height | 180.3 cm (5' 11") | 12/18/2016 8:31 AM | | | | | PDT | | + + + + + | Body Mass Index | 26.92 | 12/18/2016 8:31 AM | | | | | PDT [...] encounter Patient Instructions Patient Instructions Hemal Celestin PA-C - 12/18/2016 9:02 AM PDTToday we decided t o obtain a CT scan of your lumbar spine. We have scheduled a follow-up appointment to discu ss the results. If the CT scan is unremarkable we will call you with the results. If there are issues on the CT scan that we need to discuss further, we will ask you to return to the office and keep your scheduled appointment to discuss the results and make further recommen dations. documented in this encounter Progress Notes Hemal Celestin PA-C - 12/18/2016 8:34 AM PDTFormatting of this note might be differ ent from the original. Hemal Celestin PA-C [address] [facility], [address] [address] FAX: NEUROSURGERY FOLLOW-UP CHIEF COMPLAINT: Chief Complaint Patient presents with Post Op 9M PO HISTORY OF PRESENT ILLNESS: The patient is a 66 y.o. male that had a lumbar fusion for Mikey nosis and radiculopathy around 9 months ago. He returns and overall is doing okay. The pat ient complains of continued low back pain which is generally always present. Her ability to discuss his symptoms fully were limited as he had an appointment in [place] and he has to be very quick with the visit today. He stated he inadvertently double scheduled this vijini ng without noticing.. The patient has been walking as much as directed. CURRENT MEDICATIONS: Current Outpatient Prescriptions Medication Sig Dispense Refill Erdacwkiyu-HKI-Fthf-Codeine (BUTALBITAL COMPOUND/CODEINE PO) Take 3 capsules by mouth D aily. DULoxetine (CYMBALTA) [address] capsule Take 1 capsule by mouth daily (after dinner). 30 capsule 2 oxyCODONE 10 MG TABS Take 1-2 tablets by mouth every 4 hours as needed. 90 tablet 0 pramipexole (MIRAPEX) 1 MG tablet Take 2 mg by mouth nightly. No current facility-administered medications for this visit. REVIEW OF SYSTEMS GENERALLY: No fever, no [...] no voice changes, no difficulty swallowing, no sign ificant snoring, + sleep apnea, no sinus problems, no major dental work. NEUROLOGICALLY: Please see the review of systems discussed above in the history of present illness. In addition, the patient has numbness and pain of legs, back injury, memory loss. PSYCHIATRIC: + depression, no sleep disorders, + anxiety, no bipolar disorder, no psychoti c episodes. CARDIOVASCULAR: No heart attacks, + heart murmur, no heart fluttering, no chest pain, no a nkle swelling. LUNG DISEASE: No shortness of breath, [...] no personal h istory of cancer. RHEUMATOLOGIC: No joint arthritis, no rheumatoid arthritis. ALLERGIES: No Known Allergies SOCIAL HISTORY: The patient reports that he quit smoking about 31 years ago. He has never used smokeless t obacco. He reports that he drinks about 1.8 oz of alcohol per week. He reports that he does not use illicit drugs. INTERIM PHYSICAL EXAMINATION: Blood pressure 127/80, pulse 56, height 1.803 m (5' 11"), weight 87.544 kg (193 lb). Body m ass index is 26.93 kg/(m^2). GENERAL: Mal Mendoza is in no acute distress with unlabored respirations. SPINE: The patient s incisions are healing well without drainage, significant erythema, o r discharge. EXTREMITIES: No lower extremity edema. NEUROLOGICAL EXAMINATION: MENTAL STATUS: The patient is awake, alert, and oriented. He follows simple and complex commands RADIOGRAPHIC REVIEW: The patient s x-rays show stable instrumentation and alignment and were reviewed with the patient today. The S1 screws has a faint lucency around the screws at both left and right sides. Otherwise the hardware is unremarkable. The patient appears to have adequate fusion at L2-L5. ASSESSMENT: Encounter Diagnoses Name Primary? S/P lumbar fusion Yes Lumbar spinal stenosis Lumbar radiculopathy Lumbar degenerative disc disease Past Medical History Diagnosis Date Ulcer (HCC) GERD (gastroesophageal reflux disease) Depression ADHD (attention deficit hyperactivity disorder) ADHD (attention deficit hyperactivity disorder) Cervical spinal stenosis 06/12/2012 Lumbar radiculopathy 06/12/2012 Anxiety Arthritis Migraine Insomnia d/t pain Sleep apnea no CPAP Chronic neck pain 12/16/2012 Chronic low back pain 07/31/2012 PLAN: Overall, the patient is doing okay. He continues to have low back pain. I would like the patient to have a CT scan of his lumbar spine. The patient is in agreemen t. I have asked him to schedule a follow-up appointment with me in the office. He would li ke results over the phone if possible. I've informed him that if his CT scan is unremarkabl e and shows good fusion at all levels then we will call him with these results and he can ca ncel his appointment. If there are findings on the CT scan that we need to discuss that matteo best ask him to keep his appointment so that we can review these images and make further recom mendations. The patient is in agreement. ELECTRONICALLY SIGNED BY: Hmeal Celestin PA-C, 12/18/2016 9:08 documented in this encounter Plan of Treatment + +---------+--------+ + + | Name | Type | Priori | Associated Diagnoses | Order Schedule | | | | ty | | | + +---------+--------+ + + | CT Lumbar Spine wo | Imaging | Routin | S/P lumbar fusion | Expected: | | Contrast | | e | Lumbar spinal | 12/18/2016, Expires: | | | | | stenosis Lumbar | 12/18/2017 | | | | | radiculopathy | | | | | | Lumbar degenerative | | | | | | disc disease | | + +---------+--------+ + + documented as of this encounter Procedures + +--------+ + + + | Procedure Name | Priori | Date/Time | Associated Diagnosis | Comments | | | ty | | | | + +--------+ + + + | LABS - EXTERNAL SCAN | | 04/11/2017 | | Results for this | | | | 12:00 AM | | procedure are in the | | | | PDT | | results section. | + +--------+ + + + | IMAGING REPORT - | | 01/03/2017 | | Results for this | | EXTERNAL SCAN | | 12:00 AM | | procedure are in the | | | | PDT | | results section. | + +--------+ + + + documented in this encounter Results LABS - EXTERNAL SCAN (04/11/2017 12:00 AM PDT) + + + | Narrative | Performed At | + + + | Ordered by an | | | unspecified provider. | | + + + IMAGING REPORT - EXTERNAL SCAN (01/03/2017 12:00 AM PDT) + + + | Narrative | Performed At | + + + | Ordered by an | | | unspecified provider. | | + + + documented in this encounter Visit Diagnoses + + | Diagnosis | + + | S/P lumbar fusion - Primary Arthrodesis status | + + | Lumbar spinal stenosis Spinal stenosis, lumbar region, without neurogenic | | claudication | + + | Lumbar radiculopathy Thoracic or lumbosacral neuritis or radiculitis, unspecified | + + | Lumbar degenerative disc disease Degeneration of lumbar or lumbosacral intervertebral | | disc | + + documented in this encounter
--- OUTSIDE RECORDS SUMMARY | ~2019-08-29 | XMS | Encounter Summary ---
Demographics + + + | Address | [address] | | | [place] [address] | + + + | Home Phone [...] Author | [facility] | | | and [place] | + + + | Organization | [facility] [...] Team Providers + +------+ + | Care Press Brake Operator Name | Role | Phone | [...] | +--------+ + + + + | 07/31/ | Telephone | [facility] | Domingo Carlson MD | Other | | 2016 | | NEUROSURGERY [address] | [address] | | | | | [address] | [place] [address] | | | | | [place] | [phone] | | | | | [address] | | | | | | [phone] | | | +--------+ + + + [...]
--- OUTSIDE RECORDS SUMMARY | ~2019-08-29 | XMS | Encounter Summary ---
Demographics + + + | Address | [address] | | | [place] [address] | + + + | Home Phone [...] + + | Author | [facility] | | | and [place] | + + + | Organization | [facility] | [...] Team Providers + +------+ + | Care Forensic Psychiatrist Name | Role | Phone | + [...] | Specialty | Physical | Diagnoses | [place], | [address] | | | Services | Therapy | Status post | Sawyer Guerrier | [place] | | | Required | | lumbar | [address] | HOSPITAL | | | | | spinal | [address] | [address] | | | | | fusion | [place], | [place] | | | | | | [place] [address] | [place], [place] | | | | | | Phone: | [phone] | | | | | | [phone] | Phone: | | | | | | [id number] Fax: | [phone] | | | | | | | Fax: | | | | | | [phone] | [phone] | +--------+ + + + + + + + | Scheduling Instructions | + + | PHYSICAL THERAPY: TEACH LUMBAR HYGIENE; SAFETY, ERGONOMICS, MECHANICS, POSTURE, & | | BALANCE FOR 1-2 VISITS. LIFTING LIMITS ARE FOLLOWS: MONTH 1: 5 POUNDS | | MONTH 2: 15-25 POUNDS MONTH 3: 25-30 POUNDS AFTER THAT TOLERATED PLEASE FAX | | RESULTS UPON COMPLETION TO [phone] | + + Reason for Visit + + + | Reason | Comments | + + + | Wound Check | | + + + Encounter Details +--------+ + + + + | Date | Type | Department | Care Team | Description | +--------+ + + + + | 11/12/ | Clinical | [facility] | Sawyer Petersen | Status post lumbar | | 2012 | Support | NEUROSURGERY [address] | [address] | spinal fusion | | | | [address] | [address] [place] | (Primary Dx) | | | | [place] | [address] | | | | | [address] | [phone] | | | | [phone] | | | +--------+ + + + [...] of this encounter Patient Instructions Patient Instructions Vadim Esparza - 11/12/2012 10:58 AM PSTLIFTING LIMITS ARE FOLL OWS: MONTH 1: 5 POUNDS MONTH 2: 15-25 POUNDS MONTH 3: 25-30 POUNDS AFTER THAT TOLERATED Physical therapy and lifting limits start 11/26/12. documented in this encounter Progress Notes Vadim Esparza - 11/12/2012 12:19 PM PST Neurosurgery Postoperative Wound Check/Nurse Visit Wound Information: Location: Back and left flank Photo Attached: Wound Type: Surgical incisions Wound Size: WNL Wound Bed: WNL Wound Edges: Well approximated and intact Drainage (Amount): None Drainage (Color): None Odor: None Treatment/Dressing: Open to air Lab Orders: Clinical/Plan: Pain (0-10): 6-7/10 Pain Management: Percocet 5/325 Effective Pain Mgmt: yes Refill Needed: Notes: Walking everyday using a one point cane. States having left groin pain and left leg weakness since surgery. The weakness and pain it getting gradually better. No complaints of numbness or tingling. Therapy Plans: To start one month after surgery X-Rays: Prior to next appointment Plan/Follow-Up: Appointment with Dr. Petersen in one month. documented in this en counter Plan of Treatment + + +--------+ + + | Name | Type | Priori | Associated Diagnoses | Order Schedule | | | | ty | | | + + +--------+ + + | Ambulatory referral | Outpatient | Routin | Status post lumbar | 1 Occurrences | | to Physical Therapy | Referral | e | spinal fusion | starting 11/12/2012 | | | | | | until 11/12/2013 | + + +--------+ + + documented as of this encounter Results XR Lumbar Spine 2 or 3 Vw (12/16/2012 11:24 AM PDT) + + | Specimen | + + | | + + + + + | Narrative | Performed At | + + + | [facility] | [place] | | Department [address] [place] | [facility] | | [ rep [address]] [ rep [facility] | | st zip] Signed | - IMAGING | | | | | Patient Name: SHEELA MENDOZA Physician: | | | ARRE.[id number] : 1950 Age: 62 Sex: M Unit #: [id number] | | | Exam Date: 12/16/12 Location: [facility] | | | Report #: [id number] Page: | | | %(RAD)RES..mtdd.print.filter("pg") of %(RAD) | | | RES..mtdd.print.filter("tpg") | | | | | | Accession Number: [id number] | | | LUMBAR SPINE LIMITED X-RAY CLINICAL HISTORY: STATUS | | | POST LUMBAR FUSION. COMPARISON: 10/30/2012. | | | FINDINGS: Posterior spinal fusion hardware is in stable | | | position at the levels of L3 through L5, with interbody spacer seen | | | at intervening levels, without evidence of complication. There is no | | | evidence of subsidence of the spacers. There is anatomic alignment | | | of the vertebral bodies. Degenerative disc disease is seen at the | | | remaining levels. Facet degenerative hypertrophy is seen in the | | | lower lumbar spine. The visualized portions of the sacrum and | | | remainder of the pelvis are unremarkable. | | | IMPRESSION: 1. POSTERIOR SPINAL FUSION HARDWARE IN | | | SATISFACTORY POSITION WITHOUT EVIDENCE OF COMPLICATION. | | | Dictated Date/Time: 12/16/2012 11:24 Transcribed Date/Time: | | | 12/16/2012 11:41 Claims Configuration Analyst: | | | <<Signature on File>> | | | Domingo | | | Micky Corral MD12/17/12 0737 <Electronically signed by Domingo Weeks | | | Ellis GARG> Domingo Corral MD 12/16/12 1124 | | | Claims Configuration Analyst: [id number]/01/13 1141 | | | Sawyer Petersen MD | | + + + + + + + + | Performing | Address | City/State[facility] | Phone Number | | Organization | | | | + + + + + | [facility] | [address] | [place] | [phone] | | [facility] | | [address] | | | - IMAGING | | | | + + + + + documented in this encounter Visit Diagnoses + + | Diagnosis | + + | Status post lumbar spinal fusion - Primary Arthrodesis status | + + documented in this encounter
--- OUTSIDE RECORDS SUMMARY | ~2019-08-29 | XMS | Encounter Summary ---
Demographics + + + | Address | [address] | | | [place] [address] | + + + | Home Phone [...] + | Author | [facility] | | | and [place] | + + + | Organization | [facility] | | | and [...] Team Providers + +------+ + | Care Sushi Chef Name | Role | Phone | + [...] NEUROSURGERY [address] | F, [address] [place] | MEDICATION) | | | | [address] | [place] | | | | | [place], [place] | [address] | | | | | [address] | [phone] | | | | | [phone] | | | +--------+ + + + [...]
--- OUTSIDE RECORDS SUMMARY | ~2019-08-29 | XMS | Encounter Summary ---
Demographics + + + | Address | [address] | | | [place] [address] | + + + | Home Phone [...] | [facility] | | | and [place] | + + + | Organization | [facility] | [...] Team Providers + +------+ + | Care Airport Ramp Agent Name | Role | Phone | + +------+ + PCP | Unavailable | + +------+ + Encounter Details +--------+ + + + + | Date | Type | Department | Care Team | Description | +--------+ + + + + | 04/19/ | Hospital | [facility] | | | | 1997 | Encounter | MED CTR EMERGENCY | | | | | | [place] [address] | | | | | | [place] | | | | | | [address] | | | | | | [phone] | | | +--------+ + + + [...]
--- OUTSIDE RECORDS SUMMARY | ~2019-08-29 | XMS | Encounter Summary ---
Demographics + + + | Address | [address] | | | [place] [address] | + + + | Home Phone | | + + + | Preferred Language | Unknown | + + + | Marital Status | | + + + | Confucianist Affiliation | 1013 | + + + | Race | Unknown | + + + | Ethnic Group | Unknown | + + + Author + + + | Author | [facility] | | | and [place] | + + + | Organization | [facility] | | | and [...] Team Providers + +------+ + | Care Debrander Name | Role | Phone | + [...] | | [address] | [place] [address] | | | | | [place] | [phone] | | | | | [address] | | | | | | [phone] | | | +--------+ + + + [...]
--- OUTSIDE RECORDS SUMMARY | ~2019-08-29 | XMS | Encounter Summary ---
Demographics + + + | Address | [address] | | | [place] [address] | + + + | Home Phone [...] | Author | [facility] | | | and [place] | + + + | Organization | [facility] | | | and [...] Team Providers + +------+ + | Care Fermentation Scientist Name | Role | Phone | + +------+ + | Shirley Ghosh MD | PCP | | + +------+ + Reason for Visit +--------+ + | Reason | Comments | +--------+ + | Other | T/C to patient to set up bilateral GONB. Both cell and home #'s | | | have been disconnected. | +--------+ + Encounter Details +--------+ + + + + | Date | Type | Department | Care Team | Description | +--------+ + + + + | 06/26/ | Telephone | [facility] | Nino Anderson, | Other (T/C to | | 2011 | | MEDICINE | [address] | patient to set up | | | | REH[address] | [place] | bilateral GONB. Both | | | | [address] [place] | [address] | cell and home #'s | | | | [place] [address] | | have been | | | | [phone] | | disconnected. ) | +--------+ + + + + Social [...]
--- OUTSIDE RECORDS SUMMARY | ~2019-08-29 | XMS | Encounter Summary ---
Demographics + + + | Address | [address] | | | [place] [address] | + + + | Home Phone | | + + + | Preferred Language | Unknown | + + + | Marital Status | | + + + | Latter-Day Affiliation | 1013 | + + + | Race | Unknown | + + + | Ethnic Group | Unknown | + + + Author + + + | Author | [facility] | | | and [place] | + + + | Organization | [facility] | | | and [...] Team Providers + +------+ + | Care Industrial Electrician Journeyman Name | Role | Phone | + +------+ + | Kade Bermudez MD | PCP | | + +------+ + Reason for Visit + + + | Reason | Comments | + + + | Medication Follow-up | | + + + Encounter Details +--------+ + + + + | Date | Type | Department | Care Team | Description | +--------+ + + + + | 01/31/ | Telephone | [facility] [place] | Domingo Carlson MD | Medication Follow-up | | 2016 | | NEUROSURGERY [address] | [address] | | | | | [address] | [place] [address] | | | | | [place] | [phone] | | | | | [address] | | | | | | [phone] | | | +--------+ + + + [...]
--- OUTSIDE RECORDS SUMMARY | ~2019-08-29 | XMS | Encounter Summary ---
Demographics + + + | Address | [address] | | | [place] [address] | + + + | Home Phone | | + + + | Preferred Language | Unknown | + + + | Marital Status | | + + + | Latter Day Affiliation | 1013 | + + + | Race | Unknown | + + + | Ethnic Group | Unknown | + + + Author + + + | Author | [facility] | | | and [place] | + + + | Organization | [facility] | | | [...] Team Providers + +------+ + | Care Grain Inspector Name | Role | Phone | + +------+ + | Kade Bermudez MD | PCP | | + +------+ + Encounter Details +--------+ + + + + | Date | Type | Department | Care Team | Description | +--------+ + + + + | 12/16/ | Hospital | [facility] | Sawyer Petersen | Status post lumbar | | 2012 - | Encounter | MED CTR XRAY [address] | [address] | spinal fusion | | | | [place] | [place] | | | 12/18/ | | [place] [address] | [address] | | | 2012 | | [phone] | | | | | | [...] LUMBAR SPINE 2 OR | Routin | 12/16/2012 | Status post lumbar | Results for this | | 3 VW | e | 11:24 AM | spinal fusion | procedure are in the | | | | PDT | | results section. | + +--------+ + + + documented in this encounter Results XR Lumbar Spine 2 or 3 Vw (12/16/2012 11:24 AM PDT) + + | Specimen | + + | | + + + + + | Narrative | Performed At | + + + | [facility] | [place] | | Department [address] [place], [place] [address] [facility] | | [ rep [address]] [ rep [facility] | | st zip] Signed | - IMAGING | | | | | Patient Name: MAL MENDOZA Physician: | | | MILI.01 : 1950 Age: 62 Sex: M Unit #: [id number] | | | Exam Date: 12/16/12 [place] [facility] [place] | | Report #: [id number] Page: | | | %(RAD)RES..mtdd.print.filter("pg") of %(RAD) | | | RES..mtdd.print.filter("tpg") | | | | | | Accession Number: [id number] | | | LUMBAR SPINE LIMITED X-RAY [...] Transcribed Date/Time: | | | 12/16/2012 11:41 Towel Inspector: | | | <<Signature on File>> | | | Domingo | | | Micky Corral MD12/17/12 0737 <Electronically signed by Domingo Weeks | | | Ellis GARG> Domingo Corral MD 12/16/12 1124 | | | Towel Inspector: Jack Limon12/16/12 1141 | | | Sawyer Petersen MD | | + + + + + + + + | Performing | Address | City/State/Zipcode | Phone Number | | Organization | | | | + + + + + | [facility] | [address] | [place] | [phone] | | [facility] | | [address] | | | - IMAGING | | | | + + + + + documented in this encounter Visit Diagnoses + + | Diagnosis | + + | Status post lumbar spinal fusion Arthrodesis status | + + documented in this encounter
--- OUTSIDE RECORDS SUMMARY | ~2019-08-29 | XMS | Encounter Summary ---
Demographics + + + | Address | [address] | | | [place] [address] | + + + | Home Phone [...] | [facility] | | | and [place] | + + + | Organization | [facility] | | | and [...] Team Providers + +------+ + | Care Adventure Guide Name | Role | Phone | + +------+ + | Kade Bermudez MD | PCP | | + +------+ + Encounter Details +--------+ + + + + | Date | Type | Department | Care Team | Description | +--------+ + + + + | 12/20/ | Orders Only | [facility] [place] | Sawyer Petersen | Cervicalgia (Primary | | 2012 | | NEUROSURGERY [address] | F, [address] | Dx); Dizziness | | | | [address] | [place], [place] | | | | | [place], [place] | [address] | | | | | [address] | [phone] | | | | [phone] | | | +--------+ + + + [...] | | + +------+--------+ + + | Creatinine | Lab | Routin | Cervicalgia | 1 Occurrences | | | | e | Dizziness | starting 12/20/2012 | | | | | | until 12/20/2013 | + +------+--------+ + + | BUN | Lab | Routin | Cervicalgia | 1 Occurrences | | | | e | Dizziness | starting 12/20/2012 | | | | | | until 12/20/2013 | + +------+--------+ + + documented as of this encounter Visit Diagnoses + + | Diagnosis | + + | Cervicalgia - Primary | + + | Dizziness Dizziness and giddiness | + + documented in this encounter"
--- OUTSIDE RECORDS SUMMARY | ~2019-08-29 | XMS | Encounter Summary ---
Demographics + + + | Address | [address] | | | [place] [address] | + + + | Home Phone [...] | Author | [facility] | | | and [place] | + + + | Organization | [facility] | | | and [place] [...] Team Providers + +------+ + | Care Graffiti Cleaner Name | Role | Phone | + +------+ + | Kade Bermudez MD | PCP | | + +------+ + Encounter Details +--------+ + + + + | Date | Type | Department | Care Team | Description | +--------+ + + + + | 03/01/ | [facility] | [facility] | Domingo Carlson MD | Lumbar | | 2016 | Encounter | MED CTR XRAY [address] | [address] | radiculopathy; | | | | [place] | [place] [address] | Lumbar disc | | | | [place] [address] | [phone] | herniation with | | | | [phone] | | radiculopathy; | | | | | Jorge Alberto Faustin MD | Lumbar spinal | | | | | [address] | stenosis; Lumbar | | | | | [place] | degenerative disc | | | | | [address] | disease; Facet | | | | [...] + | [facility] | [address] | [place], [place] | [phone] | | [facility] | | [address] | | | - IMAGING | | [...]
--- OUTSIDE RECORDS SUMMARY | ~2019-08-29 | XMS | Encounter Summary ---
Demographics + + + | Address | [address] | | | [place] [address] | + + + | Home Phone | | + + + | Preferred Language | Unknown | + + + | Marital Status | | + + + | Cheondoism Affiliation | 1013 | + + + | Race | Unknown | + + + | Ethnic Group | Unknown | + + + Author + + + | Author | [facility] | | | and [place] | + + + | Organization | 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 MD Paxton Sterling PA [address] [facility], [address] [place], [place] [address] FAX: NEUROSURGERY HISTORY AND PHYSICAL EXAMINATION CHIEF [...] Intrinsics 5 5 Ulnar Intrinsics 5 5 Director Industrial Nursing Strength 5 5 Hip Flexion 5 5 [...] to surgical intervention with Mr. Mendoza i [facility]. These risks included but were not [...]
--- OUTSIDE RECORDS SUMMARY | ~2019-08-29 | XMS | Encounter Summary ---
Demographics + + + | Address | [address] | | | [place] [address] | + + + | Home Phone [...] + | Author | [facility] | | | and [place] | + + + | Organization | [facility] | | | and [...] Team Providers + +------+ + | Care Processing Mgr Name | Role | Phone | + [...] | S/P lumbar | Hemal | [address] | | | | | fusion | [address] | [place], | | | | | Lumbar | [address] | [place] [address] | | | | | spinal | [address] | Phone: | | | | | stenosis | [place] | [phone] | | | | | Lumbar | [address] | Fax: | | | | | radiculopath | Phone: | [phone] | | | | | y Lumbar | [phone] | | | | | | degenerative | Fax: | | | | | | disc | [phone] | | | | | | disease [...] + + | 04/03/ | Office | [facility] | Hemal Celestin | S/P lumbar fusion | | 2017 | Visit | NEUROSURGERY [address] | [address] | (Primary Dx); Lumbar | | | | [address] | [address] | spinal stenosis; | | | | [place], [place] | [place] [address] | Lumbar | | | | [address] | [phone] | radiculopathy; | | | | [phone] | | Lumbar degenerative | | | [...] from the original. Hemal Celestin PA-C [address] [facility], [address] [address] FAX: NEUROSURGERY FOLLOW-UP CHIEF COMPLAINT: Chief Complaint [...] limited as he had an appointment in [place] and he has to be very quick with the visit today. He stated he inadvertently double scheduled this vijini ng without noticing.. The patient has been walking as much as directed. CURRENT MEDICATIONS: Current Outpatient Prescriptions Medication Sig Dispense Refill Tspukmhjbn-KKB-Mecc-Codeine (BUTALBITAL COMPOUND/CODEINE PO) Take 3 capsules by [...] patient is in agreement. ELECTRONICALLY SIGNED BY: Hemal Celestin PA-C, 12/18/2016 9:08 documented in this [...]
--- OUTSIDE RECORDS SUMMARY | ~2019-08-29 | XMS | Encounter Summary ---
Demographics + + + | Address | [address] | | | [place] [address] | + + + | Home Phone | | + + + | Preferred Language | Unknown | + + + | Marital Status | | + + + | Hinduism Affiliation | 1013 | + + + | Race | Unknown | + + + | Ethnic Group | Unknown | + + + Author + + + | Author | [facility] | | | and [place] | + + + | Organization | [facility] | | | and [...] Team Providers + +------+ + | Care Tie Bucker Name | Role | Phone | + [...] [address] | F, MD [address] | injections ) | | | | [address] | [place] | | | | | [place], [place] | [address] | | | | | [address] | [phone] | | | | | [phone] | | | +--------+ + + + [...]
--- OUTSIDE RECORDS SUMMARY | ~2019-08-29 | XMS | Encounter Summary ---
Demographics + + + | Address | [address] | | | [place] [address] | + + + | Home Phone | | + + + | Preferred Language | Unknown | + + + | Marital Status | | + + + | Anabaptism Affiliation | 1013 | + + + | Race | Unknown | + + + | Ethnic Group | Unknown | + + + Author + + + | Author | [facility] | | | and [place] | + + + | Organization | [facility] [...] Team Providers + +------+ + | Care Floor Covering Printer Assistant Name | Role | Phone | + +------+ + | Kade Bermudez MD | PCP | | + +------+ + Reason for Visit + + + | Reason | Comments | + + + | Neck Pain | Neck pain that radiates into the head | + + + Evaluate & Treat (Routine) +--------+ + + + + + | Status | Reason | Specialty | Diagnoses / | Referred By | Referred To | | | | | Procedures | Contact | Contact | +--------+ + + + + + | Closed | Specialty | Physical | Diagnoses | Domingo Carlson | [place], | | | Services | Medicine and | Chronic | MD [address] | Joo Garrett MD | | | Required | Rehabilitatio | pain | [facility] [address] | [address] | | | | n | disorder | [place], | [facility] | | | | | S/[place] lumbar | [place] [address] | [place], [place] | | | | | fusion S/P | Phone: | [address] Phone: | | | | | cervical | [phone] | [phone] | | | | | spinal | Fax: | Fax: | | | | | fusion | [phone] | [phone] | +--------+ + + + + + Encounter Details +--------+---------+ + + + | Date | Type | Department | Care Team | Description | +--------+---------+ + + + | 07/27/ | Office | [facility] | Joo Haynes | Chronic pain | | 2015 | Visit | PHYSIATRY [address] | T, [address] | disorder (Primary | | | | [address] [place], | [place], [place] | Dx); Chronic neck | | | | [place] [address] | [address] | pain; S/P cervical | | | | [phone] | | spinal fusion; | | | | | | Chronic bilateral | | | | | | low back pain with | | | | | | bilateral sciatica; | | | | | | S/P [...] + + + | Blood Pressure | 154/74 | 07/27/2016 8:17 AM | | | | | PST | | + + + + + | Pulse | 69 | 07/27/2016 8:17 AM | | | | | PST [...] + + + + | Weight | 83.7 kg (184 lb 9.6 | 07/27/2016 8:17 AM | | | | oz) | PST | | + + + + + | Height | 180.3 cm (5' 11") | 07/27/2016 8:17 AM | | | | | PST | | + + + + + | Body Mass Index | 25.75 | 07/27/2016 8:17 AM | | | | | PST [...] of this encounter Patient Instructions Patient Instructions Janeth Lafleur, JO - 07/27/2016 8:39 AM PSTNeuropathic medication s such as gabapentin, Cymbalta and Lyrica were discussed today. He did not recall if he had tried these medications but a review of records shows prior use of gabapentin and nortriptyl ine. I would like to see him try Cymbalta. A prescription for this medication was sent to [facility] pharmacy today. He was advised that this medication could be increased to 60 mg d aily. We also discussed that we could consider trying a muscle relaxer such as methocarbamol in the future I just did not want to start him on two medications at one time. We discussed that it does not appear that a spinal cord stimulator would be a good option a t this time. It may be considered again in the future if all other options fail. Fibromyalgia was discussed in detail. I did not diagnose him with this today it was just so mething that we discussed. The medications he was given today could help with this as well.E lectronically signed by Janeth Lafleur CMA at 07/27/2016 8:57 AM PST documented in this encounter Progress Notes Joo Haynes MD - 07/27/2016 8:26 AM PST Joo Haynes MD [address] [place] [address], [address] [place], [place] [address] FAX: PHYSICAL MEDICINE AND REHABILITATION H&P CHIEF COMPLAINT: Chief Complaint Patient presents with Neck Pain Neck pain that radiates into the head HISTORY OF PRESENT ILLNESS: The patient is a 66 y.o. male being seen today at the request of Dr. Domingo Carlson for chronic pain complaints. Based on Dr. Carlson's note it looks like the ref erral was actually for back and leg pain but the patient's primary complaint is neck pain th at radiates into both shoulders as well as up into his head. The patient has a fairly extens herbert history of neck and back issues and reports two prior neck surgeries and at least two pr ior back surgeries. The patient reports that his first neck surgery was in 1997. With rega rd to the low back and leg pain he describes that as more of a fatigue feeling like he has j ust run a race. Most recent lumbar surgery was a performed by Dr. Carlson on 03/06/2016. . The symptoms have been gradually worsening. He rates the pain as mild to severe. The symptoms are daily, continuous. He describes the pain as aching, dull, pulsating and shooting. The patient describes leg symptoms that occur on both sides. The leg symptoms account for less than or equal to 25% of his symptoms. The leg symptoms are intermittent and the sympto ms travel from the low back into the thighs primarily. He does also have some knee pain whi ch is a separate issue. The patient does not report numbness in the legs or feet. He esposito s not report weakness of the arms or legs. The patient does have shoulder pain on both sides but not arm pain. The patient does not report numbness in the arms or hands. The patient does not report any change in bowel or bladder function or saddle anesthesia re cently. His symptoms improve with changing position, standing and walking. His symptoms worsen with changing position, standing, kneeling and twisting. He has tried PT, Chiropactic, NSAIDS, Steroids, Injections and Muscle relaxers. He has als o had the surgeries as above. Spine injections have never really helped. He does also get shoulder injections. He does also report that all of his surgeries have been helpful. PAST MEDICAL HISTORY: Past Medical History Diagnosis Date Ulcer (HCC) GERD (gastroesophageal reflux disease) Depression ADHD (attention deficit hyperactivity disorder) ADHD (attention deficit hyperactivity disorder) Cervical spinal stenosis 06/12/2012 Lumbar radiculopathy 06/12/2012 Anxiety Arthritis Migraine Insomnia d/t pain Sleep apnea no CPAP Chronic neck pain 12/16/2012 Chronic low back pain 07/31/2012 PAST SURGICAL HISTORY: Past Surgical History Procedure Laterality Date Knee arthroscopy 04/09/98 x2 Elbow arthroscopy 1991 Shoulder arthroscopy 2005 x2 Spine surgery [address] C6-[address] Jules Back surgery Lumbar spine surgery Left 03/06/2016 Procedure: L2-3 Lateral Anterior Interbody Fusion, L5-S1 Transforaminal Lumbar Interbody Fusion, Hardware Revision @ L3-4, L4-5; Surgeon: Domingo Carlson MD; Location: [facility] MAIN OR CURRENT MEDICATIONS: Current Outpatient Prescriptions Medication Sig Dispense Refill Nwletbwmfx-JIE-Trbt-Codeine (BUTALBITAL COMPOUND/CODEINE PO) Take 3 capsules by [...] Migraines Mother Drug abuse Sister REVIEW OF SYSTEMS: GENERALLY: No fever, no night sweats, no anemia, no fatigue, + recent profound weight miriam nges. EYES: No eye problems, + use of corrective lenses, no eye injury, no double vision, no bli ndness. EARS, NOSE, AND THROAT: No changes in taste or smell, no hearing difficulty, + ringing in the ears, no ear drainage, no dizziness, no voice changes, no difficulty swallowing, + signi ficant snoring, no sleep apnea, + sinus problems, no major dental work. NEUROLOGICALLY:The patient has numbness/pain of arms, no numbness/pain of legs, + awake wit h pain, no weakness, no muscle aching, no coordination difficulty, + change in walk, no head injury, + neck injury, + back injury, + pain in neck, + pain in back, no stroke, no faintin g spells, no loss of consciousness, no tremor/shaking, no seizures, + headaches, + migraine, +memory loss, no speech difficulty, no confusion and no numbness of face. PSYCHIATRIC: No depression, + sleep disorders, no anxiety, no bipolar disorder, no psychot ic episodes. CARDIOVASCULAR: No heart attacks, + heart murmur, no heart fluttering, no chest pain, no a nkle swelling. LUNG DISEASE: + shortness of breath, no cough, no tuberculosis, no bloody cough, no asthm a, no emphysema/COPD. GASTROINTESTINAL: No bowel disease, no nausea or vomiting, no rectal bleeding, + constipat ion, no stool incontinence, no liver disease, no [...] no rheumatoid arthritis. PHYSICAL EXAMINATION: Blood pressure 154/74, pulse 69, height 1.803 m (5' 11"), weight 83.734 kg (184 lb 9.6 oz). Body mass index is 25.76 kg/(m^2). GENERAL: The patient is well developed and well nourished. He does appear uncomfortable wh en seated. HEENT: HEAD/FACE: EYES: Normocephalic and atraumatic. There are no areas of recent trauma. Normal sclerae without icterus. SKIN Limited skin exam shows no significant rashes or lesions. There are scars in the cerv ical and lumbar region. CHEST: The patient is in no acute respiratory distress with unlabored respirations. HEART: There is not lower extremity edema. ABDOMEN: The patient is not overweight. NEUROLOGIC: The patient is awake, alert, and oriented to time, place, person. He follows simple and complex commands. His speech is fluent. He comprehends speech well. He has no apparent deficits with short or half-way memory. He has appropriate fund of knowledge Cranial nerves 2-12 appear grossly intact. Sensory exam does not show diminished sensation to light touch in the upper and lower extre mities. REFLEX: RIGHT LEFT BICEPS 2+ 2+ BRACHIORADIALIS 2+ 2+ TRICEPS 2+ 2+ PATELLAR 2+ 0 ACHILLES 2+ 2+ DONIS'S Negative Negative PLANTAR Downgoing Downgoing MUSCULOSKELETAL There is no major palpable deformity of the spine. Straight leg raise and slump-sit are negative. Morgan's maneuver and impingement testing were negative for any groin pain. There was no tenderness to palpation over the greater tr ochanters or sacral sulci. The patient localized the majority of the pain to the lower lumb ar region. Lumbar facet loading was negative. Strength testing showed 5/5 strength through out the lower extremities. The patient was able to heel and toe walk with some difficulty w alking on the toes. There was no redness, effusion, warmth or joint line tenderness in the knees or ankles. Shoulder examination shows positive impingement signs bilaterally and decreased range of mo tion with external rotation, internal rotation and abduction. There was no tenderness over the bicipital groove or over the AC joint. Speed's test was negative. Empty can test was ne gative. Strength testing, including strength testing of the infraspinatus, supraspinatus and subscapularis, in bilateral upper extremities showed 5/5 strength with no focal weakness . Range of motion testing of the cervical spine was decreased in all planes, especially wit h side bending. Spurling sign was negative. RADIOGRAPHIC REVIEW: The patient's imaging was reviewed in detail with the patient today during the visit. The most recent MRI and x-rays of the cervical spine and of the lumbar spine all show stable fus ions with intact hardware. There is no significant nerve root impingement seen on the lumba r MRI post surgery. He has not had any advanced imaging of the cervical spine post surgery. IMPRESSION: Encounter Diagnoses Name Primary? Chronic pain disorder Yes Chronic neck pain S/P cervical spinal fusion Chronic bilateral low back pain with bilateral sciatica S/P lumbar fusion PLAN: 1.Neuropathic pain medications were discussed in detail today. The patient has already trie d gabapentin and nortriptyline in the past which did not help. I would like to see the patie nt start on Cymbalta. The patient is in agreement with the plan. A prescription for this med ication will be sent to the patient's pharmacy today. We also discussed the possible future use of a muscle relaxant such as methocarbamol could be considered. The patient has tried mo re sedating muscle relaxants and did not like the sedation they caused. 2. Fibromyalgia or myofascial pain was discussed. Although I did not diagnose his with fibr omyalgia we did discuss that it is something that would cause widespread pain and difficulty sleeping as he complains of at this time. 3. It was suggested that he may be a candidate for a spinal cord stimulator trial. He was advised that I would not offer a spinal cord stimulator trial at this time as his pain is so diffuse and really at this time the back and leg pain is not the greatest issue. 4. Trigger point injections were discussed in detail with the patient today. He reports angelique t he would rather avoid this for now but it may be something to consider in the future. ELECTRONICALLY EDITED AND SIGNED BY: Joo Haynes MD, 07/27/2016 Philip Lafleur am personally taking down the notes in presence of Dr. Joo Haynes on 07/27/2016 documented in this encounter Plan of Treatment Not on filedocumented as of this encounter Visit Diagnoses + + | Diagnosis | + + | Chronic pain disorder - Primary Chronic pain syndrome | + + | Chronic neck pain Cervicalgia | + + | S/P cervical spinal fusion Arthrodesis status | + + | Chronic bilateral low back pain with bilateral sciatica | + + | S/P lumbar fusion Arthrodesis status | + + documented in this encounter
--- OUTSIDE RECORDS SUMMARY | ~2019-08-29 | XMS | Encounter Summary ---
Demographics + + + | Address | [address] | | | [place] [address] | + + + | Home Phone | | + + + | Preferred Language | Unknown | + + + | Marital Status | | + + + | Adventism Affiliation | 1013 | + + + | Race | Unknown | + + + | Ethnic Group | Unknown | + + + Author + + + | Author | [facility] | | | and [place] | + + + | Organization | [facility] | | | and [place] | + + + | Address | Unknown | + + + | Phone | Unavailable | + + + Support + + +---------+ + | Name | Relationship | Address | Phone | + + +---------+ + | iLzz Mendoza | ECON | Unknown | | + + +---------+ + Care Team Providers + +------+ + | Care Filing And Polishing Supervisor Name | Role | Phone | + +------+ + | Kade Bermudez MD | PCP | | + +------+ + Encounter Details +--------+ + + + + | Date | Type | Department | Care Team | Description | +--------+ + + + + | 04/03/ | Hospital | [facility] | Hemal Celestin | Lumbar | | 2016 | Encounter | MED CTR XRAY [address] | [address] | radiculopathy; S/P | | | | [place] | [address] | lumbar fusion | | | | [place] [address] | [place] [address] | | | | | [phone] | [phone] | | | | | | | [...] AP and lateral views of lumbar | [facility] | | spine. Posterior pedicle screw and sonia and interbody fusion from | [facility] | | L2-S1. Fixation components are [...] [address] | [place] | [phone] | | [facility] | | [address] | | | - IMAGING | | | | + + + + + documented in this encounter Visit Diagnoses + + | Diagnosis | + + | Lumbar radiculopathy Thoracic or lumbosacral neuritis or radiculitis, unspecified | + + | S/P lumbar fusion Arthrodesis status | + + documented in this encounter"
--- OUTSIDE RECORDS SUMMARY | ~2019-08-29 | XMS | Encounter Summary ---
Demographics + + + | Address | [address] | | | [place] [address] | + + + | Home Phone [...] | Author | [facility] | | | and [place] | + + + | Organization | [facility] | | | and [...] Team Providers + +------+ + | Care Clinical Engineer Name | Role | Phone | + +------+ + | Kade Bermudez MD | PCP | | + +------+ + Encounter Details +--------+ + + + + | Date | Type | Department | Care Team | Description | +--------+ + + + + | 03/01/ | [facility] | [facility] | Domingo Carlson MD | | | 2016 | Encounter | MED CTR LABORATORY | [address] | | | | | [address] | [place] [address] | | | | | [place] | [phone] | | | | | [address] | | | | | | [phone] | | | +--------+ + + + [...]
--- OUTSIDE RECORDS SUMMARY | ~2019-08-29 | XMS | Encounter Summary ---
Demographics + + + | Address | [address] | | | [place] [address] | + + + | Home Phone | | + + + | Preferred Language | Unknown | + + + | Marital Status | | + + + | Evangelical Affiliation | 1013 | + + + | Race | Unknown | + + + | Ethnic Group | Unknown | + + + Author + + + | Author | [facility] | | | and [place] | + + + | Organization | [facility] | | | and [...] Team Providers + +------+ + | Care Head Of Ict Name | Role | Phone | + +------+ + PCP | Unavailable | + +------+ + Encounter Details +--------+ + + + + | Date | Type | Department | Care Team | Description | +--------+ + + + + | 02/21/ | Hospital | [facility] | | | | 2011 | Encounter | MED CTR MP INTRA OP | | | | | | [address] | | | | | | [place] | | | | | | [address] | | | | | | [phone] | | | +--------+ + + + [...]
--- OUTSIDE RECORDS SUMMARY | ~2019-08-29 | XMS | Encounter Summary ---
Demographics + + + | Address | [address] | | | [place] [address] | + + + | Home Phone | | + + + | Preferred Language | Unknown | + + + | Marital Status | | + + + | Quaker Affiliation | 1013 | + + + | Race | Unknown | + + + | Ethnic Group | Unknown | + + + Author + + + | Author | [facility] | | | and [place] | + + + | Organization | [facility] | [...] Team Providers + +------+ + | Care Rfid Developer Name | Role | Phone | [...] NEUROSURGERY [address] | FMD [address] | | | | | [address] | [place], [place] | | | | | [place], [place] | [address] | | | | | [address] | [phone] | | | | | [phone] | | | +--------+--------+ + + + [...]
--- OUTSIDE RECORDS SUMMARY | ~2019-08-29 | XMS | Encounter Summary ---
Demographics + + + | Address | [address] | | | [place] [address] | + + + | Home Phone [...] | Author | [facility] | | | and [place] | + + + | Organization | [facility] [...] Team Providers + +------+ + | Care Bus And Rail Operator Name | Role | Phone | + +------+ + | Kade Bermudez MD | PCP | | + +------+ + Encounter Details +--------+ + + + + | Date | Type | Department | Care Team | Description | +--------+ + + + + | 12/16/ | Hospital | [facility] | Sawyer Petersen | Status post lumbar | | 2012 - | Encounter | MED CTR XRAY [address] | F[address] | spinal fusion | | | | [address] [place] | [place] | | | 12/18/ | | [place] [address] | [address] | | | 2012 | | [phone] | | | | | | | [...] Performed At | + + + | [facility] | [place] | | Department [address] [place], [place] [address] [facility] | | [ rep [address]] [ rep [facility] | | st zip] Signed | - IMAGING | | | | | Patient Name: MAL MENDOZA Physician: | | | MILI.[birth year] : 1950 Age: 62 Sex: M Unit #: [id number] | | | Exam Date: 12/16/12 Location: [facility] | | | Report #: [id number] Page: | | | %(RAD)RES..mtdd.print.filter("pg") of %(RAD) | | | RES..mtdd.print.filter("tpg") | | | | | | Accession Number: [id number] | | | LUMBAR SPINE LIMITED X-RAY [...] Transcribed Date/Time: | | | 12/16/2012 11:41 Critical Power Technician: | | | <<Signature on File>> | | | Domingo | | | Micky Corral MD12/17/12 0737 <Electronically signed by Domingo Weeks | | | Ellis GARG> Domingo Corral MD 12/16/12 1124 | | | Critical Power Technician: Jack Limon12/16/12 1141 | | | Sawyer Petersen MD | | + + + + + + + + | Performing | Address | City/State/Zipcode | Phone Number | | Organization | | | | + + + + + | [facility] | [address] | [place] | [phone] | | [facility] | | [address] | | | - IMAGING | | | | + + + + + documented in this encounter Visit Diagnoses + + | Diagnosis | + + | Status post lumbar spinal fusion Arthrodesis status | + + documented in this encounter
--- OUTSIDE RECORDS SUMMARY | ~2019-08-29 | XMS | Encounter Summary ---
Demographics + + + | Address | [address] | | | [place] [address] | + + + | Home Phone | | + + + | Preferred Language | Unknown | + + + | Marital Status | | + + + | Methodist Affiliation | 1013 | + + + | Race | Unknown | + + + | Ethnic Group | Unknown | + + + Author + + + | Author | [facility] | | | and [place] | + + + | Organization | [facility] | | | and [...] Team Providers + +------+ + | Care Pbx Repairer Name | Role | Phone | + +------+ + | Shirley Ghosh MD | PCP | | + +------+ + Encounter Details +--------+ + + + + | Date | Type | Department | Care Team | Description | +--------+ + + + + | 10/29/ | Hospital | [facility] | Sawyer Petersen | | | 2012 - | Encounter | MED CTR SURGICAL | MD Fareed [address] | | | | | [address] [place] | [facility] [place] | | | 10/30/ | | [place] [address] | [address] | | | 2012 | | [phone] | | | | | | | [...] Performed At | + + + | [facility] | [place] | | Department [address] [facility] | [facility] | | [ rep ct [address]] [ rep [facility] | | st zip] Signed | - IMAGING | | | | | Patient Name: MAL MENDOZA Physician: | | | ARRE.[id number] : 1950 Age: 62 Sex: M Unit #: [id number] | | | Exam Date: 10/30/12 Location: [address] [place] [address] | | | Report #: [id number] Page: | | | %(RAD)RES..mtdd.print.filter("pg") of %(RAD) | | | RES..mtdd.print.filter("tpg") | | | | | | Accession Number: [id number] | | | LUMBAR SPINE, 10/30/2012 CLINICAL [...] Transcribed Date/Time: | | | 10/30/2012 11:11 Pathology Manager: | | | <<Signature on File>> | | | | | | Ruddy Hoang MD10/30/12 1419 <Electronically signed by | | | Ruddy Hoang MD> Ruddy Hoang MD 10/30/12 | | | 1107 Pathology Manager: [id number] Knqprwmwwgxqy48/13/13 1111 | | | Sawyer Petersen MD | | + + + + + + + + | Performing | Address | City/State/Zipcode | Phone Number | | Organization | | | | + + + + + | [facility] | [address] | [place] | [phone] | | [facility] | | [address] | | | - IMAGING | | | | + + + + + documented in this encounter Visit Diagnoses Not on filedocumented in this encounter
--- OUTSIDE RECORDS SUMMARY | ~2019-08-29 | XMS | Encounter Summary ---
Demographics + + + | Address | [address] | | | [place] [address] | + + + | Home Phone | | + + + | Preferred Language | Unknown | + + + | Marital Status | | + + + | Adventist Affiliation | 1013 | + + + | Race | Unknown | + + + | Ethnic Group | Unknown | + + + Author + + + | Author | [facility] | | | and [place] | + + + | Organization | [facility] | | | and [place] [...] Team Providers + +------+ + | Care De Ionizer Operator Name | Role | Phone | [...] | S/P lumbar | [place], | [address] | | | | | fusion | PA-C [address] | [place], | | | | | Spondylolist | [address] | [place] [address] | | | | | hesis of | [place], | Phone: | | | | | cervical | [place] [address] | [phone] | | | | | region | Phone: | Fax: | | | | | Cervicalgia | [phone] | [phone] | | | | | Dizziness | Fax: | | | | | | Procedures | [phone] | | | | | | CT [...] S/P lumbar | Sawyer F, | [address] [place] | | | | | fusion | MD [address] | [place], | | | | | Spondylolist | [address] | [place] [address] | | | | | hesis of | [place], | Phone: | | | | | cervical | [place] [address] | [phone] | | | | | region | Phone: | Fax: | | | | | Cervicalgia | [phone] | [phone] | | | | | Dizziness | [phone] Fax: | | | | | | Procedures | | | | | | | CT Angiogram | [phone] | | | | | | Neck w | | | | | | | Contrast | | | +--------+--------+ + + + + Encounter Details +--------+ + + + + | Date | Type | Department | Care Team | Description | +--------+ + + + + | 12/23/ | Hospital | [facility] | Sawyer Petersen | S/P lumbar fusion; | | 2012 - | Encounter | MED CTR XRAY [address] | F[address] | Spondylolisthesis of | | | | [place] | [facility] [place] | cervical region; | | 12/25/ | | [place] [address] | [address] | Cervicalgia; | | 2012 | | [phone] | Dizziness | | | | | [...] | + + + | [facility] | [place] | | Department [facility] [address] [facility] | [facility] | | [ rep ct [address]] [ rep [facility] | | st zip] Signed | - IMAGING | | | | | Patient Name: SHEELA MENDOZA Physician: | | | ARRE.01 : 1950 Age: 62 Sex: M Unit #: [id number] | | | Exam Date: 12/23/12 [place] [facility] | | | Report #: [id number] Page: | | | %(RAD)RES..mtdd.print.filter("pg") of %(RAD) | | | RES..mtdd.print.filter("tpg") | | | | | | Accession Number: [id number] | | | CT CAROTID ANGIOGRAM, 12/23/2012 [...] Transcribed | | | Date/Time: 12/23/2012 14:09 Pocket Builder: | | | <<Signature on File>> | | | [address] | | | Micky Corral MD12/23/12 1635 <Electronically signed by Domingo Weeks | | Mónica Corral MD> Domingo Corral MD 12/23/12 2301 | | | Pocket Builder: [employer] Cesokphhekyca86/08/13 1882 | | | Sawyer Petersen MD | | + + + + + + + + | Performing | Address | City/State/Zipcode | Phone Number | | Organization | | | | + + + + + | [facility] | [address] | [place] | [phone] | | [facility] | | [address] | | | - IMAGING | | [...]
--- OUTSIDE RECORDS SUMMARY | ~2019-08-29 | XMS | Encounter Summary ---
Demographics + + + | Address | [address] | | | [place] [address] | + + + | Home Phone | | + + + | Preferred Language | Unknown | + + + | Marital Status | | + + + | Zoroastrian Affiliation | 1013 | + + + | Race | Unknown | + + + | Ethnic Group | Unknown | + + + Author + + + | Author | [facility] | | | and [place] | + + + | Organization | [facility] | [...] Team Providers + +------+ + | Care Paint Spraying Machine Operator Helper Name | Role | Phone | [...] | | MEDICINE | MD [address] | | | | | [address] | [place] | | | | | [address] [place] | [address] | | | | | [place] [address] | | | | | | [phone] | | | +--------+ + + + [...]
--- OUTSIDE RECORDS SUMMARY | ~2019-08-29 | XMS | Encounter Summary ---
Demographics + + + | Address | [address] | | | [place] [address] | + + + | Home Phone | | + + + | Preferred Language | Unknown | + + + | Marital Status | | + + + | Gnosticist Affiliation | 1013 | + + + | Race | Unknown | + + + | Ethnic Group | Unknown | + + + Author + + + | Author | [facility] | | | and [place] | + + + | Organization | [facility] | | | and [place] [...] Providers + +------+ + | Care Rn Testing Name | Role | Phone | + +------+ + PCP | Unavailable | + +------+ + Encounter Details +--------+ + + + + | Date | Type | Department | Care Team | Description | +--------+ + + + + | 05/20/ | Hospital | [facility] | | | | 1997 - | Encounter | MED CTR OP REHAB | | | | | | [address] [place] | | | | 06/24/ | | [place] [address] | | | | 1997 | | [phone] | | | +--------+ + + + [...]
--- OUTSIDE RECORDS SUMMARY | ~2019-08-29 | XMS | Encounter Summary ---
Demographics + + + | Address | [address] | | | [place] [address] | + + + | Home Phone [...] | Author | [facility] | | | and [place] | + + + | Organization | [facility] | | | and [place] [...] Team Providers + +------+ + | Care Chainstitch Sewing Machine Operator Name | Role | Phone | + +------+ + | Shirley Ghosh MD | PCP | | + +------+ + Reason for Referral Rehabilitation (Routine) +--------+ + + + + + | Status | Reason | Specialty | Diagnoses / | Referred By | Referred To | | | | | Procedures | Contact | Contact | +--------+ + + + + + | Closed | Specialty | Physical | Diagnoses | Justin, | Nino Anderson | | | Services | Medicine and | Occipital | Nino Floyd MD | Micky Floyd MD [address] | | | Required | Rehabilitatio | neuralgia | [address] | | | | n | | [address] | [place], | | | | | | [place], | [place] [address] | | | | | | [place] [address] | Phone: | | | | | | Phone: | [phone] | | | | | | [phone] | Fax: | | | | | | Fax: | [phone] | | | | | | [phone] | | +--------+ + + + + + Evaluate & Treat (Routine) +--------+ + + + + + | Status | Reason | Specialty | Diagnoses / | Referred By | Referred To | | | | | Procedures | Contact | Contact | +--------+ + + + + + | Closed | Specialty | Physical | Diagnoses | [place], | | | | Services | Therapy | Lumbar | Nino Floyd MD | | | | Required | | radiculopath | [address] | | | | | | y Lumbar | [address] | | | | | | spinal | [place], | | | | | | stenosis | [place] [address] | | | | | | | Phone: | | | | | | | [phone] | | | | | | | Fax: | | | | | | | [phone] | | +--------+ + + + + + Rehabilitation (Routine) +--------+ + + + + + | Status | Reason | Specialty | Diagnoses / | Referred By | Referred To | | | | | Procedures | Contact | Contact | +--------+ + + + + + | Closed | Specialty | Physical | Diagnoses | Justin, | [place], | | | Services | Medicine and | Lumbar | Nino Floyd MD | Joo Garrett MD | | | Required | Rehabilitatio | radiculopath | [address] | | | | n | y Lumbar | [address] | [address] [place] | | | | | spinal | [place], | [place] | | | | | stenosis | [place] [address] | [address] Phone: | | | | | | Phone: | [phone] | | | | | | [phone] | Fax: | | | | | | Fax: | [phone] | | | | | | [phone] | | +--------+ + + + + + Reason for Visit + + + | Reason | Comments | + + + | Back Pain | low back pain | + + + | Neck Pain | prior fusion C6-7 | + + + | Tingling | bilateral fingers | + + + Encounter Details +--------+---------+ + + + | Date | Type | Department | Care Team | Description | +--------+---------+ + + + | 06/12/ | Office | [facility] | Nino Anderson, | Lumbar spinal | | 2011 | Visit | MEDICINE | [address] | stenosis (Primary | | | | [facility] [address] | [place] | Dx); Cervical spinal | | | | [address] [place] | [address] | stenosis; Lumbar | | | | [place] [address] | | radiculopathy; | | | | [phone] | | Chronic tension | | | | | | headaches; Occipital | | | | | | neuralgia | +--------+---------+ + + + Social History [...] 86 | + +---+---+ + + + | Tobacco Cessation: Counseling Given: [...] + + + | Blood Pressure | 130/80 | 06/12/2012 10:47 AM | | | | | PDT | | + + + + + | Pulse | 62 | 06/12/2012 10:47 AM | | | | | PDT | | + + + + + | Temperature | - | - | | + + + + + | Respiratory Rate | 16 | 06/12/2012 10:47 AM | | | | | PDT | | + + + + + | Oxygen Saturation | - | - | | + + + + + | Inhaled Oxygen | - | - | | | Concentration | | | | + + + + + | Weight | 83.9 kg (184 lb 14.4 | 06/12/2012 10:47 AM | | | | oz) | PDT | | + + + + + | Height | 182.9 cm (6') | 06/12/2012 10:47 AM | | | | | PDT | | + + + + + | Body Mass Index | 25.08 | 06/12/2012 10:47 AM | | | | | PDT | | + + + + + documented in this encounter Patient Instructions Patient Instructions Nino Anderson MD - 06/12/2012 11:49 AM PDTGo to physical therapy. Get lumbar epidural steroid injections with Joo Haynes MD Start nortriptyline. Return for greater occipital nerve blocks.Electronically signed by Nino Anderson MD at 11:57 AM PDT documented in this encounter Progress Notes Nino Anderson MD - 06/12/2012 11:15 AM PDTFormatting of this note might be different fro m the original. Subjective: Patient ID: Mal Mendoza is a 62 y.o. male. Back Pain This is a chronic problem. The current episode started more than 1 year ago. The problem oc curs constantly. The problem has been gradually worsening since onset. The pain is present i n the lumbar spine and sacro-iliac. The quality of the pain is described as aching. Radiates to: radiates to both lower extremities. The pain is worse in the left lower extremity comp ared to the right. In both lower extretmities the pain travels over the posterior htigh and posterior forelegs bilaterally. The pain does not radiatte to the feet. The pain is at a s everity of 5/10. The pain is moderate. The pain is the same all the time. The symptoms are a ggravated by bending, standing, twisting, sitting and lying down. Stiffness is present all d ay. Associated symptoms include leg pain, numbness and tingling. Pertinent negatives include no bladder incontinence, chest pain, dysuria, fever, paresis, paresthesias, pelvic pain, pe rianal numbness, weakness or weight loss. He has tried chiropractic manipulation, heat, ice, NSAIDs and analgesics for the symptoms. The treatment provided mild relief. Neck Pain This is a chronic problem. The current episode started more than 1 year ago. The problem oc curs constantly. The problem has been unchanged. The pain is associated with lifting a heavy object. The pain is present in the right side, midline, left side and occipital region. The quality of the pain is described as aching. The pain is at a severity of 2/10. The pain is mild. The symptoms are aggravated by twisting, coughing, sneezing and position. The pain is same all the time. Stiffness is present at night. Associated symptoms include leg pain, numb ness and tingling. Pertinent negatives include no chest pain, fever, paresis, trouble swallo wing, weakness or weight loss. He has tried chiropractic manipulation, NSAIDs, acetaminophen and home exercises (right C6-7 foraminotomy 1997) for the symptoms. The treatment provided significant (pain improved after surgery in 1997 but slowly getting worse over time) relief. Headaches He reports having headaches all day every day. The headache is a constant dull pressure. It has been present for years. It is associated with tight muscles in his neck. The pain i s occipital in location. Headaches are worse on the left compared to the right. He reports photophobia and sonophobia with his headaches. He denies nausea and vomiting with his head aches. He denies headaches being triggered by anything other than increased neck muscle ton e. He reports paresthesia in the occipital region at times associated with his headaches. Past Medical History Diagnosis Date Ulcer GERD (gastroesophageal reflux disease) Depression ADHD (attention deficit hyperactivity disorder) ADHD (attention deficit hyperactivity disorder) Cervical spinal stenosis 06/12/2012 Lumbar radiculopathy 06/12/2012 Past Surgical History Procedure Date Knee arthroscopy 04/09/98 Elbow arthroscopy 1991 Shoulder arthroscopy 2005 Spine surgery [address] C[address] Jules Family History Problem Relation Age of Onset Diabetes Mother High blood pressure Mother Other (See Comment) Father polio History Social History Marital Status: Spouse Name: N/A Number of Children: N/A Years of Education: N/A Social History Main Topics Smoking status: Former Smoker -- 3.0 packs/day Quit date: 06/12/1985 Smokeless tobacco: Former User Quit date: 06/12/1985 Alcohol Use: 1.8 oz/week 3 Cans of beer per week Drug Use: Sexually Active: Other Topics Concern None Social History Narrative None No current outpatient prescriptions on file. No Known Allergies Review of Systems Constitutional: Negative for fever, chills, weight loss and unexpected weight change. HENT: Positive for neck pain. Negative for rhinorrhea, trouble swallowing and voice change. Eyes: Negative for discharge. Respiratory: Negative for shortness of breath. Cardiovascular: Negative for chest pain. Gastrointestinal: Negative for nausea, vomiting, diarrhea and constipation. Genitourinary: Negative for bladder incontinence, dysuria, urgency, difficulty urinating an d pelvic pain. Musculoskeletal: Positive for back pain. Negative for gait problem. Skin: Negative for rash and wound. Neurological: Positive for tingling and numbness. Negative for syncope, speech difficulty, weakness and paresthesias. Hematological: Negative for adenopathy. Psychiatric/Behavioral: Negative for suicidal ideas. All other systems reviewed and are negative. Objective: Physical Exam BP 130/80 | Pulse 62 | Resp 16 | Ht 1.829 m (6') | Wt 83.87 kg (184 lb 14.4 oz) | BMI 25.08 kg/m2 GEN: Alert & Oriented x 3, no acute distress HEENT: Extraocular muscles intact, pupils equal and reactive to light and accomodation, scl era clear NECK: Limitedl range of motion, severe tenderness over greater occipital nerves with repro duction of headaches, increased cervical paraspinal muscle tone on the left, Spurling's test negative bilaterally HEART: Regular rate and rhythm, no murmurs, no gallops LUNGS: Clear to auscultation bilaterally, no wheezing, no crackles ABDOMIN: Non tender, non distended, positive for bowel sounds BACK: Symmetric, no tenderness to palpation, normal muscle tone, seated straight leg raise negative bilaterally, Morgan's test negative bilaterally EXT: No clubbing, cyanosis or edema in all four extremities. NEURO: Alert and oriented, cranial nerves intact, speech normal, concentration intact, bruce ry intact. Sensory intact to light touch and pin prick in all four extremities. Strength i s normal 5/5 in both upper extremities with biceps, triceps, wrist dorsiflexion, finger abdu ction, and hand tinning equipment tender bilaterally. Strength is normal 5/5 in both lower extremities with hip flexion, knee flexion, knee extension, ankle dorsiflexion, ankle plantar flexion and EHL. Deep tendon reflexes are 2+ in both upper extremities over the biceps, triceps, and brachior adialis bilaterally. Deep tendon reflexes are 2+ in both lower extremities over the patella and Achilles. Babinski's was down going bilaterally. There was no clonus at either ankle. Gait was normal. Romberg was negative. Muscle tone is normal in all four extremities. Assessment: 1. Lumbar spinal stenosis 2. Cervical spinal stenosis 3. Lumbar radiculopathy 4. Chronic tension headaches 5. Occipital neuralgia Plan: He will start medication nortriptyline which may be helpful for neck pain, neck muscle tone , headaches, back pain and radicular symptoms into lower extremities. It may also be helpfu l for his insomnia. He was instructed how to taper up the medication and to stop tapering u p at the lowest effective dose. He will have a course of physical therapy with spinal stabi lization for his lumbar spine. The therapy will be aquatic based. He reports that he has n ot had therapy for his low back. He will have bilateral L4-5 Trans foraminal epidural stero id injections for L3-4 and L4-5 spinal stenosis and lumbar radiculopathy. He will return to my clinic for bilateral greater occipital nerve blocks which may reduce his headaches and n fabby pain. Approximately 45 minutes was spent face to face with Mal Mendoza, over half of which was s pent formulating and discussing their medical treatment plan. Nino Anderson MD (Jr.) arker, Shamika Floyd RN - 06/12/2012 11:04 AM PDTLow back pain radiates to BLE, worse in LLE x 25 years. Neck pain p ost fusion in 1997 with parasthesia in bilateral fingers. documented in this encounter Plan of Treatment + + +--------+ + + | Name | Type | Priori | Associated Diagnoses | Order Schedule | | | | ty | | | + + +--------+ + + | Ambulatory referral | Outpatient | Routin | Lumbar | Ordered: 06/12/2012 | | to Physical Medicine | Referral | e | radiculopathy | | | Rehab | | | Lumbar spinal | | | | | | stenosis | | + + +--------+ + + | Ambulatory referral | Outpatient | Routin | Lumbar | Ordered: 06/12/2012 | | to Physical Therapy | Referral | e | radiculopathy | | | | | | Lumbar spinal | | | | | | stenosis | | + + +--------+ + + | Ambulatory referral | Outpatient | Routin | Occipital | Ordered: 06/12/2012 | | to Physical Medicine | Referral | e | neuralgia | | | Rehab | | | | | + + +--------+ + + documented as of this encounter Visit Diagnoses + + | Diagnosis | + + | Lumbar spinal stenosis - Primary Spinal stenosis, lumbar region, without neurogenic | | claudication | + + | Cervical spinal stenosis Spinal stenosis in cervical region | + + | Lumbar radiculopathy Thoracic or lumbosacral neuritis or radiculitis, unspecified | + + | Chronic tension headaches Chronic tension type headache | + + | Occipital neuralgia Other syndromes affecting cervical region | + + documented in this encounter"
--- OUTSIDE RECORDS SUMMARY | ~2019-08-29 | XMS | Encounter Summary ---
Demographics + + + | Address | [address] | | | [place] [address] | + + + | Home Phone [...] Author | [facility] | | | and [place] | + + + | Organization | [facility] | | | and [...] Team Providers + +------+ + | Care Master Merchandiser Name | Role | Phone | + +------+ + PCP | Unavailable | + +------+ + Encounter Details +--------+ + + + + | Date | Type | Department | Care Team | Description | +--------+ + + + + | 11/17/ | Hospital | [facility] | Shirley Ghosh | | | 2009 | Encounter | [facility] | MD [address] | | | | | [address] [place] | [facility], | | | | | [place], [place] | [place] [address] | | | | | [address] | [phone] | | | | | [phone] | | | +--------+ + + + [...]
--- OUTSIDE RECORDS SUMMARY | ~2019-08-29 | XMS | Encounter Summary ---
Demographics + + + | Address | [address] | | | [place] [address] | + + + | Home Phone [...] | [facility] | | | and [place] | + + + | Organization | [facility] | | | and [place] [...] Team Providers + +------+ + | Care Leather Softener Name | Role | Phone | + [...] [place] | | | | | | [address] | | | | | | [phone] | | | +--------+ + + + [...]
--- OUTSIDE RECORDS SUMMARY | ~2019-08-29 | XMS | Encounter Summary ---
Demographics + + + | Address | [address] | | | [place] [address] | + + + | Home Phone [...] Author | [facility] | | | and [place] | + + + | Organization | [facility] | | [...] Team Providers + +------+ + | Care Geotechnician Name | Role | Phone | + +------+ + | Kade Bermudez MD | PCP | | + +------+ + Encounter Details +--------+ + + + + | Date | Type | Department | Care Team | Description | +--------+ + + + + | 09/26/ | Hospital | [facility] | Dileep, | Acute intractable | | 2016 | Encounter | [facility] | MD [address] | headache, | | | | CLINICAL DECISION | [address] | unspecified headache | | | | [address] | [place] [address] | type; Fever, | | | | [place], [place] | [phone] | unknown origin | | | | [address] | | | | | | [phone] | | | +--------+ + + + [...] Summaries by Anand Contreras MD at 09/26/15 8606 Author: Anand Contreras MD Service: Hospitalist Author Type: Physician Filed: 09/26/15 9408 Date of Service: 09/26/159 Status: Signed Vice President Sales: Anand Contreras MD (Physician) [facility]: Hospitalist Discharge Summary Date of Admission: [...] use, chronic headaches who was transferred from [place] because of acut e worsening headaches. He usually uses oxycodone for his pain. His headache was described to be 10 out of 10. He denies having any slurring of speech, numbness, or weakness of extremit ies. Reportedly, he had a temperature of 101 Fahrenheit. Computed axial tomography scan from [place] was negative for acute intracranial abnormality. Lumbar puncture was negative as well. He was subsequently transferred to [facility] for further management. The patient was [...] advised him to follow up with [facility] to discuss his pain regimen. Consider [...] file. Follow up: Kade Bermudez MD [address] [place] [address] Schedule an appointment as soon as possible for a visit in 1 week post hospital follow up Medication List START taking these medications elbbgjuhnb-oszsunmrilonn-qfdzdyud 50-325-40 MG per tablet QTY: 30 tablet [...] are the prescriptions that you need to [employer]ers material [employer]. You may get the following medications from any pharmacy - kwpuwexsqn-noowjbudzenol-phjkfiqj 50-325-40 MG per tablet Discharge took 45 [...] Note by Soraida Perry RN at 09/26/15 4374 Author: Soraida Perry RN Service: (none) Author Type: Registered Nurse Filed: 09/26/15 1559 Date of Service: 09/26/151557 Status: Signed Vice President Sales: Soraida Perry RN (Registered Nurse) Verbal to [...] Date of Service: 09/26/15 1100 Status: Signed Vice President Sales: Soraida Perry RN (Registered Nurse) During am [...] 0638 Date of Service: 09/26/15625 Status: Signed Vice President Sales: Ayaka Carbajal RN (Registered Nurse) Picked up [...] AM PST Progress Notes by Radha Galindo [facility] at 09/26/15 0513 Author: Radha Galindo RPH Service: (none) Author Type: Pharmacist Filed: 09/26/15512 Date of Service: 09/26/15512 Status: Signed Vice President Sales: Radha Galindo RPH (Pharmacist) Clinical Pharmacy Note: [...] HAND | | | Testing performed at [facility];888 | | | [address] [facility];[place] [address] CULTURE | | | NO GROWTH 6 DAYS | | | Testing performed at [facility], [address], | | | [place] [address] | | + + + + +---------+ [...] RAC | | | Testing performed at [facility];888 | | | [facility];[place] [address] CULTURE | | | NO GROWTH 6 DAYS | | | Testing performed at [facility], [address] [facility], | | | [place] [address] | | + + + + +---------+ [...] EXTERNAL | | | | performed at [facility], [address] | K/uL | LAB | | | | [address], | | | | | | [place] [address] | | | | + + + + + + | RED CELL | 4.62Comment: Testing | 4.20 - 5.70 | EXTERNAL | | | COUNT | performed at [facility], [address] | M/uL | LAB | | | | [address], | | | | | | [place] [address] | | | | + + + + + + | Hgb | 14.1Comment: Testing | 13.2 - 17.0 | EXTERNAL | | | | performed at [facility], [address] | g/dL | LAB | | | | [address], | | | | | | [place] [address] | | | | + + + + + + | Hematocrit, | 41.5Comment: Testing | 39.0 - 50.0 % | EXTERNAL | | | POC | performed at [facility], [address] | | LAB | | | | [address], | | | | | | [place] [address] | | | | + + + + + + | MCV | 89.9Comment: Testing | 80.0 - 100.0 fl | EXTERNAL | | | | performed at [facility], [address] | | LAB | | | | [address], | | | | | | [place] [address] | | | | + + + + + + | MCH | 30.6Comment: Testing | 27.0 - 34.0 pg | EXTERNAL | | | | performed at [facility], [address] | | LAB | | | | [address], | | | | | | [place] [address] | | | | + + + + + + | MCHC | 34.0Comment: Testing | 32.0 - 35.5 | EXTERNAL | | | | performed at [facility], [address] | g/dL | LAB | | | | [address], | | | | | | [place] [address] | | | | + + + + + + | RDW-CV | 41.1Comment: Testing | 37 - 53 fl | EXTERNAL | | | | performed at [facility], [address] | | LAB | | | | [address], | | | | | | [place] [address] | | | | + + + + + + | Platelet | 202Comment: Testing | 150 - 400 K/uL | EXTERNAL | | | Count | performed at [facility], [address] | | LAB | | | Plasma | [address], | | | | | | [place] [address] | | | | + + + + + + | MPV | 8.5Comment: Testing | fl | EXTERNAL | | | | performed at [facility], [address] | | LAB | | | | [address], | | | | | | [place] [address] | | | | + + + + + + | Differentia | AUTOMATEDComment: | | EXTERNAL | | | l Type | Testing performed at | | LAB | | | | [facility], [address] | | | | | | [place] | | | | | | [address] | | | | + + + + + + | % Segmented | 84.91Comment: Testing | % | EXTERNAL | | | | performed at [facility], [address] | | LAB | | | Neutrophils | [address], | | | | | | [place] [address] | | | | + + + + + + | % | 12.52Comment: Testing | % | EXTERNAL | | | Lymphocytes | performed at [facility], [address] | | LAB | | | | [address], | | | | | | [place] [address] | | | | + + + + + + | % Monocytes | 2.49Comment: Testing | % | EXTERNAL | | | | performed at [facility], [address] | | LAB | | | | [address], | | | | | | [place] [address] | | | | + + + + + + | % | 0.00Comment: Testing | % | EXTERNAL | | | Eosinophils | performed at [facility], [address] | | LAB | | | | [address], | | | | | | [place] [address] | | | | + + + + + + | % Basophils | 0.08Comment: Testing | % | EXTERNAL | | | | performed at [facility], [address] | | LAB | | | | [address], | | | | | | [place] [address] | | | | + + + + + + | Absolute | 3.57Comment: Testing | 1.90 - 7.40 | EXTERNAL | | | Segmented | performed at [facility], [address] | K/uL | LAB | | | Neutrophils | [address], | | | | | | [place] [address] | | | | + + + + + + | Absolute | 0.53 (L)Comment: Testing | 1.00 - 3.90 | EXTERNAL | | | Lymphocytes | performed at [facility], [address] | K/uL | LAB | | | | [address], | | | | | | [place] [address] | | | | + + + + + + | Absolute | 0.11Comment: Testing | 0.00 - 0.80 | EXTERNAL | | | Monocytes | performed at [facility], [address] | K/uL | LAB | | | | [address], | | | | | | [place] [address] | | | | + + + + + + | Absolute | 0.00Comment: Testing | 0.00 - 0.50 | EXTERNAL | | | Eosinophils | performed at [facility], [address] | K/uL | LAB | | | | [address], | | | | | | [place] [address] | | | | + + + + + + | Absolute | 0.00Comment: Testing | 0.00 - 0.10 | EXTERNAL | | | Basophils | performed at [facility], [address] | K/uL | LAB | | | | [address], | | | | | | [place] [address] | | | | + + + [...] EXTERNAL | | | | performed at [facility], [address] | | LAB | | | | [address], | | | | | | [place] [address] | | | | + + + [...] EXTERNAL | | | | performed at [facility], [address] | | LAB | | | | [address], | | | | | | [place] [address] | | | | + + + [...] | | | | | [place] [address] | | | | + + + + + + | K | 4.2Comment: Testing | 3.5 - 4.9 | EXTERNAL | | | | performed at [facility], [address] | mmol/L | LAB | | | | [address], | | | | | | [place] [address] | | | | + + + + + + | Cl | 102Comment: Testing | 99 - 109 mmol/L | EXTERNAL | | | | performed at [facility], [address] | | LAB | | | | [address], | | | | | | [place] [address] | | | | + + + + + + | CO2 | 24Comment: Testing | 23 - 32 mmol/L | EXTERNAL | | | | performed at [facility], [address] | | LAB | | | | [address], | | | | | | [place] [address] | | | | + + + + + + | Anion Gap | 11Comment: Testing | 5 - 20 mmol/L | EXTERNAL | | | | performed at [facility], [address] | | LAB | | | | [address], | | | | | | [place] [address] | | | | + + + + + + | Glucose, | 131 (H)Comment: Testing | 65 - 99 mg/dL | EXTERNAL | | | Fasting | performed at [facility], [address] | | LAB | | | | [address], | | | | | | [place] [address] | | | | + + + + + + | BUN | 11Comment: Testing | 8 - 25 mg/dL | EXTERNAL | | | | performed at [facility], [address] | | LAB | | | | [address], | | | | | | [place] [address] | | | | + + + + + + | Creatinine | 0.74Comment: Testing | 0.70 - 1.30 | EXTERNAL | | | | performed at [facility], [address] | mg/dL | LAB | | | | [address], | | | | | | [place] [address] | | | | + + + + + + | BUN/Creatin | 15Comment: Testing | | EXTERNAL | | | ine Ratio | performed at [facility], [address] | | LAB | | | | [address], | | | | | | [place] [address] | | | | + + + + + + | Calcium | 8.3 (L)Comment: Testing | 8.5 - 10.5 | EXTERNAL | | | | performed at [facility], [address] | mg/dL | LAB | | | | [address], | | | | | | [place] [address] | | | | + + + + + + | Protein, | 6.6Comment: Testing | 6.3 - 8.2 g/dL | EXTERNAL | | | Total | performed at [facility], [address] | | LAB | | | | [address], | | | | | | [place] [address] | | | | + + + + + + | Albumin | 3.4Comment: Testing | 3.3 - 4.8 g/dL | EXTERNAL | | | | performed at [facility], [address] | | LAB | | | | [address], | | | | | | [place] [address] | | | | + + + + + + | Globulin | 3.2Comment: Testing | 1.3 - 4.9 g/dL | EXTERNAL | | | | performed at [facility], [address] | | LAB | | | | [address], | | | | | | [place] [address] | | | | + + + + + + | A/G Ratio | 1.1Comment: Testing | 1.0 - 2.4 | EXTERNAL | | | | performed at [facility], [address] | | LAB | | | | [address], | | | | | | [place] [address] | | | | + + + + + + | Bilirubin | 0.5Comment: Testing | 0.1 - 1.5 mg/dL | EXTERNAL | | | Total | performed at [facility], [address] | | LAB | | | | [address], | | | | | | [place] [address] | | | | + + + + + + | ALP, | 56Comment: Testing | 35 - 115 U/L | EXTERNAL | | | External | performed at [facility], [address] | | LAB | | | | [address], | | | | | | [place] [address] | | | | + + + + + + | AST | 22Comment: Testing | 10 - 45 U/L | EXTERNAL | | | | performed at [facility], [address] | | LAB | | | | [address], | | | | | | [place] [address] | | | | + + + + + + | ALT | 19Comment: Testing | 10 - 65 U/L | EXTERNAL | | | | performed at [facility], [address] | | LAB | | | | [address], | | | | | | [place] [address] | | | | + + + [...] | | | | | | [place] [address] | | | | + + + [...] EXTERNAL | | | | performed at [facility];[address] | K/uL | LAB | | | | [address];[place] | | | | | | [address] | | | | + + + + + + | RED CELL | 4.85Comment: Testing | 4.20 - 5.70 | EXTERNAL | | | COUNT | performed at [facility];[address] | M/uL | LAB | | | | [address];[place] | | | | | | [address] | | | | + + + + + + | Hgb | 15.0Comment: Testing | 13.2 - 17.0 | EXTERNAL | | | | performed at [facility];888 | g/dL | LAB | | | | [address];[place] | | | | | | [address] | | | | + + + + + + | Hematocrit, | 43.5Comment: Testing | 39.0 - 50.0 % | EXTERNAL | | | POC | performed at [facility];[address] | | LAB | | | | [address];[place] | | | | | | [address] | | | | + + + + + + | MCV | 89.7Comment: Testing | 80.0 - 100.0 fl | EXTERNAL | | | | performed at [facility];[address] | | LAB | | | | [address];[place] | | | | | | [address] | | | | + + + + + + | MCH | 30.9Comment: Testing | 27.0 - 34.0 pg | EXTERNAL | | | | performed at [facility];[address] | | LAB | | | | [address];[place] | | | | | | [address] | | | | + + + + + + | MCHC | 34.4Comment: Testing | 32.0 - 35.5 | EXTERNAL | | | | performed at [facility];888 | g/dL | LAB | | | | [address];[place] | | | | | | [address] | | | | + + + + + + | RDW-CV | 40.7Comment: Testing | 37 - 53 fl | EXTERNAL | | | | performed at [facility];[address] | | LAB | | | | [address];[place] | | | | | | [address] | | | | + + + + + + | Platelet | 190Comment: Testing | 150 - 400 K/uL | EXTERNAL | | | Count | performed at [facility];[address] | | LAB | | | Plasma | [address];[place] | | | | | | [address] | | | | + + + + + + | MPV | 7.7Comment: Testing | fl | EXTERNAL | | | | performed at [facility];[address] | | LAB | | | | [address];[place] | | | | | | [address] | | | | + + + + + + | Differentia | AUTOMATEDComment: | | EXTERNAL | | | l Type | Testing performed at | | LAB | | | | [facility];[address];[place] [address] | | | | + + + + + + | % Segmented | 87.55Comment: Testing | % | EXTERNAL | | | | performed at [facility];[address] | | LAB | | | Neutrophils | [address];[place] | | | | | | [address] | | | | + + + + + + | % | 9.84Comment: Testing | % | EXTERNAL | | | Lymphocytes | performed at [facility];[address] | | LAB | | | | [address];[place] | | | | | | [address] | | | | + + + + + + | % Monocytes | 2.19Comment: Testing | % | EXTERNAL | | | | performed at [facility];[address] | | LAB | | | | [address];[place] | | | | | | [address] | | | | + + + + + + | % | 0.03Comment: Testing | % | EXTERNAL | | | Eosinophils | performed at [facility];[address] | | LAB | | | | [address];[place] | | | | | | [address] | | | | + + + + + + | % Basophils | 0.39Comment: Testing | % | EXTERNAL | | | | performed at [facility];[address] | | LAB | | | | [address];[place] | | | | | | [address] | | | | + + + + + + | Absolute | 4.63Comment: Testing | 1.90 - 7.40 | EXTERNAL | | | Segmented | performed at [facility];[address] | K/uL | LAB | | | Neutrophils | [address];[place] | | | | | | [address] | | | | + + + + + + | Absolute | 0.52 (L)Comment: Testing | 1.00 - 3.90 | EXTERNAL | | | Lymphocytes | performed at [facility];[address] | K/uL | LAB | | | | [address];[place] | | | | | | [address] | | | | + + + + + + | Absolute | 0.12Comment: Testing | 0.00 - 0.80 | EXTERNAL | | | Monocytes | performed at [facility];[address] | K/uL | LAB | | | | [address];[place] | | | | | | [address] | | | | + + + + + + | Absolute | 0.00Comment: Testing | 0.00 - 0.50 | EXTERNAL | | | Eosinophils | performed at [facility];[address] | K/uL | LAB | | | | [address];[place] | | | | | | [address] | | | | + + + + + + | Absolute | 0.02Comment: Testing | 0.00 - 0.10 | EXTERNAL | | | Basophils | performed at [facility];[address] | K/uL | LAB | | | | [address];[place] | | | | | | [address] | | | | + + + + + + | RBC | RBC AND PLT MORPHOLOGY | | EXTERNAL | | | Morphology | APPEAR NORMALComment: | | LAB | | | | Testing performed at | | | | | | [facility];[address];[place] [address] | | | | + + + + + + | Platelet | ADEQUATEComment: Testing | | EXTERNAL | | | Estimate | performed at [facility];[address] | | LAB | | | | [address];[place] | | | | | | [address] | | | | + + + + + + | Differentia | SLIDE SCANNED, AGREES | | EXTERNAL | | | l Comments | WITH AUTOMATED | | LAB | | | | RESULTS.Comment: Testing | | | | | | performed at [facility];[address] | | | | | [address];[place], [place] | | | | | | [address] | | | | + + + [...] EXTERNAL | | | | performed at [facility];888 | mmol/L | LAB | | | | [address];[place] | | | | | | [address] | | | | + + + + + + | K | 4.1Comment: Testing | 3.5 - 4.9 | EXTERNAL | | | | performed at [facility];888 | mmol/L | LAB | | | | [address];[place] | | | | | | [address] | | | | + + + + + + | Cl | 100Comment: Testing | 99 - 109 mmol/L | EXTERNAL | | | | performed at [facility];[address] | | LAB | | | | [address];[place] | | | | | | [address] | | | | + + + + + + | CO2 | 24Comment: Testing | 23 - 32 mmol/L | EXTERNAL | | | | performed at [facility];[address] | | LAB | | | | [address];[place] | | | | | | [address] | | | | + + + + + + | Anion Gap | 12Comment: Testing | 5 - 20 mmol/L | EXTERNAL | | | | performed at [facility];[address] | | LAB | | | | [address];[place] | | | | | | [address] | | | | + + + + + + | Glucose, | 132 (H)Comment: Testing | 65 - 99 mg/dL | EXTERNAL | | | Fasting | performed at [facility];[address] | | LAB | | | | [address];[place] | | | | | | [address] | | | | + + + + + + | BUN | 11Comment: Testing | 8 - 25 mg/dL | EXTERNAL | | | | performed at [facility];[address] | | LAB | | | | [address];[place] | | | | | | [address] | | | | + + + + + + | Creatinine | 0.93Comment: Testing | 0.70 - 1.30 | EXTERNAL | | | | performed at [facility];888 | mg/dL | LAB | | | | [address];[place] | | | | | | [address] | | | | + + + + + + | BUN/Creatin | 12Comment: Testing | | EXTERNAL | | | ine Ratio | performed at [facility];[address] | | LAB | | | | [address];[place] | | | | | | [address] | | | | + + + + + + | Calcium | 8.2 (L)Comment: Testing | 8.5 - 10.5 | EXTERNAL | | | | performed at [facility];[address] | mg/dL | LAB | | | | [address];[place], [place] | | | | | | [address] | | | | + + + [...] | | | | | | at [facility];[address];[place] [address] | | | | + + + [...] ARM | | | Testing performed at [facility];[address];[place] [address] CULTURE | | | NO GROWTH 6 DAYS | | | Testing performed at [facility], [address], [place], [place] | | | [address] | | + + + + +---------+ [...] RA | | | Testing performed at [facility];[address] | | [address];[place] [address] CULTURE | | | NO GROWTH 6 DAYS | | | Testing performed at [facility], [address] [facility], [place], [place] | | | [address] | | + + + + +---------+ [...] CYTOSPIN Testing | | | performed at [facility];[address] [facility];[place] [address] CULTURE | | | NO GROWTH 3 DAYS | | | Testing performed at [facility], [address] | | | [facility], [place] [address] | | + + + + +---------+ [...] GROWTH | | | Testing performed at [facility], [address] | | | [place] [address] | | + + + + +---------+ [...] EXTERNAL LAB | | Testing performed at [facility];[address] [place] [address];[place] [address] APPEARANCE | | | CLEAR Testing performed at | | | [facility];[address] [place] [address];[place] [address] Tube Number, CSF | | | 4 Testing performed at [facility] [address] | [address];[place] [address] CSF RBC | | | 0 Testing performed at [facility];[address] [place] [address];[place], [place] | | | [address] CSF WBC 2 | | | Testing performed at [facility];[address] [place] [address];[place] [address] | | + + + + +---------+ [...] EXTERNAL LAB | | Testing performed at [facility];[place] [address] | | + + + + +---------+ [...] EXTERNAL LAB | | Testing performed at [facility];[address] [facility];[place] [address] | | + + + + +---------+ [...] EXTERNAL | | | | performed at [facility];[address] | | LAB | | | | [address];[place] | | | | | | [address] | | | | + + + + + + | Clarity | CLEARComment: Testing | | EXTERNAL | | | | performed at [facility];[address] | | LAB | | | | [address];[place] | | | | | | [address] | | | | + + + + + + | Specific | 1.006Comment: Testing | 1.002 - 1.030 | EXTERNAL | | | [place] | performed at [facility];[address] | | LAB | | | | [address];[place] | | | | | | [address] | | | | + + + + + + | Leukocyte | NEGATIVEComment: Testing | | EXTERNAL | | | Esterase, | performed at [facility];[address] | | LAB | | | Urine | [address];[place] | | | | | | [address] | | | | + + + + + + | Nitrite, | NEGATIVEComment: Testing | | EXTERNAL | | | Urine | performed at [facility];[address] | | LAB | | | | [address];[place] | | | | | | [address] | | | | + + + + + + | Urobilinoge | NORMALComment: Testing | mg/dL | EXTERNAL | | | n, Urine | performed at [facility];[address] | | LAB | | | | [address];[place] | | | | | | [address] | | | | + + + + + + | Protein, | NEGATIVEComment: Testing | mg/dL | EXTERNAL | | | Urine | performed at [facility];[address] | | LAB | | | | [address];[place] | | | | | | [address] | | | | + + + + + + | pH, Urine | 8.0Comment: Testing | 5.0 - 8.0 | EXTERNAL | | | | performed at [facility];[address] | | LAB | | | | [address];[place] | | | | | | [address] | | | | + + + + + + | Blood, | SMALL (A)Comment: | | EXTERNAL | | | Urine | Testing performed at | | LAB | | | | [facility];[address];[place] [address] | | | | + + + + + + | Ketones | TRACE (A)Comment: | mg/dL | EXTERNAL | | | | Testing performed at | | LAB | | | | [facility];[address];[place] [address] | | | | + + + + + + | Bilirubin, | NEGATIVEComment: Testing | | EXTERNAL | | | Urine | performed at [facility];[address] | | LAB | | | | [address];[place] | | | | | | [address] | | | | + + + + + + | Glucose, | NEGATIVEComment: Testing | mg/dL | EXTERNAL | | | Urine | performed at [facility];[address] | | LAB | | | | [address];[place] | | | | | | [address] | | | | + + + + + + | WBC, UA | 3-5Comment: Testing | 0 - 5 /hpf | EXTERNAL | | | | performed at [facility];[address] | | LAB | | | [address];[place] | | | | | | [address] | | | | + + + + + + | RBC, UA | 0-2Comment: Testing | 0 - 2 /hpf | EXTERNAL | | | | performed at [facility];[address] | | LAB | | | | [address];[place] | | | | | | [address] | | | | + + + + + + | Bacteria, | NONE SEENComment: | | EXTERNAL | | | UA | Testing performed at | | LAB | | | | [facility];[address];[place] [address] | | | | + + + + + + | Epithelial | NONE SEENComment: | /lpf | EXTERNAL | | | Cells | Testing performed at | | LAB | | | | [facility];[address];[place] [address] | | | | + + + + + + | MUCUS UA | 1+Comment: Testing | | EXTERNAL | | | | performed at [facility];[address] | | LAB | | | | [address];[place] | | | | | | [address] | | | | + + + [...]
--- OUTSIDE RECORDS SUMMARY | ~2019-08-29 | XMS | Encounter Summary ---
Demographics + + + | Address | [address] | | | [place] [address] | + + + | Home Phone | | + + + | Preferred Language | Unknown | + + + | Marital Status | | + + + | Catholic Affiliation | 1013 | + + + | Race | Unknown | + + + | Ethnic Group | Unknown | + + + Author + + + | Author | [facility] | | | and [place] | + + + | Organization | [facility] [...] Team Providers + +------+ + | Care Occupancy Specialist Name | Role | Phone | + +------+ + | Kade Bermudez MD | PCP | | + +------+ + Encounter Details +--------+ + + + + | Date | Type | Department | Care Team | Description | +--------+ + + + + | 03/01/ | [facility] | [facility] | Domingo Carlson MD | | | 2016 | Encounter | [facility] | [address] | | | | | [address] | [place] [address] | | | | | [place] | [phone] | | | | | [address] | | | | | | [phone] | | | +--------+ + + + [...]
--- OUTSIDE RECORDS SUMMARY | ~2019-08-29 | XMS | Encounter Summary ---
Demographics + + + | Address | [address] | | | [place] [address] | + + + | Home Phone | | + + + | Preferred Language | Unknown | + + + | Marital Status | | + + + | Episcopal Affiliation | 1013 | + + + | Race | Unknown | + + + | Ethnic Group | Unknown | + + + Author + + + | Author | [facility] | | | and [place] | + + + | Organization | [facility] | | | and [...] Team Providers + +------+ + | Care Fondant Puff Maker Name | Role | Phone | [...] | | [address] | [place] [address] | | | | | [place] | [phone] | | | | | [address] | | | | | | [phone] | | | +--------+ + + + [...]
--- OUTSIDE RECORDS SUMMARY | ~2019-08-29 | XMS | Clinical Summary ---
Demographics + + + | Address | [address] | | | [place] [address] | + + + | Home Phone | | + + + | Preferred Language | Unknown | + + + | Marital Status | | + + + | Gnosticist Affiliation | 1013 | + + + | Race | Unknown | + + + | Ethnic Group | Unknown | + + + Author + + + | Author | [facility] | | | and [place] | + + + | Organization | [facility] | | | and [...] Team Providers + +------+ + | Care Blind Stitch Machine Operator Name | Role | Phone [...] 0 | | | Activ | | Kedzcikpre-YWN-Twtn- | mouth Daily. | | | | [...] | [facility] - | | 10/06/ | [id number] | | [id number]: Qty: 1 | | Spine | MEDT | | 2019 | | | on 03/06/2016 by Domingo Carlson | | Lumbar | | | | /[id number] | | MD Mariel at [facility] | | | | | | 5-035 | | [facility] | | | | | | / | + +------+--------+ +--------+--------+--------+ | Screw Polyax Precept 6.5x50 - | | Left: | [facility] - | | | [id number] | | [id number]: Qty: 2 | | Spine | NVSV | | | 0A / / | | on 03/06/2016 by Domingo Carlson | | Lumbar | | | | | | MD Mariel at [facility] | | | | | | | | [facility] | | | | | | | + +------+--------+ +--------+--------+--------+ | Screw Polyax Prcpt 7.5x50mm - | | Left: | NUVASIVE - | | | [id number] | | [id number]: Qty: 6 | | Spine | NVSV | | | 0A / / | | on 03/06/2016 by Domingo Carlson | | Lumbar | | | | | | MD Mariel at [facility] | | | | | | | | [facility] | | | | | | | + +------+--------+ +--------+--------+--------+ | Graft Infuse Bone Kit Xs - | | Left: | SOFAMOR | | 04/16/ | [id number] | | [id number]: Qty: 1 on | | Spine | DANEK - DIV | | 2017 | 0 / | | 03/06/2016 by Domingo Carlson, | | Lumbar | [facility] | | | /[id number] | | at [facility] | | | - SFDK | | | 29AAM | | [facility] | | | | | | | + +------+--------+ +--------+--------+--------+ | Algrft [facility] - 30cc - | | Left: | [facility] - | | 09/12/ | [id number] | | [id number]: Qty: 1 | | Spine | MEDT | | 2020 | | | on 03/06/2016 by Domingo Carlson | | Lumbar | | | | /[id number] | | MD Mariel at [facility] | | | | | | 9-009 | | [facility] | | | | | | / | + +------+--------+ +--------+--------+--------+ | Imp Spn Spcr Gina [id number] | | Left: | NUVASIVE - | | | [id number] | | 20d - [id number]: | | Spine | NVSV | | | 5 / / | | Qty: 1 on 03/06/2016 by Robyn, | | Lumbar | | | | | | Domingo Floyd MD at [facility] | | | | | | | | [facility] | | | | | | | + +------+--------+ +--------+--------+--------+ | Screw Marta Gina Xlf 6.5x50mm - | | Left: | NUVASIVE - | | | [id number] | | [id number]: Qty: 1 | | Spine | NVSV | | | 0 / / | | on 03/06/2016 by Domingo Carlson | | Lumbar | | | | | | MD Mariel at [facility] | | | | | | | | [facility] | | | | | | | + +------+--------+ +--------+--------+--------+ | Tlif Oblique [id number] 12deg | | Left: | NUVASIVE - | | | [id number] | | - [id number]: Qty: 1 | | Spine | NVSV | | | 2 / / | | on 03/06/2016 by Domingo Carlson | | Lumbar | | | | | | MD Mariel at [facility] | | | | | | | | [facility] | | | | | | | + +------+--------+ +--------+--------+--------+ | Juvenal Ti Prebent Lordtc 120mm - | | Left: | NUVASIVE - | | | [id number] | | [id number]: Qty: 2 | | Spine | NVSV | | | 0 / / | | on 03/06/2016 by Domingo Carlson | | Lumbar | | | | | | MD Mariel at [facility] | | | | | | | | [facility] | | | | | | | + +------+--------+ +--------+--------+--------+ | Screw Set - | | Left: | NUVASIVE - | | | [id number] | | [id number]: Qty: 10 | | Spine | NVSV | | | 0 / / | | on 03/06/2016 by Domingo Carlson | | Lumbar | | | | | | MD Mariel at [facility] | | | | | | | | [facility] | | | | | | | + +------+--------+ +--------+--------+--------+ | Screw Prcpt 8.5x45mm - | | Left: | NUVASIVE - | | | [id number] | | [id number]: Qty: 2 on | | Spine | NVSV | | | 5A / / | | 03/06/2016 by Domingo Carlson, | | Lumbar | | | | | | at [facility] | | | | | | | | [facility] | | | | | | | + +------+--------+ +--------+--------+--------+ | Xgrft Dura Durepr Mtrx 2x2in | | Right: | [facility] - | | 03/16/ | [id number] | | - [id number]: Qty: 1 | | Brain | MEDT | | 2020 | / | | on 08/17/2018 by Igor, | | | | | | /[id number] | | Julianna Rebolledo MD | | | | | | 70 | + +------+--------+ +--------+--------+--------+ | Plate Bur Hole 14mm - | | Right: | [facility] - | | | 015-26 | | [id number]: Qty: 1 on | | Brain | MEDT | | | 2-14 / | | 08/17/2018 by Julianna Costa | | | | | | / | | MD Amaury | | | | | | | + +------+--------+ +--------+--------+--------+ | Screw S/Tap 1.6x4.0 - | | Right: | [facility] - | | | | | [id number]: Qty: 7 on | | Brain | MEDT | | | | | 08/17/2018 by Julianna Costa | | | | | | | | Ama[place], | | | | | | | + +------+--------+ +--------+--------+--------+ | Plate Dogbone 8mm - | | Right: | [facility] - | | | 015-04 | | [id number]: Qty: 1 on | | Brain | MEDT | | | 2 / / | | 08/17/2018 by Julianna Costa | | | | | | | | MD Amaury | | | | | | | + +------+--------+ +--------+--------+--------+ | Algrfdaniel Dura Durgn Mtrx 3x3 | | Left: | [employer] | | 06/16/ | ID-[id number] | | Bx5 - [id number]: | | Brain | NEUROSCIENC | | 2020 | 5 / | | Qty: 1 on 08/18/2018 by | | | ADRI DOWNEY | | | /[id number] | | Julianna Costa MD | | | | | | 60 | + +------+--------+ +--------+--------+--------+ | Plate Sm X 2x2h 5mm - | | Left: | [facility] - | | | 015-24 | | [id number]: Qty: 1 on | | Brain | MEDT | | | 7 / | | 08/18/2018 by Julianna Costa | | | | | | | | MD Amaury | | | | | | | + +------+--------+ +--------+--------+--------+ | Plate Katybone 8mm - | | Left: | [facility] - | | | 015-04 | | [id number]: Qty: 2 on | | Brain | [...] Right: | [facility] - | | | [id number] | | [id number] | | Brain | MEDT | | [...] +--------+ +---------+--------+ | BCBS | BCBS | [id number] | | | | PPO | | | OOS | 8 | 012-Pr | | | | | | PPO | | esent | | | | + +--------+ +--------+ +---------+--------+ | MEDICARE | MEDICA | [id number] | 09/17/19 | [phone] | | Medica | | | RE | | 15-Pre | 5 | | re | | | PART A | | sent | | | | | | AND B | | | | | | + +--------+ +--------+ +---------+--------+ | REGENCE | REGENC | [id number] | 09/17/19 | [phone] | | PPO [...] faith | | | 8 (Home) | [id number] | + +--------+ +--------+ + + Advance Directives + + + + + | Type | Date Recorded | Patient | Explanation | | | | Roll Forming Machine Operator | | + + + + + | Power of | | | | | Bolt Sorter | | | | + + + [...]
--- OUTSIDE RECORDS SUMMARY | ~2019-08-29 | XMS | Encounter Summary ---
Demographics + + + | Address | [address] | | | [place] [address] | + + + | Home Phone [...] Author | [facility] | | | and [place] | + + + | Organization | [facility] | | [...] Team Providers + +------+ + | Care Sole Painter Name | Role | Phone | + [...] NEUROSURGERY [address] | F, [address] | Dx); Dizziness | | | | [address] | [place], [place] | | | | | [place], [place] | [address] | | | | | [address] | [phone] | | | | | [phone] | | | +--------+ + + + [...] | | + +------+--------+ + + | BUN | Lab | Routin | Cervicalgia | 1 Occurrences | | | | e | Dizziness | starting 12/20/2012 | | | | | | until 12/20/2013 | + +------+--------+ + + | Creatinine [...]
--- OUTSIDE RECORDS SUMMARY | ~2019-08-29 | XMS | Encounter Summary ---
Demographics + + + | Address | [address] | | | [place] [address] | + + + | Home Phone | | + + + | Preferred Language | Unknown | + + + | Marital Status | | + + + | Nondenominational Affiliation | 1013 | + + + | Race | Unknown | + + + | Ethnic Group | Unknown | + + + Author + + + | Author | [facility] | | | and [place] | + + + | Organization | [facility] | | | and [place] [...] Team Providers + +------+ + | Care Safety Sitter Name | Role | Phone | + +------+ + | Shirley Ghosh MD | PCP | | + +------+ + Reason for Visit + + + | Reason | Comments | + + + | Neck Pain | | + + + | Headache | | + + + Encounter Details +--------+ + + + + | Date | Type | Department | Care Team | Description | +--------+ + + + + | 07/04/ | Procedure | [facility] | Nino Anderson, | Bilateral occipital | | 2011 | visit | MEDICINE | MD [address] | neuralgia (Primary | | | | [facility] [address] | [place] | Dx); Tension | | | | [address] [place] | [address] | headache, chronic | | | | [place] [address] | | | | | | [phone] | | | +--------+ + + + [...] + + + | Blood Pressure | 118/76 | 07/04/2012 4:23 PM | | | | | PDT | | + + + + + | Pulse | 72 | 07/04/2012 4:23 PM | | | | | PDT | | + + + + + | Temperature | - | - | | + + + + + | Respiratory Rate | 12 | 07/04/2012 4:23 PM | | | | | PDT | | + + + + + | Oxygen Saturation | - | - | | + + + + + | Inhaled Oxygen | - | - | | | Concentration | | | | + + + + + | Weight | 83.9 kg (185 lb) | 07/04/2012 4:23 PM | | | | | PDT | | + + + + + | Height | 182.9 cm (6') | 07/04/2012 4:23 PM | | | | | PDT | | + + + + + | Body Mass Index | 25.09 | 07/04/2012 4:23 PM | | | | | PDT | | + + + + + documented in this encounter Patient Instructions Patient Instructions Nino Anderson MD - 07/04/2012 4:27 PM PDTIf you develop any signs of infection (e.g. Fever, chills, redness, warmth, drainage) seek emergent medical attention and inform the clinic. Feel free to use ice, massage, and stretch after your injections to day. Please avoid heat over the region for 3 days follow injection. Return to the clinic in 1 month. documented in this encounter Progress Notes Nino Anderson MD - 07/04/2012 4:29 PM PDTReferring Physician: Shirley Ghosh MD Diagnosis: Bilateral Greater Occipital Neuralgia Procedure: Bilateral Greater Occipital Nerve Blocks Procedure Detail: Informed consent was obtained. Risks, benefits, and alterative treatments were reviewed. Risks reviewed included but not limited to: bruising, bleeding, infection, damage to adjacen t structures, disability and . Risk of spinal block, need for hospitalization, and nasreen tilation was reviewed. Risk of stroke was reviewed. Risk of skin discoloration was reviewe d. Once informed consent was obtained two separate syringes were prepared. Each syringe containing 2 ml of lidocaine 1%, 2 ml of marcaine 0.25%, and 1 ml of Celestone 6 mg/ml. Each syringe contained a total medication volume of 5 ml. The left greater occipital nerve was identified anatomically, by palpation and reproduction of headache symptoms. The contents of the first syringe was injected into the proximity of the left greater occipital nerve using a 25 gauge 1-1/2 inch needle. The injection was mendoza erated without complication. The right greater occipital nerve was identified anatomically, by palpation and reproductio n of headache symptoms. The contents of the second syringe was injected into the proximity of the right greater occipital nerve using a 25 gauge 1-1/2 inch needle. The injection was tolerated without complication. The patient was observed in the clinic for a total of 30 minutes after the injections were completed. Their vital signs remained stable. Anesthesia of the bilateral greater occipita l nerves was obtained. The patient was discharged from the clinic with the instructions angelique t; should they have any alarming symptoms they should seek emergent medical care as well as inform me in my clinic. CC: Shirley Ghosh MD documented in this en counter Plan of Treatment Not on filedocumented as of this encounter Visit Diagnoses + + | Diagnosis | + + | Bilateral occipital neuralgia - Primary Other syndromes affecting cervical region | + + | Tension headache, chronic Chronic tension type headache | + + documented in this encounter"
--- OUTSIDE RECORDS SUMMARY | ~2019-08-29 | XMS | Encounter Summary ---
Demographics + + + | Address | [address] | | | [place] [address] | + + + | Home Phone | | + + + | Preferred Language | Unknown | + + + | Marital Status | | + + + | Mu-Ism Affiliation | 1013 | + + + | Race | Unknown | + + + | Ethnic Group | Unknown | + + + Author + + + | Author | [facility] | | | and [place] | + + + | Organization | [facility] [...] Team Providers + +------+ + | Care Process Lead Name | Role | Phone | [...] visit | MEDICINE | MD [address] | neuralgia (Primary | | | | [address] | [place] | Dx); Tension | | | | [address] [place] | [address] | headache, chronic | | | | [place] [address] | | | | | | [phone] | | | +--------+ + + + [...]
--- OUTSIDE RECORDS SUMMARY | ~2019-08-29 | XMS | Encounter Summary ---
Demographics + + + | Address | [address] | | | [place] [address] | + + + | Home Phone | | + + + | Preferred Language | Unknown | + + + | Marital Status | | + + + | Christian Affiliation | 1013 | + + + | Race | Unknown | + + + | Ethnic Group | Unknown | + + + Author + + + | Author | [facility] | | | and [place] | + + + | Organization | [facility] | | | and [...] Team Providers + +------+ + | Care Early Childhood Teacher Name | Role | Phone | + +------+ + | Shirley Ghosh MD | PCP | | + +------+ + Reason for Referral Surgical (Routine) +--------+ + + + + + | Status | Reason | Specialty | Diagnoses / | Referred By | Referred To | | | | | Procedures | Contact | Contact | +--------+ + + + + + | Closed | Specialty | Neurosurgery | Diagnoses | Justin | [facility] | | | Services | | Lumbar | Nino Floyd MD | Sawyer Guerrier MD | | | Required | | spinal | [address] | | | | | stenosis | [address] | [address] | | | | | Lumbalgia | [place], | [place], | | | | | Lumbar | [place] [address] | [place] [address] | | | | | degenerative | Phone: | Phone: | | | | | disc | [phone] | [phone] | | | | | disease | Fax: | [phone] Fax: | | | | | Lumbar | [phone] | [phone] | | | | | radiculopath | | | | | | | y | | | +--------+ + + + + + Diagnostic/Screening (Routine) +--------+--------+ + + + + | Status | Reason | Specialty | Diagnoses / | Referred By | Referred To | | | | | Procedures | Contact | Contact | +--------+--------+ + + + + | Closed | | Radiology | Diagnoses | [facility], | [facility] | | | | | Lumbar | Nino Floyd MD | Imaging [address] | | | | | spinal | [address] | | | | | stenosis | [address] | [address] [place] | | | | | Lumbalgia | [place], | [place] | | | | | Lumbar | [place] [address] | [address] | | | | | degenerative | Phone: | Phone: | | | | | disc | [phone] | | | | | | disease | Fax: | Fax: | | | | | Lumbar | [phone] | | | | | | radiculopath | | | | | | | y | | | | | | | Procedures | | | | | | | MRI Lumbar | | | | | | | Spine wo | | | | | | | Contrast | | | +--------+--------+ + + + + Reason for Visit + + + | Reason | Comments | + + + | Leg Pain | bilateral | + + + | Neck Pain | | + + + Encounter Details +--------+---------+ + + + | Date | Type | Department | Care Team | Description | +--------+---------+ + + + | 07/31/ | Office | [facility] | Nino Anderson, | Lumbar spinal | | 2011 | Visit | MEDICINE | [address] | stenosis (Primary | | | | REHABILITATION [address] | [place] | Dx); Lumbalgia; | | | | [address] [place] | [address] | Lumbar degenerative | | | | [place] [address] | | disc disease; | | | | [phone] | | Cervical spinal | | | | | | stenosis; Lumbar | | | | | | radiculopathy; | | | | | | Chronic tension | | | [...] + + + | Blood Pressure | 110/70 | 07/31/2012 9:23 AM | | | | | PST | | + + + + + | Pulse | 68 | 07/31/2012 9:23 AM | | | | | PST | | + + + + + | Temperature | - | - | | + + + + + | Respiratory Rate | 12 | 07/31/2012 9:23 AM | | | | | PST | | + + + + + | Oxygen Saturation | - | - | | + + + + + | Inhaled Oxygen | - | - | | | Concentration | | | | + + + + + | Weight | 86.2 kg (190 lb) | 07/31/2012 9:23 AM | | | | | PST | | + + + + + | Height | 182.9 cm (6') | 07/31/2012 9:23 AM | | | | | PST | | + + + + + | Body Mass Index | 25.77 | 07/31/2012 9:23 AM | | | | | PST | | + + + + + documented in this encounter Patient Instructions Patient Instructions Nino Anderson MD - 07/31/2012 9:52 AM PSTContinue home exercise pr ogram as outlined by prior physical therapy. Continue nortriptyline. Start new medication Gabapentin. A new MRI has been requested. Consult with neurosurgery has been requested. Return to the clinic in 6 weeks. documented in this encounter Progress Notes Nino Anderson MD - 07/31/2012 9:53 AM PSTThis office note has been dictated. Job ID# [id number] signed by Nino Anderson MD at 07/31/2012 10:02 AM PSTShamika Bray RN - 07/31/2012 9:28 AM PSTNeck Pain/headaches/ low back pain improved significantly. B ilateral leg pain not improved post injection on 07/18/12. Nino Means MD - 07/31/2012 12:00 AM [facility] , OFFICE VISIT PHYSICAL MEDICINE AND REHABILITATION PROGRESS NOTE CONSULT REQUESTED BY: Shirley Ghosh MD PATIENT IDENTIFICATION: A 62-year-old male with low back pain radiating into lower extremit ies. HISTORY OF PRESENT ILLNESS: Mr. Mendoza has been seen by me in the past for headaches, neck pa in and low back pain. Previously, he has had bilateral greater occipital nerve blocks. Last greater occipital nerve blocks were 07/04/2012. He indicates that since having greater oc cipital nerve blocks all headaches and neck pain have resolved. He states that current head ache and neck pain 0/10 on a numerical pain scale, and he states that he has not had a head ache in approximately 1 month. When he was last seen, he was also sent for epidural steroid injections with the high suspicion that he had lumbar spinal stenosis and lumbar radicular symptoms. Despite lumbar epidural steroid injections, symptoms radiating into lower extremi ties persist. He indicates that his low back pain has reduced since epidural steroid inject ions, but lower extremity symptoms still persist. His primary complaint today is bilateral lower extremity pain. Pain is located over posteri or buttocks and posterior thighs bilaterally, worse on the left than on the right. Current pain level is a 4-1/2 / 10 on a numerical pain scale. He reports that last night pain was a 9/10 on a numerical pain scale. He states the pain is constant in timing. It can be burnin g in quality. He states that the pain does not radiate to his feet. He denies numbness or p aresthesia in either lower extremity. He denies any side effects to current nortriptyline. He reports a feeling of weakness in both lower extremities, unchanged over years. He states that it has been present constantly. He denies bowel or bladder incontinence. He denies sa ddle anesthesia. He states that his back pain is increased by lying down as well as with am bulation. He states it is difficult for him to find a comfortable position. He indicates th at his pain interferes with his ability to sleep at night. He indicates that he has had a c ourse of physical therapy within the last year. He had lumbar MRI 10/2010. That was reviewe d personally by me in detail today. Imaging was reviewed with him as well. ALLERGIES: NO KNOWN DRUG ALLERGIES. CURRENT MEDICATIONS: 1. Flexeril 10 mg, not currently taking. 2. Lunesta 2 mg nightly. 3. Nortriptyline 10 mg three tablets at bedtime. 4. Percocet 5/325 one tablet q.4 p.r.n. 5. Feldene 20 mg daily. 6. Requip 1.5 mg every evening. 7. Zoloft 100 mg daily. REVIEW OF SYSTEMS: Mr. Mendoza denies nausea, vomiting, diarrhea, constipation, fever, chills, shortness of breath, chest pain, skin breakdown, rash, incontinence of bowel or bladder, s addle anesthesia, lymph gland swelling or unexplained weight loss. All other review of syst ems negative. PHYSICAL EXAMINATION VITAL SIGNS: Heart rate 68, respiratory rate 12, blood pressure 110/70, weight 190 pounds, height 6 feet 0 inches. GENERAL: No acute distress. Alert and oriented to person, place, time and situation. HEENT : Extraocular muscles intact. Pupils equal and reactive to light and accommodation. Sclerae clear. NECK: Limited range of motion. Increased cervical paraspinal muscle tone. Spurling test ne gative. Mild tenderness to palpation over bilateral greater occipital nerves without reprod uction of headache symptoms. HEART: Regular rate and rhythm. No murmurs. No gallops. LUNGS: Clear to auscultation bilaterally. No wheezing. No crackles. ABDOMEN: Nontender, no ndistended. Positive for bowel sounds. BACK: Symmetric. Seated straight leg raise positive on the left, equivocal on the right. Morgan test negative bilaterally. EXTREMITIES: Exam reveals no clubbing, cyanosis or edema in all 4 extremities. NEUROLOGICA L: Exam demonstrates intact memory, concentration and speech. Cranial nerves intact. Sensor y intact in lower extremities to light touch and pinprick. Deep tendon reflexes 1+ over pat ellae bilaterally. Reflexes could not be elicited over the Achilles on the left and were 1+ on the right. There is no clonus at either ankle. Babinski was downgoing bilaterally. Stren gth is 5/5 in both upper extremities with hip flexion, knee flexion, knee extension, ankle dorsiflexion and extensor hallucis longus. There was 4+/5 strength with ankle plantar flexi on on the left compared to 5/5 on the right. Coordination intact in all 4 extremities. Gait antalgic but steady. DATABASE: Lumbar MRI from 11/01/2010 demonstrates degenerative disk disease at L3-4 and L4- 5 resulting in severe central canal stenosis at L3-4 and lbfwkwsc-gp-gnnoif central stenosi s at L4-5. ASSESSMENT 1. LUMBAR SPINAL STENOSIS AT L3-4 AND L4-5, ICD-9 724.02. 2. LUMBALGIA, ICD-9 724.2. 3. LUMBAR DEGENERATIVE DISK DISEASE, ICD-9 722.52. 4. CERVICAL SPINAL STENOSIS--CONTROLLED, ICD-9 723.0. 5. LUMBAR RADICULOPATHY, S1 DERMATOME BILATERALLY, WORSE ON THE LEFT THAN ON THE RIGHT, ICD -9 724.4. 6. CHRONIC TENSION HEADACHES--CONTROLLED, ICD-9 339.12. 7. OCCIPITAL NEURALGIA--IMPROVED, ICD-9 723.8. PLAN: Mr. Mendoza's neck pain and headaches are dramatically better. Back pain and radicular symptoms into the lower extremities still persist. Greater occipital nerve blocks may be re peated in the future if necessary. Hopefully, nortriptyline will continue to keep headaches under control. In regards to his low back pain and radicular symptoms, I suspect that he jeffery s S1 radiculopathy or spinal stenosis or a combination of the two. He did have significant spinal stenosis on prior MRI. He has had physical therapy for back. He has been on nortript yline. He is prescribed medication gabapentin 300 mg one in the evening x3 days, then one b .i.d. x4 days, then one t.i.d. for 7 days, then one in the morning, one in the afternoon an d two at night. At this point, he will have repeat lumbar MRI in anticipation that he may n eed neurosurgical evaluation. He has failed epidural steroid injections. In summary, neuros urgery consult has been requested. Lumbar MRI has been requested in preparation for his juaquin rosurgery consult. He will continue on nortriptyline and start new medication gabapentin. Yg e will return to the clinic in 6 weeks if symptoms persist. Future treatment considerations may include tapering up dose of nortriptyline and/or gabapentin and will await neurosurger y consult. He was instructed to continue with a home exercise program as outlined by Physic al Therapy on a routine daily basis. Greater than 30 minutes was spent morv-av-oxtz today with Mr. Mendoza, over half of which was spent formulating and discussing his medical treatment plan. Thank you for allowing me to be involved in the care of your the patient. If you have any questions regarding the care of Mr. Mendoza, please do not hesitate to call. Nino Anderson Jr, MD HOBSON / M JOB #: [id number] cc: Shirley Ghosh MD d ocumented in this encounter Plan of Treatment + + +--------+ + + | Name | Type | Priori | Associated Diagnoses | Order Schedule | | | | ty | | | + + +--------+ + + | Ambulatory referral | Outpatient | Routin | Lumbar spinal | Ordered: 07/31/2012 | | to Neurosurgery | Referral | e | stenosis Lumbalgia | | | | | | Lumbar degenerative | | | | | | disc disease | | | | | | Lumbar radiculopathy | | + + +--------+ + + documented as of this encounter Results MRI Lumbar Spine wo Contrast (08/19/2012 12:54 PM PST) + + | Specimen | + + | | + + + + + | Narrative | Performed At | + + + | [facility] | [place] | | Department [address] [place] [address] | [facility] | | [ rep [address]] [ rep [facility] | | [facility]] Signed | - IMAGING | | | | | Patient Name: SHEELA MENDOZA Physician: | | | MARS.[id number] : 1950 Age: 62 Sex: M Unit #: [id number] | | | Exam Date: 08/19/12 Location: [facility] [place] | | | Report #: [id number] Page: | | | %(RAD)RES..mtdd.print.filter("pg") of %(RAD) | | | RES..mtdd.print.filter("tpg") | | | | | | Accession Number: [id number] | | | UNENHANCED EXTENDED MRI LUMBAR SPINE, 08/19/2012 CLINICAL | | | HISTORY: LUMBAR STENOSIS, LUMBALGIA, DEGENERATIVE DISK DISEASE AND | | | RADICULOPATHY WITH RADICULAR SYMPTOMS IN THE LEFT GREATER THAN RIGHT | | | LOWER EXTREMITIES. COMPARISON: CT abdomen 01/24/2012, | | | lumbar MRI 11/01/2010. TECHNIQUE: The following MR | | | sequences of the lumbar spine were obtained: 1. Axial and | | | sagittal T1. 2. Axial, sagittal and coronal T2. 3. | | | Sagittal STIR. FINDINGS: Five non rib-bearing, | | | lumbar-type vertebrae are visible on the coronal sequence. There is | | | a stable benign hemangioma in the L4 vertebral body, and smaller | | | hemangiomata are again visible elsewhere in the lumbar spine. | | | Lumbar vertebral height is maintained, without evident fracture or | | | spondylolysis. The conus medullaris is unremarkable, terminating at | | | T12-L1. A small, rounded fluid signal structure in the superior | | | right kidney corresponds with a cyst visible on previous CT. Imaged | | | intraabdominal and paraspinal structures are otherwise unremarkable. | | | The T12-L1 level is unremarkable on provided sagittal | | | images. Disk desiccation, mild to moderate disk space | | | narrowing, high signal annular tear, and a mild posterior disk bulge | | | persist at L1-2, mildly narrowing the central canal and neural | | | foramina to a slightly greater degree as visualized on provided | | | sagittal images. Disk desiccation, a small central disk | | | extrusion, and generalized posterior disk osteophyte complex persist | | | at L2-3, again combining with mild to moderate ligamentous and facet | | | hypertrophy to mildly narrow the central canal and neural foramina | | | to a similar degree. Disk desiccation, 6.5 mm | | | anterolisthesis, and a generalized posterior disk bulge persist at | | | L3-4, combining with moderate to severe ligamentous and facet | | | hypertrophy to severely narrow the central canal to a slightly | | | greater degree. There is effacement of the subarticular recesses | | | with potential impingement on the origins of the L4 nerve roots. | | | Neural foraminal stenosis is relatively mild and similar to | | | previous. Redundancy of the descending nerve roots of the cauda | | | equina is now evident above this level. Disk desiccation | | | persists at L4-5. High signal annular tear is less pronounced. A | | | generalized posterior disk bulge persists and combines with moderate | | | ligamentous and facet hypertrophy to mild to moderately narrow the | | | central canal and neural foramina to a similar degree. Bilateral | | | facet joint effusions persist. Mild to moderate facet | | | hypertrophy persists at L5-S1, without significant central canal or | | | neural foraminal stenosis. IMPRESSION: 1. | | | PERSISTENT DEGENERATIVE DISK DISEASE AND POTENTIAL INSTABILITY AT | | | L3-4 WITH SEVERE, PROGRESSIVE CENTRAL CANAL STENOSIS COMPARED WITH | | | MRI OF 11/01/2010. REDUNDANCY OF THE DESCENDING NERVE ROOTS OF THE | | | CAUDA EQUINA IS NOW EVIDENT ABOVE THIS LEVEL, SUGGESTING COMPRESSIVE | | | ARACHNOIDITIS. 2. DEGENERATIVE DISK DISEASE AND LESS | | | PRONOUNCED ANNULAR TEAR AT L4-5, WITH SIMILAR MILD TO MODERATE | | | CENTRAL CANAL AND NEURAL FORAMINAL STENOSIS. 3. | | | DEGENERATIVE DISK DISEASE AND MILD CENTRAL CANAL AND NEURAL | | | FORAMINAL STENOSIS AT L1-2 AND L2-3. 4. MULTILEVEL FACET | | | ARTHROPATHY. Dictated Date/Time: 08/19/2012 12:54 | | | Transcribed Date/Time: 08/19/2012 15:19 Wastewater Engineer: | | | SSP <<Signature on File>> | | | Tulio López | | Mónica Martinez MD08/19/12 2222 <Electronically signed by Tulio Martinez MD> | | | Tulio Martinez MD 08/19/12 1254 Wastewater Engineer: | | | Kuponjomedx Djpxfeyvibhzc02/03/12 1519 Nino Anderson Jr, MD | | | | | + + + + + + + + | Performing | Address | City/State/Zipcode | Phone Number | | Organization | | | | + + + + + | [facility] | [address] | [place] | [phone] | | [facility] | | [address] | | | - IMAGING | | | | + + + + + documented in this encounter Visit Diagnoses + + | Diagnosis | + + | Lumbar spinal stenosis - Primary Spinal stenosis, lumbar region, without neurogenic | | claudication | + + | Lumbalgia Lumbago | + + | Lumbar degenerative disc disease Degeneration of lumbar or lumbosacral intervertebral | | disc | + + | Cervical spinal stenosis Spinal stenosis in cervical region | + + | Lumbar radiculopathy Thoracic or lumbosacral neuritis or radiculitis, unspecified | + + | Chronic tension headaches Chronic tension type headache | + + | Occipital neuralgia Other syndromes affecting cervical region | + + documented in this encounter
--- OUTSIDE RECORDS SUMMARY | ~2019-08-29 | XMS | Encounter Summary ---
Demographics + + + | Address | [address] | | | [place] [address] | + + + | Home Phone [...] | Author | [facility] | | | and [place] | + + + | Organization | [facility] | | | and [place] [...] Providers + +------+ + | Care Electronics Worker Name | Role | Phone | + +------+ + | Shirley Ghosh MD | PCP | | + +------+ + Reason for Visit +--------+ + | Reason | Comments | +--------+ + | Other | RX for aquatic therapy? | +--------+ + Encounter Details +--------+ + + + + | Date | Type | Department | Care Team | Description | +--------+ + + + + | 12/03/ | Telephone | [facility] [place] | Nehemias Petersenlas | Other (RX for | | 2012 | | NEUROSURGERY [address] | [address], [address] | aquatic therapy?) | | | | [address] | [place], [place] | | | | | [place], [place] | [address] | | | | | [address] | [phone] | | | | | [phone] | | | +--------+ + + + [...]
--- OUTSIDE RECORDS SUMMARY | ~2019-08-29 | XMS | Encounter Summary ---
Demographics + + + | Address | [address] | | | [place] [address] | + + + | Home Phone [...] Author | [facility] | | | and [place] | + + + | Organization | [facility] | | | and [...] Team Providers + +------+ + | Care Eeg Tech Name | Role | Phone | [...] | Required | Rehabilitatio | pain | [facility] [address] | [address] | | | | n | disorder | [place], | [facility] | | | | | S/P lumbar | [place] [address] | [place], [place] | | | | | fusion S/P | Phone: | [phone] Phone: | | | | | cervical | [phone] | [phone] | | | | | spinal | Fax: | Fax: | | | | | fusion | [phone] | [phone] | +--------+ + + + + + Encounter Details +--------+---------+ + + + | Date | Type | Department | Care Team | Description | +--------+---------+ + + + | 07/27/ | Office | [facility] | Joo Haynes | Chronic pain | | 2015 | Visit | PHYSIATRY [address] | [address], [address] | disorder (Primary | | | | [place], | [place], [place] | Dx); Chronic neck | | | | [place] [address] | [address] | pain; S/P cervical | | | | [phone] | | spinal fusion; | | | [...] prescription for this medication was sent to [facility] today. He was advised that [...] 07/27/2016 8:26 AM PST Joo Haynes MD [address] [place] [address], [address] [place], [place] [address] FAX: PHYSICAL MEDICINE AND REHABILITATION H&P CHIEF [...] L3-4, L4-5; Surgeon: Domingo Carlson MD; Location: [facility] MAIN OR CURRENT MEDICATIONS: Current Outpatient Prescriptions Medication Sig Dispense Refill Wvbjhcpeqx-RRP-Uvga-Codeine (BUTALBITAL COMPOUND/CODEINE PO) Take 3 capsules by [...] has no apparent deficits with short or senior living memory. He has appropriate fund of knowledge [...]
--- OUTSIDE RECORDS SUMMARY | ~2019-08-29 | XMS | Encounter Summary ---
Demographics + + + | Address | [address] | | | [place] [address] | + + + | Home Phone [...] Author | [facility] | | | and [place] | + + + | Organization | [facility] | | [...] Team Providers + +------+ + | Care Activities Director Name | Role | Phone | + +------+ + | Kade Bermudez MD | PCP | | + +------+ + Reason for Visit + + + | Reason | Comments | + + + | Imaging Only | Lumbar MRI Authorized | + + + | Neurosurgery | | | Appointment | | + + + Encounter Details +--------+ + + + + | Date | Type | Department | Care Team | Description | +--------+ + + + + | 04/06/ | Telephone | [facility] [place] | Domingo Carlson MD | Imaging Only (Lumbar | | 2017 | | NEUROSURGERY [address] | [address] | MRI Authorized ); | | | | [address] | [place] [address] | Neurosurgery | | | | [place] | [phone] | Appointment | | | | [address] | | | | | | [phone] | | | +--------+ + + + [...]
--- OUTSIDE RECORDS SUMMARY | ~2019-08-29 | XMS | Encounter Summary ---
Demographics + + + | Address | [address] | | | [place] [address] | + + + | Home Phone [...] + | Author | [facility] | | | and [place] | + + + | Organization | [facility] | | [...] Team Providers + +------+ + | Care Rotary Envelope Machine Operator Name | Role | Phone [...] | | | | | Lumbar | [address] | [address] | | | | | degenerative | Phone: | Phone: | | | | | disc | [phone] | [phone] | | | | | disease S/P | Fax: | Fax: | | | | | lumbar | [phone] | [phone] | | | | | fusion | [...] | | [address] | [place] [address] | | | | | [place] | [phone] | | | | | [address] | | | | | | [phone] | | | +--------+ + + + [...]
--- OUTSIDE RECORDS SUMMARY | ~2019-08-29 | XMS | Encounter Summary ---
Demographics + + + | Address | [address] | | | [place] [address] | + + + | Home Phone | | + + + | Preferred Language | Unknown | + + + | Marital Status | | + + + | Yazidi Affiliation | 1013 | + + + | Race | Unknown | + + + | Ethnic Group | Unknown | + + + Author + + + | Author | [facility] | | | and [place] | + + + | Organization | [facility] | | | and [...] Team Providers + +------+ + | Care Machinery Erector Name | Role | Phone | + +------+ + | Shirley Ghosh MD | PCP | | + +------+ + Encounter Details +--------+ + + + + | Date | Type | Department | Care Team | Description | +--------+ + + + + | 09/16/ | Hospital | [facility] | Shirley Ghosh | | | 2011 | Encounter | [facility] | [address] | | | | | [facility] [address] | [address] [facility], | | | | | [facility], | [place] [address] | | | | | [place] [address] | [phone] | | | | | [phone] | | | +--------+ + + + [...]
--- OUTSIDE RECORDS SUMMARY | ~2019-08-29 | XMS | Encounter Summary ---
Demographics + + + | Address | [address] | | | [place] [address] | + + + | Home Phone [...] + | Author | [facility] | | | and [place] | + + + | Organization | [facility] | | | and [place] [...] Team Providers + +------+ + | Care Administrator Name | Role | Phone | [...] | | | | | | | [place] | [...] + + | 03/06/ | Hospital | [facility] | Domingo Carlson MD | | | 2016 | Encounter | MED CTR XRAY [address] | [address] | | | | | [place] | [place] [address] | | | | | [place] [address] | [phone] | | | | | [phone] | | | +--------+ + + + [...]
--- OUTSIDE RECORDS SUMMARY | ~2019-08-29 | XMS | Encounter Summary ---
Demographics + + + | Address | [address] | | | [place] [address] | + + + | Home Phone [...] | Author | [facility] | | | and Rupertoana | + + + | Organization | [facility] | | | and Rupertoana | + [...] Team Providers + +------+ + | Care Sequencing Machine Operator Name | Role | Phone [...] | [address] | [address] [facility], | | | | | [place], [place] | [place] [address] | | | | | [address] | [phone] | | | | | [phone] | | | +--------+ + + + [...]
--- OUTSIDE RECORDS SUMMARY | ~2019-08-29 | XMS | Encounter Summary ---
Demographics + + + | Address | [address] | | | [place] [address] | + + + | Home Phone [...] [facility] | | | and Rupertoana | + + + | Organization | [facility] | [...] Team Providers + +------+ + | Care Propeller Engineer Name | Role | Phone | [...] | | [address] | [place], [place] | | | | | [place] | [address] | | | | | [address] | [phone] | | | | | [phone] | | | +--------+ + + + [...]
--- OUTSIDE RECORDS SUMMARY | ~2019-08-29 | XMS | Encounter Summary ---
Demographics + + + | Address | [address] | | | [place] [address] | + + + | Home Phone [...] Author | [facility] | | | and Ruperto[place] | + + + | Organization | [facility] | | [...] Team Providers + +------+ + | Care Histology Assistant Name | Role | Phone | + +------+ + | Kade Bermudez MD | PCP | | + +------+ + Encounter Details +--------+ + + + + | Date | Type | Department | Care Team | Description | +--------+ + + + + | 04/15/ | Orders Only | [facility] | Provider, | | | 2018 | | SYSTEM GENERIC OP | [address] | | | | | CONVERSION [address] | [place] | | | | | [address] [place], [place] | [place] [address] | | | | | [address] | | | | | | [phone] | | | +--------+ + + + [...]
--- OUTSIDE RECORDS SUMMARY | ~2019-08-29 | XMS | Encounter Summary ---
Demographics + + + | Address | [address] | | | [place] [address] | + + + | Home Phone | | + + + | Preferred Language | Unknown | + + + | Marital Status | | + + + | Restoration Affiliation | 1013 | + + + | Race | Unknown | + + + | Ethnic Group | Unknown | + + + Author + + + | Author | [facility] | | | and Rupertoana | + + + | Organization | [facility] | | | and [...] Team Providers + +------+ + | Care Plan Consultant Name | Role | Phone | [...] NEUROSURGERY [address] | [address], [address] | Dx); Dizziness | | | | [address] | [place], [place] | | | | | [place], [place] | [address] | | | | | [address] | [phone] | | | | | [phone] | | | +--------+ + + + [...]
--- OUTSIDE RECORDS SUMMARY | ~2019-08-29 | XMS | Encounter Summary ---
Demographics + + + | Address | [address] | | | [place] [address] | + + + | Home Phone [...] Author | [facility] | | | and Rupertoana | + + + | Organization | [facility] | | | and Rupertoana [...] Team Providers + +------+ + | Care Formstone Fitter Name | Role | Phone | + +------+ + | Kade Bermudez MD | PCP | | + +------+ + Encounter Details +--------+ + + + + | Date | Type | Department | Care Team | Description | +--------+ + + + + | 03/31/ | Abstract | [facility] [place] | Domingo Carlson MD | | | 2015 | | NEUROSURGERY [address] | [address] | | | | | [address] | [place] [address] | | | | | [place] | [phone] | | | | | [address] | | | | | | [phone] | | | +--------+ + + + [...]
--- OUTSIDE RECORDS SUMMARY | ~2019-08-29 | XMS | Encounter Summary ---
Demographics + + + | Address | [address] | | | [place] [address] | + + + | Home Phone | | + + + | Preferred Language | Unknown | + + + | Marital Status | | + + + | Congregational Affiliation | 1013 | + + + | Race | Unknown | + + + | Ethnic Group | Unknown | + + + Author + + + | Author | [facility] | | | and Ru[place]to[place] | + + + | Organization | [facility] | | | and [...] Team Providers + +------+ + | Care Health Safety Specialist Name | Role | Phone | [...] | [address] [place] | [place] [address] | | | | | [address] | [phone] | | | | | [phone] | | | +--------+ + + + [...]
--- OUTSIDE RECORDS SUMMARY | ~2019-08-29 | XMS | Encounter Summary ---
Demographics + + + | Address | [address] | | | [place] [address] | + + + | Home Phone [...] + | Author | [facility] | | | and Ruperto[place] | + + + | Organization | [facility] | | | and Ru[place]to[place] [...] + +------+ + | Care Director Of Marketing Analytics Name | Role | Phone | + +------+ + | Kade Bermudez MD | PCP | | + +------+ + Encounter Details +--------+ + + + + | Date | Type | Department | Care Team | Description | +--------+ + + + + | 09/20/ | Hospital | [facility] | Conversion | Status post | | 2019 | Encounter | [facility] | Transaction, | craniotomy; | | | | [address] | Provider Unknown | Traumatic subdural | | | | [place] | [phone] | hemorrhage without | | | | [address] | | loss of | | | | [phone] | Eidl Gallegos, | consciousness, | | | | | CASE MANAGEMENT MANAGER [address] | subsequent encounter | | | | | [address] | | | | | | [place] [address] | | | | | | [phone] | | | | | | | [...] | | 0 | | | | [id number] | mouth Daily. | | | | [...]
--- OUTSIDE RECORDS SUMMARY | ~2019-08-29 | XMS | Encounter Summary ---
Demographics + + + | Address | [address] | | | [place] [address] | + + + | Home Phone | | + + + | Preferred Language | Unknown | + + + | Marital Status | | + + + | Restorationist Affiliation | 1013 | + + + | Race | Unknown | + + + | Ethnic Group | Unknown | + + + Author + + + | Author | [facility] | | | and Ru[place] | + + + | Organization | [facility] | | [...] Team Providers + +------+ + | Care Rag Sorter Name | Role | Phone | + [...] | | [address] | [place] [address] | | | | | [place] | [phone] | | | | | [address] | | | | | | [phone] | | | +--------+ + + + [...]
--- OUTSIDE RECORDS SUMMARY | ~2019-08-29 | XMS | Encounter Summary ---
Demographics + + + | Address | [address] | | | [place] [address] | + + + | Home Phone [...] | Author | [facility] | | | and Rupertoana | + + + | Organization | [facility] | | [...] Team Providers + +------+ + | Care Instructor Decorating Name | Role | Phone | + [...] | neuralgia | [address] | | | | n | | [address] | [place], | | | | | | [place], | [place] [address] | | | | | | [place] [address] | Phone: | | | | | | Phone: | [phone] | | | | | | [phone] | Fax: | | | | | | Fax: | [phone] | | | | | | [phone] | | +--------+ + + + + + Evaluate & Treat (Routine) +--------+ + + + + + | Status | Reason | Specialty | Diagnoses / | Referred By | Referred To | | | | | Procedures | Contact | Contact | +--------+ + + + + + | Closed | Specialty | Physical | Diagnoses | [place], | | | | Services | Therapy | Lumbar | Nino Floyd MD | | | | Required | | radiculopath | [address] | | | | | | y Lumbar | [address] | | | | | | spinal | [place], | | | | | | stenosis | [place] [address] | | | | | | | Phone: | | | | | | | [phone] | | | | | | | Fax: | | | | | | | [phone] | | +--------+ + + + + [...] | | n | y Lumbar | [address] | [place] | | | | | spinal | [place], | [place], [place] | | | | | stenosis | [place] [address] | [address] Phone: | | | | | | Phone: | [phone] | | | | | | [phone] | Fax: | | | | | | Fax: | [phone] | | | | | | [phone] | | +--------+ + + + + [...] | Visit | MEDICINE | [address] | stenosis (Primary | | | | REHABIL[facility] [address] | [place] | Dx); Cervical spinal | | | | [address] [place] | [address] | stenosis; Lumbar | | | | [place] [address] | | radiculopathy; | | | | [phone] | | Chronic tension | | | [...] wrist dorsiflexion, finger abdu ction, and hand manager winter bilaterally. Strength is normal 5/5 in both [...]
--- OUTSIDE RECORDS SUMMARY | ~2019-08-29 | XMS | Encounter Summary ---
Demographics + + + | Address | [address] | | | [place] [address] | + + + | Home Phone [...] Author | [facility] | | | and Ruperto[place] | + + + | Organization | [facility] | | | and Rupertoana [...] Providers + +------+ + | Care Industrial Design Engineer Name | Role | Phone | [...] [address] | | | | | [place], | [address] [place] | | | | | [place] [address] | [address] | | | | | [phone] | | | +--------+ + + + [...]
--- OUTSIDE RECORDS SUMMARY | ~2019-08-29 | XMS | Encounter Summary ---
Demographics + + + | Address | [address] | | | [place] [address] | + + + | Home Phone | | + + + | Preferred Language | Unknown | + + + | Marital Status | | + + + | Voodoo Affiliation | 1013 | + + + | Race | Unknown | + + + | Ethnic Group | Unknown | + + + Author + + + | Author | [facility] | | | and Ruperto[place] | + + + | Organization | [facility] | | | and [...] Team Providers + +------+ + | Care Tablet Machine Operator Name | Role | Phone | + +------+ + | Kade Bermudez MD | PCP | | + +------+ + Encounter Details +--------+ + + + + | Date | Type | Department | Care Team | Description | +--------+ + + + + | 03/01/ | Orders Only | [facility] [place] | Domingo Carlson MD | Pre-op testing | | 2016 | | NEUROSURGERY [address] | [address] | (Primary Dx); | | | | [address] | [place] [address] | Dizziness; Flat back | | | | [place], [place] | [phone] | syndrome; Lumbar | | | | [address] | | radiculopathy; | | | | [phone] | | Cervical spondylosis | | | | | | with myelopathy; | | | | | | Lumbar disc | | | | | | herniation with | | | | | | radiculopathy; | | | | | | Attention deficit | | | | | | hyperactivity | | | | | | disorder (ADHD), | | | | | | unspecified ADHD | | | | | | type; Cervical | | | | | | spinal stenosis; | | | | | | Lumbar spinal | | | | | | stenosis; Lumbar | | | | | | degenerative disc | | | | | | disease; Anxiety; | | | | | | Arthritis; Facet | | | | | | arthropathy, lumbar; | | | | | | Foraminal stenosis | | | | | | of lumbosacral | | | | | | region; Spinal | | | | | | instability, lumbar; | | | | | | Spondylolisthesis | | | | | | of lumbar region; | | | | | | Scoliosis, | | | | | | unspecified | | | | | | scoliosis type, | | | | | | unspecified spinal | | | | | | region; S/P cervical | | | | | | spinal fusion; | | | | | | Spinal stenosis, | | | | | | lumbar region, with | | | | | | neurogenic | | | | | | claudication; | | | | | | Bilateral hip pain; | | | | | | Spondylolisthesis of | | | | | | cervical region; | | | | | | S/P lumbar fusion; | | | | | | Cervicalgia; | | | | | | Cervical stenosis of | | | | | | spinal canal | +--------+ + + + + Social [...] | + +---------+--------+ + + | XR Chest 2 VW | Imaging | Routin | Pre-op testing | Expected: | | | | e | Dizziness Flat back | 03/01/2016, Expires: | | | | | syndrome Lumbar | 03/01/2017 | | | | | radiculopathy | | | | | | Cervical spondylosis | | | | | | with myelopathy | | | | | | Lumbar disc | | | | | | herniation with | | | | | | radiculopathy | | | | | | Attention deficit | | | | | | hyperactivity | | | | | | disorder (ADHD), | | | | | | unspecified ADHD | | | | | | type Cervical | | | | | | spinal stenosis | | | | | | Lumbar spinal | | | | | | stenosis Lumbar | | | | | | degenerative disc | | | | | | disease Anxiety | | | | | | Arthritis Facet | | | | | | arthropathy, lumbar | | | | | | Foraminal stenosis | | | | | | of lumbosacral | | | | | | region Spinal | | | | | | instability, lumbar | | | | | | Spondylolisthesis | | | | | | of lumbar region | | | | | | Scoliosis, | | | | | | unspecified | | | | | | scoliosis type, | | | | | | unspecified spinal | | | | | | region S/P cervical | | | | | | spinal fusion | | | | | | Spinal stenosis, | | | | | | lumbar region, with | | | | | | neurogenic | | | | | | claudication | | | | | | Bilateral hip pain | | | | | | Spondylolisthesis of | | | | | | cervical region | | | | | | S/P lumbar fusion | | | | | | Cervicalgia | | | | | | Cervical stenosis of | | | | | | spinal canal | | + +---------+--------+ + + documented as of this encounter Visit Diagnoses + + | Diagnosis | + + | Pre-op testing - Primary Preoperative examination, unspecified | + + | Dizziness Dizziness and giddiness | + + | Flat back syndrome Other lordosis (acquired) | + + | Lumbar radiculopathy Thoracic or lumbosacral neuritis or radiculitis, unspecified | + + | Cervical spondylosis with myelopathy | + + | Lumbar disc herniation with radiculopathy Displacement of lumbar intervertebral disc | | without myelopathy | + + | Attention deficit hyperactivity disorder (ADHD), unspecified ADHD type | + + | Cervical spinal stenosis Spinal stenosis in cervical region | + + | Foraminal stenosis of lumbosacral region Spinal stenosis, lumbar region, without | | neurogenic claudication | + + | Lumbar degenerative disc disease Degeneration of lumbar or lumbosacral intervertebral | | disc | + + | Anxiety Anxiety state, unspecified | + + | Arthritis Arthropathy, unspecified, site unspecified | + + | Facet arthropathy, lumbar Lumbosacral spondylosis without myelopathy | + + | Spinal instability, lumbar Other unspecified back disorder | + + | Spondylolisthesis of lumbar region Acquired spondylolisthesis | + + | Scoliosis, unspecified scoliosis type, unspecified spinal region | + + | S/P cervical spinal fusion Arthrodesis status | + + | Spinal stenosis, lumbar region, with neurogenic claudication | + + | Bilateral hip pain Pain in joint, pelvic region and thigh | + + | Spondylolisthesis of cervical region Acquired spondylolisthesis | + + | S/P lumbar fusion Arthrodesis status | + + | Cervicalgia | + + | Cervical stenosis of spinal canal Spinal stenosis in cervical region | + + documented in this encounter"
--- OUTSIDE RECORDS SUMMARY | ~2019-08-29 | XMS | Encounter Summary ---
Demographics + + + | Address | [address] | | | [place] [address] | + + + | Home Phone | | + + + | Preferred Language | Unknown | + + + | Marital Status | | + + + | Druze Affiliation | 1013 | + + + | Race | Unknown | + + + | Ethnic Group | Unknown | + + + Author + + + | Author | [facility] | | | and Ruperto[place] | + + + | Organization | [facility] | [...] Team Providers + +------+ + | Care Lambskin Trimmer Name | Role | Phone | [...] | | [address] | [place] [address] | instructions ) | | | | [place] | [phone] | | | | | [address] | | | | | | [phone] | | | +--------+ + + + [...]
--- OUTSIDE RECORDS SUMMARY | ~2019-08-29 | XMS | Encounter Summary ---
Demographics + + + | Address | [address] | | | [place] [address] | + + + | Home Phone [...] | Author | [facility] | | | and Ruperto[place] | + + + | Organization | [facility] | | | and [...] Team Providers + +------+ + | Care Pediatric Medical Assistant Name | Role | Phone | [...] | | stenosis, | [address] [facility] | | | | | lumbar | [place], | [address] | | | | | region, with | [place] [address] | AVE | | | | | neurogenic | Phone: | [place], [place] | | | | | claudication | [phone] | [address] | | | | | Spinal | Fax: | Phone: | | | | | instability, | [phone] | [phone] | | | | | lumbar S/P | | Fax: | | | | | lumbar | | [phone] | | | | | fusion | [...] | | | | | insomnia | [place], | [address] | | | | | | [place] [address] | [place], | | | | | | Phone: | [place] [address] | | | | | | [phone] | Phone: | | | | | | Fax: | [phone] | | | | | | [phone] | Fax: | | | | | | | [phone] | +--------+ + + + + + [...] | | [address] | [place] [address] | neurogenic | | | | [place], [place] | [phone] | claudication | | | | [address] | | (Primary Dx); Spinal | | | | [phone] | | instability, | | | | [...] from daniel rodriguez. Domingo Carlson MD [address] [facility], [address] [place] [address] FAX: NEUROSURGERY FOLLOW-UP CHIEF COMPLAINT: Chief Complaint [...] Intrinsics 5 5 Ulnar Intrinsics 5 5 Marine Driller Strength 5 5 Hip Flexion 5 5 [...] to surgical intervention with Mr. Mendoza i [facility]. These risks included but were not limited [...] +--------+ + + | AMB Referral to [facility] | Outpatient | Routin | Insomnia, | [...]
--- OUTSIDE RECORDS SUMMARY | ~2019-08-29 | XMS | Clinical Summary ---
Demographics + + + | Address | [address] | | | [place] [address] | + + + | Home Phone | | + + + | Preferred Language | Unknown | + + + | Marital Status | | + + + | Mosque Affiliation | 1013 | + + + | Race | Unknown | + + + | Ethnic Group | Unknown | + + + Author + + + | Author | [facility] [employer] (Historical as of | | | 05-03-19) | + + + | Organization | [facility] [employer] (Historical as of | | | 05-03-19) | + + + | Address | Unknown | + + + | Phone | Unavailable | + + + Support + + +---------+ + | Name | Relationship | Address | Phone | + + +---------+ + | Lizz eMndoza | ECON | Unknown | | + + +---------+ + Care Team Providers + +------+ + | Care Natural Gas Field Processing Supervisor Name | Role | Phone | + +------+ + | Kennedy Fuentes MD | PP | | + +------+ + Allergies + + + + + + | Active Allergy | Reactions | Severity | Noted | Comments | | | | | Date | | + + + + + + | Hydrocodone | Nausea Only | Low | 08/18/20 | | | | | | 18 | | + + + + + + Current Medications + + +---------+---------+------+------+-------+ | Prescription [...] | | | + + +---------+---------+------+------+-------+ | acetaminophen | Take 650 mg by mouth | | | 07/2 | | Activ | | (TYLENOL) 325 MG | as needed. | | | 6/20 | | e | | tablet | | | | 18 | | | + + +---------+---------+------+------+-------+ | sertraline | Take 50 mg by mouth | | 0 | 09/0 | | Activ | | (ZOLOFT) 50 MG | daily. | | | 5/20 | | e | | tablet | | | | 18 | | | + + +---------+---------+------+------+-------+ | Ropinirole HCl 12 | | | 0 | / | | Activ | | MG TB24 | | | | 05/06 | | e | | | | | | 18 | | | + + +---------+---------+------+------+-------+ | propranolol | Take 40 mg by mouth | | 0 | 11/2 | | Activ | | (INDERAL) 40 MG | daily. | | | 12/04 | | e | | tablet | | | | 18 | | | + + +---------+---------+------+------+-------+ | docusate sodium | Take 100 mg by | | | | | Activ | | (COLACE) 100 MG | mouth. | | | | | e | | capsule | | | | | | | + + +---------+---------+------+------+-------+ | meclizine | Take 25 mg by mouth | | 0 | 11/3 | | Activ | | (ANTIVERT) 25 MG | 3 (three) times | | | 0/20 | | e | | tablet | daily as needed. | | | 18 | | | | | dizziness. | | | | | | + + +---------+---------+------+------+-------+ | | Take 1-2 tablets by | 30 | 0 | 12/0 | | Activ | | oxyCODONE-acetaminop | mouth every 6 (six) | tablet | | 5/20 | | e | | hen (PERCOCET) 5-325 | hours as needed for | | | 18 | | | | MG per tablet | Pain (hold for | | | | | | | | sedation). | | | | | | + + +---------+---------+------+------+-------+ | tamsulosin | Take 1 capsule by | 30 | 0 | 12/0 | | Activ | | (FLOMAX) 0.4 MG | mouth After dinner. | capsule | | 5/20 | | e | | capsule | | | | 18 | | | + + +---------+---------+------+------+-------+ | traMADol (ULTRAM) | Take 50 mg by mouth | | 0 | 08/18 | | Activ | | 50 MG tablet | every 4 (four) hours | | | 8 | | e | | | as needed. | | | 18 | | | + + +---------+---------+------+------+-------+ Active Problems + + + | Problem | Noted Date | + + + | Traumatic subdural hemorrhage without loss of consciousness (HCC) | 08/17/2018 | + + + | Acute urinary retention | 08/17/2018 | + + + | Other chronic pain | 08/17/2018 | + + + | Headache, intractable | 09/26/2015 | + + + Immunizations + + + + | Name | Dates Previously Given | Next Due | + + + + | INFLUENZA PF, | 08/19/2018 | | | QUADRIVALENT | | | | (PED/ADOL/ADULT) | | | + + + + | Pneumococcal | 09/15/2014 | | | Polysaccharide | | | | 23-valent | | | + + + + Social History + +-------+ +--------+------+ | Tobacco Use | Types | Packs/Day | Years | Date | | | | | Used | | + +-------+ +--------+------+ | Former Smoker | | | 26 | | + +-------+ +--------+------+ + +---+---+--------+ | Smokeless Tobacco: | | | Quit: | | Former User | | | 1980 | + +---+---+--------+ + + | Tobacco Cessation: Counseling Given: No | + + + + + | Sex Assigned at | Date Recorded | | | | + + + | Not on file | | + + + Last Filed Vital Signs + + + + | Vital Sign | Reading | Time Taken | + + + + | Blood Pressure | 123/71 | 08/21/2018 10:46 AM PST | + + + + | Pulse | 71 | 08/21/2018 10:46 AM PST | + + + + | Temperature | 37.2 C (98.9 F) | 08/21/2018 10:46 AM PST | + + + + | Respiratory Rate | 18 | 08/21/2018 10:46 AM PST | + + + + | Oxygen Saturation | 95% | 08/21/2018 10:46 AM PST | + + + + | Inhaled Oxygen | - | - | | Concentration | | | + + + + | Weight | 88.5 kg (195 lb) | 09/20/2018 11:55 AM PST | + + + + | Height | 182.9 cm (6') | 09/20/2018 11:55 AM PST | + + + + | Body Mass Index | 26.45 | 09/20/2018 11:55 AM PST | + + + + Plan of Treatment + + + + + | Health Maintenance | Due Date | Last Done | Comments | + + + + + | Vaccine: | | | | | Dtap/Tdap/Td (1 - | 0 | | | | Tdap) | | | | + + + + + | Colon Cancer | | | | | Screening | 1 | | | | (Colonoscopy) | | | | + + + + + | Vaccine: Zoster (1 | | | | | of 2) | 1 | | | + + + + + | Vaccine: | | 09/15/2014 | | | Pneumococcal 65+ | 6 [...] / Lot | + +------+--------+ +--------+--------+--------+ | Xgrft Dura Durepr Mtrx 2x2in | | Right: | [employer] - | | 03/16/ | [id number] | | - [id number]: Qty: 1 | | Brain | MEDT | | 2020 | / | | on 08/17/2018 by Igor, | | | | | | /[id number] | | Julianna Rebolledo MD | | | | | | 70 | + +------+--------+ +--------+--------+--------+ | Plate [place] 14mm - | | Right: | [employer] - | | | 015-26 | | [id number]: Qty: 1 on | | Brain | MEDT | | | 2-14 / | | 08/17/2018 by Julianna Costa | | | | | | / | | L, MD | | | | | | | + +------+--------+ +--------+--------+--------+ | Screw S/Tap 1.6x4.0 - | | Right: | [employer] - | | | | | [id number]: Qty: 7 on | | Brain | MEDT | | | | | 08/17/2018 by Julianna Costa | | | | | | | | L, MD | | | | | | | + +------+--------+ +--------+--------+--------+ | Plate Dogbone 8mm - | | Right: | [employer] - | | | 015-04 | | [id number]: Qty: 1 on | | Brain | MEDT | | | 2 / / | | 08/17/2018 by Julianna Costa | | | | | | | | L, MD | | | | | | | + +------+--------+ +--------+--------+--------+ | Algrft Dura Durgn Mtrx 3x3 | | Left: | [employer] | | 06/16/ | ID-[id number] | | Bx5 - [id number]: | | Brain | NEUROSCIENC | | 2020 | 5 / | | Qty: 1 on 08/18/2018 by | | | ADRI - SHAYAN | | | /[id number] | | Julianna Costa MD | | | | | | 60 | + +------+--------+ +--------+--------+--------+ | Plate Sm X 2x2h 5mm - | | Left: | [employer] - | | | 015-24 | | [id number]: Qty: 1 on | | Brain | MEDT | | | / | | 08/18/2018 by Julianna Costa | | | | | | | | MD Amaury | | | | | | | + +------+--------+ +--------+--------+--------+ | Plate Dogbone 8mm - | | Left: | [employer] - | | | 015-04 | | [id number]: Qty: 2 on | | Brain | [...] Right: | [employer] - | | | [id number] | | [id number]: Qty: 1 on | | Brain | MEDT | | | 0 / / | | 08/17/2018 | | | | | | | [...] | | + +--------+ +------+-------+ + | AUTO INSURANCE | PROGRE | [id number] | | | | | | SSIVE | | | | | | | AUTO | | | | | | | INS | | | | | + +--------+ +------+-------+ + | MEDICARE | MEDICA | [id number] | | | [address] | | | RE | | | | [place] [address] | | | IP-OP | | | | | + +--------+ +------+-------+ + | PREMERA | PREMER | [id number] | | | [address] [address] | | | A BLUE | 8 | | | [place] | | | CARD | | | | [phone] | + +--------+ +------+-------+ + + +--------+ +--------+ + + | Guarantor Name | Accoun | Relation to | Date | Phone | Billing Address | | | t Type | Patient | of | | | | | | | | | | + +--------+ +--------+ + + | MAL MENDOZA | Person | Self [birth year] | Home: | [address] | | | al/Fam | | 1949 | +- | [place] | | | faith | | | [phone] | [address] | + +--------+ +--------+ + + | MAL MENDOZA | Third | Self | [birth year] | Home: | [address] | | | [employer] | | 1949 | +- | [place] | | | Liabil | | | [address] | [address] | | | ity | | | | | + +--------+ +--------+ + +"
--- OUTSIDE RECORDS SUMMARY | ~2019-08-29 | XMS | Encounter Summary ---
Demographics + + + | Address | [address] | | | [place] [address] | + + + | Home Phone | | + + + | Preferred Language | Unknown | + + + | Marital Status | | + + + | Mormonism Affiliation | 1013 | + + + | Race | Unknown | + + + | Ethnic Group | Unknown | + + + Author + + + | Author | [facility] | | | and [place] | + + + | Organization | [facility] | [...] Team Providers + +------+ + | Care Lasting Machine Operator Hand Method Name | Role | Phone | + [...] [address] | MD Fareed [address] | | | | | [address] | [place] | | | | | [place] | [address] | | | | | [address] | [phone] | | | | | [phone] | | | +--------+ + + + [...]
--- OUTSIDE RECORDS SUMMARY | ~2019-08-29 | XMS | Encounter Summary ---
Demographics + + + | Address | [address] | | | [place] [address] | + + + | Home Phone | | + + + | Preferred Language | Unknown | + + + | Marital Status | | + + + | Oriental Orthodox Affiliation | 1013 | + + + | Race | Unknown | + + + | Ethnic Group | Unknown | + + + Author + + + | Author | [facility] | | | and [place] | + + + | Organization | [facility] [...] Team Providers + +------+ + | Care Otr Company Driver Name | Role | Phone | + +------+ + | Kade Bermudez MD | PCP | | + +------+ + Reason for Visit + + + | Reason | Comments | + + + | Imaging Only | | + + + Encounter Details +--------+ + + + + | Date | Type | Department | Care Team | Description | +--------+ + + + + | 12/20/ | Telephone | [facility] [place] | Domingo Carlson MD | Imaging Only | | 2016 | | NEUROSURGERY [address] | [address] | | | | | [address] | [place] [address] | | | | | [place], [place] | [phone] | | | | | [address] | | | | | | [phone] | | | +--------+ + + + [...]
--- OUTSIDE RECORDS SUMMARY | ~2019-08-29 | XMS | Encounter Summary ---
Demographics + + + | Address | [address] | | | [place] [address] | + + + | Home Phone | | + + + | Preferred Language | Unknown | + + + | Marital Status | | + + + | Restorationism Affiliation | 1013 | + + + | Race | Unknown | + + + | Ethnic Group | Unknown | + + + Author + + + | Author | [facility] | | | and [place] | + + + | Organization | [facility] [...] Team Providers + +------+ + | Care Investor Relations Coordinator Name | Role | Phone | + +------+ + | Shirley Ghosh MD | PCP | | + +------+ + Encounter Details +--------+ + + + + | Date | Type | Department | Care Team | Description | +--------+ + + + + | 10/08/ | Orders Only | [facility] [place] | Sawyer Petersen | Back pain (Primary | | 2012 | | [address] | MD Fareed [address] | Dx) | | | | [address] | [place] | | | | | [place], [place] | [address] | | | | | [address] | [phone] | | | | | [phone] | | | +--------+ + + + [...] of this encounter Results XR Lumbar Spine 4 + Vw (10/14/2012 3:15 PM PST) + + | Specimen | + + | | + + + + + | Narrative | Performed At | + + + | [facility] | [place] | | Department [address] [place] [address] [facility] | [facility] | | [ rep [address]] [ rep ct [facility] | | st zip] Signed | - IMAGING | | | | | Patient Name: SHEELA MENDOZA Physician: | | | MILI.01 : 1950 Age: 62 Sex: M Unit #: [id number] | | | Exam Date: 10/14/12 Location: [facility] [place] [facility] | | | Report #: [id number] Page: | | | %(RAD)RES..mtdd.print.filter("pg") of %(RAD) | | | RES..mtdd.print.filter("tpg") | | | | | | Accession Number: [id number] | | | X-RAY LUMBAR SPINE WITH [...] Transcribed Date/Time: 10/14/2012 15:55 | | | Coal Miner: <<Signature on File>> | | | | | | Domingo Corral MD10/15/12 0805 <Electronically signed by Domingo | | | Micky Corral MD> Domingo Corral MD 10/14/12 1515 | | | Coal Miner: TradeSyncjerrica Fijzzlkyqnobm28/28/13 1555 | | | Sawyer Petersen MD | | + + + + + + + + | Performing | Address | City/State/Zipcode | Phone Number | | Organization | | | | + + + + + | [facility] | [address] | [place] | [phone] | | [facility] | | [address] | | | - IMAGING | | | | + + + + + documented in this encounter Visit Diagnoses + + | Diagnosis | + + | Back pain - Primary Backache, unspecified | + + documented in this encounter
--- OUTSIDE RECORDS SUMMARY | ~2019-08-29 | XMS | Encounter Summary ---
Demographics + + + | Address | [address] | | | [place] [address] | + + + | Home Phone | | + + + | Preferred Language | Unknown | + + + | Marital Status | | + + + | Christianity Affiliation | 1013 | + + + | Race | Unknown | + + + | Ethnic Group | Unknown | + + + Author + + + | Author | [facility] | | | and [place] | + + + | Organization | [facility] | [...] Team Providers + +------+ + | Care Carton Maker Name | Role | Phone | + +------+ + | Shirley Ghosh MD | PCP | | + +------+ + Encounter Details +--------+ + + + + | Date | Type | Department | Care Team | Description | +--------+ + + + + | 10/15/ | Hospital | [facility] | Shirley Ghosh | | | 2012 | Encounter | [facility] | [address] | | | | | [facility] [address] | [facility], | | | | | [facility], | [place] [address] | | | | | [place] [address] | [phone] | | | | | [phone] | | | +--------+ + + + [...]
--- OUTSIDE RECORDS SUMMARY | ~2019-08-29 | XMS | Encounter Summary ---
Demographics + + + | Address | [address] | | | [place] [address] | + + + | Home Phone | | + + + | Preferred Language | Unknown | + + + | Marital Status | | + + + | Confucianist Affiliation | 1013 | + + + | Race | Unknown | + + + | Ethnic Group | Unknown | + + + Author + + + | Author | [facility] | | | and [place] | + + + | Organization | [facility] | | | and [place] | [...] Team Providers + +------+ + | Care Residential Carpet Installer Name | Role | Phone | [...] | | | | | cervical | [address] | [address] | | | | | spine Neck | [place], | [place], | | | | | pain Fall | [place] [address] | [place] [address] | | | | | Procedures | Phone: | Phone: | | | | | MRI Cervical | [phone] | [phone] | | | | | Spine w wo | [phone] Fax: | [phone] Fax: | | | | | Contrast | | [phone] | | | | | | [phone] | | +--------+--------+ + + + + Encounter Details +--------+ + + + + | Date | Type | Department | Care Team | Description | +--------+ + + + + | 11/20/ | Orders Only | [facility] [place] | Sawyer Petersen | History of fusion of | | 2012 | | NEUROSURGERY [address] | F, [address] | cervical spine | | | | [address] | [place] | (Primary Dx); Neck | | | | [place], [place] | [address] | pain; Fall | | | | [address] | [phone] | | | | | [phone] | | | +--------+ + + + [...]
--- OUTSIDE RECORDS SUMMARY | ~2019-08-29 | XMS | Encounter Summary ---
Demographics + + + | Address | [address] | | | [place] [address] | + + + | Home Phone | | + + + | Preferred Language | Unknown | + + + | Marital Status | | + + + | Anabaptism Affiliation | 1013 | + + + | Race | Unknown | + + + | Ethnic Group | Unknown | + + + Author + + + | Author | [facility] | | | and [place] | + + + | Organization | [facility] | | [...] Team Providers + +------+ + | Care Family Service Counselor Name | Role | Phone | + [...] | | | [address] | [facility] | | | | | [place] | [place] [address] | | | | | [address] | [phone] | | | | | [phone] | | | +--------+ + + + [...]
--- OUTSIDE RECORDS SUMMARY | ~2019-08-29 | XMS | Encounter Summary ---
Demographics + + + | Address | [address] | | | [place] [address] | + + + | Home Phone | | + + + | Preferred Language | Unknown | + + + | Marital Status | | + + + | Holiness Affiliation | 1013 | + + + | Race | Unknown | + + + | Ethnic Group | Unknown | + + + Author + + + | Author | [facility] | | | and [place] | + + + | Organization | 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
--- OUTSIDE RECORDS SUMMARY | ~2019-08-29 | XMS | Encounter Summary ---
Demographics + + + | Address | [address] | | | [place] [address] | + + + | Home Phone [...] Author | [facility] | | | and [place] | + + + | Organization | [facility] [...] Team Providers + +------+ + | Care Fuel Cell Test Engineer Name | Role | Phone | + +------+ + | Kade Bermudez MD | PCP | | + +------+ + Encounter Details +--------+ + + + + | Date | Type | Department | Care Team | Description | +--------+ + + + + | 08/17/ | Hospital | [facility] | Conversion | Pain | | 2018 | Encounter | CONVERSION [address] | Transaction, | | | | | [address] | Provider Unknown | | | | | [place], [place] | [phone] | | | | | [address] | (Fax) | | | | | [phone] | | | +--------+ + + + [...] | | 0 | | | | Msxmgeuluk-HFE-Dmoa- | mouth Daily. | | | | [...] +--------+ + + + | MRI BRAIN WO | Routin | 08/17/2018 | | Results for this | | CONTRAST | e | 9:34 AM | | procedure are in the | | | | PST | | results section. | + +--------+ + + + documented in this encounter Results MRI Brain wo Contrast (08/17/2018 9:34 AM PST) + + | Specimen | [...] Rad Conversion - 04/30/2019 12:08 PM PDT This is a non-reportable procedure | | without a radiologist report and isused for image storage only | + + documented in this encounter Visit Diagnoses + + | Diagnosis | + + | Pain Generalized pain | + + documented in this encounter"
--- OUTSIDE RECORDS SUMMARY | ~2019-08-29 | XMS | Encounter Summary ---
Demographics + + + | Address | [address] | | | [place] [address] | + + + | Home Phone | | + + + | Preferred Language | Unknown | + + + | Marital Status | | + + + | Pentecostalism Affiliation | 1013 | + + + | Race | Unknown | + + + | Ethnic Group | Unknown | + + + Author + + + | Author | [facility] | | | and [place] | + + + | Organization | [facility] | | | and [place] [...] Team Providers + +------+ + | Care Store Cashier Name | Role | Phone | + [...] Description | +--------+--------+ + + + | 11/16/ | Refill | [facility] | Sawyer Petersen | Medication Refill | | 2013 | | MED CTR XRAY [address] | F, MD [address] | | | | | [address] [place] | [place], [place] | | | | | [place] [address] | [address] | | | | | [phone] | [phone] | | | | | | | [...]
--- OUTSIDE RECORDS SUMMARY | ~2019-08-29 | XMS | Encounter Summary ---
Demographics + + + | Address | [address] | | | [place] [address] | + + + | Home Phone [...] | Author | [facility] | | | and [place] | + + + | Organization | [facility] | [...] Team Providers + +------+ + | Care Commissioner Of Internal Revenue Name | Role | Phone | + +------+ + | Shirley Ghosh MD | PCP | | + +------+ + Encounter Details +--------+ + + + + | Date | Type | Department | Care Team | Description | +--------+ + + + + | 11/13/ | Orders Only | [facility] | Sawyer Petersen | | | 2012 | | NEUROSURGERY [address] | MD Fareed [address] | | | | | [address] | [place] | | | | | [place], [place] | [address] | | | | | [address] | [phone] | | | | | [phone] | | | +--------+ + + + [...]
--- OUTSIDE RECORDS SUMMARY | ~2019-08-29 | XMS | Encounter Summary ---
Demographics + + + | Address | [address] | | | [place] [address] | + + + | Home Phone | | + + + | Preferred Language | Unknown | + + + | Marital Status | | + + + | Confucianism Affiliation | 1013 | + + + | Race | Unknown | + + + | Ethnic Group | Unknown | + + + Author + + + | Author | [facility] | | | and [place] | + + + | Organization | [facility] | | | and [...] Team Providers + +------+ + | Care Pharmaceutical Botanist Name | Role | Phone | + [...] | | | | | | | MS | | | | | | | [...] + + + + | 03/06/ | Anesthesia | VERONICA SALAS JOHN | Liu Lindsay | | | 2016 | Event | [facility] | MD Karolina [address] | | | | | [address] | [address] [place] | | | | | [place] | [id number] | | | | | [phone] | | | | | | [phone] | | | +--------+ + + + + Anesthesia Record + + + + + | Procedure Name | Responsible | Anesthesia Start | Anesthesia Stop Time | | | Anesthesiologist | Time | | + + + + + | L2-3 Lateral | Liu Lindsay, | 03/06/16 1325 | 03/06/16 1731 | | Anterior Interbody | MD | | | | Fusion, L5-S1 | | | | | Transforaminal | | | | | Lumbar Interbody | | | | | Fusion, Hardware | | | | | Revision @ L3-4, | | | | | L4-5 (Left Spine | | | | | Lumbar) | | | | + + + + + +----+---+ + + | Da | T | Event | Comment | | te | i | | | | | m | | | | | e | | | +----+---+ + + | 06 | 1 | An Checkout | Pre-use anesthesia machine/equipment checkout. | | /2 | 2 | | | | 0/ | 4 | | | | 20 | 3 | | | | 16 | | | | +----+---+ + + | | 1 | An Start | Versed 2 mg IV in SDS 13, then to OR 6 with patient. Reassessment | | | 3 | | prior to anesthesia induction/procedure. | | | 2 | | | | | 5 | | | +----+---+ + + | | 1 | | | | | 3 | | | | | 2 | | | | | 8 | | | +----+---+ + + | | 1 | Antibiotic | | | | 3 | Given | | | | 2 | | | | | 8 | | | +----+---+ + + | | 1 | an violette now | In OR 6 with patient from SDS 13 | | | 3 | | | | | 2 | | | | | 9 | | | +----+---+ + + | | 1 | Preoxygenat | | | | 3 | ed | | | | 3 | | | | | 3 | | | +----+---+ + + | | 1 | An | | | | 3 | Induction | | | | 3 | | | | | 7 | | | +----+---+ + + | | 1 | An | | | | 3 | Intubation | | | | 3 | | | | | 8 | | | +----+---+ + + | | 1 | AN Bite | | | | 3 | Block | | | | 4 | | | | | 0 | | | +----+---+ + + | | 1 | [place] | | | | 3 | 43-degrees | | | | 4 | | | | | 9 | | | +----+---+ + + | | 1 | First | | | | 3 | Inc/Proc St | | | | 5 | | | | | 3 | | | +----+---+ + + | | 1 | [place] off | | | | 7 | | | | | 1 | | | | | 0 | | | +----+---+ + + | | 1 | AN No | TOF 4/4 with sustained tetanus. | | | 7 | Residual | | | | 1 | NMB | | | | 0 | | | +----+---+ + + | | 1 | Breathing | | | | 7 | Spontaneous | | | | 2 | ly | | | | 5 | | | +----+---+ + + | | 1 | Oropharynx | | | | 7 | Suctioned | | | | 2 | | | | | 5 | | | +----+---+ + + | | 1 | An Stop | Patient handed off to recovery nurse. | | | 3 | | | | | 1 | | | +----+---+ + + +------+ | Meds | +------+ + + + | Name | Total | + + + | lidocaine 2% (PF) | 60 mg | + + + | dexamethasone | 10 mg | + + + | HYDROmorphone | 2 mg | + + + | dexmedetomidine (PRECEDEX) 4 | 100 mcg | | mcg/mL in sodium chloride 0.9% | | | 100 mL infusion | | + + + | magnesium sulfate | 2 g | + + + | glycopyrrolate | 0.2 mg | + + + | propofol | 150 mg | + + + | ePHEDrine | 50 mg | + + + | midazolam (VERSED) 1 mg/mL | 2 mg | | injection 1 mg | | + + + | succinylcholine | 80 mg | + + + | ondansetron (ZOFRAN) injection 4 | 4 mg | | mg | | + + + | ceFAZolin (ANCEF, KEFZOL) 2 g in | 2 g | | sodium chloride 0.9% 50 mL IVPB | | + + + | Phenylephrine 100mcg/mL SYRINGE | 50 mcg | + + + | lactated ringers (LR) infusion | 2,400 mL | + + + + + | Name | + + | N2O Flow Rate (L/Min) | + + | O2 Flow Rate (L/Min) | + + | Insp O2 | + + | Exp SEV | + + | Exp FERMIN | + + | Air Flow Rate (L/Min) | + + + + | No blood administrations on file. | + + +--------+ + + + | Type | Details | Placement | Removal | +--------+ + + + | Periph | 03/06/16; 1151; [id number] | 03/06/16 1151 by | 03/09/16 1600 by | | eral | catheter system; 09/20 in length, | Lennie Munoz, | Oliver Rueda RN | | IV | 18 gauge; intradermal injection, | RN | | | | tolerated well; short term use; | | | | | 03/09/16; 1600 | | | +--------+ + + + | Airway | Placement Date: 03/06/16; | 03/06/16 1338 by | 03/06/16 1700 by | | | Placement Time: 1338; Mask | Liu Lindsay, | Trinh Sabillon RN | | | Ventilation: EZ; Airway Grade: | MD | | | | 2b; External Maneuvers: CP; | | | | | Successful Technique: Mac; | | | | | Laryngoscope Blade Size: 3; | | | | | Airway Type: endotracheal, oral, | | | | | fenestrated, disposable, cuffed; | | | | | Size: 6.5; Position: Right; | | | | | Airway Tube Secured At: 23; Tube | | | | | Reference Point: teeth, secure | | | | | and patent; Other Equipment: | | | | | tooth guard; Placement Check: | | | | | breath sounds equal bilaterally, | | | | | exhaled CO2 detection device; | | | | | Removal: per order; Removal Date: | | | | | 03/06/16; Removal Time: 1700 | | | | | (removed in recovery. unsure of | | | | | exact time) | | | +--------+ + + + | Urethr | 03/06/16; 1400; indicated due to | 03/06/16 1400 by | 03/06/16 1707 by | | al | specific surgical procedure; | Jakub Blair RN | Chantel Hoang RN | | Cathet | indwelling double lumen catheter; | | | | er | 100% silicone; 14; 1; 10; 10; | | | | | 03/06/16; 1707 | | | +--------+ + + + | Read | 03/06/16; 1407; Left; flank; | 03/06/16 1407 by | 03/09/16 1600 by | | only - | healing within expectations; | Jakub Blair RN | Oliver Rueda RN | | | 03/09/16; 1600 | | | | Incisi | | | | | on | | | | +--------+ + + + | Read | 03/06/16; 1622; Bilateral; back; | 03/06/16 1622 by | 03/09/16 1600 by | | only - | healing within expectations; | Chantel Hoang RN | Oliver Rueda RN | | | 03/09/16; 1600 | | | | Incisi | | | | | on | | | | +--------+ + + + | Drain/ | 03/06/16; 1708; #1; lumbar spine; | 03/06/16 1708 by | 03/08/16 1400 by | | Device | collapsible closed device; 10f; | Chantel Hoang RN | Trinh Sabillon RN | | Site | tip intact; short term use; | | | | | 03/08/16; 1400 | | | +--------+ + + + documented in this encounter Social History + +-------+ +--------+ + | [...] Diagnoses Not on filedocumented in this encounter Administered Medications + +---------+ +------+------+------+ | Medication Order | MAR | Action | Dose | Rate | Site | | | Action | Date | | | | + +---------+ +------+------+------+ | ceFAZolin (ANCEF, KEFZOL) 2 g | New Bag | 03/06/20 | 2 g | | | | in sodium chloride 0.9% 50 mL | | 16 1:28 | | | | | IVPB 2 g, Intravenous, | | PM PDT | | | | | Administer over 30 Minutes, Prior | | | | | | | to Incision, Starting Mon | | | | | | | 03/06/16 at 1134, For 1 dose, | | | | | | | Administer within 1 hour of | | | | | | | surgical incision., Pre-op, | | | | | | | Indications: Surgical Prophylaxis | | | | | | + +---------+ +------+------+------+ +---+---+ | | | +---+---+ + +-------+ +-------+---+---+ | dexamethasone (DECADRON) 10 | Given | 03/06/20 | 10 mg | | | | mg/mL injection Intravenous, | | 16 1:37 | | | | | PRN, Starting 03/06/16 at | | PM PDT | | | | | 1337, Anesthesia Intra-op | | | | | | + +-------+ +-------+---+---+ +---+---+ | | | +---+---+ + +---------+ +--------+ +---+ | dexmedetomidine (PRECEDEX) 4 | New Bag | 03/06/20 | 100 | 25 mL/hr | | | mcg/mL in sodium chloride 0.9% | | 16 1:45 | mcg/hr | | | | 100 mL infusion 400 mcg, | | PM PDT | | | | | CONTINUOUS PRN, Starting Sun | | | | | | | 03/06/16 at 1345, Anesthesia | | | | | | | Intra-op | | | | | | + +---------+ +--------+ +---+ +---+---+ | | | +---+---+ + +-------+ +---------+---+---+ | ePHEDrine 50 mg/mL injection | Given | 03/06/20 | 12.5 mg | | | | PRN, Starting Sun03/06/16 at | | 16 3:14 | | | | | 1354, Anesthesia Intra-op | | PM PDT | | | | + +-------+ +---------+---+---+ +-------+ +---------+---+---+ | Given | 03/06/20 | 12.5 mg | | | | | 16 3:08 | | | | | | PM PDT | | | | +-------+ +---------+---+---+ | Given | 03/06/20 | 12.5 mg | | | | | 16 2:08 | | | | | | PM PDT | | | | +-------+ +---------+---+---+ +---+---+ | | | +---+---+ + +-------+ +--------+---+---+ | glycopyrrolate (СЕРГЕЙ) | Given | 03/06/20 | 0.2 mg | | | | injection Intravenous, PRN, | | 16 2:05 | | | | | Secretions, Starting Sun03/06/16 | | PM PDT | | | | | at 1405, Anesthesia Intra-op | | | | | | + +-------+ +--------+---+---+ +---+---+ | | | +---+---+ + +-------+ +------+---+---+ | HYDROmorphone (DILAUDID) 2 | Given | 03/06/20 | 1 mg | | | | mg/mL injection PRN, Pain, | | 16 4:16 | | | | | Starting 03/06/16 at 1311, | | PM PDT | | | | | Anesthesia Intra-op | | | | | | + +-------+ +------+---+---+ +-------+ +------+---+---+ | Given | 03/06/20 | 1 mg | | | | | 16 1:11 | | | | | | PM PDT | | | | +-------+ +------+---+---+ +---+---+ | | | +---+---+ + +---------+ +---+---+---+ | lactated ringers (LR) infusion | New Bag | 03/06/20 | | | | | at 100 mL/hr, Intravenous, | | 16 4:40 | | | | | CONTINUOUS, Starting Sun03/06/16 | | PM PDT | | | | | at 1200, Pre-op | | | | | | + +---------+ +---+---+---+ +---------+ +---+-------+---+ | New Bag | 03/06/20 | | | | | | 16 2:49 | | | | | | PM PDT | | | | +---------+ +---+-------+---+ | New Bag | 03/06/20 | | 100 | | | | 16 11:41 | | mL/hr | | | | AM PDT | | | | +---------+ +---+-------+---+ +---+---+ | | | +---+---+ + +-------+ +-------+---+---+ | lidocaine (PF) 2% injection | Given | 03/06/20 | 60 mg | | | | PRN, Starting Sun03/06/16 at | | 16 1:37 | | | | | 1337, Anesthesia Intra-op | | PM PDT | | | | + +-------+ +-------+---+---+ +---+---+ | | | +---+---+ + +---------+ +--------+---------+---+ | magnesium sulfate 500 mg/mL | New Bag | 03/06/20 | 2 g/hr | 4 mL/hr | | | injection CONTINUOUS PRN, | | 16 1:45 | | | | | Starting Sun03/06/16 at 1345, | | PM PDT | | | | | Anesthesia Intra-op | | | | | | + +---------+ +--------+---------+---+ +---+---+ | | | +---+---+ + +-------+ +------+---+---+ | midazolam (VERSED) 1 mg/mL | Given | 03/06/20 | 2 mg | | | | injection 1 mg 1 mg, | | 16 1:26 | | | | | Intravenous, PRN, Anxiety, May | | PM PDT | | | | | repeat Q 5 minutes prn, Starting | | | | | | | 03/06/16 at 1134, For 2 doses, | | | | | | | May repeat once in 5min. Hold | | | | | | | anxiolytic until after anesthesia | | | | | | | and surgical consent is | | | | | | | obtained, Pre-op | | | | | | + +-------+ +------+---+---+ +---+---+ | | | +---+---+ + +-------+ +------+---+---+ | ondansetron (ZOFRAN) injection | Given | 03/06/20 | 4 mg | | | | 4 mg 4 mg, Intravenous, ONCE | | 16 1:37 | | | | | PRN, Nausea, Starting 03/06/16 | | PM PDT | | | | | at 1134, For 1 dose, Pre-op | | | | | | + +-------+ +------+---+---+ +---+---+ | | | +---+---+ + +-------+ +--------+---+---+ | phenylephrine (TUTU-SYNEPHRINE) | Given | 03/06/20 | 50 mcg | | | | 100 mcg/mL injection | | 16 3:16 | | | | | Intravenous, PRN, Starting Mon | | PM PDT | | | | | 6/20/16 at 1516, Anesthesia | | | | | | | Intra-op | | | | | | + +-------+ +--------+---+---+ +---+---+ | | | +---+---+ + +-------+ +--------+---+---+ | propofol (DIPRIVAN) injection | Given | 03/06/20 | 150 mg | | | | Intravenous, PRN, Starting Mon | | 16 1:37 | | | | | 03/06/16 at 1337, Anesthesia | | PM PDT | | | | | Intra-op | | | | | | + +-------+ +--------+---+---+ +---+---+ | | | +---+---+ + +-------+ +-------+---+---+ | succinylcholine (ANECTINE) | Given | 03/06/20 | 80 mg | | | | injection Intravenous, PRN, | | 16 1:37 | | | | | Starting 03/06/16 at 1337, | | PM PDT | | | | | Anesthesia Intra-op | | | | | | + +-------+ +-------+---+---+ +---+---+ | | | +---+---+ documented in this encounter"
--- OUTSIDE RECORDS SUMMARY | ~2019-08-29 | XMS | Encounter Summary ---
Demographics + + + | Address | [address] | | | [place] [address] | + + + | Home Phone | | + + + | Preferred Language | Unknown | + + + | Marital Status | | + + + | Presybeterian Affiliation | 1013 | + + + | Race | Unknown | + + + | Ethnic Group | Unknown | + + + Author + + + | Author | [facility] | | | and [place] | + + + | Organization | [facility] | | | and [place] [...] Team Providers + +------+ + | Care Secure Software Assessor Name | Role | Phone | [...] | | | | | | | [place] | | | | | | | [...] + + | 03/06/ | Hospital | [facility] | Domingo Carlson MD | Abnormal ECG | | 2016 - | Encounter | [facility] | [address] | (Primary Dx); | | | | [address] | [place] [address] | Cervical spinal | | 03/09/ | | [place] [address] | [phone] | stenosis; Cervical | | 2016 | | [phone] | | spondylosis with | | | | | | myelopathy; Cervical | | | | | | stenosis of spinal | | | | | | canal; Foraminal | | | | | | stenosis of | | | | | | lumbosacral region; | | | | | | Lumbar degenerative | | | | | | disc disease; Lumbar | | | | | | disc herniation | | | | | | with radiculopathy; | | | | | | Lumbar | | | | | | radiculopathy; | | | | | | Lumbar spinal | | | | | | stenosis; Spinal | | | | | | instability, lumbar; | | | | | | Spinal stenosis, | | | | | | lumbar region, with | | | | | | neurogenic | | | | | | claudication; | | | | | | Spondylolisthesis of | | | | | | cervical region; | | | | | | Spondylolisthesis of | | | | | | lumbar region; Gait | | | | | | abnormality | +--------+ + + + + Social [...] might be differen t from the original. [facility] NEUROSURGERY DISCHARGE SUMMARY Patient Name: Mal Mendoza [...] O2 sats. I was not using IS. Hwas instructed in gr eat detail by me [...] month post op appointment before your appointment. [id number] [email or web address] [place] [address]. All righ ts reserved. This information is not intended as a substitute for professional medical care. Always follow your healthcare professional's instructions. AttachmentsThe following attachments cannot be sent through Care Everywhere.INDWELLING URIN GAYATHRI CATHETER, DISCHARGE INSTRUCTIONS (UKRAINIAN)documented in this encounter Medications at Time of [...] might be different f rom the original. [facility] NEUROSURGERY PROGRESS NOTE Pt. Name/Age/: Mal Mendoza 66 y.o. 1950 Post operative day 2 SUBJECTIVE: Patient doing fairly well. 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 This AM they [...] Electronically signed by: Jovanni Avendaño, 03[facility]08/2016 7[facility], HARDEEP Cerda - 03/07/2016 7:16 AM PDT [facility] NEUROSURGERY PROGRESS NOTE Pt. Name/Age/: Mal Mendoza [...] - 67 14 99 % - - 03/06/162114 105/58 mmHg - - 61 15 100 % - - 03/06/16 2018 109/64 mmHg - - 66 14 100 % - - 03/06/16 1945 111/62 mmHg 36.9 C (98.4 F) Axillary 101 16 98 % - - 03/06/161914 - - - 94 11 92 % - - 03/06/161909 - - - 92 13 99 % - - 03/06/161904 - - - 95 22 99 % - - 03/06/16 190 106/77 mmHg - - 88 16 99 % - - 03/06/16 1855 - - - 95 20 100 % - - 03/06/16 1850 103/65 mmHg - - 87 13 95 % - - 03/06/16 1845 - - - 101 23 99 % [...] Electronically signed by: Jovanni Avendaño, 03/07/2016 7:16 [facility] documented in this encounter Plan of [...] | | + +---------+ + + [place] Rae-Yair Statsheron No Charge (03/06/2016 5:10 PM PDT) [...] by | | | | | | JOHN GARG, DAPHNEY | | | | | | ([id number]) on 03/08/2016 | | | | | [...] MD | | | | | | ([id number]) on 03/15/2016 | | | | | [...] + | Diagnosis | + + | Abnormal ECG - Primary Nonspecific abnormal electrocardiogram (ECG) (EKG) | + + | Cervical spinal stenosis Spinal stenosis in cervical region | + + | Cervical spondylosis with myelopathy | + + | Cervical stenosis of spinal canal Spinal stenosis in cervical region | + + | Foraminal stenosis of lumbosacral region Spinal stenosis, lumbar region, without | | neurogenic claudication | + + | Lumbar degenerative disc disease Degeneration of lumbar or lumbosacral intervertebral | | disc | + + | Lumbar disc herniation with radiculopathy Displacement of lumbar intervertebral disc | | without myelopathy | + + | Lumbar radiculopathy Thoracic or lumbosacral neuritis or radiculitis, unspecified | + + | Spinal instability, lumbar Other unspecified back disorder | + + | Spinal stenosis, lumbar region, with neurogenic claudication | + + | Spondylolisthesis of cervical region Acquired spondylolisthesis | + + | Spondylolisthesis of lumbar region Acquired spondylolisthesis | + + | Gait abnormality Abnormality of gait | + + | Abnormal resting ECG findings Nonspecific abnormal electrocardiogram (ECG) (EKG) | + + documented in this encounter Administered Medications + +---------+ +------+-------+------+ | Medication Order | MAR | Action | Dose | Rate | Site | | | Action | Date | | | | + +---------+ +------+-------+------+ | ceFAZolin (ANCEF, KEFZOL) 2 g | New Bag | 03/07/20 | 2 g | 100 | | | in sodium chloride 0.9% 50 mL | | 16 5:35 | | mL/hr | | | IVPB 2 g, Intravenous, | | AM PDT | | | | | Administer over 30 Minutes, EVERY | | | | | | | 8 HOURS INTERVAL, First dose on | | | | | | | 03/06/16 at 2100, For 2 doses, | | | | | | | Start 8 hours after previous | | | | | | | dose. Last dose to be given | | | | | | | within 24 hours of surgery end | | | | | | | time., Post-op/Phase II, | | | | | | | Indications: Surgical Prophylaxis | | | | | | + +---------+ +------+-------+------+ +---------+ +-----+-------+---+ | New Bag | 03/06/20 | 2 g | 100 | | | | 16 8:20 | | mL/hr | | | | PM PDT | | | | +---------+ +-----+-------+---+ +---+---+ | | | +---+---+ + +-------+ +-------+---+---+ | cyclobenzaprine (FLEXERIL) | Given | 03/07/20 | 10 mg | | | | tablet 10 mg 10 mg, Oral, EVERY | | 16 4:26 | | | | | 8 HOURS PRN, Muscle spasms, | | PM PDT | | | | | Starting 03/06/16 at 2204, | | | | | | | Post-op/Phase II | | | | | | + +-------+ +-------+---+---+ +-------+ +-------+---+---+ | Given | 03/07/20 | 10 mg | | | | | 16 7:59 | | | | | | AM PDT | | | | +-------+ +-------+---+---+ | Given | 03/06/20 | 10 mg | | | | | 16 10:59 | | | | | | PM PDT | | | | +-------+ +-------+---+---+ +---+---+ | | | +---+---+ + +-------+ +--------+---+---+ | docusate sodium (COLACE) | Given | 03/09/20 | 100 mg | | | | capsule 100 mg 100 mg, Oral, 2 | | 16 8:32 | | | | | TIMES DAILY, First dose on Mon | | AM PDT | | | | | 03/06/16 at 2100, First line agent | | | | | | | for constipation, Post-op/Phase | | | | | | | II | | | | | | + +-------+ +--------+---+---+ +-------+ +--------+---+---+ | Given | 03/08/20 | 100 mg | | | | | 16 9:53 | | | | | | PM PDT | | | | +-------+ +--------+---+---+ | Given | 03/08/20 | 100 mg | | | | | 16 9:51 | | | | | | AM PDT | | | | +-------+ +--------+---+---+ +---+---+ | | | +---+---+ + +-------+ +--------+---+---+ | fentaNYL (PF) injection 25-50 | Given | 03/06/20 | 50 mcg | | | | mcg 25-50 mcg, Intravenous, | | 16 5:47 | | | | | EVERY 5 MIN PRN, Pain, Starting | | PM PDT | | | | | 03/06/16 at 1702, Maximum | | | | | | | total dose 250 mcg. PACU IV | | | | | | | Narcotic Priority: Only use | | | | | | | fentanyl for immediate post-op | | | | | | | pain (one dose) or breakthrough | | | | | | | pain when any other IV narcotics | | | | | | | ordered have been ineffective (if | | | | | | | ordered). If both morphine and | | | | | | | hydromorphone are ordered, use | | | | | | | morphine first, and use | | | | | | | hydromporphone if morphine | | | | | | | ineffective., Recovery/Phase I | | | | | | + +-------+ +--------+---+---+ +-------+ +--------+---+---+ | Given | 03/06/20 | 50 mcg | | | | | 16 5:35 | | | | | | PM PDT | | | | +-------+ +--------+---+---+ +---+---+ | | | +---+---+ + +-------+ +---------+---+---+ | HYDROcodone-acetaminophen | Given | 03/06/20 | 2 | | | | (NORCO) 10-325 mg per tablet 1-2 | | 16 9:12 | tablets | | | | tablet 1-2 tablet, Oral, EVERY 4 | | PM PDT | | | | | HOURS PRN, Pain, Starting Mon | | | | | | | 03/06/16 at 1954, If ineffective | | | | | | | or not tolerated use Oxycodone if | | | | | | | ordered., Post-op/Phase II | | | | | | + +-------+ +---------+---+---+ +---+---+ | | | +---+---+ + +-------+ +---------+---+---+ | HYDROmorphone (DILAUDID) | Given | 03/06/20 | 0.25 mg | | | | injection 0.2-0.5 mg 0.2-0.5 mg, | | 16 6:23 | | | | | Intravenous, EVERY 5 MIN PRN, | | PM PDT | | | | | Pain, Starting 03/06/16 at | | | | | | | 1702, Maximum total dose 4 mg. | | | | | | | PACU IV Narcotic Priority: Only | | | | | | | use fentanyl for immediate | | | | | | | post-op pain (one dose) or | | | | | | | breakthrough pain when any other | | | | | | | IV narcotics ordered have been | | | | | | | ineffective (if ordered). If | | | | | | | both morphine and hydromorphone | | | | | | | are ordered, use morphine first, | | | | | | | and use hydromporphone if | | | | | | | morphine ineffective., | | | | | | | Recovery/Phase I | | | | | | + +-------+ +---------+---+---+ +-------+ +--------+---+---+ | Given | 03/06/20 | 0.5 mg | | | | | 16 5:48 | | | | | | PM PDT | | | | +-------+ +--------+---+---+ | Given | 03/06/20 | 0.5 mg | | | | | 16 5:36 | | | | | | PM PDT | | | | +-------+ +--------+---+---+ +---+---+ | | | +---+---+ + +-------+ +------+---+---+ | HYDROmorphone (DILAUDID) | Given | 03/06/20 | 1 mg | | | | injection 1 mg 1 mg, | | 16 10:59 | | | | | Intravenous, EVERY 4 HOURS PRN, | | PM PDT | | | | | Severe Pain, Pain, Starting Mon | | | | | | | 03/06/16 at 2201 | | | | | | + +-------+ +------+---+---+ +---+---+ | | | +---+---+ + +---------+ +---+---+---+ | lactated ringers (LR) infusion | New Bag | 03/06/20 | | | | | at 100 mL/hr, Intravenous, | | 16 4:40 | | | | | CONTINUOUS, Starting 03/06/16 | | PM PDT | [...] | | +---+---+ + +-------+ +--------+---+---+ | lactulose liquid 30 mL 30 mL, | Given | 03/09/20 | 30 mLs | | | | Oral, 2 TIMES DAILY, First dose | | 16 8:33 | | | | | (after last modification) on Mon | | AM PDT | | | | | 6/20/16 at 2230, If docusate, | | | | | | | senna, and polyethylene glycol | | | | | | | ineffective x 24 hours or not | | | | | | | ordered, Post-op/Phase II | | | | | | + +-------+ +--------+---+---+ +-------+ +--------+---+---+ | Given | 03/06/20 | 30 mLs | | | | | 16 11:08 | | | | | | PM PDT | | | | +-------+ +--------+---+---+ +---+---+ | | | +---+---+ + +---------+ +--------+--------+---+ | methocarbamol (ROBAXIN) 750 mg | New Bag | 03/07/20 | 750 mg | 143.3 | | | in sodium chloride 0.9% 100 mL | | 16 6:48 | | mL/hr | | | IVPB 750 mg, Intravenous, | | PM PDT | | | | | Administer over 45 Minutes, EVERY | | | | | | | 8 HOURS INTERVAL, First dose on | | | | | | | 03/06/16 at 1800, For 4 doses, | | | | | | | Post-op/Phase II | | | | | | + +---------+ +--------+--------+---+ +---------+ +--------+--------+---+ | New Bag | 03/07/20 | 750 mg | 143.3 | | | | 16 11:00 | | mL/hr | | | | AM PDT | | | | +---------+ +--------+--------+---+ | New Bag | 03/07/20 | 750 mg | 143.3 | | | | 16 1:36 | | mL/hr | | | | AM PDT | | | | +---------+ +--------+--------+---+ +---+---+ | | | +---+---+ + +-------+ +--------+---+---+ | methocarbamol (ROBAXIN) tablet | Given | 03/08/20 | 750 mg | | | | 750 mg 750 mg, Oral, EVERY 8 | | 16 8:02 | | | | | HOURS PRN, Muscle spasms, | | PM PDT | | | | | Starting 03/06/16 at 1954, For | | | | | | | 3 doses, Post-op/Phase II | | | | | | + +-------+ +--------+---+---+ +-------+ +--------+---+---+ | Given | 03/08/20 | 750 mg | | | | | 16 2:36 | | | | | | AM PDT | | | | +-------+ +--------+---+---+ +---+---+ | | | +---+---+ + +-------+ +--------+---+---+ | midazolam (VERSED) 1 mg/mL | Given | 03/06/20 | 0.5 mg | | | | injection 0.5-2 mg 0.5-2 mg, | | 16 5:40 | | | | | Intravenous, EVERY 5 MIN PRN, | | PM PDT | | | | | Anxiety, or agitation, Starting | | | | | | | 03/06/16 at 1702, Maximum | | | | | | | total dose 2 mg., Recovery/Phase | | | | | | | I | | | | | | + +-------+ +--------+---+---+ +---+---+ | | | +---+---+ + +-------+ +------+---+---+ | morphine injection 2-4 mg 2-4 | Given | 03/08/20 | 2 mg | | | | mg, Intravenous, EVERY 2 HOURS | | 16 10:31 | | | | | PRN, Pain, Starting 03/06/16 | | PM PDT | | | | | at 2200, Slow IV push, not faster | | | | | | | than 2 mg/minute. If ineffective | | | | | | | or not tolerated, use | | | | | | | hydromorphone IV if ordered., | | | | | | | Post-op/Phase II | | | | | | + +-------+ +------+---+---+ +-------+ +------+---+---+ | Given | 03/08/20 | 4 mg | | | | | 16 8:00 | | | | | | PM PDT | | | | +-------+ +------+---+---+ | Given | 03/08/20 | 2 mg | | | | | 16 2:51 | | | | | | AM PDT | | | | +-------+ +------+---+---+ +---+---+ | | | +---+---+ + +-------+ +------+---+---+ | morphine injection 2-8 mg 2-8 | Given | 03/06/20 | 4 mg | | | | mg, Intravenous, EVERY 2 HOURS | | 16 9:08 | | | | | PRN, Pain, Starting 03/06/16 | | PM PDT | | | | | at 1954, Slow IV push, not faster | | | | | | | than 2 mg/minute. If ineffective | | | | | | | or not tolerated, use | | | | | | | hydromorphone IV if ordered., | | | | | | | Post-op/Phase II | | | | | | + +-------+ +------+---+---+ +-------+ +------+---+---+ | Given | 03/06/20 | 4 mg | | | | | 16 8:18 | | | | | | PM PDT | | | | +-------+ +------+---+---+ +---+---+ | | | +---+---+ + +-------+ + +---+---+ | oxyCODONE-acetaminophen | Given | 03/09/20 | 1 tablet | | | | (PERCOCET) 10-325 mg per tablet | | 16 2:33 | | | | | 1-2 tablet 1-2 tablet, Oral, | | PM PDT | | | | | EVERY 4 HOURS PRN, Pain, Starting | | | | | | | 03/06/16 at 2204, | | | | | | | Post-op/Phase II | | | | | | + +-------+ + +---+---+ +-------+ + +---+---+ | Given | 03/09/20 | 2 | | | | | 16 8:16 | tablets | | | | | AM PDT | | | | +-------+ + +---+---+ | Given | 03/09/20 | 1 tablet | | | | | 16 2:11 | | | | | | AM PDT | | | | +-------+ + +---+---+ +---+---+ | | | +---+---+ + +-------+ +------+---+---+ | polyethylene glycol (MIRALAX) | Given | 03/09/20 | 17 g | | | | powder 17 g 17 g, Oral, DAILY, | | 16 8:33 | | | | | First dose on 03/06/16 at | | AM PDT | | | | | 2014, If docusate and senna | | | | | | | ineffective or not ordered, | | | | | | | Post-op/Phase II | | | | | | + +-------+ +------+---+---+ +-------+ +------+---+---+ | Given | 03/07/20 | 17 g | | | | | 16 8:00 | | | | | | AM PDT | | | | +-------+ +------+---+---+ +---+---+ | | | +---+---+ + +-------+ +------+---+---+ | pramipexole (MIRAPEX) tablet 2 | Given | 03/08/20 | 2 mg | | | | mg 2 mg, Oral, NIGHTLY, First | | 16 9:52 | | | | | dose on 03/06/16 at 2100, | | PM PDT | | | | | Post-op/Phase II | | | | | | + +-------+ +------+---+---+ +-------+ +------+---+---+ | Given | 03/07/20 | 2 mg | | | | | 16 10:17 | | | | | | PM PDT | | | | +-------+ +------+---+---+ | Given | 03/06/20 | 2 mg | | | | | 16 9:12 | | | | | | PM PDT | | | | +-------+ +------+---+---+ +---+---+ | | | +---+---+ + +-------+ +--------+---+---+ | senna (SENOKOT) tablet 8.6 mg | Given | 03/09/20 | 8.6 mg | | | | 8.6 mg, Oral, 2 TIMES DAILY, | | 16 8:32 | | | | | First dose on Sun03/06/16 at | | AM PDT | | | | | 2100, If docusate ineffective or | | | | | | | not ordered, Post-op/Phase II | | | | | | + +-------+ +--------+---+---+ +-------+ +--------+---+---+ | Given | 03/08/20 | 8.6 mg | | | | | 16 9:53 | | | | | | PM PDT | | | | +-------+ +--------+---+---+ | Given | 03/08/20 | 8.6 mg | | | | | 16 9:51 | | | | | | AM PDT | | | | +-------+ +--------+---+---+ +---+---+ | | | +---+---+ + +-------+ +--------+---+---+ | sertraline (ZOLOFT) tablet 200 | Given | 03/09/20 | 200 mg | | | | mg 200 mg, Oral, DAILY, First | | 16 8:32 | | | | | dose (after last modification) on | | AM PDT | | | | | 03/08/16 at 0900, | | | | | | | Post-op/Phase II | | | | | | + +-------+ +--------+---+---+ +-------+ +--------+---+---+ | Given | 03/08/20 | 200 mg | | | | | 16 9:51 | | | | | | AM PDT | | | | +-------+ +--------+---+---+ +---+---+ | | | +---+---+ + +-------+ +-------+---+---+ | sertraline (ZOLOFT) tablet 50 | Given | 03/07/20 | 50 mg | | | | mg 50 mg, Oral, DAILY, First | | 16 8:00 | | | | | dose on 03/06/16 at 2015, | | AM PDT | | | | | Post-op/Phase II | | | | | | + +-------+ +-------+---+---+ +-------+ +-------+---+---+ | Given | 03/06/20 | 50 mg | | | | | 16 9:12 | | | | | | PM PDT | | | | +-------+ +-------+---+---+ +---+---+ | | | +---+---+ + +---------+ +---+-------+---+ | sodium chloride 0.9% (NS) | New Bag | 03/06/20 | | 100 | | | infusion at 100 mL/hr, | | 16 8:00 | | mL/hr | | | Intravenous, CONTINUOUS, Starting | | PM PDT | | | | | 03/06/16 at 2015, | | | | | | | Post-op/Phase II | | | | | | + +---------+ +---+-------+---+ +---+---+ | | | +---+---+ + +-------+ +--------+---+---+ | tamsulosin (FLOMAX) capsule 0.4 | Given | 03/09/20 | 0.4 mg | | | | mg 0.4 mg, Oral, DAILY AFTER | | 16 8:33 | | | | | BREAKFAST, First dose on Sun | | AM PDT | | | | | 03/07/16 at 0900, Do not open | | | | | | | capsule., | | | | | | + +-------+ +--------+---+---+ +-------+ +--------+---+---+ | Given | 03/08/20 | 0.4 mg | | | | | 16 9:51 | | | | | | AM PDT | | | | +-------+ +--------+---+---+ | Given | 03/07/20 | 0.4 mg | | | | | 16 8:01 | | | | | | AM PDT | | | | +-------+ +--------+---+---+ +---+---+ | | | +---+---+ documented in this encounter
--- OUTSIDE RECORDS SUMMARY | ~2019-08-29 | XMS | Encounter Summary ---
Demographics + + + | Address | [address] | | | [place] [address] | + + + | Home Phone [...] Author | [facility] | | | and [place] | + + + | Organization | [facility] | [...] Team Providers + +------+ + | Care Calender Supervisor Name | Role | Phone | + +------+ + | Kade Bermudez MD | PCP | | + +------+ + Reason for Visit +--------+ + | Reason | Comments | +--------+ + | Other | Increased pain | +--------+ + Encounter Details +--------+ + + + + | Date | Type | Department | Care Team | Description | +--------+ + + + + | 01/13/ | Telephone | [facility] | Nehemias Petersenlas | Other (Increased | | 2012 | | NEUROSURGERY [address] | [address] | pain ) | | | | [address] | [place], [place] | | | | | [place], [place] | [address] | | | | | [address] | [phone] | | | | | [phone] | | | +--------+ + + + [...]
--- OUTSIDE RECORDS SUMMARY | ~2019-08-29 | XMS | Encounter Summary ---
Demographics + + + | Address | [address] | | | [place] [address] | + + + | Home Phone | | + + + | Preferred Language | Unknown | + + + | Marital Status | | + + + | Quaker Affiliation | 1013 | + + + | Race | Unknown | + + + | Ethnic Group | Unknown | + + + Author + + + | Author | [facility] | | | and [place] | + + + | Organization | [facility] | | [...] Team Providers + +------+ + | Care Range Ecologist Name | Role | Phone | + [...] | | [address] | [place] [address] | | | | | [place], [place] | [phone] | | | | | [address] | | | | | | [phone] | | | +--------+ + + + [...]
--- OUTSIDE RECORDS SUMMARY | ~2019-08-29 | XMS | Encounter Summary ---
Demographics + + + | Address | [address] | | | [place] [address] | + + + | Home Phone [...] | Author | [facility] | | | and [place] | + + + | Organization | [facility] | [...] Providers + +------+ + | Care Medical Delivery Technician Name | Role | Phone | + +------+ + | Shirley Ghosh MD | PCP | | + +------+ + Encounter Details +--------+ + + + + | Date | Type | Department | Care Team | Description | +--------+ + + + + | 11/19/ | Hospital | [facility] | Shirely Ghosh | | | 2012 | Encounter | [facility] | [address] | | | | | [facility] [address] | [facility], | | | | | [facility], | [place] [address] | | | | | [place] [address] | [phone] | | | | | [phone] | | | +--------+ + + + [...]
--- OUTSIDE RECORDS SUMMARY | ~2019-08-29 | XMS | Encounter Summary ---
Demographics + + + | Address | [address] | | | [place] [address] | + + + | Home Phone | | + + + | Preferred Language | Unknown | + + + | Marital Status | | + + + | Baptism Affiliation | 1013 | + + + | Race | Unknown | + + + | Ethnic Group | Unknown | + + + Author + + + | Author | [facility] | | | and [place] | + + + | Organization | [facility] | | | and [place] [...] Team Providers + +------+ + | Care Special Education Itinerant Teacher Name | Role | Phone | [...] NEUROSURGERY [address] | [facility] [address] | | | | | [address] | [place], [place] | | | | | [place], [place] | [address] | | | | | [address] | [phone] | | | | | [phone] | | | +--------+ + + + [...]
--- OUTSIDE RECORDS SUMMARY | ~2019-08-29 | XMS | Encounter Summary ---
Demographics + + + | Address | [address] | | | [place] [address] | + + + | Home Phone | | + + + | Preferred Language | Unknown | + + + | Marital Status | | + + + | Restorationism Affiliation | 1013 | + + + | Race | Unknown | + + + | Ethnic Group | Unknown | + + + Author + + + | Author | [facility] | | | and [place] | + + + | Organization | [facility] | [...] Team Providers + +------+ + | Care Unit Secy Name | Role | Phone | + +------+ + | Kade Bermudez MD | PCP | | + +------+ + Encounter Details +--------+ + + + + | Date | Type | Department | Care Team | Description | +--------+ + + + + | 01/09/ | [facility] | [facility] | [place], | | | 2012 | Encounter | MED [facility] EM[facility]Y | Samir Floyd MD [address] | | | | | CENTER [address] | [place] [address] | | | | | [place] | [place] [address] | | | | | [address] | [phone] | | | | | [phone] | | | +--------+ + + + [...]
--- OUTSIDE RECORDS SUMMARY | ~2019-08-29 | XMS | Encounter Summary ---
Demographics + + + | Address | [address] | | | [place] [address] | + + + | Home Phone [...] Author | [facility] | | | and Rupertoana | + + + | Organization | [facility] | | | and Rupertoana | + + + | Address | Unknown | + + + | Phone | Unavailable | + + + Support + + +---------+ + | Name | Relationship | Address | Phone | + + +---------+ + | Lizz Menodza | ECON | Unknown | | + + +---------+ + Care Team Providers + +------+ + | Care Rhinestone Setter Name | Role | Phone | + [...] | spinal | [address] | | | | | stenosis | [address] | [address] [place] | | | | | Lumbalgia | [place], | [place], [place] | | | | | Lumbar | [place] [address] | [address] | | | | | degenerative | Phone: | Phone: | | | | | disc | [phone] | [phone] | | | | | disease | Fax: | Fax: | | | | | Lumbar | [phone] | [phone] | | | | | radiculopath | [...] | +--------+ + + + + | 08/19/ | Hospital | [facility] | Nino Anderson, | 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 [address] | [address] | stenosis; Lumbalgia; | | | | [address] [place] | [place] | 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/ | | [place] [address] | [address] | disc disease; | | 2011 | | [phone] | | Lumbar radiculopathy | +--------+ + + + + Social [...] + + + | MRI LUMBAR SPINE WO | Routin | 08/19/2012 | Lumbar spinal | Results for this | | CONTRAST | e | 12:54 PM | stenosis Lumbalgia | procedure are in the | | | | PST | Lumbar degenerative | results section. | | | | | disc disease | | | | | | Lumbar radiculopathy | | + +--------+ + + + documented in this encounter Results MRI Lumbar Spine wo Contrast (08/19/2012 12:54 PM PST) + + | Specimen | + + | | + + + + + | Narrative | Performed At | + + + | [facility] | [place] | | Department [address] [facility], [place] | [facility] | | [ rep ct street1+[address]] [ rep ct [facility] | | st zip] Signed | - IMAGING | | | | | Patient Name: KELLYMAL Olsen Physician: | | | : 1950 Age: 62 Sex: M Unit #: [id number] | | | Exam Date: 08/19/12 [place] [facility] [place] | | | Report #: [id number] Page: | | | %(RAD)RES..mtdd.print.filter("pg") of %(RAD) | | | RES..mtdd.print.filter("tpg") | | | | | | Accession Number: [id number] | | | UNENHANCED EXTENDED MRI LUMBAR [...] | | | Transcribed Date/Time: 08/19/2012 15:19 [employer] Around: | | | <<Signature on File>> | | | Tulio López | | | MD Juan08/19/12 4465 <Electronically signed by Tulio Martinez MD> | | | Tulio Martinez MD 08/19/12 1254 [employer]: | | | [employer] Hodtayxtvrcbe64/03/12 4264 Nino Anderson Jr, MD | | | | | + + + + + + + + | Performing | Address | City/State/Zipcode | Phone Number | | Organization | | | | + + + + + | [facility] | [address] | [place] | [phone] | | [facility] | | [address] | | | - IMAGING | | [...] | disc | + + | Lumbar radiculopathy Thoracic or lumbosacral neuritis or radiculitis, unspecified | + + documented in this encounter
--- OUTSIDE RECORDS SUMMARY | ~2019-08-29 | XMS | Encounter Summary ---
Demographics + + + | Address | [address] | | | [place] [address] | + + + | Home Phone [...] Author | [facility] | | | and Rupertoana | + + + | Organization | [facility] [...] Team Providers + +------+ + | Care Legal Paraprofessional Name | Role | Phone | + [...] NEUROSURGERY [address] | F, [address] | Dx); Dizziness | | | | [address] | St [place], [place] | | | | | [place], [place] | [address] | | | | | [address] | [phone] | | | | | [phone] | | | +--------+ + + + [...]
--- OUTSIDE RECORDS SUMMARY | ~2019-08-29 | XMS | Encounter Summary ---
Demographics + + + | Address | [address] | | | [place] [address] | + + + | Home Phone [...] | Author | [facility] | | | and Ru[place]to[place] | + + + | Organization | [facility] [...] Team Providers + +------+ + | Care Guest Service Aide Name | Role | Phone | + +------+ + PCP | Unavailable | + +------+ + Encounter Details +--------+ + + + + | Date | Type | Department | Care Team | Description | +--------+ + + + + | 02/03/ | Hospital | [place] [facility] | Shirley Ghosh | | | 2008 | Encounter | HOSPITAL BUSINESS | MD Annal[address] | | | | | OFFICE [address] | [address] [facility] [place], | | | | | [place] | [place] [address] | | | | | [address] | [phone] | | | | | [phone] | | | +--------+ + + + [...]
--- OUTSIDE RECORDS SUMMARY | ~2019-08-29 | XMS | Encounter Summary ---
Demographics + + + | Address | [address] | | | [place] [address] | + + + | Home Phone [...] | Author | [facility] | | | and Ruperto[place] | + + + | Organization | [facility] | | | and [...] Providers + +------+ + | Care Assistant Branch Operations Manager Name | Role | Phone | [...] + + | 03/01/ | Office | [facility] | Hemal Celestin | Spondylolisthesis of | | 2016 | Visit | NEUROSURGERY [address] | [address] | lumbar region | | | | [address] | [address] | (Primary Dx); Lumbar | | | | [place], [place] | [place] [address] | radiculopathy; S/P | | | | [address] | [phone] | lumbar fusion; Facet | | | | [phone] | | arthropathy, lumbar | +--------+---------+ + [...] t from the original. HARDEEP Acharya [address] [facility], [address] [place], [place] [address] FAX: NEUROSURGERY FOLLOW-UP CHIEF COMPLAINT: Chief Complaint [...] mass index is 26.65 kg/(m^2). GENERAL: Mal Mendoza is in no [...] has no apparent deficits with short or shelter memory. MOTOR EXAM: (5 IS NORMAL) * Indicates pain limited MUSCLE/ MOVEMENT: RIGHT LEFT Deltoids 5 5 Biceps 5 5 Triceps 5 5 Wrist Flexion 5 5 Wrist Extension 5 5 Median Intrinsics 5 5 Ulnar Intrinsics 5 5 Parts Counter Associate Strength 5 5 Hip Flexion 5 5 [...] to surgical intervention with Mr. Mendoza [facility]. They're planning on L2-3 as well [...]
--- OUTSIDE RECORDS SUMMARY | ~2019-08-29 | XMS | Encounter Summary ---
Demographics + + + | Address | [address] | | | [place] [address] | + + + | Home Phone [...] + | Author | [facility] | | | and Ruperto[place] | + + + | Organization | [facility] | | | and Rupertoana [...] Team Providers + +------+ + | Care Form Raiser Name | Role | Phone | + [...] [address] | MD Fareed [address] | Dx) | | | | [address] | [address] [place] | | | | | [place], [place] | [address] | | | | | [address] | [phone] | | | | | [phone] | | | +--------+ + + + [...] Performed At | + + + | [facility] | [place] | | Department [address] [place] [address] [facility] | [facility] | | [ rep ct street1+2] [ rep ct [facility] | | st zip] Signed | - IMAGING | | | | | Patient Name: SHEELA MENDOZA Physician: | | | MILI.01 : 1950 Age: 62 Sex: M Unit #: [id number] | | | Exam Date: 10/14/12 [place] [facility] [place] | | | Report #: [id number] Page: | | | %(RAD)RES..mtdd.print.filter("pg") of %(RAD) | | | RES..mtdd.print.filter("tpg") | | | | | | Accession Number: [id number] | | | X-RAY LUMBAR SPINE WITH [...] Transcribed Date/Time: 10/14/2012 15:55 | | | Feather Washer: <<Signature on File>> | | | | | | Domingo Corral MD10/15/12 0805 <Electronically signed by Domingo | | | Micky Corral MD> Domingo Corral MD 10/14/12 1515 | | | Feather Washer: Invesharejerrica Dtouxlyvdawnn02/28/13 1555 | | | Sawyer Petersen MD | | + + + + + + + + | Performing | Address | City/State/Zipcode | Phone Number | | Organization | | | | + + + + + | [facility] | [address] | [place] | [phone] | | [facility] | | [address] | | | - IMAGING | | | | + + + + + documented in this encounter Visit Diagnoses + + | Diagnosis | + + | Back pain - Primary Backache, unspecified | + + documented in this encounter
--- OUTSIDE RECORDS SUMMARY | ~2019-08-29 | XMS | Encounter Summary ---
Demographics + + + | Address | [address] | | | [place] [address] | + + + | Home Phone [...] + | Author | [facility] | | | and Ruperto[place] | + + + | Organization | [facility] | | | and Ru[place] [...] Team Providers + +------+ + | Care Locomotive Engineer Electric Name | Role | Phone | + [...] + | 06/26/ | Telephone | [facility] | Nino Anderson, | Other (T/C to | | 2011 | | MEDICINE | [address] | patient to set up | | | | REHABILITATION [address] | [place] | bilateral GONB. Both | | | | [address] [place] | [address] | cell and home #'s | | | | [place] [address] | | have been | | | | [phone] | | disconnected. ) | +--------+ + [...]
--- OUTSIDE RECORDS SUMMARY | ~2019-08-29 | XMS | Encounter Summary ---
Demographics + + + | Address | [address] | | | [place] [address] | + + + | Home Phone [...] | Author | [facility] | | | and [place] | + + + | Organization | [facility] | [...] Team Providers + +------+ + | Care Poultry Hatchery Manager Name | Role | Phone | + +------+ + | Kade Bermudez MD | PCP | | + +------+ + Encounter Details +--------+ + + + + | Date | Type | Department | Care Team | Description | +--------+ + + + + | 03/01/ | Preadmit | [facility] | Domingo Carlson MD | Lumbar | | 2016 | Visit | MED CTR PREADMIT | [address] | radiculopathy; | | | | CLINIC [address] | [place] [address] | Lumbar disc | | | | [place] | [phone] | herniation with | | | | [address] | | radiculopathy; | | | | [...] [address] | [place] | [phone] | | [facility] | | [address] | | | - LABORATORY | | [...] 108 | 70 - 109 mg/dL | [facility] | | | | | | [facility] | | | | | | MEDICAL | | | | | | CENTER - | | | | | | LABORATORY | | + + + + + + | BUN | 9 | 7 - 18 mg/dL | [facility] | | | | | | [facility] | | | | | | MEDICAL | | | | | | CENTER - | | | | | | LABORATORY | | + + + + + + | Creatinine | 0.72 | 0.60 - 1.30 | [facility] | | | | | mg/dL | [facility] | | | | | | MEDICAL | | | | | | CENTER - | | | | | | LABORATORY | | + + + + + + | eGFR if not | >60Comment: GLOMERULAR | >=60 | [facility] | | | | FILTRATION | mL/min/1.73m2 | [facility] | | | [place] | RATE,ESTIMATED | | MEDICAL | | | | mL/min/1.41v0Ojqd than | | CENTER - | | [...] [address] | [place] | [phone] | | [facility] | | [address] | | | - LABORATORY | | [...] [address] | [place] | [phone] | | [facility] | | [address] | | | - LABORATORY | | [...] | | | | DIPTI SETHI MD ([id number]) | | | | | | on [...]
--- OUTSIDE RECORDS SUMMARY | ~2019-08-29 | XMS | Encounter Summary ---
Demographics + + + | Address | [address] | | | [place] [address] | + + + | Home Phone | | + + + | Preferred Language | Unknown | + + + | Marital Status | | + + + | Restorationist Affiliation | 1013 | + + + | Race | Unknown | + + + | Ethnic Group | Unknown | + + + Author + + + | Author | [facility] | | | and Ruperto[place] | + + + | Organization | [facility] | | | and [...] Team Providers + +------+ + | Care Patient Safety Officer Name | Role | Phone | + [...] Amandeep ABEBE | | | | | [phone] | [place] [address] | | +--------+ + + + + [...] for comparison only - no result from [place]. | [facility] | + + + + +---------+ + + | Performing | Address | City/State/Zipcode | Phone Number | | Organization | | | | + +---------+ + + | [facility] | | | | + +---------+ + + documented in this encounter Visit Diagnoses Not on filedocumented in this encounter"
--- OUTSIDE RECORDS SUMMARY | ~2019-08-29 | XMS | Encounter Summary ---
Demographics + + + | Address | [address] | | | [place] [address] | + + + | Home Phone [...] Author | [facility] | | | and Rupertoana | + + + | Organization | [facility] [...] Team Providers + +------+ + | Care Fuse Cup Expander Name | Role | Phone | + [...] | | | [place], [place] | [place] [address] | | | | | [address] | [phone] | | | | | [phone] | | | +--------+ + + + [...]
--- OUTSIDE RECORDS SUMMARY | ~2019-08-29 | XMS | Encounter Summary ---
Demographics + + + | Address | [address] | | | [place] [address] | + + + | Home Phone [...] + | Author | [facility] | | | and [place]perto[place] | + + + | Organization | [facility] | | [...] Team Providers + +------+ + | Care Railroad Operating Engineer Name | Role | Phone | [...] | | DDD | [address] | [place], [place] | | | | | (degenerativ | [place], | [address] | | | | | e disc | [place] | Phone: | | | | | disease), | [address] | [phone] | | | | | lumbar | Phone: | Fax: | | | | | Scoliosis | [phone] | [phone] | | | | | Procedures | Fax: | | | | | | ID OFFICE | [phone] | | | | | | CONSULTATION [...] | | [address] | [place] [address] | radiculopathy | | | | [place] | [phone] | (Primary Dx); S/P | | | | [address] | | lumbar fusion; | | | | [phone] | | Lumbar degenerative | | | [...] from t he original. Domingo Carlson MD [address] [place] [address], [address] [place], [place] [address] FAX: NEUROSURGERY HISTORY AND PHYSICAL EXAMINATION CHIEF [...] has no apparent deficits with short or terminal operations manager memory. CRANIAL NERVES: II: Acuity is intact. [...] Intrinsics 5 5 Ulnar Intrinsics 5 5 Varnisher Apprentice Strength 5 5 Hip Flexion 5 5 [...]
--- OUTSIDE RECORDS SUMMARY | ~2019-08-29 | XMS | Encounter Summary ---
Demographics + + + | Address | [address] | | | [place] [address] | + + + | Home Phone [...] | Author | [facility] | | | and [place] | + + + | Organization | [facility] | | | and [...] Team Providers + +------+ + | Care Real Estate Developer Name | Role | Phone | + +------+ + | Kade Bermudez MD | PCP | | + +------+ + Encounter Details +--------+ + + + + | Date | Type | Department | Care Team | Description | +--------+ + + + + | 03/01/ | [facility] | [facility] | Domingo Carlson MD | | | 2016 | Encounter | MED CTR LABORATORY | [address] | | | | | [address] [place] | [place] [address] | | | | | [place] | [phone] | | | | | [address] | | | | | | [phone] | | | +--------+ + + + [...]
--- OUTSIDE RECORDS SUMMARY | ~2019-08-29 | XMS | Encounter Summary ---
Demographics + + + | Address | [address] | | | [place] [address] | + + + | Home Phone | | + + + | Preferred Language | Unknown | + + + | Marital Status | | + + + | Religion Affiliation | 1013 | + + + | Race | Unknown | + + + | Ethnic Group | Unknown | + + + Author + + + | Author | [facility] | | | and [place] | + + + | Organization | [facility] | | | and [...] Team Providers + +------+ + | Care Lathe Hand Name | Role | Phone | [...] | [address] | [address] [facility], | | | | | [place], [place] | [place] [address] | | | | | [address] | [phone] | | | | | [phone] | | | +--------+ + + + [...]
--- OUTSIDE RECORDS SUMMARY | ~2019-08-29 | XMS | Encounter Summary ---
Demographics + + + | Address | [address] | | | [place] [address] | + + + | Home Phone [...] Author | [facility] | | | and Ruperto[place] | + + + | Organization | [facility] | [...] Team Providers + +------+ + | Care Warehouse Team Member Name | Role | Phone | + +------+ + | Kade Bermudez MD | PCP | | + +------+ + Reason for Visit +--------+ + | Reason | Comments | +--------+ + | Other | | +--------+ + Encounter Details +--------+ + + + + | Date | Type | Department | Care Team | Description | +--------+ + + + + | 12/30/ | Telephone | [facility] | Sawyer Petersen | Other | | 2012 | | NEUROSURGERY [address] | F, [address] | | | | | [address] | [place], [place] | | | | | [place], [place] | [address] | | | | | [address] | [phone] | | | | | [phone] | | | +--------+ + + + [...]
--- OUTSIDE RECORDS SUMMARY | ~2019-08-29 | XMS | Encounter Summary ---
Demographics + + + | Address | [address] | | | [place] [address] | + + + | Home Phone | | + + + | Preferred Language | Unknown | + + + | Marital Status | | + + + | Sikh Affiliation | 1013 | + + + | Race | Unknown | + + + | Ethnic Group | Unknown | + + + Author + + + | Author | [facility] | | | and [place] | + + + | Organization | [facility] | | | and [...] Team Providers + +------+ + | Care Floating Derrick Operator Name | Role | Phone | [...] [address] | MD Fare[address] | | | | | [address] | [address] [place] | | | | | [place], [place] | [address] | | | | | [address] | [phone] | | | | | [phone] | | | +--------+ + + + [...]
--- OUTSIDE RECORDS SUMMARY | ~2019-08-29 | XMS | Encounter Summary ---
Demographics + + + | Address | [address] | | | [place] [address] | + + + | Home Phone [...] + | Author | [facility] | | | and [place] | + + + | Organization | [facility] | | | and [...] Providers + +------+ + | Care Concrete Laborer Name | Role | Phone | + [...] NEUROSURGERY [address] | F, [address] | pain ) | | | | [address] | [place], [place] | | | | | [place], [place] | [address] | | | | | [address] | [phone] | | | | | [phone] | | | +--------+ + + + [...]
--- OUTSIDE RECORDS SUMMARY | ~2019-08-29 | XMS | Encounter Summary ---
Demographics + + + | Address | [address] | | | [place] [address] | + + + | Home Phone [...] Author | [facility] | | | and [place] | + + + | Organization | [facility] | | | [...] Team Providers + +------+ + | Care Instrumentation Controls Engineer Name | Role | Phone | [...] | | | | | stenosis | [address] | [address] | | | | | Lumbalgia | [place], | [place], | | | | | Lumbar | [place] [address] | [place] [address] | | | | | degenerative | Phone: | Phone: | | | | | disc | [phone] | [phone] | | | | | disease | Fax: | [phone] Fax: | | | | | Lumbar | [phone] | [phone] | | | | | radiculopath | [...] Closed | | Radiology | Diagnoses | Anderosn, | [facility] | | | | | Lumbar | Nino Floyd MD | Imaging [address] | | | | | spinal | [address] | | | | | stenosis | [address] | [address] [place] | | | | | Lumbalgia | [place], | [place], [place] | | | | | Lumbar | [place] [address] | [address] | | | | | degenerative | Phone: | Phone: | | | | | disc | [phone] | | | | | | disease | Fax: | Fax: | | | | | Lumbar | [phone] | | | | | | radiculopath [...] | Visit | MEDICINE | [address] | stenosis (Primary | | | | REHABILITATION [address] | [place] | Dx); Lumbalgia; | | | | [address] [place] | [address] | Lumbar degenerative | | | | [place] [address] | | disc disease; | | | | [phone] | | Cervical spinal | | | [...] office note has been dictated. Job ID# [id number] signed by Nino Anderson MD at 07/31/2012 [...] severe central canal stenosis at L3-4 and oauvninn-tg-moituv central stenosi s at L4-5. ASSESSMENT 1. [...] basis. Greater than 30 minutes was spent krlx-uj-hddo today with Mr. Mendoza, over half of which was spent formulating and discussing his medical treatment plan. Thank you for allowing me to be involved in the care of your the patient. If you have any questions regarding the care of Mr. Mendoza, please do not hesitate to call. Nino Anderson Jr, MD CLATONIA / M JOB #: [id number] cc: Shirley Ghosh MD d ocumented in [...] Performed At | + + + | [facility] | MARCUS | | Department [address] [place] [address] | [facility] | | [ rep ct street1+2] [ rep [facility] | | [email or web address]]] Signed | - IMAGING | | | | | Patient Name: SHEELA MENDOZA Physician: | | | MARS.02 : 1950 Age: 62 Sex: M Unit #: [id number] | | | Exam Date: 08/19/12 [place] [facility] [place] | | | Report #: [id number] Page: | | | %(RAD)RES..mtdd.print.filter("pg") of %(RAD) | | | RES..mtdd.print.filter("tpg") | | | | | | Accession Number: [id number] | | | UNENHANCED EXTENDED MRI LUMBAR [...] | | | Transcribed Date/Time: 08/19/2012 15:19 Wire Straightening Machine Operator: | | | SSP <<Signature on File>> | | | Tulio López | | Mónica Martinez MD08/19/12 2226 <Electronically signed by Tulio Martinez MD> | | | Tulio Martinez MD 08/19/12 1254 Wire Straightening Machine Operator: | | | [employer] Bxmeerdpxgvai35/03/12 1519 Nino Anderson Jr, MD | | | | | + + + + + + + + | Performing | Address | City/State/Zipcode | Phone Number | | Organization | | | | + + + + + | [facility] | [address] | [place] | [phone] | | [facility] | | [address] | | | - IMAGING | | [...]
--- OUTSIDE RECORDS SUMMARY | ~2019-08-29 | XMS | Encounter Summary ---
Demographics + + + | Address | [address] | | | [place] [address] | + + + | Home Phone | | + + + | Preferred Language | Unknown | + + + | Marital Status | | + + + | Lutheran Affiliation | 1013 | + + + | Race | Unknown | + + + | Ethnic Group | Unknown | + + + Author + + + | Author | [facility] | | | and [place] | + + + | Organization | [facility] | | [...] Team Providers + +------+ + | Care Educator Senior Clinical Name | Role | Phone | + [...] [address] | [address] [place], | | | | | [place], [place] | [place] [address] | | | | | [address] | [phone] | | | | | [phone] | | | +--------+ + + + [...]
--- OUTSIDE RECORDS SUMMARY | ~2019-08-29 | XMS | Encounter Summary ---
Demographics + + + | Address | [address] | | | [place] [address] | + + + | Home Phone | | + + + | Preferred Language | Unknown | + + + | Marital Status | | + + + | Alevism Affiliation | 1013 | + + + [...] Providers + +------+ + | Care Manager Of Maintenance Name | Role | Phone | + +------+ + | Kade Bermudez MD | PCP | | + +------+ + Encounter Details +--------+ + + + + | Date | Type | Department | Care Team | Description | +--------+ + + + + | 06/19/ | Hospital | [facility] | Hemal Celestin | Spondylolisthesis of | | 2016 | Encounter | MED CTR XRAY [address] | [address] | lumbar region; | | | | [place] | [address] | Lumbar radiculopathy | | | | [place] [address] | [place] [address] | | | | | [phone] | [phone] | | | | | | | [...] views of the lumbar spine COMPARISON: | [facility] | | 04/03/2016. FINDINGS: Status post [...] [address] | [place] | [phone] | | [facility] | | [address] | | | - IMAGING | | | | + + + + + documented in this encounter Visit Diagnoses + + | Diagnosis | + + | Spondylolisthesis of lumbar region Acquired spondylolisthesis | + + | Lumbar radiculopathy Thoracic or lumbosacral neuritis or radiculitis, unspecified | + + documented in this encounter"
--- OUTSIDE RECORDS SUMMARY | ~2019-08-29 | XMS | Encounter Summary ---
Demographics + + + | Address | [address] | | | [place] [address] | + + + | Home Phone [...] | [facility] | | | and [place] | + + + | Organization | [facility] | | | and Rupertoana [...] Team Providers + +------+ + | Care Top Cleaner Name | Role | Phone | [...] | S/P lumbar | [place], | [address] | | | | | fusion | PA-C [address] | [place], | | | | | Spondylolist | [address] | [place] [address] | | | | | hesis of | [place], | Phone: | | | | | cervical | [place] [address] | [phone] | | | | | region | Phone: | Fax: | | | | | Cervicalgia | [phone] | [phone] | | | | | Dizziness | Fax: | | | | | | Procedures | [phone] | | | | | | CT [...] S/P lumbar | Sawyer F, | [address] | | | | | fusion | MD [address] | [place], | | | | | Spondylolist | [address] | [place] [address] | | | | | hesis of | [place], | Phone: | | | | | cervical | [place] [address] | [phone] | | | | | region | Phone: | Fax: | | | | | Cervicalgia | [phone] | [phone] | | | | | Dizziness | [phone] Fax: | | | | | | Procedures | | | | | | | CT Angiogram | [phone] | | | | | | Neck [...] | | | | | Procedures | [address] | [address] | | | | | [place] | [place], | AVE | | | | | THERAPEUTIC | [place] [address] | [place] | | | | | EXERCISES | Phone: | [address] | | | | | | [phone] | Phone: | | | | | | [phone] Fax: | [phone] | | | | | | | Fax: | | | | | | [phone] | [phone] | +--------+ + + + + + [...] NEUROSURGERY [address] | FMD [address] | (Primary Dx); | | | | [address] | [address] [place] | Spondylolisthesis of | | | | [place] | [address] | cervical region; | | | | [address] | [phone] | Cervicalgia; | | | | [phone] | | Dizziness; Cervical | | | [...] MD [address] [facility], [address] [place] [address] FAX: NEUROSURGERY SURGICAL FOLLOW-UP CHIEF [...] Performed At | + + + | [facility] | [facility] | | Department [address] [facility] | [facility] | | [ rep ct [address]] [ rep [facility] | | [facility]] Signed | - IMAGING | | | | | Patient Name: SHEELA MENDOZA Physician: | | | BETTINA : 1950 Age: 62 Sex: M Unit #: [id number] | | | Exam Date: 12/23/12 [place] [facility] [place] | | Report #: [id number] Page: | | | %(RAD)RES..mtdd.print.filter("pg") of %(RAD) | | | RES..mtdd.print.filter("tpg") | | | | | | Accession Number: [id number] | | | CT CAROTID ANGIOGRAM, 12/23/2012 [...] Transcribed | | | Date/Time: 12/23/2012 14:09 Gear Machine Operator General: | | | <<Signature on File>> | | | Domingo | | | Micky Corral MD12/23/12 1635 <Electronically signed by Domingo Weeks | | | Ellis GARG> Domingo Corral MD 12/23/12 1155 | | | Gear Machine Operator General: Jack Limon12/23/12 1409 | | | Sawyer Petersen MD | | + + + + + + + + | Performing | Address | City/State/Zipcode | Phone Number | | Organization | | | | + + + + + | [facility] | [address] | [place] | [phone] | | [facility] | | [address] | | | - IMAGING | | [...]
--- OUTSIDE RECORDS SUMMARY | ~2019-08-29 | XMS | Encounter Summary ---
Demographics + + + | Address | [address] | | | [place] [address] | + + + | Home Phone [...] + | Author | [facility] | | | and [place] | + + + | Organization | [facility] | | | and [place] | [...] Team Providers + +------+ + | Care Accessioner Name | Role | Phone | + [...] NEUROSURGERY [address] | F, [address] | aquatic therapy?) | | | | [address] | [place], [place] | | | | | [place], [place] | [address] | | | | | [address] | [phone] | | | | | [phone] | | | +--------+ + + + [...]
--- OUTSIDE RECORDS SUMMARY | ~2019-08-29 | XMS | Encounter Summary ---
Demographics + + + | Address | [address] | | | [place] [address] | + + + | Home Phone [...] + | Author | [facility] | | | and [place] | + + + | Organization | [facility] | | [...] Team Providers + +------+ + | Care Floorworker Distributor Name | Role | Phone | + +------+ + | Kade Bermudez MD | PCP | | + +------+ + Encounter Details +--------+ + + + + | Date | Type | Department | Care Team | Description | +--------+ + + + + | 04/28/ | Hospital | [facility] | | S/P cervical spinal | | 2012 | Encounter | MED CTR XRAY [address] | | fusion; S/P lumbar | | | | [place] | | fusion | | | | [place] [address] | | | | | | [phone] | | | +--------+ + + + [...] At | + + + | [facility] | [place] | | Department [address] [place] [address] | [facility] | | [ rep ct street1[address]] [ rep [facility] | | st zip] Signed | - IMAGING | | | | | Patient Name: MAL MENDOZA Physician: | | | ARRMicky.01 : 1950 Age: 63 Sex: M Unit #: [id number] | | | Exam Date: 04/28/13 Location[place] [facility] [place] | | | Report #: [id number] Page: | | | %(RAD)RES..mtdd.print.filter("pg") of %(RAD) | | | RES..mtdd.print.filter("tpg") | | | | | | Accession Number: [id number] | | | CERVICAL SPINE X-RAY CLINICAL [...] Transcribed Date/Time: 04/28/2013 11:34 | | | Geological Manager: <<Signature on File>> | | | | | | Lawson June MD04/28/13 1723 <Electronically signed by Lawson June | | | MD> Lawson June MD 04/28/13 0952 Geological Manager: | | | Experenti Yhvqosqukjiwv22/12/13 1134 Sawyer Petersen, | | | | | + + + + + + + + | Performing | Address | City/State/Zipcode | Phone Number | | Organization | | | | + + + + + | [facility] | [address] | [place] | [phone] | | [facility] | | [address] | | | - IMAGING | | | | + + + + + XR Lumbar Spine 2 or 3 Vw (04/28/2013 9:50 AM PDT) + + | Specimen | + + | | + + + + + | Narrative | Performed At | + + + | [facility] | [facility] | | Department [address] [facility] [place] | [facility] | | [ rep ct street[address]] [ rep ct [facility] | | st zip] Signed | - IMAGING | | | | | Patient Name: MAL MENDOZA Physician: | | | ARRE.01 : 1950 Age: 63 Sex: M Unit #: [id number] | | | Exam Date: 04/28/13 Location: [facility] [place] | | | Report #: [id number] Page: | | | %(RAD)RES..mtdd.print.filter("pg") of %(RAD) | | | RES..mtdd.print.filter("tpg") | | | | | | Accession Number: [id number] | | | LUMBAR SPINE X-RAY CLINICAL [...] Transcribed Date/Time: 04/28/2013 | | | 11:32 Geological Manager: <<Signature | | | on File>> | | | Lawson | | | MD Slade04/28/13 0828 <Electronically signed by Lawson June MD> | | | Lawson June MD 04/28/13 7767 Geological Manager: Jack | | | Cdkcypofkimnd70/12/13 8112 Sawyer Petersen MD | | | | | + + + + + + + + | Performing | Address | City/State/Zipcode | Phone Number | | Organization | | | | + + + + + | [facility] | [address] | [place] | [phone] | | [facility] | | [address] | | | - IMAGING | | | | + + + + + documented in this encounter Visit Diagnoses + + | Diagnosis | + + | S/P cervical spinal fusion Arthrodesis status | + + | S/P lumbar fusion Arthrodesis status | + + documented in this encounter
--- OUTSIDE RECORDS SUMMARY | ~2019-08-29 | XMS | Encounter Summary ---
Demographics + + + | Address | [address] | | | [place] [address] | + + + | Home Phone [...] | Author | [facility] | | | and [place] | + + + | Organization | [facility] | [...] Providers + +------+ + | Care Supervisor Fishing Name | Role | Phone | + +------+ + PCP | Unavailable | + +------+ + Encounter Details +--------+ + + + + | Date | Type | Department | Care Team | Description | +--------+ + + + + | 04/15/ | [facility] | [facility] | Shirley Ghosh | | | 2011 | Encounter | [facility] | MD [address] | | | | | [facility] [address] | [facility], | | | | | [facility], | [place] [address] | | | | | [place] [address] | [phone] | | | | | [phone] | | | +--------+ + + + [...]
--- OUTSIDE RECORDS SUMMARY | ~2019-08-29 | XMS | Encounter Summary ---
Demographics + + + | Address | [address] | | | [place] [address] | + + + | Home Phone [...] | Author | [facility] | | | and [place] | + + + | Organization | [facility] | [...] Providers + +------+ + | Care Automation Tender Name | Role | Phone | [...] | Specialty | Physical | Diagnoses | [facility] | | | | Services | Therapy | Status post | Neurosurgery | | | | Required | | cervical | [address] | | | | | | spinal | [address] | | | | | | fusion | [address] | | | | | | | [place], | | | | | | | [place] | | | | | | | [address] | | | | | | | Phone: | | | | | | | [phone] | | | | | | | Fax: | | | | | | | [phone] | | +--------+ + + + + + + + | Scheduling Instructions | + + | PHYSICAL THERAPY: TEACH CERVICAL HYGIENE; SAFETY, ERGONOMICS, MECHANICS, POSTURE, & | | BALANCE FOR 1-2 VISITS. LIFTING LIMITS ARE FOLLOWS: MONTH 1: 5 POUNDS | | MONTH 2: 15-25 POUNDS MONTH 3: 25-30 POUNDS AFTER THAT TOLERATED PLEASE FAX | | RESULTS UPON COMPLETION TO [phone] | + + Reason for Visit + + + | Reason | Comments | + + + | Wound Check | | + + + Encounter Details +--------+ + + + + | Date | Type | Department | Care Team | Description | +--------+ + + + + | 01/28/ | Clinical | [facility] | Sawyer Petersen | Status post cervical | | 2012 | Support | NEUROSURGERY [address] | FMD [address] | spinal fusion | | | | [address] | [address] [place] | (Primary Dx) | | | | [place] | [address] | | | | | [address] | [phone] | | | | | [phone] | | | +--------+ + + + [...] Patient Instructions Patient Instructions Vadim Esparza - 01/28/2013 9:59 AM PDTLIFTING LIMITS ARE FOLL OWS: MONTH 1: 5 POUNDS MONTH 2: 15-25 POUNDS MONTH 3: 25-30 POUNDS AFTER THAT TOLERATED Start physical therapy and lifting limitations 02/07/13. X-rays 1-hour prior to appointment with Dr. Petersen. documented in this encounter Progress Notes Vadim Esparza - 01/28/2013 11:00 AM PDT Neurosurgery Postoperative Wound Check/Nurse Visit Wound Information: Location: Neck Photo Attached: Wound Type: Surgical Incision Wound Size: WNL Wound Bed: WNL Wound Edges: Well approximated and intact Drainage (Amount): None Drainage (Color): None Odor: None Treatment/Dressing: Open to air Lab Orders: Clinical/Plan: Pain (0-10): 5-6/10 left neck pain, and between the shoulder blades Pain Management: Percocet 5/325 Effective Pain Mgmt: yes Refill Needed: no Notes: Complained of left neck pain that just developed about 1-2 days ago. Advised that t his was likely muscle pain, however that Dr. Petersen would be told about this new symptom. No complaints of numbness or tingling. Therapy Plans: Declined the therapy at this time X-Rays: Prior to next appointment Plan/Follow-Up: Appointment with Dr. Petersen in one month. documented in this en counter Plan of Treatment + + +--------+ + + | Name | Type | Priori | Associated Diagnoses | Order Schedule | | | | ty | | | + + +--------+ + + | Ambulatory referral | Outpatient | Routin | Status post | 1 Occurrences | | to Physical Therapy | Referral | e | cervical spinal | starting 01/28/2013 | | | | | fusion | until 01/28/2014 | + + +--------+ + + documented as of this encounter Results XR Cervical Spine 3 Vws or Less (03/17/2013 11:36 AM PDT) + + | Specimen | + + | | + + + + + | Narrative | Performed At | + + + | [facility] | [place] | | Department [address] [place] | [facility] | | [ rep ct street[address]] [ rep ct [facility] | | st zip] Signed | - IMAGING | | | | | Patient Name: MAL MENDOZA Physician: | | | ARRE.01 : 1950 Age: 63 Sex: M Unit #: [id number] | | | Exam Date: 03/17/13 [place] [facility] [place] | | | Report #: [id number] Page: | | | %(RAD)RES..mtdd.print.filter("pg") of %(RAD) | | | RES..mtdd.print.filter("tpg") | | | | | | Accession Number: [id number] | | | CERVICAL SPINE CLINICAL HISTORY: [...] Transcribed Date/Time: 03/17/2013 11:48 | | | Rn Sexual Assault: <<Signature on File>> | | | | | | Ruddy Hoang MD03/17/13 1527 <Electronically signed by | | | Ruddy Hoang MD> Ruddy Hoang MD 03/17/13 | | | 1136 Rn Sexual Assault: Proxama Thoivprjgqrmt23/01/13 1148 | | | Sawyer Petersen MD | | + + + + + + + + | Performing | Address | City/State/Zipcode | Phone Number | | Organization | | | | + + + + + | [facility] | [address] | [place] | [phone] | | [facility] | | [address] | | | - IMAGING | | | | + + + + + documented in this encounter Visit Diagnoses + + | Diagnosis | + + | Status post cervical spinal fusion - Primary Arthrodesis status | + + documented in this encounter
--- OUTSIDE RECORDS SUMMARY | ~2019-08-29 | XMS | Encounter Summary ---
Demographics + + + | Address | [address] | | | [place] [address] | + + + | Home Phone [...] | Author | [facility] | | | and [place] | + + + | Organization | [facility] | | | [...] Team Providers + +------+ + | Care Stave Cutting Supervisor Name | Role | Phone | [...] | | [address] | [place] [address] | | | | | [place] | [phone] | | | | | [address] | | | | | | [phone] | | | +--------+--------+ + + + [...]
--- OUTSIDE RECORDS SUMMARY | ~2019-08-29 | XMS | Encounter Summary ---
Demographics + + + | Address | [address] | | | [place] [address] | + + + | Home Phone [...] | Author | [facility] | | | and [place] | + + + | Organization | [facility] | | | and [...] Team Providers + +------+ + | Care Assembler Lay Ups Name | Role | Phone | + [...] | | | | | spinal | [address] | [address] | | | | | fusion | [place], | [place] | | | | | | [place] [address] | [place], [place] | | | | | | Phone: | [address] | | | | | | [phone] | Phone: | | | | | | [phone] Fax: | [phone] | | | | | | | Fax: | | | | | | [phone] | [phone] | +--------+ + + + + + + + | Scheduling Instructions | + + | PHYSICAL THERAPY: TEACH LUMBAR HYGIENE; SAFETY, ERGONOMICS, MECHANICS, POSTURE, & | | BALANCE FOR 1-2 VISITS. LIFTING LIMITS ARE FOLLOWS: MONTH 1: 5 POUNDS | | MONTH 2: 15-25 POUNDS MONTH 3: 25-30 POUNDS AFTER THAT TOLERATED PLEASE FAX | | RESULTS UPON COMPLETION TO [phone] | + + Reason for Visit + + + | Reason | Comments | + + + | Wound Check | | + + + Encounter Details +--------+ + + + + | Date | Type | Department | Care Team | Description | +--------+ + + + + | 11/12/ | Clinical | [facility] | Sawyer Petersen | Status post lumbar | | 2012 | Support | NEUROSURGERY [address] | FMD [address] | spinal fusion | | | | [address] | [place] | (Primary Dx) | | | | [place] | [address] | | | | | [address] | [phone] | | | | | [phone] | | | +--------+ + + + [...] Performed At | + + + | [facility] | [place] | | Department [address] | [facility] | | [ rep ct street[address]] [ rep [facility] | | st zip] Signed | - IMAGING | | | | | Patient Name: SHEELA MENDOZA Physician: | | | ARRE.01 : 1950 Age: 62 Sex: M Unit #: [id number] | | | Exam Date: 12/16/12 [place] [facility] [place] | | Report #: [id number] Page: | | | %(RAD)RES..mtdd.print.filter("pg") of %(RAD) | | | RES..mtdd.print.filter("tpg") | | | | | | Accession Number: [id number] | | | LUMBAR SPINE LIMITED X-RAY [...] Transcribed Date/Time: | | | 12/16/2012 11:41 Integration Project Manager: | | | <<Signature on File>> | | | Domingo | | | Micky Corral MD12/17/12 0737 <Electronically signed by Domingo Weeks | | | Ellis GARG> Domingo Corral MD 12/16/12 1124 | | | Integration Project Manager: [employer] Hkscpayqzjbuj77/01/13 1141 | | | Sawyer Petersen MD | | + + + + + + + + | Performing | Address | City[facility]State[facility] | Phone Number | | Organization | | | | + + + + + | [facility] | [address] | [place] | [phone] | | [facility] | | [address] | | | - IMAGING | | | | + + + + + documented in this encounter Visit Diagnoses + + | Diagnosis | + + | Status post lumbar spinal fusion - Primary Arthrodesis status | + + documented in this encounter
--- OUTSIDE RECORDS SUMMARY | ~2019-08-29 | XMS | Encounter Summary ---
Demographics + + + | Address | [address] | | | [place] [address] | + + + | Home Phone [...] | Author | [facility] | | | and [place] | + + + | Organization | [facility] | | | and uRpertoana | + + + | Address | Unknown | + + + | Phone | Unavailable | + + + Support + + +---------+ + | Name | Relationship | Address | Phone | + + +---------+ + | Lizz Mendoza | ECON | Unknown | | + + +---------+ + Care Team Providers + +------+ + | Care Sr Account Executive Name | Role | Phone | + [...] | | OFFICE [address] | [address] [facility] [place], | | | | | [place] | [place] [address] | | | | | [address] | [phone] | | | | | [phone] | | | +--------+ + + + [...]
--- OUTSIDE RECORDS SUMMARY | ~2019-08-29 | XMS | Encounter Summary ---
Demographics + + + | Address | [address] | | | [place] [address] | + + + | Home Phone | | + + + | Preferred Language | Unknown | + + + | Marital Status | | + + + | Jehovah'S Witness Affiliation | 1013 | + + + | Race | Unknown | + + + | Ethnic Group | Unknown | + + + Author + + + | Author | [facility] | | | and [place] | + + + | Organization | [facility] | [...] Team Providers + +------+ + | Care Radiation Control Health Physicist Name | Role | Phone | + +------+ + | Kade Bermudez MD | PCP | | + +------+ + Encounter Details +--------+ + + + + | Date | Type | Department | Care Team | Description | +--------+ + + + + | 01/08/ | [facility] | [facility] | Sawyer Petersen | | | 2012 - | Encounter | MED CTR SURGICAL | MD Fareed [address] | | | | | [address] | [address] [place] | | | 01/09/ | | [place] [address] | [address] | | | 2012 | | [phone] | | | | | | | [...] Performed At | + + + | [facility] | [facility] | | Department [address] , [place] | [place] | | [ rep ct [address]] [ rep [facility] | | st zip] Signed | - IMAGING | | | | | Patient Name: SHEELA MENDOZA Physician: | | | MILI.01 : 1950 Age: 62 Sex: M Unit #: [id number] | | | Exam Date: 01/08/13 Location: [address] [place] [address] | | | Report #: [id number] Page: | | | %(RAD)RES..mtdd.print.filter("pg") of %(RAD) | | | RES..mtdd.print.filter("tpg") | | | | | | Accession Number: [id number] | | | TWO VIEWS CERVICAL SPINE, [...] Transcribed | | | Date/Time: 01/08/2013 18:05 Parts Casting Machine Operator: | | | <<Signature on File>> | | | Tulio López | | | MD Juan01/08/132205 <Electronically signed by Tulio Martinez MD> | | | Tulio Martinez MD 01/08/13 839 Parts Casting Machine Operator: | | | [place] Efjdwpdzchmcv54/24/13 8131 Sawyer Petersen, | | | MD | | + + + + + + + + | Performing | Address | City/State/Zipcode | Phone Number | | Organization | | | | + + + + + | [facility] | [address] | [place] | [phone] | | [facility] | | [address] | | | - IMAGING | | [...] | [facility] | | | | [employer] [place] [facility] | | MEDICAL | | | [...] The | | | | | | [employer] | | | | | [...] [address] | [place] | [phone] | | [facility] | | [address] | | | - LABORATORY | | | | + + + + + | [facility] | [address] | [place] | | | [facility] | | [address] | | | - LABORATORY | | | | + + + + + documented in this encounter Visit Diagnoses Not on filedocumented in this encounter
--- OUTSIDE RECORDS SUMMARY | ~2019-08-29 | XMS | Encounter Summary ---
Demographics + + + | Address | [address] | | | [place] [address] | + + + | Home Phone [...] + + | Author | [facility] | | | and [place] | + + + | Organization | [facility] | | | and [place] [...] Providers + +------+ + | Care Manager Research And Development Name | Role | Phone | + [...] | | [address] [place] | [address] | | | | | [place], [place] | [place] [address] | | | | | [address] | [phone] | | | | | [phone] | | | +--------+ + + + [...]
--- OUTSIDE RECORDS SUMMARY | ~2019-08-29 | XMS | Encounter Summary ---
Demographics + + + | Address | [address] | | | [place] [address] | + + + | Home Phone [...] | Author | [facility] | | | and [place] | + + + | Organization | [facility] | | | and [...] Team Providers + +------+ + | Care Anaesthesiologist Name | Role | Phone | + [...] | | [address] | [place] [address] | Neurosurgery | | | | [place] | [phone] | Appointment | | | | [address] | | | | | | [phone] | | | +--------+ + + + [...]
--- OUTSIDE RECORDS SUMMARY | ~2019-08-29 | XMS | Encounter Summary ---
Demographics + + + | Address | [address] | | | [place] [address] | + + + | Home Phone [...] Author | [facility]erged With [facility] | | | and [place] | + + + | Organization | Merged With [facility] | | | and [...] Team Providers + +------+ + | Care Shop Hand Name | Role | Phone | + +------+ + | Kade Bermudez MD | PCP | | + +------+ + Encounter Details +--------+ + + + + | Date | Type | Department | Care Team | Description | +--------+ + + + + | 01/09/ | [facility] | [facility] | Elaina, | | | 2012 | Encounter | MED CTR EMERGENCY | Samir Floyd MD [address] | | | | | CENTER [address] | [place] | | | | | [place] | [place] [address] | | | | | [address] | [phone] | | | | | [phone] | | | +--------+ + + + [...]
--- OUTSIDE RECORDS SUMMARY | ~2019-08-29 | XMS | Encounter Summary ---
Demographics + + + | Address | [address] | | | [place] [address] | + + + | Home Phone [...] + | Author | [facility] | | | and [place] | + + + | Organization | [facility] [...] Team Providers + +------+ + | Care Internet Database Specialist Name | Role | Phone | + +------+ + | Shirley Ghosh MD | PCP | | + +------+ + Encounter Details +--------+ + + + + | Date | Type | Department | Care Team | Description | +--------+ + + + + | 10/15/ | Hospital | [facility] | Shirley Ghosh | | | 2012 | Encounter | [facility] | [address] | | | | | MEDICAL CLIN[address] | [facility], | | | | | [facility], | [place] [address] | | | | | [place] [address] | [phone] | | | | | [phone] | | | +--------+ + + + [...]
--- OUTSIDE RECORDS SUMMARY | ~2019-08-29 | XMS | Encounter Summary ---
Demographics + + + | Address | [address] | | | [place] [address] | + + + | Home Phone [...] + | Author | [facility] | | | and [place] | + + + | Organization | [facility] | | | and [...] Team Providers + +------+ + | Care Pyrometer Operator Name | Role | Phone | + +------+ + PCP | Unavailable | + +------+ + Encounter Details +--------+ + + + + | Date | Type | Department | Care Team | Description | +--------+ + + + + | 04/21/ | Hospital | [facility] | | | | 1997 | Encounter | MED CTR GENERIC IP | | | | | | CONV DEPT [address] | | | | | | [place], | | | | | | [place] [address] | | | | | | [phone] | | | +--------+ + + + [...]
--- OUTSIDE RECORDS SUMMARY | ~2019-08-29 | XMS | Encounter Summary ---
Demographics + + + | Address | [address] | | | [place] [address] | + + + | Home Phone | | + + + | Preferred Language | Unknown | + + + | Marital Status | | + + + | Judaism Affiliation | 1013 | + + + | Race | Unknown | + + + | Ethnic Group | Unknown | + + + Author + + + | Author | [facility] | | | and Ruperto[place] | + + + | Organization | [facility] | | | and [place] | + + + | Address | Unknown | + + + | Phone | Unavailable | + + + Support + + +---------+ + | Name | Relationship | Address | Phone | + + +---------+ + | Lizz Mnedoza | ECON | Unknown | | + + +---------+ + Care Team Providers + +------+ + | Care Collect On Delivery Clerk Name | Role | Phone | + +------+ + | Shirley Ghosh MD | PCP | | + +------+ + Encounter Details +--------+ + + + + | Date | Type | Department | Care Team | Description | +--------+ + + + + | 10/14/ | Hospital | [facility] | Sawyer Petersen | Back pain | | 2012 - | Encounter | MED CTR XRAY [address] | MD Fareed [address] | | | | | [place] | [place] | | | 10/16/ | | [place] [address] | [address] | | | 2012 | | [phone] | [phone] | | | | | | [...] At | + + + | [facility] Diagnostic Imaging | [place] | | Department [address] [place] [address] [place] | [place] | | [ rep [address]] [ rep ct [facility] | [facility] | | st zip] Signed | - IMAGING | | | | | Patient Name: MAL MENDOZA Physician: | | | ARRE.01 : 1950 Age: 62 Sex: M Unit #: [id number] | | | Exam Date: 10/14/12 [place] [facility] [place] | | | Report #: [id number] Page: | | | %(RAD)RES..mtdd.print.filter("pg") of %(RAD) | | | RES..mtdd.print.filter("tpg") | | | | | | Accession Number: [id number] | | | X-RAY LUMBAR SPINE WITH [...] Transcribed Date/Time: 10/14/2012 15:55 | | | Pharmaceutical Representative: NNAY <<Signature on File>> | | | | | | Domingo Corral MD10/15/12 0805 <Electronically signed by Domingo | | | Micky Corral MD> Domingo Corral MD 10/14/12 0685 | | | Pharmaceutical Representative: [employer] Eubpwvnrlicaz36/28/13 0318 | | | Sawyer Petersen MD | | + + + + + + + + | Performing | Address | City/State/Zipcode | Phone Number | | Organization | | | | + + + + + | [facility] | [address] | [place] | [phone] | | [facility] | | [address] | | | - IMAGING | | | | + + + + + documented in this encounter Visit Diagnoses + + | Diagnosis | + + | Back pain Backache, unspecified | + + documented in this encounter
--- OUTSIDE RECORDS SUMMARY | ~2019-08-29 | XMS | Encounter Summary ---
Demographics + + + | Address | [address] | | | [place] [address] | + + + | Home Phone | | + + + | Preferred Language | Unknown | + + + | Marital Status | | + + + | Advent Affiliation | 1013 | + + + | Race | Unknown | + + + | Ethnic Group | Unknown | + + + Author + + + | Author | [facility] | | | and [place] | + + + | Organization | [facility] | | | and [place] [...] Team Providers + +------+ + | Care Instrument Technician Apprentice Name | Role | Phone | [...] | | | | | | | [address] | | | | | | | Phone: | | | | | | | [phone] | | | | | | | Fax: | | | | | | | [phone] | | +--------+ + + + + + + + | Scheduling Instructions | + + | PHYSICAL THERAPY: TEACH CERVICAL HYGIENE; SAFETY, ERGONOMICS, MECHANICS, POSTURE, & | | BALANCE FOR 1-2 VISITS. LIFTING LIMITS ARE FOLLOWS: MONTH 1: 5 POUNDS | | MONTH 2: 15-25 POUNDS MONTH 3: 25-30 POUNDS AFTER THAT TOLERATED PLEASE FAX | | RESULTS UPON COMPLETION TO [phone] | + + Reason for Visit + + + | Reason | Comments | + + + | Wound Check | | + + + Encounter Details +--------+ + + + + | Date | Type | Department | Care Team | Description | +--------+ + + + + | 01/28/ | Clinical | [facility] | Sawyer Petersen | Status post cervical | | 2012 | Support | NEUROSURGERY [address] | FMD [address] | spinal fusion | | | | [address] | [place] | (Primary Dx) | | | | [place] | [address] | | | | | [address] | [phone] | | | | | [phone] | | | +--------+ + + + [...] Performed At | + + + | [facility] | [place] | | Department [address] [place] | [facility] | | [ rep ct [address]] [ rep ct [facility] | | st zip] Signed | - IMAGING | | | | | Patient Name: MAL MENDOZA Physician: | | | ARRE.01 : 1950 Age: 63 Sex: M Unit #: [id number] | | | Exam Date: 03/17/13 Location: [facility] [place] | | | Report #: [id number] Page: | | | %(RAD)RES..mtdd.print.filter("pg") of %(RAD) | | | RES..mtdd.print.filter("tpg") | | | | | | Accession Number: [id number] | | | CERVICAL SPINE CLINICAL HISTORY: [...] Transcribed Date/Time: 03/17/2013 11:48 | | | Pretzel Twister: <<Signature on File>> | | | | | | Ruddy Hoang MD03/17/13 1527 <Electronically signed by | | | Ruddy Hoang MD> Ruddy Hoang MD 03/17/13 | | | [address] Tw[address]: Tunaspot Fjcnpvjuzxasq68/01/13 1148 | | | Sawyer Petersen MD | | + + + + + + + + | Performing | Address | City/State/Zipcode | Phone Number | | Organization | | | | + + + + + | [address] | [address] | [place] | [phone] | | [facility] | | [address] | | | - IMAGING | | | | + + + + + documented in this encounter Visit Diagnoses + + | Diagnosis | + + | Status post cervical spinal fusion - Primary Arthrodesis status | + + documented in this encounter
--- OUTSIDE RECORDS SUMMARY | ~2019-08-29 | XMS | Encounter Summary ---
Demographics + + + | Address | [address] | | | [place] [address] | + + + | Home Phone [...] | Author | [facility] | | | and [place] | + + + | Organization | [facility] | | | and [...] Team Providers + +------+ + | Care Track Laying Equipment Operator Name | Role | Phone | + +------+ + | Kade Bermudez MD | PCP | | + +------+ + Reason for Visit +--------+ + | Reason | Comments | +--------+ + | Other | Post op call | +--------+ + Encounter Details +--------+ + + + + | Date | Type | Department | Care Team | Description | +--------+ + + + + | 03/13/ | Telephone | [facility] | oDmingo Carlson MD | Other (Post op call) | | 2016 | | NEUROSURGERY [address] | [address] | | | | | [address] | [place] [address] | | | | | [place] | [phone] | | | | | [address] | | | | | | [phone] | | | +--------+ + + + [...]
--- OUTSIDE RECORDS SUMMARY | ~2019-08-29 | XMS | Encounter Summary ---
Demographics + + + | Address | [address] | | | [place] [address] | + + + | Home Phone | | + + + | Preferred Language | Unknown | + + + | Marital Status | | + + + | Faith Affiliation | 1013 | + + + | Race | Unknown | + + + | Ethnic Group | Unknown | + + + Author + + + | Author | [facility] | | | and [place] | + + + | Organization | [facility] | | | [...] Providers + +------+ + | Care Forensic Photographer Name | Role | Phone | + [...] + + | 04/28/ | Office | [facility] | Paxton Braga, | S/P cervical spinal | | 2012 | Visit | NEUROSURGERY [address] | PA-C [address] | fusion (Primary Dx); | | | | [address] | [place], [place] | S/P lumbar fusion | | | | [place] | [address] | | | | | [address] | | | | | | [phone] | | | +--------+---------+ + + + [...] 11:12 AM PDT Paxton Braga PA-C [address] [facility], [address] [place] [address] FAX: NEUROSURGERY FOLLOW-UP CHIEF COMPLAINT: Chief Complaint [...] today with the majority of time spent appliance counselor ling the patient on his continued [...]
--- OUTSIDE RECORDS SUMMARY | ~2019-08-29 | XMS | Encounter Summary ---
Demographics + + + | Address | [address] | | | [place] [address] | + + + | Home Phone [...] Author | [facility] | | | and [place] | + + + | Organization | [facility] | | [...] + +------+ + | Care Director Of Customer Acquisition Name | Role | Phone | [...] [address] | F, MD [address] | | | | | [address] | [place], [place] | | | | | [place] [address] | [address] | | | | | [phone] | [phone] | | | | | | | [...]
--- OUTSIDE RECORDS SUMMARY | ~2019-08-29 | XMS | Encounter Summary ---
Demographics + + + | Address | [address] | | | [place] [address] | + + + | Home Phone | | + + + | Preferred Language | Unknown | + + + | Marital Status | | + + + | Gnosticism Affiliation | 1013 | + + + | Race | Unknown | + + + | Ethnic Group | Unknown | + + + Author + + + | Author | [facility] | | | and [place] | + + + | Organization | [facility] | [...] Team Providers + +------+ + | Care Carpenter General Name | Role | Phone | + +------+ + PCP | Unavailable | + +------+ + Encounter Details +--------+ + + + + | Date | Type | Department | Care Team | Description | +--------+ + + + + | 04/15/ | [facility] | [facility] | Shirley Ghosh | | | 2011 | Encounter | [facility] | [address] | | | | | MEDICAL [address] | [facility], | | | | | [facility], | [place] [address] | | | | | [place] [address] | [phone] | | | | | [phone] | | | +--------+ + + + [...]
--- OUTSIDE RECORDS SUMMARY | ~2019-08-29 | XMS | Encounter Summary ---
Demographics + + + | Address | [address] | | | [place] [address] | + + + | Home Phone [...] + | Author | [facility] | | | and [place] | + + + | Organization | [facility] [...] Team Providers + +------+ + | Care Tariff Supervisor Name | Role | Phone | [...] | | [address] | [place] [address] | | | | | [place] | [phone] | | | | | [address] | | | | | | [phone] | | | +--------+ + + + [...]
--- OUTSIDE RECORDS SUMMARY | ~2019-08-29 | XMS | Encounter Summary ---
Demographics + + + | Address | [address] | | | [place] [address] | + + + | Home Phone [...] | Author | [facility] | | | and [place] | + + + | Organization | [facility] | | [...] Team Providers + +------+ + | Care Vp Sales Name | Role | Phone | + +------+ + PCP | Unavailable | + +------+ + Encounter Details +--------+ + + + + | Date | Type | Department | Care Team | Description | +--------+ + + + + | 04/19/ | Hospital | [facility] | | | | 1997 | Encounter | MED CTR EMERGENCY | | | | | | [place] [address] | | | | | | [place] | | | | | | [address] | | | | | | [phone] | | | +--------+ + + + [...]
--- OUTSIDE RECORDS SUMMARY | ~2019-08-29 | XMS | Encounter Summary ---
Demographics + + + | Address | [address] | | | [place] [address] | + + + | Home Phone | | + + + | Preferred Language | Unknown | + + + | Marital Status | | + + + | Anabaptism Affiliation | 1013 | + + + | Race | Unknown | + + + | Ethnic Group | Unknown | + + + Author + + + | Author | [facility] | | | and [place] | + + + | Organization | [facility] | | [...] Team Providers + +------+ + | Care Commercial Driver Name | Role | Phone | + +------+ + | Shirley Ghosh MD | PCP | | + +------+ + Encounter Details +--------+ + + + + | Date | Type | Department | Care Team | Description | +--------+ + + + + | 11/19/ | Hospital | [facility] | Shirley Ghosh | | | 2012 | Encounter | [facility] | [address] | | | | | MEDICAL [address] | [address] [facility], | | | | | [facility], | [place] [address] | | | | | [place] [address] | [phone] | | | | | [phone] | | | +--------+ + + + [...]
--- OUTSIDE RECORDS SUMMARY | ~2019-08-29 | XMS | Encounter Summary ---
Demographics + + + | Address | [address] | | | [place] [address] | + + + | Home Phone [...] | Author | [facility] | | | and [place] | + + + | Organization | [facility] | | [...] Team Providers + +------+ + | Care Teradata Developer Name | Role | Phone | [...] | | [address] | [place] [address] | Dx) | | | | [place], [place] | [phone] | | | | | [address] | | | | | | [phone] | | | +--------+ + + + [...]
--- OUTSIDE RECORDS SUMMARY | ~2019-08-29 | XMS | Encounter Summary ---
Demographics + + + | Address | [address] | | | [place] [address] | + + + | Home Phone | | + + + | Preferred Language | Unknown | + + + | Marital Status | | + + + | Mosque Affiliation | 1013 | + + + | Race | Unknown | + + + | Ethnic Group | Unknown | + + + Author + + + | Author | [facility] | | | and [place] | + + + | Organization | [facility] | | | and [place] [...] Team Providers + +------+ + | Care Wetlands Technician Name | Role | Phone | [...] | | | | | | | [place] | | | | | | | [...] + + | 03/06/ | Hospital | [facility] | Domingo Carlson MD | Abnormal ECG | | 2016 - | Encounter | MED CTR SURGICAL | [address] | (Primary Dx); | | | | [address] | [place] [address] | Cervical spinal | | 03/09/ | | [place] [address] | [phone] | stenosis; Cervical | | 2016 | | [phone] | | spondylosis with | | | [...] might be differen t from the original. [facility] NEUROSURGERY DISCHARGE SUMMARY Patient Name: Mal Mendoza [...] month post op appointment before your appointment. [phone] [employer]. [address] [place] [address]. All righ ts reserved. This information is not intended as a substitute for professional medical care. Always follow your healthcare professional's instructions. AttachmentsThe following attachments cannot be sent through Care Everywhere.INDWELLING URIN GAYATHRI CATHETER, DISCHARGE INSTRUCTIONS (DANISH)documented in this encounter Medications at Time of [...] might be different f rom the original. [facility] NEUROSURGERY PROGRESS NOTE Pt. Name/Age/: Mal Mendoza 66 y.o. 1950 Post operative day 2 SUBJECTIVE: Patient doing fairly well. He says his legs felt hospital medicine director yesterday when walking . This AM they [...] Electronically signed by: Jovanni Avendaño, 03/08/2016 7:26 [facility] ucharaya, HARDEEP Cerda - 03/07/2016 7:16 AM PDT [facility] NEUROSURGERY PROGRESS NOTE Pt. Name/Age/: Mal [...] Electronically signed by: Jovanni Avendaño, 03/07/2016 7:16 [facility] documented in this encounter Plan of Treatment [...] DAPHNEY | | | | | | ([id number]) on 03/08/2016 | | | | | [...] MD | | | | | | ([id number]) on 03/15/2016 | | | | | [...]
--- OUTSIDE RECORDS SUMMARY | ~2019-08-29 | XMS | Encounter Summary ---
Demographics + + + | Address | [address] | | | [place] [address] | + + + | Home Phone [...] Author | [facility] | | | and [place] | + + + | Organization | [facility] | | | [...] Team Providers + +------+ + | Care Futures Trader Name | Role | Phone | + [...] + + | 12/30/ | Telephone | [facility] | Sawyer Petersen | Other | | 2012 | | NEUROSURGERY [address] | F, [address] | | | | | [address] | [place], [place] | | | | | [place], [place] | [address] | | | | | [address] | [phone] | | | | | [phone] | | | +--------+ + + + [...]
--- OUTSIDE RECORDS SUMMARY | ~2019-08-29 | XMS | Encounter Summary ---
Demographics + + + | Address | [address] | | | [place] [address] | + + + | Home Phone [...] + + | Author | [facility] | | | and [place] | + + + | Organization | [facility] | | | and [...] Team Providers + +------+ + | Care Silk Screen Etcher Name | Role | Phone | + +------+ + PCP | Unavailable | + +------+ + Encounter Details +--------+ + + + + | Date | Type | Department | Care Team | Description | +--------+ + + + + | 05/05/ | Hospital | [facility] | [facility] | | | 2008 | Encounter | HOSPITAL MED SURG | [address] | | | | | [address] [place] | [facility] | | | | | [place] | [place] [address] | | | | | [address] | [phone] | | | | | [phone] | | | +--------+ + + + [...]
--- OUTSIDE RECORDS SUMMARY | ~2019-08-29 | XMS | Encounter Summary ---
Demographics + + + | Address | [address] | | | [place] [address] | + + + | Home Phone [...] Author | [facility] | | | and [place] | + + + | Organization | [facility] | | | and Ru[place]toana [...] Team Providers + +------+ + | Care Third Officer Name | Role | Phone | + +------+ + PCP | Unavailable | + +------+ + Encounter Details +--------+ + + + + | Date | Type | Department | Care Team | Description | +--------+ + + + + | 04/21/ | Hospital | [facility] | | | | 1997 | Encounter | MED CTR GENERIC IP | | | | | | CONV DEPT [address] | | | | | | [place], | | | | | | [place] [address] | | | | | | [phone] | | | +--------+ + + + [...]
--- OUTSIDE RECORDS SUMMARY | ~2019-08-29 | XMS | Clinical Summary ---
Demographics + + + | Address | [address] | | | [place] [address] | + + + | Home Phone [...] | Author | [facility] (Historical as of | | | 05-03-19) | + + + | Organization | [facility] (Historical as of | | | 05-03-19) [...] Team Providers + +------+ + | Care Farm Equipment Assembler Name | Role | Phone | + [...] | [employer] - | | 03/16/ | [id number] | | - [id number]: Qty: 1 | | Brain | MEDT | | 2020 | / | | on 08/17/2018 by Igor, | | | | | | /[id number] | | Julianna Rebolledo MD | | | | | | 70 | + +------+--------+ +--------+--------+--------+ | Plate Bur [place] 14mm - | | Right: | [employer] - | | | 015-26 | | [id number]: Qty: 1 on | | Brain | MEDT | | | 2-14 / | | 08/17/2018 by Julianna Costa | | | | | | / | | L, MD | | | | | | | + +------+--------+ +--------+--------+--------+ | Screw S/Tap 1.6x4.0 - | | Right: | [employer] - | | | | | [id number]: Qty: 7 on | | Brain | MEDT | | | | | 08/17/2018 by Julianna Costa | | | | | | | | L, MD | | | | | | | + +------+--------+ +--------+--------+--------+ | Plate Dogbone 8mm - | | Right: | [employer] - | | | 015-04 | | [id number]: Qty: 1 on | | Brain | MEDT | | | 2 / / | | 08/17/2018 by Julianna Costa | | | | | | | | L, MD | | | | | | | + +------+--------+ +--------+--------+--------+ | Algrft Dura Durgn Mtrx 3x3 | | Left: | [employer] | | 06/16/ | ID-[id number] | | Bx5 - [id number]: | | Brain | NEUROSCIENC | | 2020 | 5 / | | Qty: 1 on 08/18/2018 by | | | ADRI - SHAYAN | | | /[id number] | | Julianna Costa MD | | | | | | 60 | + +------+--------+ +--------+--------+--------+ | Plate Sm X 2x2h 5mm - | | Left: | [employer] - | | | 015-24 | | [id number]: Qty: 1 on | | Brain | MEDT | | | / | | 08/18/2018 by Julianna Costa | | | | | | | | MD Amaury | | | | | | | + +------+--------+ +--------+--------+--------+ | Plate Dogbone 8mm - | | Left: | [employer] - | | | 015-04 | | [id number]: Qty: 2 on | | Brain | [...] Right: | [employer] - | | | [id number] | | [id number]: Qty: 1 on | | Brain | [...] + | [employer] INS[employer] | PROGRE | [id number] | | | | | | SSIVE | | | | | | | AUTO | | | | | | | INS | | | | | + +--------+ +------+-------+ + | MEDICARE | MEDICA | [id number] | | | [address] | | | RE | | | | [place] [address] | | | IP-OP | | | | | + +--------+ +------+-------+ + | PREMERA | PREMER | [id number] | | | [address] [address] | | | A BLUE | 8 | | | [place] | | | CARD | | | | [phone] | + +--------+ +------+-------+ + + +--------+ [...] | faith | | | 1726 | [phone] | + +--------+ +--------+ + + | MAL MENDOZA | Third | Self | [birth year] | Home: | [address] | | | [employer] | | 1949 | +- | [place] | | | Li[place] | | | [address][birth year] | [address] | | | ity | | | | | + +--------+ +--------+ + +"
--- OUTSIDE RECORDS SUMMARY | ~2019-08-29 | XMS | Encounter Summary ---
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
--- OUTSIDE RECORDS SUMMARY | ~2019-08-29 | XMS | Encounter Summary ---
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 | [address] | [place] | [phone] | | [facility] | | [address] | | | - IMAGING | | [...] + | [facility] | [address] | [place] | [phone] | | [facility] | | [address] | | | - LABORATORY | | [...] mL/min/1.73m2 | Ceasar JOHN | | | BARBADIAN | RATE,ESTIMATED | | MEDICAL | | | | mL/min/1.84a5Mkei than | | CENTER - | | [...] [address] | [place] | [phone] | | [facility] | | [address] | | | - LABORATORY | | [...] | | | | DIPTI SETHI MD ([id number]) | | | | | | on [...]
--- OUTSIDE RECORDS SUMMARY | ~2019-08-29 | XMS | Encounter Summary ---
Demographics + + + | Address | [address] | | | [place] [address] | + + + | Home Phone [...] | [facility] | | | and [place] | + + + | Organization | [facility] [...] Providers + +------+ + | Care Medical Lab Scientist Name | Role | Phone | [...] | | [address] | [place] [address] | neurogenic | | | | [place], [place] | [phone] | claudication; Spinal | | | | [address] | | instability, | | | | [phone] | | lumbar; S/P lumbar | | [...]
--- OUTSIDE RECORDS SUMMARY | ~2019-08-29 | XMS | Encounter Summary ---
Demographics + + + | Address | [address] | | | [place] [address] | + + + | Home Phone [...] Author | [facility] | | | and [place] | + + + | Organization | [facility] | | | and [...] Team Providers + +------+ + | Care Fire Safety Manager Name | Role | Phone | [...] | | [address] | [place] [address] | | | | | [place] | [phone] | | | | | [address] | | | | | | [phone] | | | +--------+ + + + [...]
--- OUTSIDE RECORDS SUMMARY | ~2019-08-29 | XMS | Encounter Summary ---
Demographics + + + | Address | [address] | | | [place] [address] | + + + | Home Phone [...] + | Author | [facility] | | | and [place] | + + + | Organization | [facility] | | | [...] Team Providers + +------+ + | Care Washer And Capper Machine Operator Name | Role | Phone [...] [place] | Domingo Carlson MD | Other (Post op call) | | 2016 | | NEUROSURGERY [address] | [address] | | | | | [address] | [place] [address] | | | | | [place] | [phone] | | | | | [address] | | | | | | [phone] | | | +--------+ + + + [...]
--- OUTSIDE RECORDS SUMMARY | ~2019-08-29 | XMS | Encounter Summary ---
Demographics + + + | Address | [address] | | | [place] [address] | + + + | Home Phone [...] + | Author | [facility] | | | and [place] | + + + | Organization | [facility] | | | and [place] [...] Providers + +------+ + | Care Silk Printer Name | Role | Phone | + [...] | | | | | | | [place] | | | | | | | [...] + + | 03/06/ | Surgery | [facility] | Domingo Carlson MD | L2-3 Lateral | | 2016 | | MED CTR OR INTRA OP | [address] | Anterior Interbody | | | | [address] | [place] [address] | Fusion, L5-S1 | | | | [place] | [phone] | Transforaminal | | | | [address] | | Lumbar Interbody | | | | [phone] | | Fusion, Hardware | | | [...] might be differen t from the original. [facility] [place] [facility] NEUROSURGERY DISCHARGE SUMMARY Patient Name: Mal Mendoza [...] month post op appointment before your appointment. [phone] [employer] [place] [address], [place] [address]. All righ ts reserved. This information is not intended as a substitute for professional medical care. Always follow your healthcare professional's instructions. AttachmentsThe following attachments cannot be sent through Care Everywhere.INDWELLING URIN GAYATHRI CATHETER, DISCHARGE INSTRUCTIONS (TAJIK)documented in this encounter Medications at Time of [...] might be different f rom the original. [facility] NEUROSURGERY PROGRESS NOTE Pt. Name/Age/: Mal Mendoza 66 y.o. 1950 Post operative day 2 SUBJECTIVE: Patient doing fairly well. 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 This AM they [...] Electronically signed by: Jovanni Avendaño, 03/08/2016 7:26 [facility] Jovanni Anguiano PA - 03/07/2016 7:16 AM PDT [facility] NEUROSURGERY PROGRESS NOTE Pt. Name/Age/: Mal Mendoza [...] Electronically signed by: Jovanni Avendaño, 03/07/2016 7:16 [facility] documented in this encounter Plan of [...] MD | | | | | | ([id number]) on 03/08/2016 | | | | | [...] MD | | | | | | ([id number]) on 03/15/2016 | | | | | [...]
--- OUTSIDE RECORDS SUMMARY | ~2019-08-29 | XMS | Encounter Summary ---
Demographics + + + | Address | [address] | | | [place] [address] | + + + | Home Phone [...] Author | [facility] | | | and [place] | + + + | Organization | [facility] | [...] Team Providers + +------+ + | Care Dipper And Baker Name | Role | Phone | + +------+ + | Kade Bermudez MD | PCP | | + +------+ + Encounter Details +--------+ + + + + | Date | Type | Department | Care Team | Description | +--------+ + + + + | 08/17/ | Hospital | [facility] | Conversion | Pain | | 2018 | Encounter | CONVERSION [address] | Transaction, | | | | | [address] | Provider Unknown | | | | | [place], [place] | [phone] | | | | | [address] | (Fax) | | | | | [phone] | | | +--------+ + + + [...] | | 0 | | | | [id number] | mouth Daily. | | | | [...]
--- OUTSIDE RECORDS SUMMARY | ~2019-08-29 | XMS | Encounter Summary ---
Demographics + + + | Address | [address] | | | [place] [address] | + + + | Home Phone [...] | Author | [facility] | | | and [place] | + + + | Organization | [facility] | | [...] Team Providers + +------+ + | Care Machinist Class B Name | Role | Phone | + [...] | | | | | [address] | [address] [place] | | | | | [place] | [address] | | | | | [address] | | | | | | [phone] | | | +--------+ + + + [...] +----+---+ + + | | 1 | [place] | | | | 3 | 43-deg[address] | | | | 4 | | | | | 9 | | | +----+---+ + + | | 1 | First | | | | [address] | [address] | | | | 5 | | | | | 3 | | | +----+---+ + + | | 1 | [place] off | | | | 7 | [...] + + | Periph | 03/06/16; 1151; [id number] | 03/06/16 1151 by | 03/09/16 1600 [...]
--- OUTSIDE RECORDS SUMMARY | ~2019-08-29 | XMS | Encounter Summary ---
Demographics + + + | Address | [address] | | | [place] [address] | + + + | Home Phone [...] + | Author | [facility] | | | and [place] | + + + | Organization | [facility] | | | and [place] [...] Providers + +------+ + | Care Software Sales Manager Name | Role | Phone | [...] | MD [address] | [address] | | | | | spinal | [address] | [place], | | | | | fusion S/P | [place], | [place] | | | | | lumbar | [place] [address] | [address] | | | | | fusion | Phone: | Phone: | | | | | | [phone] | [phone] | | | | | | [phone] Fax: | Fax: | | | | | | | [phone] | | | | | | [phone] | | +--------+ + + + + [...] [address] | MD Fareed [address] | fusion (Primary Dx); | | | | [address] | [place] | S/P lumbar fusion | | | | [place], [place] | [address] | | | | | [address] | [phone] | | | | | [phone] | | | +--------+---------+ + + + [...] from the original. Sawyer Petersen MD [address] [facility] [address] [place], [place] [address] FAX: NEUROSURGERY SURGICAL FOLLOW-UP CHIEF COMPLAINT: Chief [...] Overall, the patient is doing well. The bulb sorter to recovery will take many months and [...] today with the majority of time spent counselor education professor ling the patient on his recovery and [...] Performed At | + + + | [facility] | [place] | | Department [address] [facility] | [facility] | | [ rep ct street[address]] [ rep ct [facility] | | [facility]] Signed | - IMAGING | | | | | Patient Name: MAL MENDOZA Physician: | | | MILI. : 1950 Age: 63 Sex: M Unit #: [id number] | | | Exam Date: 04/28/13 [place] [facility] [place] | | | Report #: [id number] Page: | | | %(RAD)RES..mtdd.print.filter("pg") of %(RAD) | | | RES..mtdd.print.filter("tpg") | | | | | | Accession Number: [id number] | | | CERVICAL SPINE X-RAY CLINICAL [...] Transcribed Date/Time: 04/28/2013 11:34 | | | Marble Installation Helper: <<Signature on File>> | | | | | | Lawson June MD04/28/13 1726 <Electronically signed by Lawson June | | | MD> Lawson June MD 04/28/13 2670 Marble Installation Helper: | | | [employer] Cxrjckkexjfbt22/12/13 1137 Sawyer Petersen, | | | MD | | + + + + + + + + | Performing | Address | City/State/Zipcode | Phone Number | | Organization | | | | + + + + + | [facility] | [address] | [place] | [phone] | | [facility] | | [address] | | | - IMAGING | | | | + + + + + XR Lumbar Spine 2 or 3 Vw (04/28/2013 9:50 AM PDT) + + | Specimen | + + | | + + + + + | Narrative | Performed At | + + + | [facility] | [place] | | Department [address] [place] [address] | [facility] | | [ rep ct street1[address]] [ rep [facility] | | [facility]] Signed | - IMAGING | | | | | Patient Name: MAL MENDOZA Physician: | | | MILI.01 : 1950 Age: 63 Sex: M Unit #: [id number] | | | Exam Date: 04/28/13 [place] [facility] [place] | | | Report #: [id number] Page: | | | %(RAD)RES..mtdd.print.filter("pg") of %(RAD) | | | RES..mtdd.print.filter("tpg") | | | | | | Accession Number: [id number] | | | LUMBAR SPINE X-RAY CLINICAL [...] Transcribed Date/Time: 04/28/2013 | | | 11:32 Marble Installation Helper: <<Signature | | | on File>> | | | Lawson | | | MD Slade04/28/13 8321 <Electronically signed by Lawson June MD> | | | Lawson June MD 04/28/13 1694 Marble Installation Helper: [employer] | | | Lvxhcofokpwlt30/12/13 1135 Sawyer Petersen MD | | | | | + + + + + + + + | Performing | Address | City/State/Zipcode | Phone Number | | Organization | | | | + + + + + | [facility] | [address] | [place] | [phone] | | [facility] | | [address] | | | - IMAGING | | | | + + + + + documented in this encounter Visit Diagnoses + + | Diagnosis | + + | S/P cervical spinal fusion - Primary Arthrodesis status | + + | S/P lumbar fusion Arthrodesis status | + + documented in this encounter
--- OUTSIDE RECORDS SUMMARY | ~2019-08-29 | XMS | Encounter Summary ---
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 Name | Role | Phone [...] | spinal | [address] | | | | | stenosis | [address] | [address] [place] | | | | | Lumbalgia | [place], | [place], [place] | | | | | Lumbar | [place] [address] | [address] | | | | | degenerative | Phone: | Phone: | | | | | disc | [phone] | [phone] | | | | | disease | Fax: | Fax: | | | | | Lumbar | [phone] | [phone] | | | | | radiculopath | [...] + + | 08/19/ | Hospital | [facility] | Nino Andersno, | 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 [address] | [address] | stenosis; Lumbalgia; | | | | [address] [place] | [place] | 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/ | | [place] [address] | [address] | disc disease; | | 2011 | | [phone] | | Lumbar radiculopathy | +--------+ + [...] Performed At | + + + | [facility] | [place] | | Department [address] [facility], [place] | [facility] | | [ rep ct street1[address]] [ rep ct [facility] | | st zip] Signed | - IMAGING | | | | | Patient Name: KELLYMAL Olsen Physician: | | | : 1950 Age: 62 Sex: M Unit #: [id number] | | | Exam Date: 08/19/12 Location: [facility] [place] | | | Report #: [id number] Page: | | | %(RAD)RES..mtdd.print.filter("pg") of %(RAD) | | | RES..mtdd.print.filter("tpg") | | | | | | Accession Number: [id number] | | | UNENHANCED EXTENDED MRI LUMBAR [...] | | | Transcribed Date/Time: 08/19/2012 15:19 Mult Au Matic Operator: | | | <<Signature on File>> | | | Tulio López | | | MD Juan08/19/12 8575 <Electronically signed by Tulio Martinez MD> | | | Tulio Martinez MD 08/19/12 1254 Mult Au Matic Operator: | | | Moveline Idnalwmkmrftc59/03/12 0984 Nino Anderson Jr, MD | | | | | + + + + + + + + | Performing | Address | City/State/Zipcode | Phone Number | | Organization | | | | + + + + + | [facility] | [address] | [place] | [phone] | | [facility] | | [address] | | | - IMAGING | | [...]
[~2019-08-29 14:47] MED LIST changes: +REGLAN10 MG PO; +ROPINIROLE HCL4 M1 PO
--- OUTSIDE RECORDS SUMMARY | 2019-08-29 14:50 | XMS ---
PreManage Notification: SHEELA STEVENS Security Railroad Operator Events No recent Security Events currently on file CRITERIA MET - [facility] CARE PROVIDERS SHAMIKA KEY Nurse Practitioner: Family 07/19/2018-Current PHONE: Unknown DOCTOR NAJERA Primary Care Current PHONE: Unknown EMRE ALVARADO Primary Care [facility] PHONE: Unknown Ruddy Caballero Primary Care Katarzyna NE PHONE: Unknown or_amaury Case or Emergency Man Current PHONE: Unknown [facility] Current Orthopedic Surgery \T\ Fracture Clinic PHONE: Unknown Galindo has no Care Guidelines for this patient. Care History Medical/Surgical 07/19/2018 [facility] - Patient is currently established with [facility]. If patient is seen in the ED during business hours. Please contact CHWs at [facility]. Care Recommendation: This patient has had [...] providing care. E.D. VISIT COUNT (12 MO.) [address] [place] [address] TOTAL 1 NOTE: Visits indicate total known visits. ED/UCC VISIT TRACKING (12 MO.) 08/29/2019 14:[address] [facility] [place] TYPE: Emergency COMPLAINT: - HEAD INJ INPATIENT VISIT TRACKING (12 MO.) No inpatient visits to display in this time frame [email or web address]
[2019-08-29] MEDS ORDERED: SERTRALINE HCL100 MG PO (15:04)
[2019-08-29] MEDS ORDERED: PROPRANOLOL HCL40 MG PO (15:04)
== END 2019-08-29 16:01 | disposition home or self-care (01) ==
LOC: ED 14:47
DX: S09.90XA Unspecified injury of head, initial encounter (principal); W01.198A Fall on same level from slipping, tripping and stumbling with subsequent striking against other object, initial encounter; G43.909 Migraine, unspecified, not intractable, without status migrainosus; Z87.891 Personal history of nicotine dependence; Z79.899 Other long term (current) drug therapy
CPT/HCPCS: 70450; 99284-25

== ENCOUNTER 2020-08-15 14:53 | Inpatient (IN) | payer OTHER, BC, MEDICARE ==
[~2020-08-15] VITALS: Ht 177.8 cm; Wt 95.0 kg
[~2020-08-15 14:53] MED LIST changes: +PROPRANOLOL HCL40 MG PO
[2020-08-15] MEDS ORDERED: PRAMIPEXOLE DI1.5 MG PO (15:23)
[2020-08-15] MEDS ORDERED: DICLOFENAC SOD100 G1 TOP (15:25)
[2020-08-15] MEDS ORDERED: MECLIZINE HCL25 MG PO (15:27)
--- NOTE | 2020-08-15 20:15 | NUR ---
PT ARRIVED VIA STRETCHER ON OPTICAL MANAGER. MOVED OVER FROM STRETCHER TO BED WITH FOUR PERSON ASSIST. PT MOANING, MOVING IN BED, ATTEMPTING TO TURN. PROVIDED EDUCATION ABOUT MAINTAINING PT ON BACK MUCH POSSIBLE. GIVEN 2 MG IV ATIVAN FOR AGGITATION. BAINS CATHETER PLACED AT THIS TIME. 500 MLS OF URINE RETURNED WITH INSERTION. IV TYLENOL AND FLUIDS INFUSING AT THIS TIME. LUNGS SOUND COARSE IN BOTH LOWER LOBES. TRACE EDEMA NOTED IN BOTH LOWER EXTREMITIES. PT SPO2 86 PERCENT ON 2 L, PLACE ON 6 L OXIMASK TO MAINTAIN SATURATIONS IN THE 90S.
--- NOTE | 2020-08-15 20:15 | NUR ---
PT IN UNIT AT THIS TIME, IN TO 4PA XFER PT ONTO CCU BED, GRABBED WARM BLANKETS FOR PT AND PUT THEM ON, NO FURTHER NEEDS FROM RN AT THIS TIME, STEPPED OUT OF RM TO COMPLETE PT'S CHART
--- NOTE | 2020-08-15 20:46 | NUR ---
PT NOW RESTING, BREATHING EVEN AND UNLABORED RR = 11. SPO2 93% ON 6 L OXYMASK.WILL CONTINUE TO CLOSELY MONITOR OXYGEN SATURATIONS, RESPIRATIONS, AND PAIN LEVEL.
--- NOTE | 2020-08-15 21:46 | NUR ---
OXYGEN REDUCED TO 4 L OM. PT SATURATING AT 94 PERCENT. RR=12. PT IS RESTING QUIETLY IN BED. NO SIGNS OF DISTRESS. WILL CONTINUE TO MONITOR.
--- NOTE | 2020-08-15 21:56 | NUR ---
PT GIVEN PRN TORRIDOL FOR PAIN CONTROL AT THIS TIME.
--- NOTE | 2020-08-15 23:49 | NUR ---
in room for assessment. titrated pt o2 down to 2l om. saturations in the mid 90s. respirations remain even and unlabored. pt slept through assessment. Urine output meets goal. will continue to closely monitor.
--- NOTE | 2020-08-16 01:02 | NUR ---
in room to check on patient. awakes to light touch. speech is slurred. when asked if he is in pain he states, "Nothing like I was but it still hurts" Then he stated, "thanks for doing what you did" reoriented patient to location and time.
--- NOTE | 2020-08-16 02:26 | NUR ---
PT MOANING. REPORTS PAIN HAS INCREASED AGAIN. PRN MEDICATION GIVEN (SEE EMAR).
--- NOTE | 2020-08-16 03:15 | NUR ---
pt appears to be resting comfortably. breathing even and unlabored. spo2 =94% on 2 L OM. rr =12, even and unlabored breathing. iv fluids continue to infuse. will continue to monitor.
--- NOTE | 2020-08-16 03:52 | NUR ---
Assessment completed at this time. pt is resting comfortably. breathing even and unlabored. arousable to voice, but falls back asleep during assessment. pt states pain is at a 5/10 at this time. spo2 remains wnl on 2 L OM. RR=12. IV fluids infusing. IV torridol given at this time for pain control. will continue to monitor.
--- NOTE | 2020-08-16 04:45 | NUR ---
PT moaning in room. reports 6/10 pain. requesting pain medication. 0.5 mg iv dilaudid given at this time (see emar).
--- NOTE | 2020-08-16 05:45 | NUR ---
IN RM TO ASST TURNING PT WITH PILLOWS IN PLACE, WHITEBOARD UPDATED, NO FURTHER NEEDS AT THIS TIME
--- NOTE | 2020-08-16 05:48 | NUR ---
repositioned pt onto right side with assistance of three staff. tolerated well. pt occasionally moans out but falls back to sleep.
--- NOTE | 2020-08-16 07:30 | NUR ---
REPORT RECIEVED. IS LAYING ON BACK IN BED. O2 VIA OXYMASK IN PLACE. [facility] PATENT.
--- NOTE | 2020-08-16 07:50 | NUR ---
DR. MILLAN HERE TO SEE PATIENT.
--- NOTE | 2020-08-16 08:00 | NUR ---
AWAKE AND MOANING, C/O RIGHT SHOULDER PAIN. ICE BAG APPLIED. ASSESSMENT DONE. IS IN ROOM. PATIENT IS AWARE OF PERSON, PLACE, TIME. REPOSITION TO LEFT SIDE. ORAL CARE GIVEN WELL SIPS OF WATER. DENIES NAUSES.
--- NOTE | 2020-08-16 08:44 | NUR ---
MORPHINE 4 MG IV GIVEN FOR PAIN. CONTINUES TO MOAN. REPOSITIONED.
--- NOTE | 2020-08-16 09:09 | NUR ---
TYLENOL 1000 MG IV GIVEN PATIENT CONTINUES TO MOAN.
--- NOTE | 2020-08-16 09:33 | NUR ---
HAS BEEN REPOSITIONED FREQUENTLY OF COMFORT. ICE BAGS REMAINS TO RIGHT SHOULDER. TORDOL 30 MG IV GIVEN.
--- NOTE | 2020-08-16 09:45 | NUR ---
MOANING, MOVING LEGS FREQUENTLY.
--- NOTE | 2020-08-16 11:11 | NUR ---
MOANS OUT AT TIMES.
--- NOTE | 2020-08-16 13:10 | NUR ---
ORDERS RECIEVED FROM DR. MCCARTNEY TO APPLY TLSO BRACE TO BACK, THEN OKAY TO RAISE HOB, SIT IN CHAIR.
--- NOTE | 2020-08-16 13:11 | EKG ---
[facility] [address] [place], [place] [address] Signed Sinus bradycardia Otherwise normal ECG When compared with ECG of 17-AUG-2018 06:11, No significant change was found Confirmed by ALLYSON MANDUJANO DO ([id number]) on 08/16/2020 1:11:26 PM Electronically Signed By: ALLYSON MANDUJANO DO 08/16/20 1311 PATIENT NAME: HILDASHEELA Electrocardiogram DATE OF : [birth year] PHYSICIAN: ALLYSON MANDUJANO DO REPORT #: [id number] REPORT IS CONFIDENTIAL AND NOT TO BE RELEASED WITHOUT AUTHORIZATION
--- NOTE | 2020-08-16 13:20 | NUR ---
BRACE APPLIED WITH HELP OF NURSING EMS EDUCATOR, 3 STAFF. PT OOB WITH ASSIST AND ADJUSTMENTS MADE TO BRACE. PATIENT THEN AMBULATED IN ROOM USING WALKER. TOLERATED WELL.
--- NOTE | 2020-08-16 13:44 | NUR ---
PHYS THERAPY HERE TO HELP APPLY BRACE.
--- NOTE | 2020-08-16 13:45 | NUR ---
SITTING IN CHAIR TALKING WITH .
--- NOTE | 2020-08-16 13:53 | NUR ---
Bed linens changed. Pt. was standing with a walker after the rn and pt got his back brace on. Pt. then sat in chair.
[2020-08-16] MEDS ORDERED: LIDOCAINE1 EACH TOP (14:10)
--- NOTE | 2020-08-16 14:22 | NUR ---
BACK TO BED WITH ASSIST. TOLERATED TRANSFER WELL. PATIENT HAS BEEN IN GOOD SPIRITS.
--- NOTE | 2020-08-16 16:00 | NUR ---
MESSAGE LEFT WITH AT DR. LEW OFFICE, WISH TO UPDATE REGARDING STATUS.
--- NOTE | 2020-08-16 16:20 | NUR ---
ASSESSMENT DONE. CONTINUES TO C/O LOWER BACK PAIN.
--- NOTE | 2020-08-16 16:51 | NUR ---
MOTRIN 600 MG PO AND PEROCECT 5/325 PO 2 PILLS GIVEN FOR PAIN IN BACK 05/27. MOANS THEN TALKS, ASKS QUESTIONS.
--- NOTE | 2020-08-16 17:00 | NUR ---
DR. MCCARTNEY HERE TO SEE PATIENT. DR. MCCARTNEY SAID IT IS FINE TO TAKE OFF BRACE WHILE PATIENT IN BED. NO LIFTING, TWISTING, TURNING WHEN BRACE OFF. DR MCCARTNEY SAID IT IS OKAY TO BUT BRACE ON/OFF WITH PATIENT SITTING UP. PATIENT IS AWARE OF THIS.
--- NOTE | 2020-08-16 18:40 | NUR ---
OOB, AMBULATED IN HALLWAY USING WALKER. TOLERATED WELL. VERY TALKATIVE. U/O REMAINS LOW. UPON RETURN TO BED BRACE TAKEN OFF PER DR. BIB VIRAMONTES.
--- NOTE | 2020-08-16 19:00 | NUR ---
REPORT TO NEXT SHIFT. NO FUTHER CHANGES. DID TAKE DINNER, FED PATIENT 80% OF DINNER.
--- NOTE | 2020-08-16 19:38 | NUR ---
REPORT RECEIVED FROM HARISH CLOUD. PT AWAKE IN BED, REQUESTING HIS MEDICATION FOR RESTLESS LEGS.
--- NOTE | 2020-08-16 20:48 | NUR ---
IN TO GIVE HS MEDS AND DO ASSESSMENT. PT RATES CURRENT PAIN IN BACK AT 3/10. IS ABLE TO SLEEP AND REST AT THIS PAIN LEVEL. BAINS DRAINING SIDDHRATH URINE.
--- NOTE | 2020-08-16 22:00 | NUR ---
PT HAS BEEN SLEEPING, APPEARS COMFORTABLE AND RESTING. HR 60'S, SPO2 94% ON 2L/O2.
--- NOTE | 2020-08-17 00:15 | NUR ---
IN TO MEDICATE PT AND DO ASSESSMENT. AWAKENS EASILY, RATES PAIN 5/10 IN BACK. HELPED TO REPOSITION THEN BACK TO SLEEP.
--- NOTE | 2020-08-17 02:18 | NUR ---
PT RESTING, APPEARS COMFORTABLE. HR 70'S, SPO2 94% ON 2L/O2.
--- NOTE | 2020-08-17 04:40 | NUR ---
PT CONT TO BE RESTFUL, ASSESSMENT DONE UNCHANGED FROM PREVIOUS, PT DENIES NEEDS AT THIS TIME, BACK TO SLEEP.
--- NOTE | 2020-08-17 06:50 | NUR ---
PT STILL SLEEPING, AWAKENS EASILY TO TAKE MOTRIN. RATES PAIN 5/10 THEN BACK TO SLEEP. SPO2 85-90% ON ROOM AIR, HAD DISLOGED O2, UP TO 92% ON 2L WHEN NASAL CANNULA REPLACED.
--- NOTE | 2020-08-17 07:30 | NUR ---
REPORT RECIEVED. IS RESTFUL IN BED. NO DISTRESS NOTED.
--- NOTE | 2020-08-17 07:56 | NUR ---
ASSESSMENT DONE. BREAKFAST ORDERED. O2 REMAINS AT 2 NC. O2 SAT WHILE ASLEEP WILL DECREASE TO 89 BRIEFLY THEN TO 90-92. WILL ENC DEEP BREATHING. NO PAIN MEDICATION GIVEN AT THIS TIME.
--- NOTE | 2020-08-17 09:30 | NUR ---
TOOK BREAKFAST FAIR. DENIES NEED FOR PAON MEDICATION. ENC DEEP BREATHING.
--- NOTE | 2020-08-17 10:00 | NUR ---
DR. MILLAN HERE TO SEE PATIENT. PATIENT WILL BE TRANSFERRED TO MED-SURG TODAY. MONITOR DC'D, SITTING UP AT BEDSIDE, SPONGE BATH GIVEN. AFTER SPONGE BATH GIVEN BRACE APPLIED.
--- NOTE | 2020-08-17 10:30 | NUR ---
AMBULATED IN HALLWAY WITH WALKER. WALKED APPROX 100 YARDS. TOLERTAED WELL. DENIES SHORTNESS OF BREATH. BAINS CATH DC'D AT 1015 FOR 100 ML OF CONCENTRATED URINE.
--- NOTE | 2020-08-17 10:40 | NUR ---
REPORT TO MED-SURG, AWATING TRANSFER ORDERS.
--- NOTE | 2020-08-17 11:25 | NUR ---
TRANSFERRED TO MED-SURG, KRISTINA AMBULATED PATIENT TO ROOM 122. PATIENT USING WALKER. IS STABLE ON FEET WHEN WALKER USED.
--- NOTE | 2020-08-17 11:46 | NUR ---
pt arrived to floor shortly prior to this note going in. pt walked from room in ccu to pts new room on medsur. pt tolerated well and states that he has no shortness of breath. pt sitting on edge of bed asking to take off brace while in bed so he may lay down. charge nurse chas assisted pt to remove pts brace. this rn assisted pt to lay down in bed.
--- NOTE | 2020-08-17 14:21 | NUR ---
THIS RN IN PTS ROOM WITH [facility] STUDENT SINA. PT ORGINALLY APPEARED TO BE SLEEPING COMFORTBALY BUT PT THEN PT BEGAN TO SAY "OUCH" IN HIS SLEEP. THIS RN GENTLY WOKE PT UP AND ASKED IF PT WAS IN PAIN. PT STATED THAT HE WAS HAVING PAIN 02/24, THIS RN DISCUSSED WITH PT THAT HE LOOKED LIKE HE WAS IN MORE PAIN THAN THAT, PT STATED THAT HE HAS A HIGH PAIN TOLERANCE. THIS RN AND [facility] FEED MIXER HELPER SINA PROVIDED PT WITH 1 PERCOCET AND 600MG OF MOTIRN. PT VERY THANKFUL THAT STAFF CAM TO CHECK ON HIM. PT NEEDED ASSISTANCE TO LOG ROLL TO THE SIDE. [facility] FEED MIXER HELPER PROVIDED PT WITH WARM BLANKETS TO ASSIST WITH PTS RESTLESS LEG SITUATION. THIS RN OFFERED PT TO GET UP AND WALK, PT STATES THAT HE WOULD LIKE TO GET SOME REST AND WALK LATER THIS AFTERNOON. THIS RN WILL CONTINUE TO MOINTOR PT FOR PAIN AND RESTLESS LEG.
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
--- NOTE | 2020-08-17 16:00 | NUR ---
CALL LIGHT ANSWERED. PATIENT RESTING IN BED. PATIENT GOES TO WALK IN THE HALLWAY. ONE PERSON ASSISTING WITH WALKER AND BACK BRACE. PATIENT BACKS TO ROOM AND USES THE BATHROOM. PATIENT BACKS TO CHAIR. ICE WATER GIVEN. CALL LIGHT WITHIN REACH. NO OTHER NEEDS AT THIS TIME
--- NOTE | 2020-08-17 18:36 | NUR ---
PATIENT IN CHAIR WATCHING TV, BRACE ON. NO VOID, RN NOTIFIED. PATIENT REFUSED TO GET UP AND TRY AT THIS TIME. CALL LIGHT IN REACH. NO FURTHER NEEDS AT THIS TIME.
--- NOTE | 2020-08-17 19:29 | NUR ---
BEDSIDE REPORT RECEIVED FROM PEDRO LUIS GAMBLE. pt UP IN CHAIR, BRACE IN PLACE. DENIES NEEDS, TALKING TO ON PHONE. CALL LIGHT IN REACH.
--- NOTE | 2020-08-17 20:10 | NUR ---
IV PUMP ALARMING DISTAL OCCLUSION. IVF NOW INFUSING WNL. pt SITTING UP IN CHAIR, APPEARS TO BE SLEEPING, EYES CLOSED, BREATHING UNLABORED. BRACE IN PLACE.
--- NOTE | 2020-08-17 21:06 | NUR ---
pt UP IN CHAIR. BRACE IN PLACE. VSS. pt RATES PAIN 5/10 STATES "I'M PRETTY COMFORTABLE RIGHT NOW". ASSESSMENT COMPLETE. LUNGS SOUNDS CLEAR. TINGLING BUE, BLE CHRONIC PER pt. pt DENIES TOILETING NEEDS AT THIS TIME. ICE WATER PROVIDED. CALL LIGHT AND PERSONAL SUPPLIES IN REACH.
--- NOTE | 2020-08-17 22:30 | NUR ---
PATIENT AMBULATED ON THE HALLWAY X1. PATIENT USED THE RESTROOM BUT UNABLE TO VOID. PATIENT IS BACK IN BED. BLADDER SCANNED. CALL LIGHT IN REACH.
--- NOTE | 2020-08-17 22:45 | NUR ---
pt C/O 5/10 PAIN IN BACK, PRN PAIN MEDICATIONS ADMINISTERED. SBA WITH KRISTINA HUDDLESTON TO AMBULATE HALLWAY. UP TO RESTROOM. NEW BED IN ROOM PER pt REQUEST, COMPLAINT OF CURRENT BED MATTRESS. pt UNABLE TO VOID AT THIS TIME. KRISTINA HUDDLESTON IN ROOM FOR BLADDER SCAN.
--- NOTE | 2020-08-17 22:56 | NUR ---
BLADDER SCAN FOR 468 MLS, pt RESTING IN BED, REQUESTING "MORE TIME, IT WILL COME BEFORE YOU PUT A TUBE BACK IN". WILL CONTINUE TO MONITOR FOR URINE OUTPUT. URINAL PROVIDED. CALL LIGHT IN REACH.
--- NOTE | 2020-08-18 01:51 | NUR ---
pt UNABLE TO VOID. C/O DISCOMFORT. PHONED, TELEPHONE ORDERS FOR BAINS PLACEMENT AND PO MEDICATION REPEATED BACK TO VERIFY. IV NOTED TO BE INFILTRATED AT THIS TIME, FLUIDS STOPPED.
--- NOTE | 2020-08-18 02:55 | NUR ---
IN pt ROOM FOR BAINS INSERTION, SBA TO RESTROOM WITH FWW FOR ADDITIONAL ATTEMPT AT VOID, pt UNABLE TO VOID. BAINS PLACED WITH 575 MLS CONCENTRATED URINE OUT. NEW IV STARTED RIGHT WRIST, IVF INFUSING WNL. SCHEDULED FLOMAX ADMINISTERED. ASSESSMENT COMPLETE. BRACE OFF pt BACK IN BED. CALL LIGHT IN REACH.
--- NOTE | 2020-08-18 06:07 | NUR ---
CALL LIGHT ANSWERED. NEW BAG IVF INFUSING WNL ORDERED. pt STATES PAIN IS MANAGABLE. PRN PAIN MEDICATION ADMINISTERED REQUEST FOR RATED 4-5/10 PAIN IN LOWER BACK. RESTING IN BED. VSS. URINE EMPTIED FROM BAINS. CALL LIGHT IN REACH.
--- NOTE | 2020-08-18 07:53 | NUR ---
this rn recieved report from sunshine zurita. pt appears to be resting comfortably this am after getting some pain meds. respirations noted even and normal this am.
--- NOTE | 2020-08-18 09:00 | NUR ---
PATIENT AWAKE IN BED, VITALS AND I&OS CHARTED. PATIENT AMBULTAED AROUND NURSES STATION 2X, SBA WITH FWW. BAINS EMPTIED. FACE AND HANDS WASHED CALL LIGHT IN REACH, NO OTHER NEEDS AT THIS TIME
--- NOTE | 2020-08-18 10:05 | NUR ---
this rn in pts room to give pt his morning meds. pt states that his pain is 4/10 and is tolerable. pt states that he doesn't want a pain med at this time due to it making him drowsy and he wants to be more alert when he goes home
--- NOTE | 2020-08-18 10:48 | NUR ---
FAXED THE MANDATORY IMPAIRMENT REFERRAL FORM THAT DR MILLAN FILLED OUT TO THE [facility]. DR MILLAN WANTED PATIENTS PCP TO SIGN ALSO, I CALLED DR BROWN OFFICE AND THEY SAID TO HAVE THE PATIENT BRING IT TO HIS NEXT APPOINTMENT. CHARGE NURSE AND COSTUME SHOP COORDINATOR TOLD ME TO GO AHEAD AND FAX IT AND THEN GIVE THE ORIGINAL TO THE . THAT WAY IT GETS SENT TO THE [facility]. COPY IN CHART.
[2020-08-18] MEDS ORDERED: IBUPROFEN600 MG PO (12:30)
[2020-08-18] MEDS ORDERED: ACETAMINOPHEN500 MG PO (12:31)
[2020-08-18] MEDS ORDERED: OXYCODON-ACETA1 EAC2 PO (12:31)
[2020-08-18] MEDS ORDERED: FLOMAX0.4 MG PO (12:32)
--- NOTE | 2020-08-18 13:38 | NUR ---
PT LAYING IN BED, DUE TO INJURY CANNOT SIT UP YET. HE IS ALERT AND ORIENTED. HAD POSITIVE VISIT, REQUESTED PRAYER AND LEFT G.POST. WILL FOLLOW
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
== END 2020-08-18 14:38 | disposition home or self-care (01) | DRG 552 ==
LOC: ED 14:53 → MS 18:10 → CCU 18:10 → MS 08-17 11:28
PROVIDERS: ADMIT Surgery; ATTEND Surgery
DX: S22.088A Other fracture of T11-T12 vertebra, initial encounter for closed fracture (principal); Z20.828 Contact with and (suspected) exposure to other viral communicable diseases; G43.909 Migraine, unspecified, not intractable, without status migrainosus; G25.81 Restless legs syndrome; R55 Syncope and collapse; R42 Dizziness and giddiness; E66.9 Obesity, unspecified; R33.9 Retention of urine, unspecified; V89.0XXA Person injured in unspecified motor-vehicle accident, nontraffic, initial encounter; Z79.899 Other long term (current) drug therapy; Z79.1 Long term (current) use of non-steroidal anti-inflammatories (NSAID); Z68.30 Body mass index [BMI] 30.0-30.9, adult; Z87.891 Personal history of nicotine dependence
CPT/HCPCS: 36415; 70450; 71045; 71260; 72125; 72170; 74177; 80053; 81001; 82150; 82550; 83690; 84484; 85025; 86850; 86900; 86901; 93005; 93010; 94760; 96374; 96375; 96376; 99285-25; A9270; C9803; G0480; J0131; J1170; J1885; J2060; J2270; J3010; J7030; J7121; U0003

== ENCOUNTER 2021-01-20 15:35 | Emergency (ER) | payer BC, MEDICARE ==
[~2021-01-20] VITALS: Ht 177.8 cm; Wt 88.5 kg
[~2021-01-20 15:35] MED LIST changes: +ACETAMINOPHEN500 MG PO; +DICLOFENAC SOD100 G1 TOP; +FLOMAX0.4 MG PO; +IBUPROFEN600 MG PO; +LIDOCAINE1 EACH TOP; +OXYCODON-ACETA1 EAC2 PO; +PRAMIPEXOLE DI1.5 MG PO
[2021-01-20] MEDS ORDERED: HYDROCODON-ACE1 EA10 PO (16:47)
[2021-01-20] MEDS ORDERED: BLEPH-105 ML OPTH (16:47)
== END 2021-01-20 16:56 | disposition home or self-care (01) ==
LOC: ED 15:35
DX: S05.01XA Injury of conjunctiva and corneal abrasion without foreign body, right eye, initial encounter (principal); W22.8XXA Striking against or struck by other objects, initial encounter; G43.909 Migraine, unspecified, not intractable, without status migrainosus; Z87.891 Personal history of nicotine dependence; Z79.899 Other long term (current) drug therapy
CPT/HCPCS: 99283

== ENCOUNTER 2021-02-19 20:47 | Emergency (ER) | payer BC, MEDICARE ==
[~2021-02-19] VITALS: Ht 177.8 cm; Wt 88.5 kg
[~2021-02-19 20:47] MED LIST changes: +BLEPH-105 ML OPTH; +HYDROCODON-ACE1 EA10 PO
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
[2021-02-19] MEDS ORDERED: GABAPENTIN300 MG PO (21:40)
[2021-02-19] MEDS ORDERED: HYDROCODON-ACE1 EA10 PO (22:44)
[2021-02-19] MEDS ORDERED: FAMCICLOVIR500 MG PO (22:44)
== END 2021-02-19 22:56 | disposition home or self-care (01) ==
LOC: ED 20:47
DX: B02.9 Zoster without complications (principal); G43.909 Migraine, unspecified, not intractable, without status migrainosus; Z79.899 Other long term (current) drug therapy
CPT/HCPCS: 99282

== ENCOUNTER 2021-02-27 08:31 | Emergency (ER) | payer BC, MEDICARE ==
[~2021-02-27] VITALS: Ht 177.8 cm; Wt 88.5 kg
[~2021-02-27 08:31] MED LIST changes: +FAMCICLOVIR500 MG PO; +GABAPENTIN300 MG PO
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
[2021-02-27] MEDS ORDERED: PERCOCET 7.5-31 EACH PO (11:11)
== END 2021-02-27 11:20 | disposition home or self-care (01) ==
LOC: ED 08:31
DX: B02.9 Zoster without complications (principal); M25.551 Pain in right hip; M79.604 Pain in right leg; G43.909 Migraine, unspecified, not intractable, without status migrainosus; Z87.891 Personal history of nicotine dependence; Z79.899 Other long term (current) drug therapy
CPT/HCPCS: 73502; 96372; 99283-25; J1170; J1885

== ENCOUNTER 2021-06-23 18:44 | Emergency (ER) | payer BC, MEDICARE ==
[~2021-06-23] VITALS: Ht 182.9 cm; Wt 88.5 kg
[~2021-06-23 18:44] MED LIST changes: +PERCOCET 7.5-31 EACH PO
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
== END 2021-06-23 22:47 | disposition home or self-care (01) ==
LOC: ED 18:44
DX: M54.50 Low back pain, unspecified (principal); G89.29 Other chronic pain; G43.909 Migraine, unspecified, not intractable, without status migrainosus; Z87.891 Personal history of nicotine dependence; Z79.899 Other long term (current) drug therapy
CPT/HCPCS: 72128; 72131; 96372; 99283-25; J1885; J2270

== ENCOUNTER 2021-09-11 03:56 | Emergency (ER) | payer BC, MEDICARE ==
[~2021-09-11] VITALS: Ht 182.9 cm; Wt 88.5 kg
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
[2021-09-11] MEDS ORDERED: MEDI-MECLIZINE25 MG PO (04:15)
[2021-09-11] MEDS ORDERED: CYCLOBENZAPRINE10 MG PO (06:35)
== END 2021-09-11 06:53 | disposition home or self-care (01) ==
LOC: ED 03:56
DX: M54.2 Cervicalgia (principal); G89.29 Other chronic pain; G43.909 Migraine, unspecified, not intractable, without status migrainosus; Z87.891 Personal history of nicotine dependence; Z79.899 Other long term (current) drug therapy
CPT/HCPCS: 70450; 72125; 96374; 96375; 99283-25; J1170; J2060; J2405

== ENCOUNTER 2021-10-02 06:31 | Emergency (ER) | payer BC, MEDICARE ==
[~2021-10-02] VITALS: Ht 182.9 cm; Wt 95.2 kg
[~2021-10-02 06:31] MED LIST changes: +MEDI-MECLIZINE25 MG PO
--- OUTSIDE RECORDS SUMMARY | 2021-10-02 06:34 | XMS ---
PreManage Notification: SHEELA STEVENS Security Line And Frame Poler Events No recent Security Events currently on file CRITERIA MET - [facility] - [facility] - 2 Visits in 30 Days CARE PROVIDERS SHAMIKA KEY Nurse Practitioner: 07/19/2018-Current PHONE: Unknown MINOO MCGARRY [facility] 02/21/2021-Current PHONE: [phone] [facility]-Current PHONE: [phone] Galindo has no Care Guidelines for this patient. Care History Medical/Surgical 03/07/2021 [facility] - PATIENT WAS SEEN ON 06/16/21 FOR AN ER FOLLOW UP WITH PCP DR MCGARRY. NO FURTHER CONCERNS AT THIS TIME PER PCP OFFICE. ECeasarDCeasar VISIT COUNT (12 MO.) 6 [facility] TOTAL 6 NOTE: Visits indicate total known visits. ED/UCC VISIT TRACKING (12 MO.) 10/02/2021 06:32 [facility] [place] TYPE: Emergency COMPLAINT: - R SIDE PAIN 09/11/2021 03:56 [facility] [place] TYPE: Emergency COMPLAINT: - NECK PAIN DIAGNOSES: - Cervicalgia - Other chronic pain - Personal history of nicotine dependence - Other skilled nursing (current) drug therapy - Migraine, unspecified, not intractable, without status migrainosus 06/23/2021 18:44 [facility] [place] TYPE: Emergency COMPLAINT: - BACK PAIN/INJURY DIAGNOSES: - Migraine, unspecified, not intractable, without status migrainosus - LOW BACK PAIN, UNSPECIFIED - Other chronic pain - Personal history of nicotine dependence - Other skilled nursing (current) drug therapy - Pain in thoracic spine 02/27/2021 08:32 [facility] [place] TYPE: Emergency COMPLAINT: - R HIP PAIN DIAGNOSES: - Pain in right leg - Migraine, unspecified, not intractable, without status migrainosus - Other terminal gauger (current) drug therapy - Zoster without complications - Personal history of nicotine dependence - Pain in right hip 02/19/2021 20:48 [facility] [place] TYPE: Emergency COMPLAINT: - RASH ON RT THIGH DIAGNOSES: - Migraine, unspecified, not intractable, without status migrainosus - Zoster without complications - Other skilled nursing (current) drug therapy - Rash and other nonspecific skin eruption 01/20/2021 15:36 [facility] [place] [facility] COMPLAINT: - R EYE FOREIGN OBJECT DIAGNOSES: - Migraine, unspecified, not intractable, without status migrainosus - Other terminal gauger (current) drug therapy - Striking against or struck by other objects, initial encounter - Injury of conjunctiva and corneal abrasion without foreign body, right eye, initial encounter - Personal history of nicotine dependence INPATIENT VISIT TRACKING (12 MO.) 10/15/2020 07:43 [facility] [place] TYPE: Neuro Surgery DIAGNOSES: . Spinal stenosis, thoracic region . Stable burst fracture of unspecified thoracic vertebra, initial encounter for closed fracture . Unstable burst fracture of T11-T12 vertebra, subsequent encounter for fracture with nonunion [email or web address]
[2021-10-02] MEDS ORDERED: NEUPRO1 EACH TD (06:51)
[2021-10-02] MEDS ORDERED: HYDROCODON-ACE1 EA11 PO (09:38)
[2021-10-02] MEDS ORDERED: FLOMAX0.4 MG PO (09:38)
[2021-10-02] MEDS ORDERED: ONDANSETRON ODT8 MG PO (09:38)
== END 2021-10-02 11:15 | disposition home or self-care (01) ==
LOC: ED 06:31
DX: N13.2 Hydronephrosis with renal and ureteral calculous obstruction (principal); G25.81 Restless legs syndrome; G43.909 Migraine, unspecified, not intractable, without status migrainosus; Z87.891 Personal history of nicotine dependence; Z79.899 Other long term (current) drug therapy
CPT/HCPCS: 74177; 80053; 81001; 83690; 85025; 96375; 96376; 99284-25; A9270; J1170; J1885; J2405; J7030; Q9967

== ENCOUNTER 2021-10-08 02:03 | Emergency (ER) | payer BC, MEDICARE ==
[~2021-10-08] VITALS: Ht 182.9 cm; Wt 95.3 kg
[~2021-10-08 02:03] MED LIST changes: +HYDROCODON-ACE1 EA11 PO; +NEUPRO1 EACH TD; +ONDANSETRON ODT8 MG PO
--- OUTSIDE RECORDS SUMMARY | 2021-10-08 02:06 | XMS ---
PreManage Notification: SHEELA STEVENS Security Lastex Thread Winder Events No recent Security Events currently on file CRITERIA MET - [facility] - [facility] - 2 Visits in 30 Days CARE PROVIDERS SHAMIKA KEY Nurse Practitioner: 07/19/2018-Current PHONE: Unknown MINOO MCGARRY [facility] 02/21/2021-Current PHONE: [phone] [facility]-Current PHONE: [phone] Galindo has no Care Guidelines for this patient. Care History Medical/Surgical 03/07/2021 [facility] - PATIENT WAS SEEN ON 06/16/21 FOR AN ER FOLLOW UP WITH PCP DR MCGARRY. NO FURTHER CONCERNS AT THIS TIME PER PCP OFFICE. EShayne VISIT COUNT (12 MO.) 7 [facility] TOTAL 7 NOTE: Visits indicate total known visits. ED/UCC VISIT TRACKING (12 MO.) 10/08/2021 02:04 [facility] [place] TYPE: Emergency COMPLAINT: - MIGRAINE 10/02/2021 06:32 [facility] [place] TYPE: Emergency COMPLAINT: - R SIDE PAIN DIAGNOSES: - Unspecified abdominal pain - Restless legs syndrome - Hydronephrosis with renal and ureteral calculous obstruction - Other penitentiary (current) drug therapy - Migraine, unspecified, not intractable, without status migrainosus - Personal history of nicotine dependence 09/11/2021 03:56 [facility] [place] TYPE: Emergency COMPLAINT: - NECK PAIN DIAGNOSES: - Cervicalgia - Other chronic pain - Personal history of nicotine dependence - Other penitentiary (current) drug therapy - Migraine, unspecified, not intractable, without status migrainosus 06/23/2021 18:44 [facility] [place] TYPE: Emergency COMPLAINT: - BACK PAIN/INJURY DIAGNOSES: - Migraine, unspecified, not intractable, without status migrainosus - LOW BACK PAIN, UNSPECIFIED - Other chronic pain - Personal history of nicotine dependence - Other penitentiary (current) drug therapy - Pain in thoracic spine 02/27/2021 08:[address] [facility] [address] [facility] [place] TYPE: Emergency COMPLAINT: - R HIP PAIN DIAGNOSES: - Pain in right leg - Migraine, unspecified, not intractable, without status migrainosus - Other termite exterminator helper (current) drug therapy - Zoster without complications - Personal history of nicotine dependence - Pain in right hip 02/19/2021 20:48 [facility] [place] [facility] [place] TYPE: Emergency COMPLAINT: - RASH ON RT THIGH DIAGNOSES: - Migraine, unspecified, not intractable, without status migrainosus - Zoster without complications - Other penitentiary (current) drug therapy - Rash and other nonspecific skin eruption 01/20/2021 15:[address] [facility] [address] [facility] [place] TYPE: Emergency COMPLAINT: - R EYE FOREIGN OBJECT DIAGNOSES: - Migraine, unspecified, not intractable, without status migrainosus - Other penitentiary (current) drug therapy - Striking against or struck by other objects, initial encounter - Injury of conjunctiva and corneal abrasion without foreign body, right eye, initial encounter - Personal history of nicotine dependence INPATIENT VISIT TRACKING (12 MO.) 10/15/2020 07:43 [facility] [place] TYPE: Neuro Surgery DIAGNOSES: . Spinal stenosis, thoracic region . Stable burst fracture of unspecified thoracic vertebra, initial encounter for closed fracture . Unstable burst fracture of T11-T12 vertebra, subsequent encounter for fracture with nonunion [email or web address]
== END 2021-10-08 06:39 | disposition home or self-care (01) ==
LOC: ED 02:03
DX: U07.1 COVID-19 (principal); Z23 Encounter for immunization; G43.909 Migraine, unspecified, not intractable, without status migrainosus; Z87.891 Personal history of nicotine dependence; Z88.5 Allergy status to narcotic agent; Z79.899 Other long term (current) drug therapy
CPT/HCPCS: 70450; 96374; 96375; 99284-25; C9803; J1200; J1885; J2765; J7040; M0247; U0003

== ENCOUNTER 2025-07-21 04:53 | Emergency (ER) | payer BC, MEDICARE, OTHER ==
[~2025-07-21] VITALS: Ht 182.9 cm; Wt 95.0 kg
[~2025-07-21 04:53] MED LIST changes: +NEUPRO1 EAC5 TD
[2025-07-21] MEDS ORDERED: LIDOCAINE HCL 4% 50 ML BTL TOP ONE (05:15)
[2025-07-21] MEDS ORDERED: FLUCONAZOLE 200 MG TAB PO ONE (05:15)
[2025-07-21] MEDS ORDERED: FLUCONAZOLE200 MG PO (05:50)
[2025-07-21] MEDS ORDERED: TRAMADOL HCL 50 MG HOME.PACK PO ONE (06:00)
[2025-07-21] MEDS ORDERED: FLU (Fluad) 2025-26 (65UP)/MF59C/PF 45 MCG/0.5 ML IM ONE (06:00)
[2025-07-21] MEDS ORDERED: HYDROCODONE/APAP 10/325 1 TAB PO ONE (06:00)
[2025-07-21 06:35] VITALS: BP 128/81
== END 2025-07-21 06:36 | disposition home or self-care (01) ==
LOC: ED 04:53
DX: K12.1 Other forms of stomatitis (principal); R51.9 Headache, unspecified; Z79.899 Other long term (current) drug therapy; Z88.5 Allergy status to narcotic agent; Z87.891 Personal history of nicotine dependence
CPT/HCPCS: 70450; 90471; 90653; 99284-25; A9270